=== PATIENT | male | born 1970 | race Caucasian/White ===

== ENCOUNTER 2021-12-29 11:50 | Emergency (ER) | payer MEDICAID, SELFPAY ==
[2021-12-29 11:54] VITALS: BP 171/106; PULSE 120; RESP 20; TEMP 36.3; O2SAT 95; BMI 45.1
[2021-12-29 12:42] VITALS: TEMP 36.7
--- NOTE | 2021-12-29 13:07 | EDS_ITS ---
HPI History of Present Illness Chief Complaint: Abscess Informant: patient Onset/Context/Timing Onset: Days (3) Context: Gradual Onset Timing: Continuous Quality: sharp, burning Location: Right medial thigh Worsened by: Nothing Relieved by: Nothing Narrative Narrative: Patient presents with an abscess to his right medial thigh that has been getting worse over the last 3 days. Patient states it started out as a dime size area and has now spread to most of his medial thigh. Patient denies any discharge or drainage. Patient denies any fevers or chills. Patient describes the pain as sharp and burning. Patient denies any paresthesias or weakness. Patient states nothing makes the pain better nothing makes it worse. [facility] Medical History (Updated 12/29/21 @ 16:[address] Andrea Herr DO) Diabetes Hypertension Physical exam, pre-employment Home Medications clindamycin HCl [Cleocin HCl] 300 mg PO Q6H #40 capsule 12/29/21 [Rx Last Taken Unknown] hydrocodone-acetaminophen 1 tab PO Q6H PRN PRN 3 Days #10 tablet 12/29/21 [Rx Last Taken Unknown] insulin detemir U-100 [Levemir Flexpen] 40 unit SUBCUT QHS 12/29/21 [History Last Taken 12/28/21] losartan 100 mg PO DAILY 12/29/21 [History Last Taken Unknown] Allergy/AdvReac Type Severity Reaction Status Date / Time Penicillins Allergy Hives Verified 12/29/21 11:51 Surgical History (Updated 12/29/21 @ 13:[address] Andrea Herr DO) H/O right wrist surgery Social History Smoking Status: Former smoker ROS ROS ED Constitutional Constitutional ED: Denies chills or fever(s) Eyes Eyes: Denies blurry vision or change in vision ENT ENT ED: Denies rhinorrhea or sore throat Cardiovascular Cardiovascular: Denies chest pain or palpitations Respiratory/Chest Respiratory/Chest: Denies cough or dyspnea Gastrointestinal Gastrointestinal: Denies nausea or vomiting Genitourinary Genitourinary ED: Denies dysuria or hematuria Musculoskeletal Musculoskeletal: Reports back pain and neck pain Integumentary Reports abscess and rash Neurologic Neurologic: Denies headache(s) or weakness Allergic/Immunologic Allergic/Immunologic ED: Denies mouth swelling or urticaria EXAM Physical Exam Const Vital Signs: 12/29/21 11:54 12/29/21 12:42 12/29/21 13:56 Temperature 97.3 F L 98.1 F 97.8 F Temperature Source Temporal Oral Temporal Pulse Rate 120 H 92 Respiratory Rate 20 H 18 Blood Pressure 171/106 H 150/90 H Blood Pressure Mean 127 110 Pulse Ox 95 92 Oxygen Delivery Method Room Air Room Air 12/29/21 16:43 Temperature Temperature Source Pulse Rate 91 Respiratory Rate 16 Blood Pressure Blood Pressure Mean Pulse Ox 98 Oxygen Delivery Method Positive well nourished, well developed and obese General Appearance ED: well developed and NAD Nutritional Appearance: obese HEENT Reports moist mucous membranes Neck supple and no JVD Extremity Extremity Narrative: There is an abscess over the right medial thigh area. There is significant surrounding induration and cellulitis. There is no active discharge or drainage. There is warmth. There is diffuse tenderness over the area. There is no active discharge or drainage. Neuro oriented x3, CN's II-XII intact bilaterally and no sensory deficits noted Sensorium / Orientation: alert Motor Exam: strength 5/5 throughout Psych mental status grossly normal MDM MDM MDM Narrative Medical decision making narrative: Patient was given morphine and clindamycin initially. Patient was given a repeat dose of morphine. Patient had minimal improvement with this. Patient was given a dose of Dilaudid. CBC shows a mild leukocytosis of 12.4. PT with INR and PTT are within normal limits. Comprehensive metabolic profile showed a glucose of 276. The remainder was within normal limits. Lactate was 1.9. The right medial thigh area was cleaned and anesthetized 1% lidocaine locally. A cruciate incision was made over the area of fluctuance. Large amount of purulent drainage was expressed. The wound was irrigated with normal saline. Patient also requested that the skin tag that is near the area of abscess be removed. Since it was under the area of anesthesia, this was removed with an 11 blade scalpel as well. Patient tolerated the procedure well. Patient was given prescriptions for clindamycin and a short course of [place]. Patient was instructed to follow-up with his primary care physician in 5 to 7 days. Patient understood and was agreeable with the plan. All questions were answered. Lab Data Attestation: I reviewed the patient's lab results. Labs: Laboratory Results - last 24 hr 12/29/21 12/29/21 12/29/21 13:44 13:44 13:44 WBC 12.4 H RBC 5.46 Hgb 16.0 Hct 48.1 MCV 88.1 MCH 29.3 MCHC 33.3 RDW Std Deviation 39.0 RDW Coeff of Jax 12.2 Plt Count 234 MPV 10.5 Immature Gran % (Auto) 0.500 Neut % (Auto) 75.9 H Lymph % (Auto) 15.1 L [place] % (Auto) 7.9 Eos % (Auto) 0.4 Baso % (Auto) 0.2 Absolute Neuts (auto) 9.4 H Absolute Lymphs (auto) 1.88 Nucleated RBC % 0 PT 13.2 INR 1.0 APTT 32.7 Sodium 135 L Potassium 3.9 Chloride 101 Carbon Dioxide 26.0 Anion Gap 8 BUN 13 Creatinine 0.83 Estim Creat Clear Calc 101.87 Est GFR (MDRD) Af Amer 125 Est GFR (MDRD) Non-Af 103 BUN/Creatinine Ratio 15.6 Glucose 276 H Lactic Acid Calcium 9.4 Total Bilirubin 1.20 H AST 16 ALT 49 Alkaline Phosphatase 100 Total Protein 8.2 Albumin 3.6 Globulin 4.6 H Albumin/Globulin Ratio 0.8 L 12/29/21 13:44 WBC RBC Hgb Hct MCV MCH MCHC RDW Std Deviation RDW Coeff of Jax Plt Count MPV Immature Gran % (Auto) Neut % (Auto) Lymph % (Auto) [place] % (Auto) Eos % (Auto) Baso % (Auto) Absolute Neuts (auto) Absolute Lymphs (auto) Nucleated RBC % PT INR APTT Sodium Potassium Chloride Carbon Dioxide Anion Gap BUN Creatinine Estim Creat Clear Calc Est GFR (MDRD) Af Amer Est GFR (MDRD) Non-Af BUN/Creatinine Ratio Glucose Lactic Acid 1.9 Calcium Total Bilirubin AST ALT Alkaline Phosphatase Total Protein Albumin Globulin Albumin/Globulin Ratio Discharge Plan Triage Chief Complaint: Abscess ED Provider: Andrea Herr Dx/Rx/DC Orders Clinical Impression: Abscess of right thigh, Cellulitis of right thigh, Diabetes mellitus Instructions: ED Abscess Incision And Drainage, ED Cellulitis Prescriptions: New clindamycin HCl [Cleocin HCl] 300 MG capsule 300 mg PO Q6H Qty: 40 RF: 0 hydrocodone-acetaminophen [hydrocodone-acetaminophen] 1 TABLET tablet 1 tab PO Q6H PRN PRN (Reason: Pain) 3 Days Qty: 10 RF: 0 No Action losartan 100 mg tablet 100 mg PO DAILY RF: 0 Levemir Flexpen 100 unit/mL (3 mL) Insulin Pen 40 unit SUBCUT QHS RF: 0 Stand Alone Forms: ED Work / School Excuse Primary Care Provider: Care Physician,No Primary Referrals: Milton Post MD [NON-STAFF] - 5-7 Days Care Physician,No Primary [Primary Care Provider] - Disposition Disposition: Home, Self Care Discharge Date/Time: 12/29/21 16:46
[2021-12-29] MEDS: 0.9% Normal Saline 1,000 ML 1000 ML IV (13:36)
[2021-12-29] MEDS: Morphine 4 MG/ML Syringe IV ×2 (13:36→14:35)
--- NOTE | 2021-12-29 13:40 | CM.ED ---
Social Work Note Reason for Referral: No PCP SW reviewed chart, no PCP listed for pt. SW met with pt. Pt confirms he has no PCP. SW provided pt with list of PCP. Magdalene Alanis [employer], RHIT
[2021-12-29 13:52] LABS: Absolute Lymphocyte Count 1.88 X10^3/uL (0.83-4.51); Absolute Neutrophil Count 9.4 X10^3/uL (2.0-7.7); Basophil# 0.03 X10^3/uL; Basophil% 0.2 % (0-1); Eosinophil# 0.05 X10^3/uL; Eosinophils% 0.4 % (0-5); Hematocrit 48.1 % (40-54); Lymphocyte # 1.88 X10^3/ul (0.83-4.51); Lymphocyte % 15.1 % (19-41); Mean Corp Hgb Conc 33.3 g/dL (32-36); Mean Corpuscular Hgb 29.3 pg (27.0-32.0); Mean Corpuscular Volume 88.1 fL (80-94); Mean Platelet Vol. 10.5 fl (6.2-12.0); Monocyte# 0.98 X10^3/uL; Monocyte% 7.9 % (0-10); NRBC Flagged by Analyzer 0 % (0-5); Neutrophil # 9.44 X10^3/uL (2.7-7.7); Neutrophil % 75.9 % (47-70); Platelet Count 234 K/mm3 (150-450); RBC Distribution Width CV 12.2 % (11.6-14.6); Red Blood Count 5.46 M/mm3 (4.6-6.2); White Blood Count 12.4 K/mm3 (4.4-11.0)
[2021-12-29] MEDS: levoFLOXacin IV 500 MG/100 ML BAG 100 MG IV (13:53)
[2021-12-29] MEDS: Doxycycline 100 MG CAPSULE PO (13:53)
[2021-12-29 13:56] VITALS: BP 150/90; PULSE 92; RESP 18; TEMP 36.6; O2SAT 92
[2021-12-29 14:03] LABS: Prothrombin Time (Protime)PT. 13.2 SECONDS (11.7-14.9)
[2021-12-29 14:04] LABS: Partial Thromboplast Time 32.7 Seconds (24.1-36.2)
[2021-12-29 14:10] LABS: ALB/GLOB Ratio 0.8 RATIO (0.9-2.4); AST(SGOT) 16 U/L (15-37); Alanine Aminotransfer ALT/SGPT 49 U/L (16-61); Albumin, Serum 3.6 g/dL (3.2-5.0); Alkaline Phosphatase 100 U/L (45-117); Anion Gap 8 (5-15); BUN 13 mg/dL (7-18); BUN/Creat Ratio 15.6 RATIO (10-20); Calcium,Total 9.4 mg/dL (8.5-10.1); Chloride 101 mmol/L (98-107); Creatinine, Serum 0.83 mg/dL (0.70-1.30); EST Glomerular Filtration Rate 103 mL/min (>60); Est Glom Filt Rate - Afr Amer 125 mL/min (>60); Estimated Creatinine Clearance 101.87 ml/min; Globulin 4.6 g/dL (2.2-4.2); Glucose 276 mg/dL (74-106); Potassium 3.9 mmol/L (3.5-5.1); Protein, Total 8.2 g/dL (6.4-8.2); Sodium Level 135 mmol/L (136-145)
[2021-12-29] MEDS: Lidocaine 1% (20 ml mdv) 20 ML Vial INFILT (14:38)
[2021-12-29 14:42] LABS: Lactic Acid 1.9 mmol/L (0.4-1.9)
[2021-12-29] MEDS: HYDROmorphone 1 MG/ML Syringe 0.5 MG IV ×2 (15:23→16:40)
[2021-12-29 16:43] VITALS: PULSE 91; RESP 16; O2SAT 98
== END 2021-12-29 16:46 | disposition home or self-care (01) ==
PROVIDERS: Emergency Provider Emergency Medicine; Visit Provider Emergency Medicine
DX: L02.415 Cutaneous abscess of right lower limb (principal); E11.9 Type 2 diabetes mellitus without complications; Z79.4 Long term (current) use of insulin; L03.115 Cellulitis of right lower limb; L91.8 Other hypertrophic disorders of the skin; I10 Essential (primary) hypertension; E66.9 Obesity, unspecified; Z79.899 Other long term (current) drug therapy; Z87.891 Personal history of nicotine dependence
CPT/HCPCS: 11200; 10060; 80053; 83605; 85025; 85610; 85730; 87040; 96365; 96375; 96376; 99284; J7030; J7050; A4216

== ENCOUNTER 2022-01-02 11:09 | Observation (INO) | payer MEDICAID, SELFPAY ==
[2022-01-02] VITALS (22 sets, daily range): BP systolic 134–189; BP diastolic 83–114; PULSE 101–128; RESP 14–22; TEMP 36.2–36.8; O2SAT 92–97; BMI 42.5; BMI 43.5
--- NOTE | 2022-01-02 11:24 | EKG12_ITS ---
Test Reason : CP Blood Pressure : / mmHG Vent. Rate : 120 BPM Atrial Rate : 120 BPM P-R Int : 160 ms QRS Dur : 080 ms QT Int : 312 ms P-R-T Axes : 056 -21 038 degrees QTc Int : 440 ms Sinus tachycardia Nonspecific ST abnormality Abnormal ECG Confirmed by BRIELLE MEADOWS, ANDRZEJ ([id number]), video effects editor SASCHA PARKS ([id number]) on 01/06/2022 9:01:21 AM Referred By: TANYA Confirmed By:ANDRZEJ HANNAH MD
--- NOTE | 2022-01-02 11:24 | CT_ITS ---
STUDY: CTA CHEST REASON FOR EXAM: Male, 51 years old. chest pain right RADIATION DOSAGE (If Supplied By Facility): CTDIvol = ( 12.63 ) mGy, DLP = ( 636.12 ) mGycm TECHNIQUE: The examination was performed with the intravenous administration of IV 75mL Isovue-370. Post-processing of the angiographic images was performed, with multiplanar reformation and 3D reconstruction. Individualized dose optimization techniques were used for this CT. COMPARISON: None. FINDINGS: Normal enhancement of the main pulmonary artery and right and left pulmonary arteries. Normal enhancement of the bilateral peripheral pulmonary arteries. There is no demonstrated pulmonary embolism. Normal thoracic aorta and visualized great vessels. There is no demonstrated aortic dissection. Normal heart and pericardium. Normal mediastinum. Normal hilar regions. Normal visualized trachea and bronchi. The lungs are well expanded. Normal pulmonary parenchyma. Normal pleura. Normal chest wall structures. Normal osseous structures. Normal visualized upper abdomen. CT/CTA Chest W/WO Contrast IMPRESSION: Normal CTA chest examination, without a demonstrated pulmonary embolism or arterial dissection. Electronically Signed: Umair Tran MD at 13:09 EDT ,
--- NOTE | 2022-01-02 11:27 | EX.ED.DYSGE1 ---
HPI History of Present Illness Chief Complaint: Chest Pain Informant: patient Onset/Context/Timing Onset: Yesterday Context: Gradual Onset Timing: Waxes and wanes Quality: Chart Location: Right lower chest Current Severity: Moderate Maximum Severity: Moderate Narrative Narrative: Patient presents secondary to chest pain and shortness of breath that started last evening. Patient was seen in the ER on December 29 for a right medial thigh abscess. I&D was performed and he was started on clindamycin. Patient states the area is scabbed over yesterday and is no longer draining. It became more painful last evening. Last night he developed sharp right-sided chest pain with shortness of breath. He denies fever or chills. He states in the past he was told he had heart failure but did not have a heart attack. [facility] Medical History Diabetes Hypertension Physical exam, pre-employment Home Medications clindamycin HCl [Cleocin HCl] 300 mg PO Q6H #40 capsule 12/29/21 [Rx Last Taken Unknown] hydrocodone-acetaminophen 1 tab PO Q6H PRN PRN 3 Days #10 tablet 12/29/21 [Rx Last Taken Unknown] insulin detemir U-100 [Levemir Flexpen] 40 unit SUBCUT QHS 12/29/21 [History Last Taken 12/28/21] losartan 100 mg PO DAILY 12/29/21 [History Last Taken Unknown] Allergy/AdvReac Type Severity Reaction Status Date / Time Penicillins Allergy Hives Verified 01/02/22 11:12 Surgical History H/O right wrist surgery Social History Smoking Status: Former smoker ROS ROS ED Constitutional Constitutional ED: Denies chills or fever(s) Eyes Eyes: Denies change in vision ENT ENT ED: Denies sore throat Cardiovascular Cardiovascular: Reports chest pain Respiratory/Chest Respiratory/Chest: Reports dyspnea; Denies cough Gastrointestinal Gastrointestinal: Denies abdominal pain, nausea or vomiting Genitourinary Genitourinary ED: Denies dysuria Musculoskeletal Musculoskeletal: Reports myalgias; Denies back pain Integumentary Reports abscess; Denies rash Neurologic Neurologic: Denies headache(s) or weakness Allergic/Immunologic Allergic/Immunologic ED: Denies urticaria EXAM Physical Exam Const Vital Signs: 01/02/22 11:09 01/02/22 12:10 01/02/22 13:07 Temperature 97.2 F L Temperature Source Temporal Pulse Rate 123 H 115 H 113 H Respiratory Rate 20 H 14 19 H Blood Pressure 168/100 H 165/90 H Blood Pressure Mean 122 115 Pulse Ox 95 93 92 Oxygen Delivery Method Room Air Room Air Positive obese Nutritional Appearance: obese HEENT Reports moist mucous membranes Eyes PERRL and EOMs intact bilaterally Neck supple Chest Wall inspection of chest normal and palpation of chest normal Resp normal respiratory effort and clear to auscultation bilaterally Cardio Rate: tachycardic GI non-tender Palpation: soft Extremity Extremity Narrative: Induration with cutaneous abscess medial right thigh with surrounding cellulitis. Neuro oriented x3 Sensorium / Orientation: alert Psych Mood & Affect: anxious MDM MDM MDM Narrative Medical decision making narrative: Patient was given Dilaudid and Zofran for pain control. Lab work obtained along with blood cultures. IV vancomycin given secondary to cellulitis. CTA of the chest ordered. Lab Data Attestation: I reviewed the patient's lab results. Labs: Laboratory Results - last 24 hr 01/02/22 01/02/22 11:15 11:15 WBC 12.7 H RBC 5.43 Hgb 15.9 Hct 48.4 MCV 89.1 MCH 29.3 MCHC 32.9 RDW Std Deviation 40.2 RDW Coeff of Jax 12.3 Plt Count 312 MPV 10.2 Immature Gran % (Auto) 0.600 Neut % (Auto) 70.7 H Lymph % (Auto) 16.4 L [place] % (Auto) 11.1 H Eos % (Auto) 0.9 Baso % (Auto) 0.3 Absolute Neuts (auto) 9.0 H Absolute Lymphs (auto) 2.09 Nucleated RBC % 0 Sodium 132 L Potassium 4.2 Chloride 98 Carbon Dioxide 25.0 Anion Gap 9 BUN 29 H Creatinine 1.07 Estim Creat Clear Calc 79.02 Est GFR (MDRD) Af Amer 94 Est GFR (MDRD) Non-Af 77 BUN/Creatinine Ratio 27.1 H Glucose 362 H Calcium 9.9 Troponin I High Sens 18 Radiography Diagnostic Testing: Clinical Impression(s) from Imaging Studies Chest CTA 01/02/22 11:24 IMPRESSION: Normal CTA chest examination, without a demonstrated pulmonary embolism or arterial dissection. Electronically Signed: Umair Tran MD at 13:09 EDT , EKG Initial EKG: Attestation: I personally reviewed and interpreted this EKG as follows: Interpretation: Sinus Tachycardia (Sinus tachycardia at 120. No acute ST change.) Treatment and Re-Evaluation Narrative: Patient did receive second dose of Dilaudid along with a dose of Ativan to help with anxiety. Lab work reveals mildly elevated white count at 12.7. Chemistry studies significant for a sodium of 132 and glucose of 362. Troponin is 18. CTA of the chest reveals no evidence of PE. Given the patient's recently drained abscess with surrounding cellulitis and increased pain I do feel he will require IV antibiotics as he has failed outpatient clindamycin. A 2-hour repeat troponin is ordered at this time. I will speak with hospitalist regarding admission. Discharge Plan Triage Chief Complaint: Chest Pain ED Provider: Delmi Strong Dx/Rx/DC Orders Clinical Impression: Chest pain, Cellulitis and abscess of right leg Prescriptions: No Action losartan 100 mg tablet 100 mg PO DAILY RF: 0 Levemir Flexpen 100 unit/mL (3 mL) Insulin Pen 40 unit SUBCUT QHS RF: 0 clindamycin HCl [Cleocin HCl] 300 MG capsule 300 mg PO Q6H Qty: 40 RF: 0 hydrocodone-acetaminophen [hydrocodone-acetaminophen] 1 TABLET tablet 1 tab PO Q6H PRN PRN (Reason: Pain) 3 Days Qty: 10 RF: 0 Primary Care Provider: Care Physician,No Primary Referrals: Care Physician,No Primary [Primary Care Provider] - Disposition Disposition: Acute Care Hospital [facility]
[2022-01-02] MEDS: HYDROmorphone 1 MG/ML Syringe 0.5 MG IV (11:35)
[2022-01-02] MEDS: Ondansetron 4 MG/2 ML Vial IV (11:35)
[2022-01-02 11:41] LABS: Absolute Lymphocyte Count 2.09 X10^3/uL (0.83-4.51); Basophil# 0.04 X10^3/uL; Basophil% 0.3 % (0-1); Eosinophil# 0.12 X10^3/uL; Eosinophils% 0.9 % (0-5); Hematocrit 48.4 % (40-54); Hemoglobin 15.9 g/dL (13.0-16.5); Lymphocyte # 2.09 X10^3/ul (0.83-4.51); Lymphocyte % 16.4 % (19-41); Mean Corp Hgb Conc 32.9 g/dL (32-36); Mean Corpuscular Hgb 29.3 pg (27.0-32.0); Mean Corpuscular Volume 89.1 fL (80-94); Mean Platelet Vol. 10.2 fl (6.2-12.0); Monocyte# 1.41 X10^3/uL; Monocyte% 11.1 % (0-10); NRBC Flagged by Analyzer 0 % (0-5); Neutrophil # 8.97 X10^3/uL (2.7-7.7); Neutrophil % 70.7 % (47-70); Platelet Count 312 K/mm3 (150-450); RBC Distribution Width CV 12.3 % (11.6-14.6); RBC Distribution Width SD 40.2 fl (35.1-43.9); Red Blood Count 5.43 M/mm3 (4.6-6.2); White Blood Count 12.7 K/mm3 (4.4-11.0)
[2022-01-02 11:53] LABS: Anion Gap 9 (5-15); BUN 29 mg/dL (7-18); BUN/Creat Ratio 27.1 RATIO (10-20); Calcium,Total 9.9 mg/dL (8.5-10.1); Chloride 98 mmol/L (98-107); Creatinine, Serum 1.07 mg/dL (0.70-1.30); EST Glomerular Filtration Rate 77 mL/min (>60); Est Glom Filt Rate - Afr Amer 94 mL/min (>60); Estimated Creatinine Clearance 79.02 ml/min; Glucose 362 mg/dL (74-106); Potassium 4.2 mmol/L (3.5-5.1); Sodium Level 132 mmol/L (136-145); Troponin-I HS (w/2H Reflex) 18 pg/mL (3.0-78.0)
[2022-01-02] MEDS: 0.9% Normal Saline 1,000 ML 150 ML IV ×2 (12:07→19:11)
[2022-01-02] MEDS: HYDROmorphone 0.5 MG/0.5 ML SYRINGE IV (12:14)
[2022-01-02] MEDS: LORazepam 2 MG/ML Syringe 0.5 MG IV ×2 (12:14→23:35)
[2022-01-02 13:33] LABS: Reflex Troponin-HS? (from REC) Y
--- NOTE | 2022-01-02 13:37 | HP.PCM.HOS_ITS ---
HPI - General General Date of Admission: 01/02/22 HPI Narrative DEDE SCHWARTZ, is a 51 M with a PMH as outlined who presents via the ED on 01.02.2022 with a complaint of chest pain. Chest pain started 1 day prior to admission. He had associated shortness of breath. He had been seen in the ED on December 29 2021 for right thigh abscess and had I&D in the ED. He ws sent home on oral clindamycin. He said the cellulitic area had scabbed off, but had become more painful. He subsequently developed chest pain; he denied any fever or chills, any palpitations, nausea, vomiting or diarrhea. Review of systems was otherwise negative. Vitals in the ED were BP of 165/90, temp of 97.2F, NV of 113 and RR of 19. He ws on room air and saturating at 93%. CBC showed WBC of 12.7 but was otherwise unremarkable. Chemistry was also essentially unremarkable. Initial troponin was not elevated. CT of the chest was negative for any evidence of PE. He was started on IV vancomycin, and is being admitted to be managed for chest pain to rule out ACS, as well as cellulitis of LLE, with failed outpatient treatment. [facility] Medical History Diabetes Hypertension Physical exam, pre-employment Home Medications clindamycin HCl [Cleocin HCl] 300 mg PO Q6H #40 capsule 12/29/21 [Rx Last Taken Unknown] hydrocodone-acetaminophen 1 tab PO Q6H PRN PRN 3 Days #10 tablet 12/29/21 [Rx Last Taken Unknown] insulin detemir U-100 [Levemir Flexpen] 40 unit SUBCUT QHS 12/29/21 [History Last Taken 12/28/21] losartan 100 mg PO DAILY 12/29/21 [History Last Taken Unknown] Allergy/AdvReac Type Severity Reaction Status Date / Time Penicillins Allergy Hives Verified 01/02/22 11:12 Surgical History H/O right wrist surgery Social History Smoking Status: Former smoker ROS Constitutional Constitutional: Reports malaise and weakness; Denies anorexia, chills, fatigue or fever(s) Eyes Eyes: Denies change in vision ENT HEENT: Denies dysphagia Cardiovascular Cardiovascular: Reports rapid heart rate; Denies chest pain, dyspnea on exertion, edema, lightheadedness, orthopnea, palpitations, paroxysmal nocturnal dyspnea or syncope Respiratory/Chest Respiratory/Chest: Denies cough, dyspnea, productive cough, shortness of breath at rest or shortness of breath with exertion Gastrointestinal Gastrointestinal: Denies abdominal pain, constipation, diarrhea, hematochezia, loose stools, nausea or vomiting Genitourinary Genitourinary: Denies dysuria Musculoskeletal Musculoskeletal: Denies arthralgias, back pain or joint pain Neurologic Neurologic: Denies confusion, dizziness, focal weakness, headache(s), seizure- like activity or seizures Psychiatric Psychiatric: Denies anxiety or depression Endocrine Endocrinology: Denies change in body appearance Hematologic/Lymphatic Hematologic/Lymphatic: Denies anemia Allergic/Immunologic Allergic/Immunologic: Denies asthma Vital Signs Vital Signs Vital Signs: 01/02/22 11:09 01/02/22 12:10 01/02/22 13:07 Temperature 97.2 F L Temperature Source Temporal Pulse Rate 123 H 115 H 113 H Respiratory Rate 20 H 14 19 H Blood Pressure 168/100 H 165/90 H Blood Pressure Mean 122 115 Pulse Ox 95 93 92 Oxygen Delivery Method Room Air Room Air Weight Weight: 280 lb Body Mass Index (BMI) 42.5 Physical Exam Const alert and oriented x3 General Appearance: cooperative HEENT normocephalic, head/scalp atraumatic, hearing grossly normal bilaterally and moist oral mucous membranes Eyes PERRL, EOMs intact bilaterally and conjunctivae normal Neck no lymphadenopathy and supple Resp normal respiratory effort, no retractions, no use of accessory muscles and clear to auscultation bilaterally Cardio regular rate, regular rhythm, S1 normal heart sound, S2 normal heart sound and no murmurs GI normal to inspection, nondistended, normoactive bowel sounds, soft to palpation, non-tender, non-distended and hepatosplenomegaly Extremity normal to inspection, full ROM and no clubbing, cyanosis or edema Peripheral Pulses: Yes pulses 2+ throughout Skin Skin Narrative: has firm, erythematous, very tender swelling in hte right inner thigh, towards the groin, with an obvious point of drainage. not actively draining. Measures ~ 10 x7cm. Neuro oriented x3, CN's II-XII intact bilaterally and moves all extremities Sensorium / Orientation: awake and alert Psych affect normal Results Lab / Micro Data Result Diagrams: 01/02/22 11:15 01/02/22 11:15 Labs: Laboratory Results - last 24 hr 01/02/22 11:15: WBC 12.7 H, RBC 5.43, Hgb 15.9, Hct 48.4, MCV 89.1, MCH 29.3, MCHC 32.9, RDW Std Deviation 40.2, RDW Coeff of Jax 12.3, Plt Count 312, MPV 10.2, Immature Gran % (Auto) 0.600, Neut % (Auto) 70.7 H, Lymph % (Auto) 16.4 L, [place] % (Auto) 11.1 H, Eos % (Auto) 0.9, Baso % (Auto) 0.3, Absolute Neuts (auto) 9.0 H, Absolute Lymphs (auto) 2.09, Nucleated RBC % 0 01/02/22 11:15: Sodium 132 L, Potassium 4.2, Chloride 98, Carbon Dioxide 25.0, Anion Gap 9, BUN 29 H, Creatinine 1.07, Estim Creat Clear Calc 79.02, Est GFR (MDRD) Af Amer 94, Est GFR (MDRD) Non-Af 77, BUN/Creatinine Ratio 27.1 H, Glucose 362 H, Calcium 9.9, Troponin I High Sens 18 Radiology Impression Chest CTA 01/02/22 11:24 IMPRESSION: Normal CTA chest examination, without a demonstrated pulmonary embolism or arterial dissection. Electronically Signed: Umair Tran MD at 13:09 EDT , Assessment & Plan Assessment/Plan (1) Cellulitis of right thigh: (2) Abscess of right thigh: (3) Chest pain: PLAN: #Cellulitis with abscess of the right thigh * failed outpatient therapy; was seen in the ED on December 29 and had an I&D and was sent home on clindamycin but symptoms persisted and worsened. * will start on IV vancomycin * consult general surgery as he will need an I&D most likely * Iv morphine prn for pain * #Chest pain * Says he had pressure-like chest pain as well. He says he has had a history of heart attack and heart failure several years ago in [place] * Initial troponin was negative. We will cycle. If negative, for stress test tomorrow. * #Sinus tachycardia * likely due to pain and anxiety. CTA chest negative for PE. * EKG showed sinus tachycardia * should improve with pain meds. * #TYpe 2 diabetes mellitus * States this is not well controlled. He does not know what his last A1c was. * On Lantus 40 units nightly. * Check A1c. * Insulin sliding scale. Accu-Cheks ACH S. * #Hypertension: On losartan DVT prophylaxis; lovenox Charges/Coding Visit Charges Inpatient E&M: 51162 Init Hosp L3
[2022-01-02 13:56] LABS: AST(SGOT) 16 U/L (15-37); Alanine Aminotransfer ALT/SGPT 47 U/L (16-61); Albumin, Serum 3.2 g/dL (3.2-5.0); Alkaline Phosphatase 112 U/L (45-117); Bilirubin, Direct 0.21 mg/dL (0.00-0.30); Globulin 5.2 g/dL (2.2-4.2); Protein, Total 8.4 g/dL (6.4-8.2)
[2022-01-02 13:58] LABS: Troponin-I HS 18 pg/mL (3.0-78.0)
--- NOTE | 2022-01-02 15:04 | EKG12_ITS ---
Test Reason : Blood Pressure : / mmHG Vent. Rate : 114 BPM Atrial Rate : 114 BPM P-R Int : 162 ms QRS Dur : 088 ms QT Int : 316 ms P-R-T Axes : 044 -14 039 degrees QTc Int : 435 ms Sinus tachycardia Otherwise normal ECG When compared with ECG of 02-JAN-2022 11:19, MANUAL COMPARISON REQUIRED, DATA IS UNCONFIRMED Confirmed by KESHIA MEADOWS, LEONARDO ([id number]), makeup editor SASCHA PARKS ([id number]) on 01/04/2022 1:12:30 PM Referred By: DANIEL Confirmed By:LEONARDO SCHMITT MD
[2022-01-02] MEDS: Acetaminophen 325 MG Tablet 650 MG PO (15:20)
[2022-01-02] MEDS: Morphine 2 MG/ML Syringe IV (15:20)
[2022-01-02 15:31] LABS: Hemoglobin A1c 10.6 % (3.8-5.6)
[2022-01-02] MEDS: Nitroglycerin (INPATIENT USE) 0.4 MG TAB.SUBL SL ×3 (15:37→15:46)
--- NOTE | 2022-01-02 15:54 | CT_ITS ---
CT of the right hip without contrast INDICATION: Abscess. TECHNIQUE: Multiple thin section axial CT images the right hip were obtained without the ministration of intravenous contrast and filmed in soft tissue and bone windows. Furthermore, multiple sagittal and coronal reconstructions were performed. Dose limiting techniques were utilized. FINDINGS: Skin thickening and edema of the subcutaneous fat of the proximal right thigh consistent with cellulitis. 5 cm fluid collection within the subcutaneous fat of the medial right thigh consistent with a known abscess. There is some adjacent bubbles of gas consistent with recent intervention. No acute fracture or dislocation. No lytic or blastic lesions. CT/Extremity Lower without Contra IMPRESSION: Cellulitis the proximal right thigh with a 5 cm abscess. Electronically Signed: Umair Tran MD at 17:43 EDT ,
--- NOTE | 2022-01-02 16:41 | CON.PCM.SX_ITS ---
Assessment & Plan Assessment/Plan (1) Abscess of right thigh: PLAN: I am going to take the patient to the OR and perform an incision and drainage of this area. I told him that I am probably going to have to do some significant debridement to get all the undrained area out. In addition I told him that he is more likely going to need to have a wound VAC on this area at some point. I have counseled the patient as to the risks of the procedure, including but not limited to: infection, bleeding, injury to any blood vessels/nerves, injury to any bowel/bladder, injury to any intraabdominal organs such as the liver/spleen, perforation of the GI tract, intraabdominal abscess/bleeding, incisional hernias, injury to the common bile duct/biliary ducts, injury to the spermatic cord/vessels/testicles, recurrence of hernia(s), complications of anesthesia, etc. The patient verbalizes understanding. HPI Consult Data Date of Consult: 01/02/22 HPI Narrative HPI Narrative: DEDE EFREN, liliana a 51 M with a PMH as outlined who presents via the ED on 01.02.2022 with a complaint of chest pain. Chest pain started 1 day prior to admission. He had associated shortness of breath. He had been seen in the ED on December 29 2021 for right thigh abscess and had I&D in the ED. He ws sent home on oral clindamycin. He said the cellulitic area had scabbed off, but had become more painful. He subsequently developed chest pain; he denied any fever or chills, any palpitations, nausea, vomiting or diarrhea. Review of systems was otherwise negative. Vitals in the ED were BP of 165/90, temp of 97.2F, NE of 113 and RR of 19. He ws on room air and saturating at 93%. CBC showed WBC of 12.7 but was otherwise unremarkable. Chemistry was also essentially unremarkable. Initial troponin was not elevated. CT of the chest was negative for any evidence of PE. He was started on IV vancomycin, and is being admitted to be managed for chest pain to rule out ACS, as well as cellulitis of LLE, with failed outpatient treatment. [facility] Medical History Diabetes Hypertension Physical exam, pre-employment Home Medications clindamycin HCl [Cleocin HCl] 300 mg PO Q6H #40 capsule 12/29/21 [Rx Last Taken Unknown] hydrocodone-acetaminophen 1 tab PO Q6H PRN PRN 3 Days #10 tablet 12/29/21 [Rx Last Taken Unknown] insulin detemir U-100 [Levemir Flexpen] 40 unit SUBCUT QHS 12/29/21 [History Last Taken 12/28/21] losartan 100 mg PO DAILY 12/29/21 [History Last Taken Unknown] metformin 1,000 mg PO BID 01/02/22 [History Last Taken Unknown] Allergy/AdvReac Type Severity Reaction Status Date / Time Penicillins Allergy Hives Verified 01/02/22 11:12 Surgical History H/O right wrist surgery Social History Smoking Status: Former smoker ROS Constitutional Constitutional: Reports malaise and weakness; Denies chills or fever(s) Cardiovascular Cardiovascular: Reports racing heartbeat; Denies diaphoresis or dyspnea on exertion Respiratory/Chest Respiratory/Chest: Denies cough or dyspnea Gastrointestinal Gastrointestinal: Denies abdominal pain Genitourinary Genitourinary: Denies change in urinary stream Musculoskeletal Musculoskeletal: Denies arthralgias, joint pain or tingling Integumentary Integumentary: Reports erythema and wounds Physical Exam Const alert and oriented x3 General Appearance: cooperative HEENT normocephalic and head/scalp atraumatic Eyes PERRL and EOMs intact bilaterally Resp clear to auscultation bilaterally Cardio Rate: regular rate GI soft to palpation Extremity Extremity Narrative: Large cellulitic area on the right inner aspect of his thigh. Opening with purulent material coming from it measuring approximately 1 cm in diameter. Tender to touch. Lab / Micro Data Result Diagrams: 01/02/22 11:15 01/02/22 11:15 Labs: Laboratory Results - last 24 hr 01/02/22 11:15: WBC 12.7 H, RBC 5.43, Hgb 15.9, Hct 48.4, MCV 89.1, MCH 29.3, MCHC 32.9, RDW Std Deviation 40.2, RDW Coeff of Jax 12.3, Plt Count 312, MPV 10.2, Immature Gran % (Auto) 0.600, Neut % (Auto) 70.7 H, Lymph % (Auto) 16.4 L, [place] % (Auto) 11.1 H, Eos % (Auto) 0.9, Baso % (Auto) 0.3, Absolute Neuts (auto) 9.0 H, Absolute Lymphs (auto) 2.09, Nucleated RBC % 0 01/02/22 11:15: Sodium 132 L, Potassium 4.2, Chloride 98, Carbon Dioxide 25.0, Anion Gap 9, BUN 29 H, Creatinine 1.07, Estim Creat Clear Calc 79.02, Est GFR (MDRD) Af Amer 94, Est GFR (MDRD) Non-Af 77, BUN/Creatinine Ratio 27.1 H, Glucose 362 H, Calcium 9.9, Troponin I High Sens 18 01/02/22 11:15: Total Bilirubin 0.80, Direct Bilirubin 0.21, AST 16, ALT 47, Alkaline Phosphatase 112, Total Protein 8.4 H, Albumin 3.2, Globulin 5.2 H 01/02/22 13:34: Troponin I High Sens 18 01/02/22 15:00: Hemoglobin A1c 10.6 H Radiology Impression Chest CTA 01/02/22 11:24 IMPRESSION: Normal CTA chest examination, without a demonstrated pulmonary embolism or arterial dissection. Electronically Signed: Umair Tarn MD at 13:09 EDT ,
[2022-01-02 16:56] LABS: Bedside Glucose 265 mg/dL (74-106)
[2022-01-02 17:32] LABS: Troponin-I HS 20 pg/mL (3.0-78.0)
[2022-01-02] MEDS: BUPIVACAINE LIPOSOME/PF 20 ML VIAL OPERA.SITE (17:36)
--- NOTE | 2022-01-02 17:46 | OP.PCM_ITS ---
Problems Associated Problem List Diagnoses (1) Abscess of right thigh: Report of Operation Date of Procedure: 01/02/22 Pre-Operative Diagnosis: Abscess to right thigh Post-Operative Diagnosis: Same Surgery/Procedure Performed:: Incision and drainage and debridement of abscess to right thigh Surgeon: Kg Sultana director of casework: Adam Hoskins Type of Anesthesia: General Anesthesiologist: Han Rosales Specimen's removed: Skin of right thigh Estimated Blood Loss (mL): < 25 cc Description of Procedure: Patient was brought into the operating room. Placed in the supine position. Under excellent general anesthetic right thigh was sterilely prepped and draped in usual fashion. I made an oval incision dissected down to the deep fascia removing the skin and entering an abscess cavity. This cavity also went up superiorly to the groin. I subsequently made a counterincision going up to the groin but I did not remove any skin with this. Cultures and sensitivity were obtained. I irrigated out the wound. I use electrocautery for good epistasis. I injected Exparel. I packed the wound with a Betadine soaked Curlex pack. Sterile dressings were applied and the patient tolerated the procedure well. This abscess went all the way down to the fascia of the thigh. It did not enter the muscle. It was approximately 4-1/2 cm deep and more than 15 cm long. At the end there was no undrained abscesses that I could see. The surrounding tissue still had a lot of induration to it. Admit VTE Documentation VTE Present on Admission: No VTE Mechan Device Prophylaxis: SCD's VTE Pharm Prophylaxis ordered?: No Reason prophylaxis not ordered:: Treatment Not Indicated
--- NOTE | 2022-01-02 18:03 | PCM.RX.CS ---
Consult Pharmacy has been consulted to manage selected antiobiotic: Vancomycin Type of Consult: New start Suspected Infection: Skin/Soft tissue Prior Doses of Antibiotics Received/Current Regimen: Received 2gm x1 in ER on 01.02.22. Labs: Sodium 132 mmol/L (136-145) L 01/02/22 11:15 Potassium 4.2 mmol/L (3.5-5.1) 01/02/22 11:15 Chloride 98 mmol/L (98-107) 01/02/22 11:15 Carbon Dioxide 25.0 mmol/L (21.0-32.0) 01/02/22 11:15 Anion Gap 9 (5-15) 01/02/22 11:15 BUN 29 mg/dL (7-18) H 01/02/22 11:15 Creatinine 1.07 mg/dL (0.70-1.30) 01/02/22 11:15 Est GFR (MDRD) Af Amer 94 mL/min (>60) 01/02/22 11:15 Est GFR (MDRD) Non-Af 77 mL/min (>60) 01/02/22 11:15 BUN/Creatinine Ratio 27.1 RATIO (10-20) H 01/02/22 11:15 Glucose 362 mg/dL (74-106) H 01/02/22 11:15 Weight used for dosin kg Estimated Creatinine Clearance: 79ml/min Goal Trough: 15-20 mcg/mL Pharmacy Plan for Drug Dosing: Will start 1750mg iv q12h. Trough level ordered for 01.04.22 before 4th total dose. Pharmacy Service will continue to monitor and adjust dosing as required. Follow-Up Labs: Trough Vancomycin - 01.04.22 @0030
[2022-01-02 18:25] LABS: Bedside Glucose 275 mg/dL (74-106)
[2022-01-02] MEDS: Ketorolac 30 MG/ML Syringe IV (18:46)
[2022-01-02] MEDS: levoFLOXacin IV 500 MG/100 ML BAG 100 MG IV (19:02)
[2022-01-02] MEDS: Insulin Lispro 100 UNIT/ML INSULN.PEN SC ×2 (19:17→22:35)
[2022-01-02] MEDS: metroNIDAZOLE 500 MG/100 ML BAG 100 MG IV (20:19)
[2022-01-02] MEDS: oxyCODONE 5 MG Tablet PO (22:27)
[2022-01-02] MEDS: Insulin Glargine-YFGN 100 UNIT/ML Pen 40 UNIT SC (22:35)
[2022-01-02 22:46] LABS: Bedside Glucose 392 mg/dL (74-106)
[2022-01-02] MEDS: HYDROmorphone 1 MG/ML Syringe IV (23:30)
[2022-01-02] MEDS: Glucerna Shake 120 ML LIQUID PO (23:40)
[2022-01-03] VITALS (10 sets, daily range): BP systolic 152–189; BP diastolic 94–120; PULSE 100–117; RESP 18–20; TEMP 36.1–36.9; O2SAT 94–98
--- NOTE | 2022-01-03 | ABS_PTH ---
PATIENT: DEDE SCHWARTZ LOC: [facility] U#:[id number] AGE/SX: 51/M ROOM: [facility] RE01/02/[address]: Dr. Andrea Andrea DO : 1970 BED: 1 DIS: 01/07/2022 SPEC #: [id number] RECD: 01/03/22 10:02 STATUS: ROSARIO REClaudio #: [id number] SHAW: 01/03/22 00:[address]: Kg Sultana DEPT: SURGICAL PATHOLOGY RECD BY: Anoop Treviño ENTERED: 01/03/22 11:44 SP TYPE: Abscess OTHR DR: MD Dr. Andrea Ang DO Dr. Nana Yaa Koram, MD No Primary Care Phys Tissues: Thigh, NOS Procedures: Surgery Specimen Level IV Comments: @ Ordering doctor for SUIII edited from to @ sisi VELASQUEZ at 01/03/22 1300 @ Submitting doctor edited from to DR.DPEABO Fabian VELASQUEZ at 01/03/22 1300 HEADER OPERATION: Incision and drainage abscess PRE-OP DIAGNOSIS: Abscess of right thigh TISSUE SUBMITTED: Skin abscess right thigh MICROSCOPIC DIAGNOSIS Skin and soft tissue of right thigh, excision: Ulceration with associated acute and chronic inflammation consistent with abscess of thigh. AM:tamiko 01/04/2022 MICROSCOPIC DESCRIPTION Slides are reviewed. GROSS DESCRIPTION Received in fixative is one container labeled with the patient's name and designated skin abscess right thigh. The specimen consists of two pieces of skin with underlying tissue measuring 3.5 x 2 cm and up to 2.5 cm in thickness and 2.5 x 1 cm and up to 2.5 cm in thickness. The specimen is totally submitted in one cassette. / SJ:tamiko 01/03/2022 TC:2 CPT: 35520
[2022-01-03] MEDS: Acetaminophen 325 MG Tablet 650 MG PO ×2 (00:31→08:33)
[2022-01-03] MEDS: HYDROmorphone 1 MG/ML Syringe IV ×3 (01:45→06:58)
[2022-01-03] MEDS: 0.9% Normal Saline 1,000 ML 150 ML IV (02:18)
[2022-01-03] MEDS: Polyethylene Glycol 3350 17 GM PACKET PO (03:00)
[2022-01-03] MEDS: oxyCODONE 5 MG Tablet PO ×3 (03:25→17:08)
[2022-01-03] MEDS: LORazepam 2 MG/ML Syringe 1 MG IV (03:58)
[2022-01-03] MEDS: metroNIDAZOLE 500 MG/100 ML BAG 100 MG IV ×3 (05:47→20:58)
[2022-01-03 06:07] LABS: Absolute Lymphocyte Count 2.47 X10^3/uL (0.83-4.51); Absolute Neutrophil Count 5.8 X10^3/uL (2.0-7.7); Basophil# 0.03 X10^3/uL; Basophil% 0.3 % (0-1); Eosinophil# 0.11 X10^3/uL; Eosinophils% 1.1 % (0-5); Hematocrit 39.4 % (40-54); Hemoglobin 12.8 g/dL (13.0-16.5); Lymphocyte # 2.47 X10^3/ul (0.83-4.51); Lymphocyte % 25.8 % (19-41); Mean Corp Hgb Conc 32.5 g/dL (32-36); Mean Corpuscular Hgb 29.2 pg (27.0-32.0); Mean Corpuscular Volume 89.7 fL (80-94); Mean Platelet Vol. 10.2 fl (6.2-12.0); Monocyte# 1.13 X10^3/uL; Monocyte% 11.8 % (0-10); NRBC Flagged by Analyzer 0 % (0-5); Neutrophil # 5.77 X10^3/uL (2.7-7.7); Neutrophil % 60.4 % (47-70); Platelet Count 226 K/mm3 (150-450); RBC Distribution Width CV 12.5 % (11.6-14.6); RBC Distribution Width SD 41.3 fl (35.1-43.9); Red Blood Count 4.39 M/mm3 (4.6-6.2); White Blood Count 9.6 K/mm3 (4.4-11.0)
--- NOTE | 2022-01-03 06:41 | NURSING ---
After Dr. Moise was notified that pt drank a pop at 0400 in spite of planned stress test this RN informed pt that he must be npo since 0400 to have procedure done today. Pt states he does not want to do the procedure and feels that the chest pain was secondary to the pain he was experiencing from his infection. He stated that after he received nitro that the chest pain went away. This RN educated pt on the pharmacology of nitro in relation to chest pain and urged pt to reconsider having stress test done. Pt states he will be here for several more days and will reconsider later. Bahman provided to patient on nitro.
[2022-01-03] MEDS: Insulin Lispro 100 UNIT/ML INSULN.PEN SC ×6 (06:52→21:06)
[2022-01-03 06:59] LABS: Anion Gap 7 (5-15); BUN 20 mg/dL (7-18); Calcium,Total 8.4 mg/dL (8.5-10.1); Chloride 103 mmol/L (98-107); Creatinine, Serum 0.87 mg/dL (0.70-1.30); EST Glomerular Filtration Rate 98 mL/min (>60); Est Glom Filt Rate - Afr Amer 119 mL/min (>60); Estimated Creatinine Clearance 97.18 ml/min; Glucose 408 mg/dL (74-106); Potassium 4.1 mmol/L (3.5-5.1); Sodium Level 133 mmol/L (136-145)
--- NOTE | 2022-01-03 07:12 | PCM.PN.SRG ---
Subjective Subjective Complaining of sweating a lot last night did not get a good nights rest. Also complaining of some chest pain which was relieved with some nitro Objective Data Objective Data Leg is softening up. Vital Signs: Vital Signs Temp Pulse Resp BP Pulse Ox 97.7 F L 100 18 166/106 H 94 01/03/22 03:57 01/03/22 03:57 01/03/22 03:57 01/03/22 03:57 01/03/22 03:57 Oxygen Flow Rate (L/min) 2 Oxygen Delivery Method Room Air Weight: 286 lb 9.615 oz Body Mass Index (BMI) 43.5 Intake & Output: Intake and Output for Last 24 Hours 01/01/22 01/02/22 01/03/22 23:59 23:59 23:59 Intake Total 1740 / 1940 1735 / 1735 Output Total 550 / 550 550 / 550 Balance 1190 / 1390 1185 / 1185 Lab / Micro Data Result Diagrams: 01/03/22 05:25 01/03/22 05:25 Labs: Laboratory Results - last 24 hr 01/02/22 11:15: WBC 12.7 H, RBC 5.43, Hgb 15.9, Hct 48.4, MCV 89.1, MCH 29.3, MCHC 32.9, RDW Std Deviation 40.2, RDW Coeff of Jax 12.3, Plt Count 312, MPV 10.2, Immature Gran % (Auto) 0.600, Neut % (Auto) 70.7 H, Lymph % (Auto) 16.4 L, [place] % (Auto) 11.1 H, Eos % (Auto) 0.9, Baso % (Auto) 0.3, Absolute Neuts (auto) 9.0 H, Absolute Lymphs (auto) 2.09, Nucleated RBC % 0 01/02/22 11:15: Sodium 132 L, Potassium 4.2, Chloride 98, Carbon Dioxide 25.0, Anion Gap 9, BUN 29 H, Creatinine 1.07, Estim Creat Clear Calc 79.02, Est GFR (MDRD) Af Amer 94, Est GFR (MDRD) Non-Af 77, BUN/Creatinine Ratio 27.1 H, Glucose 362 H, Calcium 9.9, Troponin I High Sens 18 01/02/22 11:15: Total Bilirubin 0.80, Direct Bilirubin 0.21, AST 16, ALT 47, Alkaline Phosphatase 112, Total Protein 8.4 H, Albumin 3.2, Globulin 5.2 H 01/02/22 13:34: Troponin I High Sens 18 01/02/22 15:00: Hemoglobin A1c 10.6 H 01/02/22 16:37: POC Glucose 265 H 01/02/22 16:59: Troponin I High Sens 20 01/02/22 18:19: POC Glucose 275 H 01/02/22 22:33: POC Glucose 392 H 01/03/22 05:25: WBC 9.6, RBC 4.39 L, Hgb 12.8 L, Hct 39.4 L, MCV 89.7, MCH 29.2, MCHC 32.5, RDW Std Deviation 41.3, RDW Coeff of Jax 12.5, Plt Count 226, MPV 10.2, Immature Gran % (Auto) 0.600, Neut % (Auto) 60.4, Lymph % (Auto) 25.8, [place] % (Auto) 11.8 H, Eos % (Auto) 1.1, Baso % (Auto) 0.3, Absolute Neuts (auto) 5.8, Absolute Lymphs (auto) 2.47, Nucleated RBC % 0 01/03/22 05:25: Sodium 133 L, Potassium 4.1, Chloride 103, Carbon Dioxide 23.0, Anion Gap 7, BUN 20 H, Creatinine 0.87, Estim Creat Clear Calc 97.18, Est GFR (MDRD) Af Amer 119, Est GFR (MDRD) Non-Af 98, BUN/Creatinine Ratio 23.0 H, Glucose 408 H, Calcium 8.4 L Radiography Diagnostic Testing: Radiology Impression Chest CTA 01/02/22 11:24 IMPRESSION: Normal CTA chest examination, without a demonstrated pulmonary embolism or arterial dissection. Electronically Signed: Umair Tran MD at 13:09 EDT , Lower Extremity CT 01/02/22 15:54 IMPRESSION: Cellulitis the proximal right thigh with a 5 cm abscess. Electronically Signed: Umair Tran MD at 17:43 EDT , Assessment & Plan Assessment/Plan (1) Abscess of right thigh: PLAN: Will be evaluated by professional services specialist today. Possible wound VAC. Await microbiology report.
[2022-01-03 07:20] LABS: Bedside Glucose 362 mg/dL (74-106)
[2022-01-03] MEDS: 0.9% Normal Saline 1,000 ML 75 ML IV ×2 (08:32→17:07)
--- NOTE | 2022-01-03 10:33 | PCM.PN.HOSP ---
Documented by User: Coleen Miller NP, [employer]PLANE NAVIGATOR-C 01/03/22 10:59 Subjective Subjective Patient seen and examined. Reports severe pain of his right groin/thigh postoperative area. Denies chest pain currently. Reports shortness of breath which he states is secondary to pain. Patient declined to have stress test this morning stating he needs to rest. Objective Data Objective Data Vital Signs: Vital Signs Temp Pulse Resp BP Pulse Ox 97 F L 109 H 18 189/120 H 97 01/03/22 08:40 01/03/22 08:40 01/03/22 08:40 01/03/22 08:40 01/03/22 08:40 Oxygen Flow Rate (L/min) 2 Oxygen Delivery Method Room Air Weight: 286 lb 9.615 oz Body Mass Index (BMI) 43.5 Intake & Output: Intake and Output for Last 24 Hours 01/01/22 01/02/22 01/03/22 23:59 23:59 23:59 Intake Total 1740 / 1940 2767.5 / 2767.5 Output Total 550 / 550 550 / 550 Balance 1190 / 1390 2217.5 / 2217.5 Lab / Micro Data Result Diagrams: 01/03/22 05:25 01/03/22 05:25 Labs: Laboratory Results - last 24 hr 01/02/22 11:15: WBC 12.7 H, RBC 5.43, Hgb 15.9, Hct 48.4, MCV 89.1, MCH 29.3, MCHC 32.9, RDW Std Deviation 40.2, RDW Coeff of Jax 12.3, Plt Count 312, MPV 10.2, Immature Gran % (Auto) 0.600, Neut % (Auto) 70.7 H, Lymph % (Auto) 16.4 L, [place] % (Auto) 11.1 H, Eos % (Auto) 0.9, Baso % (Auto) 0.3, Absolute Neuts (auto) 9.0 H, Absolute Lymphs (auto) 2.09, Nucleated RBC % 0 01/02/22 11:15: Sodium 132 L, Potassium 4.2, Chloride 98, Carbon Dioxide 25.0, Anion Gap 9, BUN 29 H, Creatinine 1.07, Estim Creat Clear Calc 79.02, Est GFR (MDRD) Af Amer 94, Est GFR (MDRD) Non-Af 77, BUN/Creatinine Ratio 27.1 H, Glucose 362 H, Calcium 9.9, Troponin I High Sens 18 01/02/22 11:15: Total Bilirubin 0.80, Direct Bilirubin 0.21, AST 16, ALT 47, Alkaline Phosphatase 112, Total Protein 8.4 H, Albumin 3.2, Globulin 5.2 H 01/02/22 13:34: Troponin I High Sens 18 01/02/22 15:00: Hemoglobin A1c 10.6 H 01/02/22 16:37: POC Glucose 265 H 01/02/22 16:59: Troponin I High Sens 20 01/02/22 18:19: POC Glucose 275 H 01/02/22 22:33: POC Glucose 392 H 01/03/22 05:25: WBC 9.6, RBC 4.39 L, Hgb 12.8 L, Hct 39.4 L, MCV 89.7, MCH 29.2, MCHC 32.5, RDW Std Deviation 41.3, RDW Coeff of Jax 12.5, Plt Count 226, MPV 10.2, Immature Gran % (Auto) 0.600, Neut % (Auto) 60.4, Lymph % (Auto) 25.8, [place] % (Auto) 11.8 H, Eos % (Auto) 1.1, Baso % (Auto) 0.3, Absolute Neuts (auto) 5.8, Absolute Lymphs (auto) 2.47, Nucleated RBC % 0 01/03/22 05:25: Sodium 133 L, Potassium 4.1, Chloride 103, Carbon Dioxide 23.0, Anion Gap 7, BUN 20 H, Creatinine 0.87, Estim Creat Clear Calc 97.18, Est GFR (MDRD) Af Amer 119, Est GFR (MDRD) Non-Af 98, BUN/Creatinine Ratio 23.0 H, Glucose 408 H, Calcium 8.4 L 01/03/22 06:51: POC Glucose 362 H Micro: Microbiology 01/02/22 17:07 Wound Abcess - Other Wound Culture - Preliminary Gram positive organism Radiography Diagnostic Testing: Radiology Impression Chest CTA 01/02/22 11:24 IMPRESSION: Normal CTA chest examination, without a demonstrated pulmonary embolism or arterial dissection. Electronically Signed: Umair Tran MD at 13:09 EDT , Lower Extremity CT 01/02/22 15:54 IMPRESSION: Cellulitis the proximal right thigh with a 5 cm abscess. Electronically Signed: Umair Tran MD at 17:43 EDT Reading Location ID and State: [id number] / [place] Tel , Service support , Physical Exam Const alert and oriented x3 Orientation / Consciousness: awake, oriented to person, oriented to place and oriented to time Nutritional Appearance: obese HEENT normocephalic and moist oral mucous membranes Eyes PERRL, EOMs intact bilaterally and conjunctivae normal Neck no lymphadenopathy Resp clear to auscultation bilaterally Auscultation: diminished lung sounds Cardio regular rhythm and no murmurs Cardio Narrative: Mildly tachycardic Peripheral Pulses: pulses 2+ throughout GI normal to inspection, nondistended, normoactive bowel sounds, non-tender and non-distended Extremity normal to inspection Skin no rashes or lesions noted Skin Narrative: Right groin s/p abscess debridement residual deep tissue wound, surrounding induration and diffuse erythema. No noted foul smell or drainage. Lesions: no lesions Rashes: no rashes Trauma: no lacerations or abrasions Neuro CN's II-XII intact bilaterally, no focal motor deficits, no sensory deficits noted and deep tendon reflexes 2+ bilaterally Psych Mood & Affect: anxious Assessment & Plan Assessment/Plan (1) Abscess of right thigh: PLAN: 1. Right thigh cellulitis with abscess- status post OR debridement 01/02/2022. Previous bedside I&D in ED 12/29/21. Wound culture pending, preliminary growing gram-positive organism. On IV vancomycin, IV Levaquin and IV Flagyl. PRN pain regimen. Wound RN consulted. Due to significant erythema/induration right thigh area, will hold off on wound VAC. Continue dressing changes including saline/Dakin's packing. Continue IV antibiotics and reassess. 2. Chest pain-patient declined stress test today, amendable to undergo stress test tomorrow. Denies further chest pain at this time. Troponin/EKG unremarkable. Baby aspirin. Check lipid profile in a.m. 3. Hypertension- BP elevated secondary to pain. Continue home losartan regimen. As needed hydralazine for systolic blood pressure greater than 160. 4. Type 2 diabetes mellitus, uncontrolled-hemoglobin A1c 10.6%. Home metformin regimen on hold. Accu-Cheks with sliding scale insulin. Glargine increased to 30 units twice a day. Increase to high-dose sliding scale. 5. Morbid obesity- encouraged diet and lifestyle modifications. DVT prophylaxis- Lovenox sc This patient was seen by CLAUDIO Franco under the supervision of Dr. Andrea. Time spent examining patient, reviewing data and subsequent management of care: 15 minutes Documented by User: Dr. Andrea Andrea, 01/03/22 14:58 Subjective Subjective Still with significant leg pain. [place] to exhausted to do a stress test today. Denies any current chest pain Objective Data Lab / Micro Data Result Diagrams: 01/03/22 05:25 01/03/22 05:25 Physical Exam Const alert Constitutional Narrative: Uncomfortable. Nontoxic. Resp normal respiratory effort, no retractions, no use of accessory muscles and clear to auscultation bilaterally Cardio regular rate, regular rhythm, S1 normal heart sound and S2 normal heart sound GI normal to inspection, nondistended, normoactive bowel sounds, soft to palpation, non-tender and non-distended Extremity Extremity Narrative: Large defect on the medial right thigh. Erythema extending distally. Neuro Sensorium / Orientation: awake and alert Psych affect normal Assessment & Plan Assessment/Plan (1) Abscess of right thigh: (2) Cellulitis of right thigh: PLAN: Patient seen and examined independently. Data and vitals reviewed. I agree with the above note by the nurse practitioner. 1. Right leg cellulitis and abscess: Status post debridement on the fifth. Continue with IV vancomycin, levofloxacin and metronidazole. Follow-up cultures. Wound care following. Plan is to continue with local wound care but if not progressing may need to reconsider having general surgery come back and further debridement. Patient still with a lot of pain so continue with orals as well as IV pain medication. Discussed with the patient that we would utilize orals first and then have the IV hydromorphone available for breakthrough pain. He was understanding and agreeable to that plan. 2. Chest pain: Atypical. Did not feel well enough to undergo the stress test. Commend the patient that he would not be having a treadmill stress test but a chemical stress test. He is willing to try it tomorrow. 3. Diabetes mellitus type 2: A1c of 10.6. Uncontrolled. Continue with glargine and sign scale insulin. 30 minutes spent reviewing data, documentation as well as talking with the patient at bedside. Charges/Coding Visit Charges Inpatient E&M: 47391 [facility] L3
[2022-01-03] MEDS: Losartan Potassium 100 MG Tablet PO (11:11)
[2022-01-03] MEDS: HYDROmorphone 0.5 MG/0.5 ML SYRINGE IV ×5 (11:12→21:13)
[2022-01-03] MEDS: Enoxaparin 40 MG/0.4 ML Syringe SC (11:12)
[2022-01-03] MEDS: Insulin Glargine-YFGN 100 UNIT/ML Pen 30 UNIT SC ×2 (11:20→21:08)
--- NOTE | 2022-01-03 11:29 | CPS ---
started by nursing
[2022-01-03] MEDS: DAKIN'S SOL HALF STRENGTH (=0.25%) 1 APPLIC TOPICAL ×2 (11:48→21:17)
[2022-01-03] MEDS: Docusate Sodium 100 MG Capsule PO ×2 (12:32→20:57)
[2022-01-03 12:36] LABS: Bedside Glucose 298 mg/dL (74-106)
--- NOTE | 2022-01-03 12:54 | WOUNDNOTE ---
wound photo: right medial thigh/groin
--- NOTE | 2022-01-03 13:50 | CASEMGMT ---
MILADIS LOVE assessment: Face to Face with patient for initial transition planning/care coordination assessment. RN IVAN introduced self and role at [facility], pt voices understanding and consents to assessment. Pt is sitting up on side of bed in no distress. Pt is A/Ox4 and answers all questions appropriately. Care providers, pharmacy, and demographics verified/updated. Presentation: Pt c/o CP/SOB since last night Admitting dx: CP, cellulitis PCP: [facility]-would like PCP list also Specialists: None Preferred Pharmacy: [facility] Insurance: FLYNN Prescription Benefit: FLYNN Living Will/HPOA: Pt states does not have LW/HPOA and declines AD info. LNOK: Kirby Solis, father; Vineet Hull, mother Living Arrangements: Pt lives alone in apt with a total of 2 flights of stairs and states no concerns at home. Pt is independent with ADL's. Transportation: Pt drives self and states no transportation concerns. DME/HHC: Pt states no current DME or need for any further DME. Pt states no hx of SNF but has had HHC in the past. Pt states no concerns with going home at time of discharge. 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 Pt does not smoke cigarettes but does occasionally drink ETOH. Pt voices no further concerns/needs. CM to follow for any further discharge planning/needs. Advised pt to ask for CM if any further questions/concerns/needs arise, voices understanding. Pt Goal: Home Plan: Home w/ possible HHC/wound vac [place] MILADIS LOVE
--- NOTE | 2022-01-03 14:05 | CASEMGMT ---
Addendum entered by Magdalene Stone 01/03/22 15:40: Call back from [facility] and now they state they will not be able to follow pt for HHC. Elise REDDING CM Original Note: Call to [facility] and pt was just seen in 11/2021 and per Ashley, they would be willing to follow for HHC for pt at discharge. Pt provided list of HHC providers includin qualify and resource use data and consistent with the pt's preferred geographic region, medical needs, and insurance network. CM to follow. Elise REDDING CM
[2022-01-03] MEDS: Acetaminophen 500 MG Tablet 1000 MG PO ×2 (14:41→21:22)
[2022-01-03] MEDS: Glucerna Shake 120 ML LIQUID PO ×3 (14:42→21:06)
[2022-01-03] MEDS: 0.9% Saline Lock 10 ML Syringe IV (15:51)
[2022-01-03 16:55] LABS: Bedside Glucose 312 mg/dL (74-106)
[2022-01-03] MEDS: LORazepam 0.5 MG Tablet PO (17:08)
[2022-01-03] MEDS: Ketorolac 15 MG/ML Vial IV (17:08)
[2022-01-03] MEDS: DiphenhydrAMINE 25 MG Capsule 50 MG PO (18:15)
[2022-01-03] MEDS: levoFLOXacin IV 500 MG/100 ML BAG 100 MG IV (22:12)
[2022-01-03 23:10] LABS: Bedside Glucose 239 mg/dL (74-106)
[2022-01-04] VITALS (9 sets, daily range): BP systolic 154–175; BP diastolic 64–106; PULSE 88–114; RESP 16–20; TEMP 36–37; O2SAT 96–99
[2022-01-04] MEDS: oxyCODONE 5 MG Tablet PO ×6 (00:25→22:16)
--- NOTE | 2022-01-04 01:14 | PCM.PN.BLA ---
Progress Note Patient complains of generalized body pain including his face throat eyes etc. Also he complains of extreme fatigue like working out. He relates his pain to vancomycin. Will discontinue vancomycin and start patient on linezolid.
[2022-01-04 01:16] LABS: Vancomycin, Trough Level 6.3 ug/mL (5.0-15.0)
--- NOTE | 2022-01-04 01:34 | PCM.RX.CS ---
Consult Pharmacy has been consulted to manage selected antiobiotic: Vancomycin Type of Consult: Follow-up Labs: Sodium 133 mmol/L (136-145) L 01/03/22 05:25 Potassium 4.1 mmol/L (3.5-5.1) 01/03/22 05:25 Chloride 103 mmol/L (98-107) 01/03/22 05:25 Carbon Dioxide 23.0 mmol/L (21.0-32.0) 01/03/22 05:25 Anion Gap 7 (5-15) 01/03/22 05:25 BUN 20 mg/dL (7-18) H 01/03/22 05:25 Creatinine 0.87 mg/dL (0.70-1.30) 01/03/22 05:25 Est GFR (MDRD) Af Amer 119 mL/min (>60) 01/03/22 05:25 Est GFR (MDRD) Non-Af 98 mL/min (>60) 01/03/22 05:25 BUN/Creatinine Ratio 23.0 RATIO (10-20) H 01/03/22 05:25 Glucose 408 mg/dL (74-106) H 01/03/22 05:25 Vancomycin Trough 6.3 ug/mL (5.0-15.0) 01/04/22 00:38 Microbiology: Microbiology 01/02/22 17:07 Wound Abcess - Other Gram Stain - Final 01/02/22 17:07 Wound Abcess - Other Wound Culture - Preliminary Gram positive organism Goal Trough: 15-20 mcg/mL Pharmacy Plan for Drug Dosing: Pharmacy Service will continue to monitor and adjust dosing as required. TROUGH 6.3 AT 12 HOURS. OINCREASE TO 2GM Q12H AND FOLLOW UP TROUGH PRIOR TO 4TH DOSE Follow-Up Labs: Trough Vancomycin Labs to be done on [date and time ordered]: 01/05 @ 1300
[2022-01-04] MEDS: Linezolid 600 MG 600 MG/300 ML BAG 200 MG IV ×3 (01:43→22:29)
[2022-01-04] MEDS: HYDROmorphone 0.5 MG/0.5 ML SYRINGE IV ×5 (01:55→20:10)
[2022-01-04] MEDS: Glucerna Shake 120 ML LIQUID PO ×3 (02:00→22:28)
[2022-01-04] MEDS: hydrALAZINE 20 MG/ML Vial 10 MG IV (04:38)
[2022-01-04] MEDS: Acetaminophen 500 MG Tablet 1000 MG PO ×3 (05:29→22:29)
[2022-01-04] MEDS: LORazepam 0.5 MG Tablet PO ×2 (05:35→22:16)
[2022-01-04] MEDS: DiphenhydrAMINE 25 MG Capsule 50 MG PO ×2 (05:41→18:20)
[2022-01-04] MEDS: metroNIDAZOLE 500 MG/100 ML BAG 100 MG IV (06:25)
[2022-01-04 06:46] LABS: Absolute Lymphocyte Count 2.06 X10^3/uL (0.83-4.51); Basophil# 0.04 X10^3/uL; Basophil% 0.6 % (0-1); Eosinophil# 0.21 X10^3/uL; Hematocrit 36.9 % (40-54); Hemoglobin 12.4 g/dL (13.0-16.5); Lymphocyte # 2.06 X10^3/ul (0.83-4.51); Mean Corp Hgb Conc 33.6 g/dL (32-36); Mean Corpuscular Volume 89.1 fL (80-94); Mean Platelet Vol. 10.2 fl (6.2-12.0); Monocyte# 0.75 X10^3/uL; Monocyte% 10.6 % (0-10); NRBC Flagged by Analyzer 0 % (0-5); Neutrophil # 3.97 X10^3/uL (2.7-7.7); Neutrophil % 55.8 % (47-70); Platelet Count 223 K/mm3 (150-450); RBC Distribution Width CV 12.3 % (11.6-14.6); Red Blood Count 4.14 M/mm3 (4.6-6.2); White Blood Count 7.1 K/mm3 (4.4-11.0)
[2022-01-04 07:16] LABS: Anion Gap 6 (5-15); BUN 16 mg/dL (7-18); BUN/Creat Ratio 24.5 RATIO (10-20); Calcium,Total 8.7 mg/dL (8.5-10.1); Chloride 102 mmol/L (98-107); Cholesterol 95 mg/dL (200); Creatinine, Serum 0.65 mg/dL (0.70-1.30); EST Glomerular Filtration Rate 137 mL/min (>60); Est Glom Filt Rate - Afr Amer 165 mL/min (>60); Estimated Creatinine Clearance 130.08 ml/min; Glucose 322 mg/dL (74-106); High Density Lipoprotein 45 mg/dL; Potassium 4.1 mmol/L (3.5-5.1); Sodium Level 134 mmol/L (136-145); Triglycerides 96 mg/dL; Very Low Density Lipoprotein 19 mg/dL (5-40)
[2022-01-04] MEDS: Insulin Lispro 100 UNIT/ML INSULN.PEN SC ×6 (08:14→22:15)
[2022-01-04] MEDS: Docusate Sodium 100 MG Capsule PO ×2 (08:15→22:15)
[2022-01-04] MEDS: Aspirin E.C. 81 MG Tablet PO (08:15)
[2022-01-04] MEDS: Losartan Potassium 100 MG Tablet PO (08:15)
[2022-01-04] MEDS: Insulin Glargine-YFGN 100 UNIT/ML Pen 30 UNIT SC (08:16)
[2022-01-04] MEDS: Enoxaparin 40 MG/0.4 ML Syringe SC (08:16)
[2022-01-04] MEDS: DAKIN'S SOL HALF STRENGTH (=0.25%) 1 APPLIC TOPICAL (08:16)
[2022-01-04 08:46] LABS: Bedside Glucose 249 mg/dL (74-106)
--- NOTE | 2022-01-04 10:20 | PCM.CONS.GEN ---
Assessment & Plan Assessment/Plan (1) Diabetes mellitus: (2) Cellulitis and abscess of right leg: PLAN: Now s/p 01/02/[address] Sultana. Surg cx with staph. Reports hives with PCN, no issue with augmentin. Concern for reaction (whole body pain) with vanc. Will cover with vanc/unasyn for now given location of abscess. Reports covid vaccine x2, overdue for booster; interested in getting booster prior to discharge. Will follow, thank you, d/w Dr. Andrea HPI Consult Data Date of Consult: 01/04/22 HPI Narrative HPI Narrative: DEDE SCHWARTZ, is a 51 M with recent dx uncontrolled DM, presented 01/02 with 5 days progressive R medial thigh pain/redness/swelling. Started as small pustule. No inciting event. Came to ED, had I&D, given clinda, next day was much worse. Came back to ED, admitted on vanc/levaquin/flagyl. Taken to OR 01/[address] Sultana for I&D. C/o whole body pain, sudden onset last night. Vanc stopped, changed to levaquin. Pain slightly improved this Am. No fever. Full ROS performed and neg except as noted above. [facility] Medical History Diabetes Hypertension Physical exam, pre-employment Home Medications clindamycin HCl [Cleocin HCl] 300 mg PO Q6H #40 capsule 12/29/21 [Rx Last Taken Unknown] hydrocodone-acetaminophen 1 tab PO Q6H PRN PRN 3 Days #10 tablet 12/29/21 [Rx Last Taken Unknown] insulin detemir U-100 [Levemir Flexpen] 40 unit SUBCUT QHS 12/29/21 [History Last Taken 12/28/21] losartan 100 mg PO DAILY 12/29/21 [History Last Taken Unknown] metformin 1,000 mg PO BID 01/02/22 [History Last Taken Unknown] Allergy/AdvReac Type Severity Reaction Status Date / Time Penicillins Allergy Hives Verified 01/04/22 10:21 Surgical History H/O right wrist surgery Social History Smoking Status: Former smoker Physical Exam Const alert, oriented x3 and no apparent distress General Appearance: cooperative HEENT normocephalic and head/scalp atraumatic Eyes PERRL and EOMs intact bilaterally Neck supple and No nodes Resp normal air movement and clear to auscultation bilaterally Cardio regular rate and regular rhythm GI soft to palpation, non-tender and non-distended Extremity no clubbing, cyanosis or edema Skin Skin Narrative: Reviewed photo. R groin incision with packing, surrounding redness/induration/pain. Neuro CN's II-XII intact bilaterally Lab / Micro Data Result Diagrams: 01/04/22 05:25 01/04/22 05:25 Labs: Laboratory Results - last 24 hr 01/03/22 12:22: POC Glucose 298 H 01/03/22 16:46: POC Glucose 312 H 01/03/22 20:56: POC Glucose 239 H 01/04/22 00:38: Vancomycin Trough 6.3 01/04/22 05:25: Sodium 134 L, Potassium 4.1, Chloride 102, Carbon Dioxide 26.0, Anion Gap 6, BUN 16, Creatinine 0.65 L, Estim Creat Clear Calc 130.08, Est GFR (MDRD) Af Amer 165, Est GFR (MDRD) Non-Af 137, BUN/Creatinine Ratio 24.5 H, Glucose 322 H, Calcium 8.7, Triglycerides 96, Cholesterol 95, LDL Cholesterol 31, VLDL Cholesterol 19, HDL Cholesterol 45 01/04/22 05:25: WBC 7.1, RBC 4.14 L, Hgb 12.4 L, Hct 36.9 L, MCV 89.1, MCH 30.0, MCHC 33.6, RDW Std Deviation 40.0, RDW Coeff of Jax 12.3, Plt Count 223, MPV 10.2, Immature Gran % (Auto) 1.000 H, Neut % (Auto) 55.8, Lymph % (Auto) 29.0, [place] % (Auto) 10.6 H, Eos % (Auto) 3.0, Baso % (Auto) 0.6, Absolute Neuts (auto) 4.0, Absolute Lymphs (auto) 2.06, Nucleated RBC % 0 01/04/22 08:12: POC Glucose 249 H Micro: Microbiology 01/02/22 17:07 Wound Abcess - Other Gram Stain - Final 01/02/22 17:07 Wound Abcess - Other Wound Culture - Preliminary Staphylococcus species 01/02/22 11:51 Blood Culture (Wb) - Anticubital Left Blood Culture - Preliminary No growth in 48 hours. 01/02/22 11:15 Blood Culture (Wb) - Anticubital Right Blood Culture - Preliminary No growth in 48 hours.
--- NOTE | 2022-01-04 10:28 | CASEMGMT ---
Call back to Ashley at [facility] and this RN CM informed her that [employer] normally cannot follow C but that their supervising physician can. Per Ashley, Dr. Andrea Bess is the supervising physician at [facility] and when asked if he would follow, Ashley states 'Well you can check.' Call placed to Dr. Bess's office and spoke with Dr. Shahriar Patel's nurse, and she requests that this RN CM fax a note requesting Dr. Bess to follow and why. This RN CM to type up the info and fax to Dr. Bess's office as pt will likely need wound vac and possibly IV antibx at discharge. Fax to Dr. Bess's office [phone]. Elise REDDING CM
[2022-01-04] MEDS: Ketorolac 30 MG/ML Syringe IV (10:53)
--- NOTE | 2022-01-04 11:14 | PCM.PN.SRG ---
Subjective Subjective Pain is improving. Objective Data Objective Data Remarkable how much softer it is in his upper thigh today. Vital Signs: Vital Signs Temp Pulse Resp BP Pulse Ox 96.8 F L 94 16 157/97 H 97 01/04/22 07:57 01/04/22 07:57 01/04/22 07:57 01/04/22 07:57 01/04/22 07:57 Oxygen Flow Rate (L/min) 2 Oxygen Delivery Method Room Air Weight: 286 lb 9.615 oz Body Mass Index (BMI) 43.5 Intake & Output: Intake and Output for Last 24 Hours 01/02/22 01/03/22 01/04/22 23:59 23:59 23:59 Intake Total 1740 / 1940 5042.50 / 5042.50 1400 / 1400 Output Total 550 / 550 1550 / 1550 400 / 400 Balance 1190 / 1390 3492.50 / 3492.50 1000 / 1000 Lab / Micro Data Result Diagrams: 01/04/22 05:25 01/04/22 05:25 Labs: Laboratory Results - last 24 hr 01/03/22 12:22: POC Glucose 298 H 01/03/22 16:46: POC Glucose 312 H 01/03/22 20:56: POC Glucose 239 H 01/04/22 00:38: Vancomycin Trough 6.3 01/04/22 05:25: Sodium 134 L, Potassium 4.1, Chloride 102, Carbon Dioxide 26.0, Anion Gap 6, BUN 16, Creatinine 0.65 L, Estim Creat Clear Calc 130.08, Est GFR (MDRD) Af Amer 165, Est GFR (MDRD) Non-Af 137, BUN/Creatinine Ratio 24.5 H, Glucose 322 H, Calcium 8.7, Triglycerides 96, Cholesterol 95, LDL Cholesterol 31, VLDL Cholesterol 19, HDL Cholesterol 45 01/04/22 05:25: WBC 7.1, RBC 4.14 L, Hgb 12.4 L, Hct 36.9 L, MCV 89.1, MCH 30.0, MCHC 33.6, RDW Std Deviation 40.0, RDW Coeff of Jax 12.3, Plt Count 223, MPV 10.2, Immature Gran % (Auto) 1.000 H, Neut % (Auto) 55.8, Lymph % (Auto) 29.0, [place] % (Auto) 10.6 H, Eos % (Auto) 3.0, Baso % (Auto) 0.6, Absolute Neuts (auto) 4.0, Absolute Lymphs (auto) 2.06, Nucleated RBC % 0 01/04/22 08:12: POC Glucose 249 H Micro: Microbiology 01/02/22 17:07 Wound Abcess - Other Gram Stain - Final 01/02/22 17:07 Wound Abcess - Other Wound Culture - Preliminary Staphylococcus species 01/02/22 11:51 Blood Culture (Wb) - Anticubital Left Blood Culture - Preliminary No growth in 48 hours. 01/02/22 11:15 Blood Culture (Wb) - Anticubital Right Blood Culture - Preliminary No growth in 48 hours. Assessment & Plan Assessment/Plan (1) Abscess of right thigh: PLAN: Wound nurse to change dressing today. Hopefully place a wound VAC.
[2022-01-04 11:16] LABS: Bedside Glucose 291 mg/dL (74-106)
--- NOTE | 2022-01-04 11:34 | PN.HOSP_ITS ---
Documented by User: Coleen Miller NP, [employer] 01/04/22 11:46 Subjective Subjective Patient seen and examined. Reports he was uncomfortable overnight with several complaints including restlessness, pain, muscle tension, anxiety. Denies itching or rash however feels he had an allergic reaction to vancomycin. States since beginning vancomycin his joints and whole body ache and he feels like an old man. Objective Data Objective Data Vital Signs: Vital Signs Temp Pulse Resp BP Pulse Ox 96.8 F L 94 16 157/97 H 97 01/04/22 07:57 01/04/22 07:57 01/04/22 07:57 01/04/22 07:57 01/04/22 07:57 Oxygen Flow Rate (L/min) 2 Oxygen Delivery Method Room Air Weight: 286 lb 9.615 oz Body Mass Index (BMI) 43.5 Intake & Output: Intake and Output for Last 24 Hours 01/02/22 01/03/22 01/04/22 23:59 23:59 23:59 Intake Total 1740 / 1940 5042.50 / 5042.50 1400 / 1400 Output Total 550 / 550 1550 / 1550 400 / 400 Balance 1190 / 1390 3492.50 / 3492.50 1000 / 1000 Lab / Micro Data Result Diagrams: 01/04/22 05:25 01/04/22 05:25 Labs: Laboratory Results - last 24 hr 01/03/22 12:22: POC Glucose 298 H 01/03/22 16:46: POC Glucose 312 H 01/03/22 20:56: POC Glucose 239 H 01/04/22 00:38: Vancomycin Trough 6.3 01/04/22 05:25: Sodium 134 L, Potassium 4.1, Chloride 102, Carbon Dioxide 26.0, Anion Gap 6, BUN 16, Creatinine 0.65 L, Estim Creat Clear Calc 130.08, Est GFR (MDRD) Af Amer 165, Est GFR (MDRD) Non-Af 137, BUN/Creatinine Ratio 24.5 H, Glucose 322 H, Calcium 8.7, Triglycerides 96, Cholesterol 95, LDL Cholesterol 31, VLDL Cholesterol 19, HDL Cholesterol 45 01/04/22 05:25: WBC 7.1, RBC 4.14 L, Hgb 12.4 L, Hct 36.9 L, MCV 89.1, MCH 30.0, MCHC 33.6, RDW Std Deviation 40.0, RDW Coeff of Jax 12.3, Plt Count 223, MPV 10.2, Immature Gran % (Auto) 1.000 H, Neut % (Auto) 55.8, Lymph % (Auto) 29.0, [place] % (Auto) 10.6 H, Eos % (Auto) 3.0, Baso % (Auto) 0.6, Absolute Neuts (auto) 4.0, Absolute Lymphs (auto) 2.06, Nucleated RBC % 0 01/04/22 08:12: POC Glucose 249 H 01/04/22 11:05: POC Glucose 291 H Micro: Microbiology 01/02/22 17:07 Wound Abcess - Other Gram Stain - Final 01/02/22 17:07 Wound Abcess - Other Wound Culture - Preliminary Staphylococcus species 01/02/22 11:51 Blood Culture (Wb) - Anticubital Left Blood Culture - Preliminary No growth in 48 hours. 01/02/22 11:15 Blood Culture (Wb) - Anticubital Right Blood Culture - Preliminary No growth in 48 hours. Physical Exam Const alert and oriented x3 Orientation / Consciousness: awake, oriented to person, oriented to place and oriented to time Nutritional Appearance: obese HEENT normocephalic and moist oral mucous membranes Eyes PERRL, EOMs intact bilaterally and conjunctivae normal Neck no lymphadenopathy Resp normal respiratory effort and clear to auscultation bilaterally Cardio regular rate, regular rhythm and no murmurs Peripheral Pulses: pulses 2+ throughout GI normal to inspection, nondistended, normoactive bowel sounds, non-tender and non-distended Extremity normal to inspection Skin no rashes or lesions noted Skin Narrative: Right groin s/p abscess debridement residual deep tissue wound, surrounding induration and diffuse erythema-improved from prior assessment. No noted foul smell or drainage. Dressing intact. Lesions: no lesions Rashes: no rashes Trauma: no lacerations or abrasions Neuro CN's II-XII intact bilaterally, no focal motor deficits, no sensory deficits noted and deep tendon reflexes 2+ bilaterally Psych mental status grossly normal Mood & Affect: anxious Assessment & Plan Assessment/Plan (1) Abscess of right thigh: (2) Cellulitis of right thigh: PLAN: 1. Right thigh cellulitis with abscess- status post OR debridement 01/02/2022. Previous bedside I&D in ED 12/29/21. Wound culture growing staph. ID consulted, transitioned to linezolid and Unasyn. Patient reports possible reaction to vancomycin. PRN pain regimen. Wound RN consulted. Continue dressing changes as ordered. Surgery following. 2. Chest pain-atypical. Denies further chest pain at this time. Troponin/EKG unremarkable. Baby aspirin. Stress test in a.m. 3. Hypertension- BP likely elevated secondary to pain/anxiety. Continue home losartan regimen. As needed hydralazine for systolic blood pressure greater than 160. Add amlodipine. 4. Type 2 diabetes mellitus, uncontrolled-hemoglobin A1c 10.6%. Home metformin regimen on hold. Accu-Cheks with sliding scale insulin. Glargine increased to 30 units twice a day. Continue high-dose sliding scale insulin as well as scheduled lispro with meals. 5. Morbid obesity- encouraged diet and lifestyle modifications. DVT prophylaxis- Lovenox sc This patient was seen by CLAUDIO Franco under the supervision of Dr. Andrea. Time spent examining patient, reviewing data and subsequent management of care: 14 minutes Documented by User: Dr. Andrea Andrea, 01/04/22 14:23 Subjective Subjective Head aches throughout his body last night. Patient is unclear if he was receiving vancomycin at the time but that was discontinued the patient was started on linezolid. States he feels better but still just achy throughout. Objective Data Lab / Micro Data Result Diagrams: 01/04/22 05:25 01/04/22 05:25 Physical Exam Const alert Constitutional Narrative: Anxious. Afebrile. Resp normal respiratory effort, no retractions, no use of accessory muscles and clear to auscultation bilaterally Cardio regular rate, regular rhythm, S1 normal heart sound and S2 normal heart sound GI normal to inspection, nondistended, normoactive bowel sounds Extremity Extremity Narrative: Large medial right anterior thigh wound. Resolving induration and erythema distal thigh. Assessment & Plan Assessment/Plan (1) Abscess of right thigh: (2) Cellulitis of right thigh: (3) Diabetes mellitus: PLAN: Patient seen and examined independently. Data and vitals reviewed. I agree with the above note by the nurse practitioner. 1. Right leg cellulitis and abscess: Status post debridement on the fifth. ID consult appreciated. On Unasyn and linezolid for now. Concern for reaction to vancomycin but unclear. No peripheral eosinophilia nor to the patient have any rash. Possibly his symptoms may be just related with just generalized inflammation with his underlying infection. 2. Chest pain: Atypical. Did not feel well enough to undergo the stress test. Commend the patient that he would not be having a treadmill stress test but a chemical stress test. He is willing to try it tomorrow. 3. Diabetes mellitus type 2: A1c of 10.6. Uncontrolled. Continue with gl argine and sliding scale insulin. 20 minutes spent reviewing data, documentation as well as talking with the patient at bedside. Charges/Coding Visit Charges Inpatient E&M: 15120 Subs Hosp L2
[2022-01-04] MEDS: amLODIPine 5 MG Tablet PO (12:48)
--- NOTE | 2022-01-04 14:00 | CASEMGMT ---
Call from [facility] and they state that Dr. Bess is now requesting that fax be sent to [facility] as he goes there on . Fax re-sent to [facility] with attention to Dr. Shahriar CM to follow. Elise REDDING CM
[2022-01-04] MEDS: 0.9% Saline Lock 10 ML Syringe IV ×5 (14:24→23:42)
[2022-01-04] MEDS: Insulin Lispro 100 UNIT/ML INSULN.PEN 10 UNIT SC (15:32)
[2022-01-04 15:41] LABS: Bedside Glucose 299 mg/dL (74-106)
[2022-01-04] MEDS: Ketorolac 15 MG/ML Vial IV ×2 (17:08→23:43)
[2022-01-04] MEDS: Insulin Glargine-YFGN 100 UNIT/ML Pen 35 UNIT SC (22:16)
[2022-01-04 23:00] LABS: Bedside Glucose 244 mg/dL (74-106)
[2022-01-05] MEDS: HYDROmorphone 0.5 MG/0.5 ML SYRINGE IV ×5 (02:07→20:03)
[2022-01-05] MEDS: 0.9% Saline Lock 10 ML Syringe IV ×13 (02:08→22:57)
[2022-01-05 03:10] VITALS: BP 170/92; PULSE 91; RESP 16; TEMP 36.8; O2SAT 97
[2022-01-05] MEDS: oxyCODONE 5 MG Tablet PO ×3 (03:15→16:07)
[2022-01-05 03:16] VITALS: BP 170/92; PULSE 91
[2022-01-05] MEDS: hydrALAZINE 20 MG/ML Vial 10 MG IV (03:16)
[2022-01-05] MEDS: DiphenhydrAMINE 25 MG Capsule 50 MG PO ×2 (05:10→22:55)
--- NOTE | 2022-01-05 05:55 | EKG12_ITS ---
Test Reason : STRESS TEST Blood Pressure : / mmHG Vent. Rate : 096 BPM Atrial Rate : 096 BPM P-R Int : 174 ms QRS Dur : 086 ms QT Int : 380 ms P-R-T Axes : 051 -12 022 degrees QTc Int : 480 ms Normal sinus rhythm Poor R wave progression Confirmed by BRIELLE MEADOWS, ANDRZEJ ([id number]), legal editor SASCHA PARKS ([id number]) on 01/10/2022 7:27:56 AM Referred By: MARJORIE Confirmed By:ANDRZEJ HANNAH MD
[2022-01-05] MEDS: Ketorolac 15 MG/ML Vial IV ×3 (05:58→17:56)
[2022-01-05] MEDS: Acetaminophen 500 MG Tablet 1000 MG PO ×3 (05:58→22:08)
[2022-01-05 06:28] LABS: Absolute Lymphocyte Count 2.22 X10^3/uL (0.83-4.51); Absolute Neutrophil Count 3.6 X10^3/uL (2.0-7.7); Basophil# 0.03 X10^3/uL; Basophil% 0.4 % (0-1); Eosinophil# 0.24 X10^3/uL; Eosinophils% 3.6 % (0-5); Hematocrit 40.9 % (40-54); Hemoglobin 13.4 g/dL (13.0-16.5); Lymphocyte # 2.22 X10^3/ul (0.83-4.51); Lymphocyte % 33.1 % (19-41); Mean Corp Hgb Conc 32.8 g/dL (32-36); Mean Corpuscular Hgb 29.2 pg (27.0-32.0); Mean Corpuscular Volume 89.1 fL (80-94); Mean Platelet Vol. 9.6 fl (6.2-12.0); Monocyte# 0.55 X10^3/uL; Monocyte% 8.2 % (0-10); NRBC Flagged by Analyzer 0 % (0-5); Neutrophil # 3.58 X10^3/uL (2.7-7.7); Neutrophil % 53.5 % (47-70); Platelet Count 270 K/mm3 (150-450); RBC Distribution Width CV 12.1 % (11.6-14.6); RBC Distribution Width SD 39.5 fl (35.1-43.9); Red Blood Count 4.59 M/mm3 (4.6-6.2); White Blood Count 6.7 K/mm3 (4.4-11.0)
[2022-01-05 06:40] VITALS: BP 150/87; PULSE 92; RESP 16; TEMP 36.5; O2SAT 97
[2022-01-05] MEDS: Losartan Potassium 100 MG Tablet PO (06:45)
[2022-01-05] MEDS: Aspirin E.C. 81 MG Tablet PO (06:45)
[2022-01-05 06:51] LABS: Anion Gap 6 (5-15); BUN 20 mg/dL (7-18); Calcium,Total 9.2 mg/dL (8.5-10.1); Chloride 101 mmol/L (98-107); Creatinine, Serum 0.74 mg/dL (0.70-1.30); EST Glomerular Filtration Rate 118 mL/min (>60); Est Glom Filt Rate - Afr Amer 143 mL/min (>60); Estimated Creatinine Clearance 114.26 ml/min; Glucose 292 mg/dL (74-106); Potassium 4.3 mmol/L (3.5-5.1); Sodium Level 136 mmol/L (136-145)
[2022-01-05 07:00] LABS: Bedside Glucose 235 mg/dL (74-106)
[2022-01-05 10:30] VITALS: BP 158/96; PULSE 95; RESP 18; TEMP 36.6; O2SAT 98
[2022-01-05] MEDS: Insulin Glargine-YFGN 100 UNIT/ML Pen 35 UNIT SC ×2 (10:31→22:09)
[2022-01-05] MEDS: LORazepam 0.5 MG Tablet PO ×2 (10:32→22:55)
[2022-01-05] MEDS: Linezolid 600 MG 600 MG/300 ML BAG 200 MG IV ×2 (10:32→22:09)
[2022-01-05] MEDS: Enoxaparin 40 MG/0.4 ML Syringe SC (10:32)
[2022-01-05] MEDS: amLODIPine 5 MG Tablet PO (10:32)
--- NOTE | 2022-01-05 11:30 | WOUNDNOTE ---
wound photo: right medial thigh
[2022-01-05] MEDS: Insulin Lispro 100 UNIT/ML INSULN.PEN SC ×3 (11:50→22:10)
[2022-01-05 11:55] LABS: Bedside Glucose 347 mg/dL (74-106)
--- NOTE | 2022-01-05 12:35 | PCM.PN.SRG ---
Subjective Subjective Wound VAC successfully placed this morning. Objective Data Objective Data 20 tissue has remarkably less induration and cellulitic pattern. Vital Signs: Vital Signs Temp Pulse Resp BP Pulse Ox 97.9 F 95 18 158/96 H 98 01/05/22 10:30 01/05/22 10:30 01/05/22 10:30 01/05/22 10:30 01/05/22 10:30 Oxygen Flow Rate (L/min) 2 Oxygen Delivery Method Room Air Weight: 286 lb 9.615 oz Body Mass Index (BMI) 43.5 Intake & Output: Intake and Output for Last 24 Hours 01/03/22 01/04/22 01/05/22 23:59 23:59 23:59 Intake Total 5042.50 / 5042.50 2544.25 / 2544.25 1231.75 / 1231.75 Output Total 1550 / 1550 500 / 500 350 / 350 Balance 3492.50 / 3492.50 2044.25 / 2044.25 881.75 / 881.75 Lab / Micro Data Result Diagrams: 01/05/22 06:07 01/05/22 06:07 Labs: Laboratory Results - last 24 hr 01/04/22 15:26: POC Glucose 299 H 01/04/22 22:12: POC Glucose 244 H 01/05/22 06:07: WBC 6.7, RBC 4.59 L, Hgb 13.4, Hct 40.9, MCV 89.1, MCH 29.2, MCHC 32.8, RDW Std Deviation 39.5, RDW Coeff of Jax 12.1, Plt Count 270, MPV 9.6, Immature Gran % (Auto) 1.200 H, Neut % (Auto) 53.5, Lymph % (Auto) 33.1, [place] % (Auto) 8.2, Eos % (Auto) 3.6, Baso % (Auto) 0.4, Absolute Neuts (auto) 3.6, Absolute Lymphs (auto) 2.22, Nucleated RBC % 0 01/05/22 06:07: Sodium 136, Potassium 4.3, Chloride 101, Carbon Dioxide 29.0, Anion Gap 6, BUN 20 H, Creatinine 0.74, Estim Creat Clear Calc 114.26, Est GFR (MDRD) Af Amer 143, Est GFR (MDRD) Non-Af 118, BUN/Creatinine Ratio 27.0 H, Glucose 292 H, Calcium 9.2 01/05/22 06:44: POC Glucose 235 H 01/05/22 11:47: POC Glucose 347 H Micro: Microbiology 01/02/22 17:07 Wound Abcess - Other Gram Stain - Final 01/02/22 17:07 Wound Abcess - Other Wound Culture - Final Staphylococcus epidermidis 01/02/22 17:07 Wound Abcess - Other Anaerobic Culture - Preliminary 01/02/22 11:51 Blood Culture (Wb) - Anticubital Left Blood Culture - Preliminary No growth in 48 hours. 01/02/22 11:15 Blood Culture (Wb) - Anticubital Right Blood Culture - Preliminary No growth in 48 hours. Assessment & Plan Assessment/Plan (1) Abscess of right thigh: PLAN: Continue wound VAC care. Once the patient is discharged she will be following up with the wound center
--- NOTE | 2022-01-05 13:11 | PN.HOSP_ITS ---
Documented by User: Coleen Miller NP, [employer]ER-[employer] 01/05/22 13:27 Subjective Subjective Patient seen and examined. States his whole body hurts. Denies fever, chills. Denies chest pain. Wound vac placed by wound RN. Objective Data Objective Data Vital Signs: Vital Signs Temp Pulse Resp BP Pulse Ox 97.9 F 95 18 158/96 H 98 01/05/22 10:30 01/05/22 10:30 01/05/22 10:30 01/05/22 10:30 01/05/22 10:30 Oxygen Flow Rate (L/min) 2 Oxygen Delivery Method Room Air Weight: 286 lb 9.615 oz Body Mass Index (BMI) 43.5 Intake & Output: Intake and Output for Last 24 Hours 01/03/22 01/04/22 01/05/22 23:59 23:59 23:59 Intake Total 5042.50 / 5042.50 2544.25 / 2544.25 1231.75 / 1231.75 Output Total 1550 / 1550 500 / 500 350 / 350 Balance 3492.50 / 3492.50 2044.25 / 2044.25 881.75 / 881.75 Lab / Micro Data Result Diagrams: 01/05/22 06:07 01/05/22 06:07 Labs: Laboratory Results - last 24 hr 01/04/22 15:26: POC Glucose 299 H 01/04/22 22:12: POC Glucose 244 H 01/05/22 06:07: WBC 6.7, RBC 4.59 L, Hgb 13.4, Hct 40.9, MCV 89.1, MCH 29.2, MCHC 32.8, RDW Std Deviation 39.5, RDW Coeff of Jax 12.1, Plt Count 270, MPV 9.6, Immature Gran % (Auto) 1.200 H, Neut % (Auto) 53.5, Lymph % (Auto) 33.1, [place] % (Auto) 8.2, Eos % (Auto) 3.6, Baso % (Auto) 0.4, Absolute Neuts (auto) 3.6, Absolute Lymphs (auto) 2.22, Nucleated RBC % 0 01/05/22 06:07: Sodium 136, Potassium 4.3, Chloride 101, Carbon Dioxide 29.0, Anion Gap 6, BUN 20 H, Creatinine 0.74, Estim Creat Clear Calc 114.26, Est GFR (MDRD) Af Amer 143, Est GFR (MDRD) Non-Af 118, BUN/Creatinine Ratio 27.0 H, Glucose 292 H, Calcium 9.2 01/05/22 06:44: POC Glucose 235 H 01/05/22 11:47: POC Glucose 347 H Micro: Microbiology 01/02/22 17:07 Wound Abcess - Other Gram Stain - Final 01/02/22 17:07 Wound Abcess - Other Wound Culture - Final Staphylococcus epidermidis 01/02/22 17:07 Wound Abcess - Other Anaerobic Culture - Preliminary 01/02/22 11:51 Blood Culture (Wb) - Anticubital Left Blood Culture - Preliminary No growth in 48 hours. 01/02/22 11:15 Blood Culture (Wb) - Anticubital Right Blood Culture - Preliminary No growth in 48 hours. Physical Exam Const alert and oriented x3 Orientation / Consciousness: awake, oriented to person, oriented to place and oriented to time Nutritional Appearance: obese HEENT normocephalic and moist oral mucous membranes Eyes PERRL, EOMs intact bilaterally and conjunctivae normal Neck no lymphadenopathy Resp normal respiratory effort and clear to auscultation bilaterally Cardio regular rate, regular rhythm and no murmurs Peripheral Pulses: pulses 2+ throughout GI normal to inspection, nondistended, normoactive bowel sounds, non-tender and non-distended Extremity normal to inspection Skin no rashes or lesions noted Skin Narrative: Right groin s/p abscess debridement residual deep tissue wound. Wound vac in place. Lesions: no lesions Rashes: no rashes Trauma: no lacerations or abrasions Neuro CN's II-XII intact bilaterally, no focal motor deficits, no sensory deficits noted and deep tendon reflexes 2+ bilaterally Psych mental status grossly normal Mood & Affect: anxious Assessment & Plan Assessment/Plan (1) Abscess of right thigh: (2) Cellulitis of right thigh: PLAN: 1. Right thigh cellulitis with abscess- status post OR debridement 01/02/2022. Previous bedside I&D in ED 12/29/21. Wound culture growing staph. ID consulted, on linezolid and Unasyn. Patient reports possible reaction to vancomycin. PRN pain regimen. Wound RN consulted. Continue dressing changes as ordered. Surgery following. Wound vac placed today. Will need home health setup. 2. Chest pain-atypical. Denies further chest pain at this time. Troponin/EKG unremarkable. Patient underwent stress test which was normal. 3. Hypertension- BP likely elevated secondary to pain/anxiety. Continue home losartan regimen. As needed hydralazine for systolic blood pressure greater than 160. Add amlodipine, increase dose. 4. Type 2 diabetes mellitus, uncontrolled-hemoglobin A1c 10.6%. Home metformin regimen on hold. Accu-Cheks with sliding scale insulin. Glargine increased to 30 units twice a day. Continue high-dose sliding scale insulin as well as scheduled lispro with meals. 5. Morbid obesity- encouraged diet and lifestyle modifications. DVT prophylaxis- Lovenox sc This patient was seen by CLAUDIO Franco under the supervision of Dr. Andrea. Time spent examining patient, reviewing data and subsequent management of care: 12 minutes Documented by User: Dr. Andrea Andrea, 01/05/22 14:20 Subjective Subjective Still complaining of diffuse body pain. Worse last night. Objective Data Lab / Micro Data Result Diagrams: 01/05/22 06:07 01/05/22 06:07 Physical Exam Const alert and no apparent distress Resp normal respiratory effort, no retractions and no use of accessory muscles Cardio regular rate, regular rhythm, S1 normal heart sound and S2 normal heart sound GI normal to inspection, nondistended, normoactive bowel sounds, soft to palpation, non-tender and non-distended Skin Skin Narrative: resolving erythema of right LE. Tissue overall healing (since with wound team) Assessment & Plan Assessment/Plan (1) Abscess of right thigh: (2) Cellulitis of right thigh: PLAN: Patient seen and examined independently. Data and vitals reviewed. I agree with the above note by the nurse practitioner. 1. Right leg cellulitis and abscess: Status post debridement on the fifth. ID consult appreciated. On Unasyn and linezolid for now. Concern for reaction to vancomycin but unclear. No peripheral eosinophilia nor to the patient have any rash. Possibly his symptoms may be just related with just generalized inflammation with his underlying infection. S. epidermidis 2. Chest pain: Atypical. Stress test negative. 3. Diabetes mellitus type 2: A1c of 10.6. Uncontrolled. Continue with glargin e and sliding scale insulin. 4. Myalgias: diffuse. Pt concerned it was due to abx. Vancomycin stopped yesterday, but still had it. Unlikely due to linezolid since he had it before. DW pt that it could be due to abx, but may also be due to overall inflammatory response to his underlying infection. Complicating this is his anxiety. 20 minutes spent reviewing data, documentation as well as talking with the patient at bedside. Charges/Coding Visit Charges Inpatient E&M: 30992 Subs Hosp L2
--- NOTE | 2022-01-05 13:41 | STRESSREP ---
Stress Test Report Pharmacologic myocardial perfusion stress test. 51-year-old male with a history of chest pain pain Stress protocol: Resting KG demonstrates normal sinus rhythm with a rate of 93 bpm normal intervals are noted resting blood pressure is 140/88 mmHg. 0.4 mg of regadenoson was infused per usual protocol followed Intravenous saline flush injection continuous EKG monitoring was performed. The maximum heart rate attained was 111 bpm which was 65% of max impacted heart rate the maximum workload was 1 metabolic equivalent. At rest there were no ST or T wave changes noted to suggest abnormal flow reserve and a peak infusion nonspecific ST changes were noted with did not meet the criteria for ischemia. The peak blood pressure was 152/78. Myocardial perfusion protocol. 15.0 mCi of technetium 99m sestamibi was injected at rest. 0.4 mg of regadenoson was infused per usual protocol. At peak infusion 44.7 mCi of technetium 99m sestamibi was injected. Stress images were obtained stress and rest images were reconstructed and compared in the short axis vertical long and horizontal long axis. Gated images were also obtained for Perfusion SPECT analysis: Review of the stress images demonstrate normal uptake of tracer noted in all areas of the myocardium. The resting images similar demonstrate normal uptake of tracer noted in all areas of the myocardium. No areas of reversibility are noted to suggest ischemia no previous infarct is noted. Gated SPECT analysis: The gated ejection fraction is noted to be normal. Conclusion: Normal pharmacologic myocardial perfusion stress test. Preserved ejection fraction.
[2022-01-05] MEDS: Glucerna Shake 120 ML LIQUID PO ×3 (13:47→22:08)
[2022-01-05] MEDS: Insulin Lispro 100 UNIT/ML INSULN.PEN 10 UNIT SC ×2 (13:47→17:56)
--- NOTE | 2022-01-05 14:12 | CASEMGMT ---
Addendum entered by Magdalene Stone 01/05/22 15:51: Per Dr. Alexander, pt will go home on po antibx. Still awaiting word from Dr. Bess on whether he will follow and [facility] to see if one can accept. Elise RN IVAN Addendum entered by Magdalene Stone 01/05/22 15:15: This RN CM back to room and pt chooses [facility] as 1st choice and [facility] as 2nd. Referral faxed to both at this time. Still awaiting ID note. CM to follow. Elise REDDING CM Addendum entered by Magdalene Stone 01/05/22 14:49: Call to Sabine Benitez to see if will follow pt for [facility] and per Nichole, will be in later this afternoon so they will have him review at that time. CM to follow. Elise RN IVAN Original Note: This RN CM to room to see if pt has picked [facility] and pt states 'I haven't looked at that yet.' Pt was given list 2 days ago. Per wound nurse, pt's wound vac approved and pt could likely d/c tomorrow. Pt aware this RN CM will be back in a bit to check on choices, voices understanding. This RN CM awaiting on ID note for IV antibx need. CM to follow. Elise REDDING CM
--- NOTE | 2022-01-05 15:55 | PCM.PN.ID ---
Physical Exam Narrative Feeling a little better, still with some body pain. Thigh pain worse after wound vac placement. No fever, no n/v/d. Const alert and no apparent distress General Appearance: cooperative Resp normal air movement and clear to auscultation bilaterally Cardio regular rate and regular rhythm GI soft to palpation, non-tender and non-distended Extremity no clubbing, cyanosis or edema Skin Skin Narrative: wound vac over R thigh ID ID: Route of nutrition/ use of supplements: [] Nutritional Intake: [] IV Site: [] Vizcaino Catheter: [] Assessment & Plan Assessment/Plan (1) Diabetes mellitus: (2) Cellulitis and abscess of right leg: PLAN: Now s/p 01/02/[address] Sultana. Surg cx with MILA. Reports hives with PCN, no issue with augmentin. Concern for reaction (whole body pain) with vanc. Cont to cover with vanc/unasyn for now given location of abscess. Reports covid vaccine x2, overdue for booster; interested in getting booster prior to discharge. Plan will be for po abx (linezolid and augmentin) at discharge for short course. Will follow
[2022-01-05 16:10] VITALS: BP 159/90; PULSE 97; RESP 18; TEMP 36.6; O2SAT 96
[2022-01-05 18:06] LABS: Bedside Glucose 274 mg/dL (74-106)
[2022-01-05 22:04] VITALS: BP 153/90; PULSE 94; RESP 18; TEMP 36.5; O2SAT 98
[2022-01-05] MEDS: Docusate Sodium 100 MG Capsule PO (22:08)
[2022-01-05 22:46] LABS: Bedside Glucose 264 mg/dL (74-106)
[2022-01-06] VITALS (7 sets, daily range): BP systolic 149–169; BP diastolic 89–98; PULSE 89–104; RESP 15–18; TEMP 36.2–36.8; O2SAT 96–99
[2022-01-06] MEDS: Ketorolac 15 MG/ML Vial IV ×5 (00:03→23:45)
--- NOTE | 2022-01-06 00:38 | NURSING ---
Per primary RN, purple lumen of PICC would not flush. Caps changed, able to flush line without difficulty. Blood return noted to both lumens as well.
[2022-01-06] MEDS: oxyCODONE 5 MG Tablet PO ×5 (00:59→23:46)
[2022-01-06] MEDS: HYDROmorphone 0.5 MG/0.5 ML SYRINGE IV ×2 (04:11→09:48)
[2022-01-06] MEDS: 0.9% Saline Lock 10 ML Syringe IV ×6 (04:11→23:45)
[2022-01-06] MEDS: hydrALAZINE 20 MG/ML Vial 10 MG IV ×2 (04:11→15:18)
[2022-01-06] MEDS: Acetaminophen 500 MG Tablet 1000 MG PO ×3 (06:02→21:30)
[2022-01-06 06:06] LABS: Absolute Lymphocyte Count 2.29 X10^3/uL (0.83-4.51); Absolute Neutrophil Count 3.4 X10^3/uL (2.0-7.7); Basophil# 0.03 X10^3/uL; Basophil% 0.5 % (0-1); Eosinophil# 0.22 X10^3/uL; Eosinophils% 3.4 % (0-5); Hematocrit 40.5 % (40-54); Hemoglobin 13.1 g/dL (13.0-16.5); Lymphocyte # 2.29 X10^3/ul (0.83-4.51); Lymphocyte % 35.2 % (19-41); Mean Corp Hgb Conc 32.3 g/dL (32-36); Mean Corpuscular Hgb 29.2 pg (27.0-32.0); Mean Corpuscular Volume 90.4 fL (80-94); Mean Platelet Vol. 9.6 fl (6.2-12.0); Monocyte% 7.7 % (0-10); NRBC Flagged by Analyzer 0 % (0-5); Neutrophil # 3.39 X10^3/uL (2.7-7.7); Platelet Count 278 K/mm3 (150-450); RBC Distribution Width CV 12.3 % (11.6-14.6); RBC Distribution Width SD 40.9 fl (35.1-43.9); Red Blood Count 4.48 M/mm3 (4.6-6.2); White Blood Count 6.5 K/mm3 (4.4-11.0)
[2022-01-06 06:35] LABS: Anion Gap 4 (5-15); BUN 23 mg/dL (7-18); BUN/Creat Ratio 28.4 RATIO (10-20); Calcium,Total 8.5 mg/dL (8.5-10.1); Chloride 103 mmol/L (98-107); Creatinine, Serum 0.81 mg/dL (0.70-1.30); EST Glomerular Filtration Rate 107 mL/min (>60); Est Glom Filt Rate - Afr Amer 129 mL/min (>60); Estimated Creatinine Clearance 104.38 ml/min; Glucose 260 mg/dL (74-106); Potassium 4.2 mmol/L (3.5-5.1); Sodium Level 136 mmol/L (136-145)
--- NOTE | 2022-01-06 07:36 | PN.HOSP_ITS ---
Subjective Subjective Still with diffuse myalgias, though better. Objective Data Objective Data Vital Signs: Vital Signs Temp Pulse Resp BP Pulse Ox 36.4 C L 89 18 169/95 H 99 01/06/22 04:04 01/06/22 04:11 01/06/22 04:04 01/06/22 04:11 01/06/22 04:04 Oxygen Flow Rate (L/min) 2 Oxygen Delivery Method Room Air Weight: 130 kg Body Mass Index (BMI) 43.5 Intake & Output: Intake and Output for Last 24 Hours 01/04/22 01/05/22 01/06/22 23:59 23:59 23:59 Intake Total 2544.25 / 2544.25 2417.50 / 2517.50 312 / 312 Output Total 500 / 500 1600 / 2050 1150 / 1150 Balance 2044.25 / 2044.25 817.50 / 467.50 -838 / -838 Lab / Micro Data Result Diagrams: 01/06/22 05:40 01/06/22 05:40 Labs: Laboratory Results - last 24 hr 01/05/22 11:47: POC Glucose 347 H 01/05/22 17:55: POC Glucose 274 H 01/05/22 22:01: POC Glucose 264 H 01/06/22 05:40: WBC 6.5, RBC 4.48 L, Hgb 13.1, Hct 40.5, MCV 90.4, MCH 29.2, MCHC 32.3, RDW Std Deviation 40.9, RDW Coeff of Jax 12.3, Plt Count 278, MPV 9.6, Immature Gran % (Auto) 1.200 H, Neut % (Auto) 52.0, Lymph % (Auto) 35.2, [place] % (Auto) 7.7, Eos % (Auto) 3.4, Baso % (Auto) 0.5, Absolute Neuts (auto) 3.4, Absolute Lymphs (auto) 2.29, Nucleated RBC % 0 01/06/22 05:40: Sodium 136, Potassium 4.2, Chloride 103, Carbon Dioxide 29.0, Anion Gap 4 L, BUN 23 H, Creatinine 0.81, Estim Creat Clear Calc 104.38, Est GFR (MDRD) Af Amer 129, Est GFR (MDRD) Non-Af 107, BUN/Creatinine Ratio 28.4 H, Glucose 260 H, Calcium 8.5 Micro: Microbiology 01/02/22 17:07 Wound Abcess - Other Gram Stain - Final 01/02/22 17:07 Wound Abcess - Other Wound Culture - Final Staphylococcus epidermidis 01/02/22 17:07 Wound Abcess - Other Anaerobic Culture - Preliminary 01/02/22 11:51 Blood Culture (Wb) - Anticubital Left Blood Culture - Preliminary No growth in 48 hours. 01/02/22 11:15 Blood Culture (Wb) - Anticubital Right Blood Culture - Preliminary No growth in 48 hours. Physical Exam Const alert and no apparent distress Resp normal respiratory effort, no retractions, no use of accessory muscles and clear to auscultation bilaterally Cardio regular rate, regular rhythm, S1 normal heart sound and S2 normal heart sound GI normal to inspection, nondistended, normoactive bowel sounds, soft to palpation, non-tender and non-distended Extremity Extremity Narrative: improved redness of LE edema. wound vac in place. Assessment & Plan Assessment/Plan (1) Cellulitis and abscess of right leg: (2) Chest pain: PLAN: 1. Right leg cellulitis and abscess: * Status post debridement on the fifth. * ID consult appreciated. On Unasyn and linezolid for now. Concern for reaction to vancomycin but unclear. No peripheral eosinophilia nor to the pat ient have any rash. Possibly his symptoms may be just related with just generalized inflammation with his underlying infection. S. epidermidis * Wound vac. Continue wound care as outpt * ID Anticipates short course of PO linezolid and amox/CA * CX + MRSE 2. Chest pain: Atypical. Stress test negative. 3. Diabetes mellitus type 2: * A1c of 10.6. Uncontrolled. * Increase glargine to 40 BID 4. Myalgias: diffuse. * Pt concerned it was due to abx. Vancomycin stopped yesterday, but still had it. Unlikely due to linezolid since he had it before. DW pt that it could be due to abx, but may also be due to overall inflammatory response to his underlying infection. Complicating this is his anxiety. * respiratory panel pending * Discussed with patient that I am concerned that anxiety may be heightening his sense of pain. I told him I will discontinue hydromorphone. 5. VTE prophylaxis: LMWH Anticipate discharge in 1-2 days Charges/Coding Visit Charges Inpatient E&M: 18889 Subs Hosp L2
[2022-01-06] MEDS: Losartan Potassium 100 MG Tablet PO (09:32)
[2022-01-06] MEDS: Enoxaparin 40 MG/0.4 ML Syringe SC (09:32)
[2022-01-06] MEDS: amLODIPine 10 MG Tablet PO (09:33)
[2022-01-06] MEDS: Insulin Lispro 100 UNIT/ML INSULN.PEN 10 UNIT SC ×3 (09:33→17:26)
[2022-01-06] MEDS: Docusate Sodium 100 MG Capsule PO (09:33)
[2022-01-06] MEDS: Insulin Lispro 100 UNIT/ML INSULN.PEN SC ×4 (09:34→21:25)
[2022-01-06] MEDS: Insulin Glargine-YFGN 100 UNIT/ML Pen 40 UNIT SC ×2 (09:35→22:10)
[2022-01-06 09:45] LABS: Bedside Glucose 258 mg/dL (74-106)
[2022-01-06] MEDS: Glucerna Shake 120 ML LIQUID PO ×2 (09:47→21:23)
[2022-01-06] MEDS: Linezolid 600 MG 600 MG/300 ML BAG 200 MG IV ×2 (09:48→22:57)
--- NOTE | 2022-01-06 09:56 | WOUNDNOTE ---
In to reassess the VAC to the right medial thigh. patient states I'm not sure how I will manage this at home. Pt concerned about the location of the wound and getting around at the house with the wound VAC. Assured patient that the wound VAC is very light and has a carrying case so it will be quite easy to get around with. Pt states I just feel awful today. I just ache all over and couldn't sleep last night. Pt not sure he will be able to go home today. pt aware the decision is up to the hospitalist for discharge date. will continue to follow. pt denies further needs at this time.
--- NOTE | 2022-01-06 10:07 | PCM.PN.ID ---
Physical Exam Narrative Some cough, still aching all over. Some congestion. Const alert General Appearance: cooperative Resp normal air movement and clear to auscultation bilaterally Cardio regular rate and regular rhythm GI soft to palpation, non-tender and non-distended Skin Skin Narrative: wound vac in R groin ID ID: Route of nutrition/ use of supplements: [] Nutritional Intake: [] IV Site: [] Vizcaino Catheter: [] Assessment & Plan Assessment/Plan (1) Diabetes mellitus: (2) Cellulitis and abscess of right leg: PLAN: Now s/p 01/02/[address] Sultana. Surg cx with MILA. Reports hives with PCN, no issue with augmentin. Concern for reaction (whole body pain) with vanc. Cont to cover with linezolid/unasyn for now given location of abscess. Reports covid vaccine x2, overdue for booster; interested in getting booster prior to discharge. Plan will be for po abx (linezolid 600mg bid and augmentin 875mg bid) at discharge for 5 more days. With body aches/cough/congestion, will send viral pcr panel and covid pcr. Will follow
[2022-01-06] MEDS: LORazepam 0.5 MG Tablet PO ×2 (10:44→22:10)
--- NOTE | 2022-01-06 12:07 | CASEMGMT ---
Addendum entered by Magdalene Stone 01/06/22 15:19: Call to [facility] as they have not called RN CM about referral. Per Gertrudis, they are 'still working on it' but will call this RN CM when decision obtained. Call back from Viola in wound clinic and she states she will make sure [facility] switches to wound clinic physician after pt has been seen by them. Elise REDDING CM Addendum entered by Magdalene Stone 01/06/22 13:14: Call from Wound clinic and they state that Dr. Oneil will not follow [facility] until she has seen pt in the clinic. This RN CM messaged Dr. Sultana to see if he would follow pt for the 1st couple [facility] visits until wound clinic can take over and he is agreeable at this time. Message left with wound clinic nurse line regarding same so that they can facilitate the change after pt seen. Still awaiting call about referral to [facility]. CM to follow. Elise REDDING CM Original Note: Call to [facility] as they have not called this RN CM back regarding referral and they state they cannot accept. Call to Kathy Elizabeth at [facility] and she states the same, that they cannot accept as they have no SN in area. CM received fax from Dr. Bess at [facility] stating that he will not follow [facility]. Pt updated on [facility] declinations and referral for [facility] faxed to [facility] at this time. Call to Wound clinic to see if they can get pt in on Monday01/10/22 to see if wound clinic physician would be able to follow for [facility]. CM to follow. Pt likely to d/c 01/07 per physicians. Elise REDDING CM
--- NOTE | 2022-01-06 12:46 | CASEMGMT ---
MILADIS LOVE called [facility] to schedule follow-up for wound care. Per Esthela at [facility], next available appt available 01/13/22 0900. MILADIS LOVE left message on nurses line to see if Dr. Oneil would be willing to sign for [facility] prior to appt. MILADIS LOVE updated CM SShadi Stone.
[2022-01-06 13:35] LABS: Bedside Glucose 289 mg/dL (74-106)
[2022-01-06] MEDS: DiphenhydrAMINE 25 MG Capsule 50 MG PO ×2 (13:36→22:52)
[2022-01-06 17:51] LABS: Bedside Glucose 327 mg/dL (74-106)
[2022-01-06 22:30] LABS: Bedside Glucose 327 mg/dL (74-106)
[2022-01-07 03:45] VITALS: BP 160/90; PULSE 85; RESP 16; TEMP 36.6; O2SAT 97
[2022-01-07] MEDS: oxyCODONE 5 MG Tablet PO ×3 (03:52→12:55)
[2022-01-07] MEDS: Ketorolac 15 MG/ML Vial IV ×2 (05:55→11:08)
[2022-01-07] MEDS: Acetaminophen 500 MG Tablet 1000 MG PO ×2 (05:55→14:10)
[2022-01-07] MEDS: 0.9% Saline Lock 10 ML Syringe IV ×2 (05:56→11:08)
--- NOTE | 2022-01-07 07:52 | PN.HOSP_ITS ---
Subjective Subjective Pain improved, but exacerbated by wound vac change. Itching in right arm with right leg. Objective Data Objective Data Vital Signs: Vital Signs Temp Pulse Resp BP Pulse Ox 36.6 C 85 16 160/90 H 97 01/07/22 03:45 01/07/22 03:45 01/07/22 03:45 01/07/22 03:45 01/07/22 03:45 Oxygen Flow Rate (L/min) 2 Oxygen Delivery Method Room Air Weight: 130 kg Body Mass Index (BMI) 43.5 Intake & Output: Intake and Output for Last 24 Hours 01/05/22 01/06/22 01/07/22 23:59 23:59 23:59 Intake Total 2417.50 / 2517.50 2286.25 / 2786.25 1020 / 1020 Output Total 1600 / 0 2550 / 3450 900 / 900 Balance 817.50 / 467.50 -263.75 / -663.75 120 / 120 Lab / Micro Data Result Diagrams: 01/06/22 05:40 01/06/22 05:40 Labs: Laboratory Results - last 24 hr 01/06/22 09:29: POC Glucose 258 H 01/06/22 10:47: COVID-19 (RUSSELL) Not Detected 01/06/22 13:21: POC Glucose 289 H 01/06/22 17:25: POC Glucose 327 H 01/06/22 21:22: POC Glucose 327 H Micro: Microbiology 01/06/22 10:47 Mucosa - Nasopharyngeal Respiratory Panel (PCR) - Final 01/02/22 17:07 Wound Abcess - Other Gram Stain - Final 01/02/22 17:07 Wound Abcess - Other Wound Culture - Final Staphylococcus epidermidis 01/02/22 17:07 Wound Abcess - Other Anaerobic Culture - Preliminary Checking for anaerobes, further studies to follow. 01/02/22 11:51 Blood Culture (Wb) - Anticubital Left Blood Culture - Preliminary No growth in 48 hours. 01/02/22 11:15 Blood Culture (Wb) - Anticubital Right Blood Culture - Preliminary No growth in 48 hours. Physical Exam Const alert and no apparent distress Extremity Extremity Narrative: wound vac on RLE. Excoriations on right leg. Resolving erythema. Neuro Sensorium / Orientation: awake and alert Assessment & Plan Assessment/Plan (1) Cellulitis and abscess of right leg: (2) Chest pain: PLAN: 1. Right leg cellulitis and abscess: * Status post debridement on the fifth. * ID consult appreciated. On Unasyn and linezolid for now. Concern for reaction to vancomycin but unclear. No peripheral eosinophilia nor to the patient have any rash. Possibly his symptoms may be just related with just generalized inflammation with his underlying infection. S. epidermidis * Wound vac. Continue wound care as outpt * ID 5 more days of PO linezolid and amox/CA * CX + MRSE 2. Chest pain: Atypical. Stress test negative. 3. Diabetes mellitus type 2: * A1c of 10.6. Uncontrolled. * Increase glargine to 40 BID 4. Myalgias: diffuse. * Pt concerned it was due to abx. Vancomycin stopped yesterday, but still had it. Unlikely due to linezolid since he had it before. DW pt that it could be due to abx, but may also be due to overall inflammatory response to his underl itzel infection. Complicating this is his anxiety. * respiratory panel negative, COVID 19 PCR negative * Discussed with patient that I am concerned that anxiety may be heightening his sense of pain. I told him I will discontinue hydromorphone. 5. Pain * reassurance provided to patient * 3 days of narcotics (pt made aware) * advised scheduled acetaminophen and PRN iboprofen. 6. VTE prophylaxis: LMWH
[2022-01-07] MEDS: Insulin Lispro 100 UNIT/ML INSULN.PEN 10 UNIT SC ×2 (07:57→11:09)
[2022-01-07] MEDS: Insulin Lispro 100 UNIT/ML INSULN.PEN SC ×2 (07:58→11:09)
[2022-01-07 08:10] LABS: Bedside Glucose 158 mg/dL (74-106)
--- NOTE | 2022-01-07 08:43 | CASEMGMT ---
Addendum entered by Magdalene Stone 01/07/22 15:04: Fax received with approved prior auth for Linezolid. Call to Raul in retail pharmacy and med went thru for $3. Elise REDDING CM Addendum entered by Magdalene Stone 01/07/22 14:32: Per [facility] pharmacy, pt's Linezolid needs prior auth and this was placed into Cover[employer]eds at 1330 with no response still. Call to [employer] prior auth line and rep states that they are working on it and there will be a determination today and fax will be sent to PCU. Per rep, it will not be in covermymeds as they do not provide information to them. CM to follow. Jessica, PCU charge, updated on all and will call [facility] pharmacy to notify when auth received. Elise REDDING CM Addendum entered by Magdalene Stone 01/07/22 12:41: Call back from Milagros at [facility] and she states they can accept pt and do SOC on 01/10/22. Pt updated on all, voices understanding. Elise REDDING CM Addendum entered by Magdalene Stone 01/07/22 11:49: Message left with Milagros Magdaleno, [facility] liasion, in regards to referral as this RN CM has not heard back from [facility] regarding determination still at this time. Elise REDDING CM Original Note: No call back from [facility] and call to them to check on referral. Per Gertrudis, no determination has still been made. Gertrudis updated that pt will not need SOC until monday with wound vac change and that Dr. Sultana to follow for first couple visits then wound clinic physician to take over, voices understanding. Gertrudis also aware that pt has f/u with [facility] wound clinic on 01/13/22, voices understanding. CM to follow. Elise REDDING CM
[2022-01-07 09:27] VITALS: BP 155/94; PULSE 105; RESP 18; TEMP 36.9; O2SAT 97
[2022-01-07] MEDS: Linezolid 600 MG 600 MG/300 ML BAG 200 MG IV (09:29)
[2022-01-07] MEDS: Glucerna Shake 120 ML LIQUID PO ×2 (09:30→14:10)
--- NOTE | 2022-01-07 09:30 | WOUNDNOTE ---
Pt sitting up in chair eating breakfast. discussed plans for discharge. still awaiting home health care. the home VAC has been approved and patient does have a wound center appt scheduled for 11/13/21. pt did agree to keep the wound VAC at home for at least a little while. patient states he does have training in [place] for the week of the . pt asking if the wound VAC can be removed and packing be placed during that time. Discussed with patient that he could take a wound vac holiday for up to 14 days before needing to send the wound VAC back. As long as patient has someone who can pack the wound daily, this may be an option. Asked patient to also discuss this with the wound center next week so they are aware as well. plan to change the wound VAC dressing after patient finishes with breakfast.
[2022-01-07] MEDS: Losartan Potassium 100 MG Tablet PO (09:31)
[2022-01-07] MEDS: Enoxaparin 40 MG/0.4 ML Syringe SC (09:31)
[2022-01-07] MEDS: Insulin Glargine-YFGN 100 UNIT/ML Pen 40 UNIT SC (09:31)
[2022-01-07] MEDS: amLODIPine 10 MG Tablet PO (09:31)
[2022-01-07 11:21] LABS: Bedside Glucose 297 mg/dL (74-106)
--- NOTE | 2022-01-07 11:36 | DCINST_ITS ---
Discharge Instructions Diet Discharge Diet: 2000 Calorie Control Diet Dressing / Incision Call your doctor if your incision/area has: Continuous Slow Oozing, Sudden Increased Bleeding, Increased Pain/ Swelling, Increased Redness and Foul Smelling Discharge Follow Up Care Test Results: Test results from this visit will be discussed in further detail at your follow-up appointment, if applicable. Discharge Plan Admission Admit Date/Time: 01/02/22 13:46 Primary Reason for Your Visit: right leg abscess and cellulitis Attending Provider: Andrea Andrea Primary Care Provider: Sabine Benitez Consulting Providers: Kg Sultana ; Anastasia Munoz ; Fermin Alexander Discharge Orders/Prescriptions Prescriptions: New amlodipine 10 mg Tablet 10 mg PO DAILY Qty: 30 RF: 0 oxycodone 5 mg Tablet 10 mg PO Q4H PRN PRN (Reason: Pain Score 6-10) 3 Days Qty: 24 RF: 0 acetaminophen 500 mg Tablet 1,000 mg PO Q8 Qty: 0 RF: 0 ibuprofen 200 mg tablet 600 mg PO Q8H PRN (Reason: fever or pain) Qty: 30 RF: 0 Continued losartan 100 mg tablet 100 mg PO DAILY RF: 0 metformin 1,000 mg tablet 1,000 mg PO BID RF: 0 Changed insulin detemir U-100 100 unit/mL (3 mL) Insulin Pen 40 unit SUBCUT BID Qty: 15 RF: 0 Discontinued clindamycin HCl [Cleocin HCl] 300 MG capsule 300 mg PO Q6H Qty: 40 RF: 0 hydrocodone-acetaminophen [hydrocodone-acetaminophen] 1 TABLET tablet 1 tab PO Q6H PRN PRN (Reason: Pain) 3 Days Qty: 10 RF: 0 Referrals / Follow Up: [facility] [Other] - 01/13/22 9:00 am (With Dr. Oneil) Sabine Benitez [Primary Care Provider] - Within 2 Weeks Care Physician,No Primary [NON-STAFF] - Disposition Disposition (needs filled in before D/C Order can be placed): Home Health Service
--- NOTE | 2022-01-07 11:43 | PCM.DC.SUM ---
Providers Date of Admission: 01/02/22 Primary Care Physician: Dr. Sabine Benitez Consultations 01/02/22 14:39 Consult: General Surgery Routine Consulting Provider: Kg Sultana Reason for Consult: cellulitis with abscess of the right medial thigh EMERGENT Consult: No MD Notified: Yes Date Notified: 01/02/22 Time Notified: 14:15 Method of Notification: Text Consult: Onc/Wound/secondary special education teacher Routine Comment: 01/02/22 17:52 Consult: Onc/Wound/secondary special education teacher Routine Comment: Reason for Consult:: Placement of wound VAC 01/04/22 07:40 Consult: Infectious Disease Routine Consulting Provider: Fermin Alexander Reason for Consult: right thigh cellulitis and abscess EMERGENT Consult: No MD Notified: Yes Date Notified: 01/04/22 Time Notified: 07:53 Method of Notification: Answering Service Reason For Visit: CHEST PAIN, CELLULITIS Diagnosis Discharge Diagnosis (1) Cellulitis and abscess of right leg: Status: Acute Code(s): L03.115 - Cellulitis of right lower limb; L02.415 - Cutaneous abscess of right lower limb (2) Chest pain: Status: Acute Code(s): R07.9 - Chest pain, unspecified Medications at Discharge Home Medications losartan 100 mg PO DAILY 12/29/21 metformin 1,000 mg PO BID 01/02/22 acetaminophen 1,000 mg PO Q8 #0 tab 01/07/22 amlodipine 10 mg PO DAILY #30 tab 01/07/22 ibuprofen 600 mg PO Q8H PRN #30 tab 01/07/22 insulin detemir U-100 40 unit SUBCUT BID #15 ml 01/07/22 oxycodone 10 mg PO Q4H PRN PRN 3 Days #24 tab 01/07/22 Hospital Course Operations - (Incision and drainage and debridement of abscess to right thigh) Procedures None Summary of Care Provided Minutes Spent on Discharge: 32 Hospital Course: 1. Right leg cellulitis and abscess: Status post debridement on the fifth. ID consult appreciated. On Unasyn and linezolid for now. Concern for reaction to vancomycin but unclear. No peripheral eosinophilia nor to the patient have any rash. Possibly his symptoms may be just related with just generalized inflammation with his underlying infection. S. epidermidis Wound vac. Continue wound care as outpt ID 5 more days of PO linezolid and amox/CA CX + MRSE 2. Chest pain: Atypical. Stress test negative. 3. Diabetes mellitus type 2: A1c of 10.6. Uncontrolled. Increase glargine to 40 BID Continue metformin 4. Myalgias: diffuse. Pt concerned it was due to abx. Vancomycin stopped yesterday, but still had it. Unlikely due to linezolid since he had it before. DW pt that it could be due to abx, but may also be due to overall inflammatory response to his underlying infection. Complicating this is his anxiety. respiratory panel negative, COVID 19 PCR negative Discussed with patient that I am concerned that anxiety may be heightening his sense of pain. I told him I will discontinue hydromorphone. 5. Pain reassurance provided to patient 3 days of narcotics (pt made aware) advised scheduled acetaminophen and PRN iboprofen. Weight / BMI Weight Weight: 130 kg Body Mass Index (BMI) 43.5 ABG / Lab / Microbiology Data Result Diagrams: 01/06/22 05:40 01/06/22 05:40 Laboratory: Laboratory Results - last 24 hr 01/06/22 10:47: COVID-19 (RUSSELL) Not Detected 01/06/22 13:21: POC Glucose 289 H 01/06/22 17:25: POC Glucose 327 H 01/06/22 21:22: POC Glucose 327 H 01/07/22 07:52: POC Glucose 158 H 01/07/22 11:06: POC Glucose 297 H Microbiology: Microbiology 01/02/22 17:07 Wound Abcess - Other Gram Stain - Final 01/02/22 17:07 Wound Abcess - Other Wound Culture - Final Staphylococcus epidermidis 01/02/22 17:07 Wound Abcess - Other Anaerobic Culture - Final Bacteroides pyogenes 01/06/22 10:47 Mucosa - Nasopharyngeal Respiratory Panel (PCR) - Final 01/02/22 11:51 Blood Culture (Wb) - Anticubital Left Blood Culture - Preliminary No growth in 48 hours. 01/02/22 11:15 Blood Culture (Wb) - Anticubital Right Blood Culture - Preliminary No growth in 48 hours. D/C Instructions Discharge Diet: 2000 Calorie Control Diet Call your doctor if your incision/area has: Continuous Slow Oozing, Sudden Increased Bleeding, Increased Pain/ Swelling, Increased Redness and Foul Smelling Discharge Meaningful Use Info Meaningful Use Diagnoses (Choose all that apply): None applicable Discharge Plan Admission Admit Date/Time: 01/02/22 13:46 Primary Reason for Your Visit: right leg abscess and cellulitis Attending Provider: Andrea Andrea Primary Care Provider: Sabine Benitez Consulting Providers: Kg Sultana ; Anastasia Munoz ; Fermin Alexander Discharge Orders/Prescriptions Prescriptions: New amlodipine 10 mg Tablet 10 mg PO DAILY Qty: 30 RF: 0 oxycodone 5 mg Tablet 10 mg PO Q4H PRN PRN (Reason: Pain Score 6-10) 3 Days Qty: 24 RF: 0 acetaminophen 500 mg Tablet 1,000 mg PO Q8 Qty: 0 RF: 0 ibuprofen 200 mg tablet 600 mg PO Q8H PRN (Reason: fever or pain) Qty: 30 RF: 0 Continued losartan 100 mg tablet 100 mg PO DAILY RF: 0 metformin 1,000 mg tablet 1,000 mg PO BID RF: 0 Changed insulin detemir U-100 100 unit/mL (3 mL) Insulin Pen 40 unit SUBCUT BID Qty: 15 RF: 0 Discontinued clindamycin HCl [Cleocin HCl] 300 MG capsule 300 mg PO Q6H Qty: 40 RF: 0 hydrocodone-acetaminophen [hydrocodone-acetaminophen] 1 TABLET tablet 1 tab PO Q6H PRN PRN (Reason: Pain) 3 Days Qty: 10 RF: 0 Referrals / Follow Up: [facility] W[facility] [Other] - 01/13/22 9:00 am (With Dr. Oneil) Sabine Benitez [Primary Care Provider] - Within 2 Weeks Care Physician,No Primary [NON-STAFF] - Disposition Disposition (needs filled in before D/C Order can be placed): Home Health Service Charges/Coding Visit Charges Inpatient E&M: 80457 Disch Hosp
--- NOTE | 2022-01-07 13:48 | WOUNDNOTE ---
Pt has been discharged. switched patient over to the home VAC. reviewed alarms, how to change canister, how to charge the VAC, etc. with patient. pt aware to take dressing to wound care visit as well. Pt shown how to return the VAC. proof of delivery signed and faxed back to [facility]. pt denies further questions or concerns at this time. pt very appreciative of care.
[2022-01-07] MEDS: DiphenhydrAMINE 25 MG Capsule 50 MG PO (14:10)
== END 2022-01-07 14:42 | disposition home health service (06) ==
LOC: ED 13:18 → PCU 16:53
PROVIDERS: Internal Medicine Infectious Disease; Nurse Practitioner Family; Surgery; Admitting Provider Student in an Organized Health Care Education/Training Program; Emergency Provider Emergency Medicine
PROC: 0JBL0ZZ Excision of Right Upper Leg Subcutaneous Tissue and Fascia, Open Approach (ICD-10-PCS; principal; 2022-01-02 17:00)
DX: L03.115 Cellulitis of right lower limb (principal); E66.01 Morbid (severe) obesity due to excess calories; Z68.41 Body mass index [BMI] 40.0-44.9, adult; E11.9 Type 2 diabetes mellitus without complications; Z79.4 Long term (current) use of insulin; K43.2 Incisional hernia without obstruction or gangrene; M79.10 Myalgia, unspecified site; F41.9 Anxiety disorder, unspecified; I10 Essential (primary) hypertension; Z56.6 Other physical and mental strain related to work; Z87.891 Personal history of nicotine dependence; R07.89 Other chest pain; Z79.891 Long term (current) use of opiate analgesic; R51.9 Headache, unspecified; M79.606 Pain in leg, unspecified; Z79.84 Long term (current) use of oral hypoglycemic drugs
CPT/HCPCS: 10061; 00300; 88304; U0005; 36415; 36569; 71275; 73700; 78452; 80048; 80061; 80076; 80202; 82962; 83036; 84484; 85025; 87040; 87070; 87075; 87077; 87186; 87205; 87633; 87635; 88305; 93005; 93017; 96361; 96365; 96366; 96367; 96372; 96375; 96376; 97802; 99221; 99251; 99285; A9500; J2020; Q9967; A4216; C9290; G0378; G0463; J0295; J2405; J2785; U0003

== ENCOUNTER 2022-01-20 10:45 | Outpatient (RCR) | payer MEDICAID, SELFPAY ==
[2022-01-13 09:07] VITALS: BP 152/85; PULSE 88; TEMP 36.1
--- NOTE | 2022-01-13 12:19 | HP.PCM_ITS ---
History of Present Illness Date of Service: 01/13/22 Chief Complaint: Right Groin Surgical wound History of Wound: Mr. Solis is a 51 yo who was referred to the wound center for on going wound care. He is status post inpatient hospital admission for incision and drainage of the right groin/upper thigh abscess. He states that he had been fiddling around with what he thought was a skin tag. Area suddenly became significantly inflamed and painful for which he presented to the hospital. Had an initial I&D following which he was discharged however, he states that the area significantly worsened and so he represented to the hospital where he had further incision and drainage done with subsequent VAC placement. He reports a lot of pain in the surrounding area. He believes that the VAC is helping. No chills, fever, nausea or vomiting. No change in bowel habit. Was discharged on oxycodone, linezolid and Augmentin which he has completed. He states that he has been doing a lot of [id number] measures for pain but has not found anything helpful [facility] Medical History (Updated 01/13/22 @ 12:[address] Elif Oneil MD) Diabetes Hypertension Intertriginous dermatitis associated with moisture Non-healing surgical wound of right groin Obesity Physical exam, pre-employment Type 2 diabetes mellitus Home Medications losartan 100 mg tablet 100 mg PO DAILY 12/29/21 [History Last Taken Unknown] acetaminophen 500 mg tablet 1,000 mg PO Q8 #0 tabs 01/07/22 [Rx Last Taken Unknown] amlodipine 10 mg tablet 10 mg PO DAILY #30 tabs 01/07/22 [Rx Last Taken Unknown] amoxicillin 875 mg-potassium clavulanate 125 mg tablet 1 tab PO Q12H #10 tabs 01/07/22 [Rx Last Taken Unknown] ibuprofen 200 mg tablet 600 mg PO Q8H PRN fever or pain #30 tabs 01/07/22 [Rx Last Taken Unknown] insulin detemir U-100 100 unit/mL (3 mL) subcutaneous pen 40 unit (0.4 mL) subcut BID #15 mL 01/07/22 [Rx Last Taken Unknown] linezolid 600 mg tablet 600 mg PO BID #10 tabs 01/07/22 [Rx Last Taken Unknown] metformin 500 mg tablet 500 mg PO BID #60 tabs 06/10/22 [Rx Last Taken Unknown] oxycodone 5 mg tablet 10 mg PO Q4H PRN PRN Pain Score 6-10 3 days #24 tabs 01/07/22 [Rx Last Taken Unknown] Allergy/AdvReac Type Severity Reaction Status Date / Time Penicillins Allergy Hives Verified 01/04/22 10:21 Surgical History H/O right wrist surgery Social History Smoking Status: Former smoker ROS Constitutional Constitutional: Denies fatigue, fever(s), frequent falls, headache(s), increased appetite, lethargy or malaise Eyes Eyes: Denies change in eye color, discharge from eye(s), discongugate gaze, double vision, dry eyes, irritation or itchy eyes ENT HEENT: Denies facial pain, foreign body in nose, halitosis, mouth pain, mucositis, nasal congestion, nasal discharge, nasal obstruction or nasal trauma Cardiovascular Cardiovascular: Denies claudication, clubbing, cold extremities, cyanosis, dyspnea at rest or dyspnea on exertion Respiratory/Chest Respiratory/Chest: Denies hemoptysis, hoarseness, inability to speak, mouth breathing, pain with cough or pale skin Gastrointestinal Gastrointestinal: Denies chewing difficulty, diarrhea, dyspepsia, dysphagia, early satiety, excessive flatus or fecal incontinence Genitourinary Genitourinary: Denies flank pain, scrotal swelling, testicular mass, testicular swelling or urinary incontinence Musculoskeletal Musculoskeletal: Denies difficulty walking, extremity pain, joint pain, loss of height, muscle cramps, muscle spasms, muscle weakness or myalgias Integumentary Integumentary: Denies erythema, hirsutism, jaundice, lesions, nail changes, new lesions or non-healing lesions Neurologic Neurologic: Denies burning sensations, confusion, convulsions, disequilibrium, dizziness or focal weakness Psychiatric Psychiatric: Denies cognitive impairment, confusion, hallucinations, homicidal ideation, hopelessness, irritability or memory loss Endocrine Endocrinology: Denies fatigue, flushing, heat intolerance, increase in ring/shoe/hat size or palpitations Allergic/Immunologic Allergic/Immunologic: Denies tongue swelling, hives, eczemia, wheezing or asthma Vital Signs Vital Signs Vital Signs: 01/13/22 09:07 Temperature 96.9 F L Temperature Source Temporal Pulse Rate 88 Blood Pressure 152/85 H Blood Pressure Mean 107 Blood Pressure Source Monitor Physical Exam Const alert, oriented x3 and healthy appearing General Appearance: cooperative, comfortable and well kempt Orientation / Consciousness: awake HEENT normocephalic, head/scalp atraumatic and hearing grossly normal bilaterally Eyes PERRL and EOMs intact bilaterally General Eye: normal appearance of both eyes Neck full ROM General: normal visual inspection Resp normal respiratory effort and normal air movement Effort and Inspection: able to speak in complete sentences Cardio regular rate, regular rhythm, S1 normal heart sound and S2 normal heart sound GI soft to palpation and non-tender Testes: Negative for testicular swelling or testicular mass Skin Wounds: wounds noted Neuro oriented x3, CN's II-XII intact bilaterally and moves all extremities Psych mental status grossly normal and thought process normal Appearance: grossly normal Attitude: calm Activity / Motor Behavior: appropriate eye contact Debridement Note Debridement Note Wound debrided: Right Groin/Upper Thigh Type of Debridement: Excisional debridement Anesthesia Used: 4% Lidocaine Solution Depth: Down to and including healthy tissue and in the subcutaneous layer Percentage of wound debrided: 100 Instrument Used: 5mm curette Tissue Removed: Slough and devitalized tissue Severity: Fat Layer Exposed Amount of bleeding with debridement: Mild Bleeding Controlled with: Pressure Patient tolerated procedure: Patient tolerated procedure well Post-Debridement Measurements and Additional Note: Post-Debridement Measurements/Treatment - Nurse 1 - General Ulcer Assessment Start: 01/13/22 08:57 Freq: Status: Active Protocol: [email or web address].NIKKO Activity Type Activity Date Activity User E-sign Co-sign Detail Recorded Client Recorded Date Recorded By Document 01/13/22 09:07 PA [id number] 01/13/22 09:20 EFREM 01/13/22 09:07 - Today's Visit Information Type of service Initial Visit Arrival Mode Ambulatory Patient Identification Verified (Name & Yes ) Patient Requires Transmission-Based No Precautions Safety Precautions NA Vital Signs Temperature (97.8 F-99.1 F) 96.9 F L Temperature Source Temporal Pulse Rate (60-100) 88 Pulse Location Monitor Blood Pressure (90/60-120/80) 152/85 H Blood Pressure Mean 107 Source Monitor History Since Last Visit- (Skip if this is Patient's initial visit) Have you changed medications since your No last visit? Any new allergies or adverse reactions No Had a fall/change in ADL's that may No increase risk of falls Signs or symptoms of abuse and/or No neglect since last visit Have you been in the hospital since your No last visit? Has dressing in place as prescribed Yes Has compression in place as prescribed N/A Has offloadiing in place as prescribed N/A Experienced any changes in pain level or No management Left Footwear Regular Shoe Right Footwear Regular Shoe Pain Scale: 0-10 Numeric Is Patient Pain Free? No #1 R groin -Description Sharp -Pain Behavior Moaning,Crying, Restlessness, Perspiration, Facial Grimacing -Comments When taking off wound vac. He is asking for pain meds. He will talk to DR Shadi COX - Nurse 1 - General Ulcer Measurement Start: 01/13/22 08:57 Freq: Status: Active Protocol: Activity Type Activity Date Activity User E-sign Co-sign Detail Recorded Client Recorded Date Recorded By Document 01/13/22 09:07 PA [id number] 01/13/22 09:20 EFREM 01/13/22 09:07 Wound Center Nurse 1 #R groin -Combined with other wound No -Current Size (cm) - Length 1.9 -Current Size (cm) - Width 7 -Current Size (cm) - Depth 2.7 -Total Square Cm 13.3 -Date of Last Picture (Recall this 01/13/22 field) -Photo Taken Yes -Epithelialization None Present -Tunneling No -Undermining/Tunneling No -Circular Undermining No -Change in Wound Grade/Stage No -Exudate Amt Large -Exudate Type Serosanguineous -Granulation Amt Large (67-100%) -Granulation Quality Red -Slough/Fibrin No -Necrosis Amt None Present (0 %) -Structure Exposed N/A -Texture (Jennifer-wound Skin Appearance) Assessed, Localized Edema -Moisture (Jennifer-wound Skin Appearance) No Abnormality, Assessed -Color (Jennifer-wound Skin Appearance) Assessed, Erythema -Temperature (Jennifer-wound Skin No Abnormality Appearance) (Pt Warm) -Tenderness on Palpation (Jennifer-wound No Skin Appearance) -Ulcer Cleansing Soap and Water -Foul Odor after Cleansing No -Anesthetic Used 4% Lidocaine Solution,5% Lidocaine Gel BROOKE - Nurse 2 - General Ulcer CM Notes Start: 01/13/22 08:57 Freq: Status: Active Protocol: Activity Type Activity Date Activity User E-sign Co-sign Detail Recorded Client Recorded Date Recorded By Document 01/13/22 09:32 MW [id number] 01/13/22 09:40 MW 01/13/22 09:32 Wound Center Nurse 2 -Time 09:32 -Correct Patient Yes -Correct Side, Site, Position Yes -Correct Procedure Yes -Procedure Performed Yes -Type of Procedure Debridement -Clinical Debridement Subcutaneous -Tissue Removed Subcutaneous -Post Debridement (cm) - Length 8.0 -Post Debridement (cm) - Width 3.0 -Post Debridement (cm) - Depth 4.0 -Total Square (Post) (cm) 24.00 -Area of Debridement (cm) - Length 8.0 -Area of Debridement (cm) - Width 3.0 -Total Square (Area) (cm) 24.00 -Tunneling No -Undermining/Tunneling No -Circular Undermining No -Wound/Ulcer Outcome Not Healed -Ulcer Cleansing Rinsed/ Irrigated with Saline -Foul Odor after Cleansing No -Bioengineered Tissue No -Bleeding Controlled with Pressure -Treatment Response Procedure Tolerated Well -Debridement - Subq, 1st 20sq cm Yes -Debridement, SubQ, ea addt'l 20sq cm 1 or part thereof Pain Scale: 0-10 Numeric Is Patient Pain Free? Yes - Nurse 3 - General Ulcer D/C NN Start: 01/13/22 08:57 Freq: Status: Active Protocol: Activity Type Activity Date Activity User E-sign Co-sign Detail Recorded Client Recorded Date Recorded By Document 01/13/22 09:59 AK [id number] 01/13/22 10:02 AK 01/13/22 09:59 Wound Care Nurse 3 #R groin -Ulcer Cleansing Rinsed/ Irrigated with Saline -Foul Odor after Cleansing No -Negative Pressure Wound Therapy N/A -Other Dressing wet to dry and lila -Primary Dressing Covered/Secured with Dry Gauze, Secured with Tape Pain Scale: 0-10 Numeric Is Patient Pain Free? No WC - Visit Discharge Discharge Condition Stable Ambulatory Status Ambulatory Transportation Private Auto Medication Reconcilliation completed & Yes provided to patient/care provider Clinical Summary of Care Provided Yes Notes: Dr. Oneil gave prescription for pain meds Charges/Coding Visit Charges Office Visits / Consults: 94452 OV L4 Est Procedures Integumentary [id number]: [id number] Jennifer subq tissue 20 sq cm/< Assessment/Plan Assessment/Plan (1) Cellulitis and abscess of right leg: CODE(S): L03.115 - Cellulitis of right lower limb; L02.415 - Cutaneous abscess of right lower limb (2) Non-healing surgical wound of right groin: CODE(S): T81.89XA - Other complications of procedures, not elsewhere classified, initial encounter (3) Type 2 diabetes mellitus: CODE(S): E11.9 - Type 2 diabetes mellitus without complications (4) Obesity: CODE(S): E66.9 - Obesity, unspecified (5) Intertriginous dermatitis associated with moisture: CODE(S): L30.4 - Erythema intertrigo PLAN: Plan Debridement done as documented above, procedure was not very well-tolerated. Patient with significant pain. Periwound dermatitis, likely fungal. Patient with significant abdominal pannus. Continue wound VAC at 150 mmHg. Has completed his course of antibiotic and was discharged on oxycodone but he has a lso completed this. Prescription for Percocet sent after [place] reviewed. 5 325 mg every 8 hours as needed for a week. He was advised to only use this as absolutely needed. May alternate with Tylenol and ibuprofen. Patient voiced understanding. He would like a referral to pain management, he was given this. Prescription for Desenex powder also sent. He states that he recently moved back to the area and does not have a PCP, will like to establish with a PCP as soon as possible. Information given about Dr. Xie with [facility]. His A1c is not optimal, A1c during hospital stay was at 10. He states that he is currently on insulin and metformin which she reports compliance with. Optimal diabetes control very strongly recommended, patient voiced understanding. Increased protein intake vitamin C, D and zinc also discussed. Follow-up in 1 week or sooner if needed. His questions were answered and he was advised to call with any further questions or concerns. This note was generated with [employer] software. It may contain incorrect words, spelling, and punctuation that were not noted in checking the note before signing.
--- NOTE | 2022-01-18 13:13 | WC ---
Received a call from Artis COONEY at [facility] health because patient may not be appropriate for home care services. Artis stated patient is difficult and refusing wound vac due to started a new job and has training for a couple days. Dr. Oneil is okay with saline wet to dry while patient is in training. Home health stated they can not go daily for a wet to dry. Patient was to have teachable family be there with home nurse to learn and assist him with the dressing but that has not happened. Patient is calling home health multiple times daily because he refuses to reinforce the tape on wet to dry when needed. Spoke to Dr. Oneil about home health concerns with non-compliance. wants the wound vac put back on the right groin ulcer tomorrow 01/19/22. If patient refuses treatment as ordered then he may not be appropriate for home care services. Message left for Artis with [facility] with Dr. Oneil instructions to put vac back on tomorrow.
[2022-01-20 11:02] VITALS: BP 142/97; PULSE 93; RESP 18
--- NOTE | 2022-01-20 13:25 | PN.PCM_ITS ---
History of Present Illness Date of Service: 01/20/22 Chief Complaint: Right Groin Surgical wound History of Wound: Mr. Solis is a 51 yo who was referred to the wound center for on going wound care. He is status post inpatient hospital admission for incision and drainage of the right groin/upper thigh abscess. He states that he had been fiddling around with what he thought was a skin tag. Area suddenly became significantly inflamed and painful for which he presented to the hospital. Had an initial I&D following which he was discharged however, he states that the area significantly worsened and so he represented to the hospital where he had further incision and drainage done with subsequent VAC placement. He reports a lot of pain in the surrounding area. He believes that the VAC is helping. No chills, fever, nausea or vomiting. No change in bowel habit. Was discharged on oxycodone, linezolid and Augmentin which he has completed. He states that he has been doing a lot of lgjg-dtx-zguqstg measures for pain but has not found anything helpful Progress of Wound: Some improvement noted this week. For the most part, tolerating the wound vac well. Objective Data Objective Data Vital Signs: Vital Signs Temp Pulse Resp BP 96.9 F L 93 18 142/97 H 01/13/22 09:07 01/20/22 11:02 01/20/22 11:02 01/20/22 11:02 Oxygen Delivery Method Room Air Charges/Coding Procedures Integumentary 111xxx-113xx: 90973 Jennifer subq tissue 20 sq cm/< Physical Exam Const alert, oriented x3 and healthy appearing General Appearance: cooperative, comfortable and well kempt Orientation / Consciousness: awake HEENT normocephalic, head/scalp atraumatic and hearing grossly normal bilaterally Eyes PERRL and EOMs intact bilaterally General Eye: normal appearance of both eyes Neck full ROM General: normal visual inspection Resp normal respiratory effort Effort and Inspection: able to speak in complete sentences Skin Wounds: wounds noted Neuro oriented x3, CN's II-XII intact bilaterally and moves all extremities Psych mental status grossly normal and thought process normal Appearance: grossly normal Attitude: calm Activity / Motor Behavior: appropriate eye contact Debridement Note Debridement Note Wound debrided: Right Groin/Upper Thigh Type of Debridement: Excisional debridement Anesthesia Used: 4% Lidocaine Solution Depth: Down to and including healthy tissue and in the subcutaneous layer Percentage of wound debrided: 100 Instrument Used: 5mm curette Tissue Removed: Slough and devitalized tissue Severity: Fat Layer Exposed Amount of bleeding with debridement: Mild Bleeding Controlled with: Pressure Patient tolerated procedure: Patient tolerated procedure well Post-Debridement Measurements and Additional Note: Post-Debridement Measurements/Treatment WC - Nurse 1 - General Ulcer Assessment Start: 01/13/22 08:57 Freq: Status: Active Protocol: KAILA Activity Type Activity Date Activity User E-sign Co-sign Detail Recorded Client Recorded Date Recorded By Document 01/13/22 09:07 IA [id number] 01/13/22 09:20 AK Document 01/20/22 11:02 [facility] [id number] 01/20/22 11:14 [facility] 01/13/22 01/20/22 09:07 11:02 - Today's Visit Information Type of service Initial Visit Follow-up Visit (Physician/TECHNOLOGY LEAD ) Arrival Mode Ambulatory Ambulatory Transfer Assistance None Patient Identification Verified (Name & Yes Yes ) Patient Requires Transmission-Based No No Precautions Safety Precautions NA Vital Signs Temperature (97.8 F-99.1 F) 96.9 F L Temperature Source Temporal Pulse Rate (60-100) 88 93 Pulse Location Monitor Monitor Respiratory Rate (12-18) 18 Respiratory rate source Observation Oxygen Delivery Method Room Air Blood Pressure (90/60-120/80) 152/85 H 142/97 H Blood Pressure Mean (mm Hg) 107 112 Source Monitor Monitor Position Sitting Blood Pressure Location Left Arm History Since Last Visit- (Skip if this is Patient's initial visit) Have you changed medications since your No No last visit? Any new allergies or adverse reactions No No Had a fall/change in ADL's that may No No increase risk of falls Signs or symptoms of abuse and/or No No neglect since last visit Have you been in the hospital since your No No last visit? Has dressing in place as prescribed Yes Yes Has compression in place as prescribed N/A N/A Has offloadiing in place as prescribed N/A N/A Experienced any changes in pain level or No No management Left Footwear Regular Shoe Regular Shoe Right Footwear Regular Shoe Regular Shoe Pain Scale: 0-10 Numeric Is Patient Pain Free? No Yes #1 R groin -Description Sharp -Pain Behavior Moaning,Crying, Restlessness, Perspiration, Facial Grimacing -Comments When taking off wound vac. He is asking for pain meds. He will talk to DR Shadi COX - Nurse 1 - General Ulcer Measurement Start: 01/13/22 08:57 Freq: Status: Active Protocol: Activity Type Activity Date Activity User E-sign Co-sign Detail Recorded Client Recorded Date Recorded By Document 01/13/22 09:07 IA [id number] 01/13/22 09:20 IA Document 01/20/22 11:02 [facility] [id number] 01/20/22 11:14 [facility] 01/13/22 01/20/22 09:07 11:02 Wound Center Nurse 1 #1- R groin -Combined with other wound No No -Current Size (cm) - Length 1.9 6.4 -Current Size (cm) - Width 7 1.4 -Current Size (cm) - Depth 2.7 1.4 -Total Square Cm 13.3 8.96 -Date of Last Picture (Recall this 01/13/22 field) -Photo Taken Yes -Epithelialization None Present Small 1-33% -Tunneling No No -Undermining/Tunneling No No -Circular Undermining No No -Change in Wound Grade/Stage No -Exudate Amt Large Medium -Exudate Type Serosanguineous Serosanguineous -Wound Margin Distinct, Outline Attached -Granulation Amt Large (67-100%) Large (67-100%) -Granulation Quality Red Red -Slough/Fibrin No No -Necrosis Amt None Present (0 None Present (0 %) %) -Structure Exposed N/A -Texture (Jennifer-wound Skin Appearance) Assessed, Assessed, Localized Edema Scarring -Moisture (Jennifer-wound Skin Appearance) No Abnormality, Assessed Assessed -Color (Jennifer-wound Skin Appearance) Assessed, Assessed, Erythema Erythema -Temperature (Jennifer-wound Skin No Abnormality No Abnormality Appearance) (Pt Warm) (Pt Warm) -Tenderness on Palpation (Jennifer-wound No Yes Skin Appearance) -Ulcer Cleansing Soap and Water Soap and Water -Foul Odor after Cleansing No No -Anesthetic Used 4% Lidocaine 5% Lidocaine Solution,5% Gel Lidocaine Gel BROOKE - Nurse 2 - General Ulcer CM Notes Start: 01/13/22 08:57 Freq: Status: Active Protocol: Activity Type Activity Date Activity User E-sign Co-sign Detail Recorded Client Recorded Date Recorded By Document 01/13/22 09:32 MW [id number] 01/13/22 09:40 MW Document 01/20/22 11:25 MW [id number] 01/20/22 11:32 MW 01/13/22 01/20/22 09:32 11:25 Wound Center Nurse 2 #1- R groin -Time 09:32 11:25 -Correct Patient Yes Yes -Correct Side, Site, Position Yes Yes -Correct Procedure Yes Yes -Procedure Performed Yes Yes -Type of Procedure Debridement Debridement -Clinical Debridement Subcutaneous Subcutaneous -Tissue Removed Subcutaneous Subcutaneous -Post Debridement (cm) - Length 8.0 6.7 -Post Debridement (cm) - Width 3.0 2.1 -Post Debridement (cm) - Depth 4.0 2.5 -Total Square (Post) (cm) 24.00 14.07 -Area of Debridement (cm) - Length 8.0 6.7 -Area of Debridement (cm) - Width 3.0 2.1 -Total Square (Area) (cm) 24.00 14.07 -Tunneling No No -Undermining/Tunneling No No -Circular Undermining No No -Wound/Ulcer Outcome Not Healed Not Healed -Ulcer Cleansing Rinsed/ Rinsed/ Irrigated with Irrigated with Saline Saline -Foul Odor after Cleansing No No -Bioengineered Tissue No No -Bleeding Controlled with Pressure Pressure -Treatment Response Procedure Procedure Tolerated Well Tolerated Well -Offloading No -Debridement - Subq, 1st 20sq cm Yes Yes -Debridement, SubQ, ea addt'l 20sq cm 1 or part thereof Pain Scale: 0-10 Numeric Is Patient Pain Free? Yes Yes WC - Nurse 3 - General Ulcer D/C NN Start: 01/13/22 08:57 Freq: Status: Active Protocol: Activity Type Activity Date Activity User E-sign Co-sign Detail Recorded Client Recorded Date Recorded By Document 01/13/22 09:59 AK [id number] 01/13/22 10:02 AK Document 01/20/22 11:47 MT [id number] 01/20/22 11:48 MT 01/13/22 01/20/22 09:59 11:47 Wound Care Nurse 3 #1- R groin -Ulcer Cleansing Rinsed/ Irrigated with Saline -Foul Odor after Cleansing No Yes -Negative Pressure Wound Therapy N/A Start -Setting (mmHg) 150 -Negative Pressure is Continuous -Other Dressing wet to dry and lila -Primary Dressing Covered/Secured with Dry Gauze, Secured with Tape -NPWT Application Charge NPWT </= 50 sq cm ($) Pain Scale: 0-10 Numeric Is Patient Pain Free? No No #1 R groin -Description Dull,Throbbing -Intensity 5 -Duration (hours) Acute -Pain Aggravating Factors Exercise/ Activity -Alleviating Factors/Interventions Medicate when due,Exercise/ Ambulation WC - Visit Discharge Discharge Condition Stable Ambulatory Status Ambulatory Transportation Private Auto Medication Reconcilliation completed & Yes provided to patient/care provider Clinical Summary of Care Provided Yes Notes: Dr. Oneil gave prescription for pain meds Assessment/Plan Assessment/Plan (1) Cellulitis and abscess of right leg: CODE(S): L03.115 - Cellulitis of right lower limb; L02.415 - Cutaneous abscess of right lower limb (2) Non-healing surgical wound of right groin: CODE(S): T81.89XA - Other complications of procedures, not elsewhere classified, initial encounter (3) Type 2 diabetes mellitus: CODE(S): E11.9 - Type 2 diabetes mellitus without complications (4) Obesity: CODE(S): E66.9 - Obesity, unspecified (5) Intertriginous dermatitis associated with moisture: CODE(S): L30.4 - Erythema intertrigo PLAN: Plan Debridement done as documented above,procedure was better tolerated this week. Continue wound VAC at 150 mmHg. Change tomorrow by Home health and then on Monday, Monday and Monday. Optimal diabetes control very strongly recommended, patient voiced understanding. Increased protein intake vitamin C, D and zinc also discussed. Follow-up in 1 week or sooner if needed. His questions were answered and he was advised to call with any further questions or concerns. Follow up with me in 2 weeks. This note was generated with [employer] software. It may contain incorrect words, spelling, and punctuation that were not noted in checking the note before signing.
== END 2022-01-27 23:59 | disposition home or self-care (01) ==
LOC: WC 10:45
PROVIDERS: Visit Provider Internal Medicine
DX: L02.415 Cutaneous abscess of right lower limb (principal); E11.9 Type 2 diabetes mellitus without complications; T81.89XA Other complications of procedures, not elsewhere classified, initial encounter; I10 Essential (primary) hypertension; Z87.891 Personal history of nicotine dependence; E66.9 Obesity, unspecified; L03.115 Cellulitis of right lower limb; L30.4 Erythema intertrigo
CPT/HCPCS: 11042; 97605; 11045; 99213; G0463

== ENCOUNTER → 2022-01-20 | Outpatient (CLI) | payer MEDICAID, SELFPAY ==
[2022-01-20 17:30] LABS: Microalbumin,Random Urine 12.2 mg/L (NO RANGE EST.); Microalbumin:Creatinine Ratio 13.5 mg/g CRE (<30 mg/g CRE)
== END | disposition home or self-care (01) ==
PROVIDERS: PCP Internal Medicine; Referring Provider Internal Medicine; Visit Provider Internal Medicine
DX: I10 Essential (primary) hypertension (principal); E11.9 Type 2 diabetes mellitus without complications; T81.89XA Other complications of procedures, not elsewhere classified, initial encounter; L03.115 Cellulitis of right lower limb; E66.9 Obesity, unspecified; L30.4 Erythema intertrigo
CPT/HCPCS: 11042; 82043; 82570; 97605

== ENCOUNTER 2022-02-03 11:00 | Outpatient (RCR) | payer MEDICAID, SELFPAY ==
[2022-01-28 00:48] VITALS: BP 142/97; PULSE 93; RESP 18; TEMP 36.1
[2022-02-03 11:11] VITALS: BP 155/92; PULSE 109; RESP 16; TEMP 36.2
--- NOTE | 2022-02-03 13:29 | PN.PCM_ITS ---
History of Present Illness Date of Service: 02/03/22 Chief Complaint: Right Groin Surgical wound History of Wound: Mr. Solis is a 51 yo who was referred to the wound center for on going wound care. He is status post inpatient hospital admission for incision and drainage of the right groin/upper thigh abscess. He states that he had been fiddling around with what he thought was a skin tag. Area suddenly became significantly inflamed and painful for which he presented to the hospital. Had an initial I&D following which he was discharged however, he states that the area significantly worsened and so he represented to the hospital where he had further incision and drainage done with subsequent VAC placement. He reports a lot of pain in the surrounding area. He believes that the VAC is helping. No chills, fever, nausea or vomiting. No change in bowel habit. Was discharged on oxycodone, linezolid and Augmentin which he has completed. He states that he has been doing a lot of puyr-huf-swlfebv measures for pain but has not found anything helpful Progress of Wound: Improving. No new concerns at this time. Objective Data Objective Data Vital Signs: Vital Signs Temp Pulse Resp BP O2 Del Method 97.1 F L 109 H 16 155/92 H Room Air 02/03/22 11:11 02/03/22 11:11 02/03/22 11:11 02/03/22 11:11 02/03/22 11:11 Oxygen Delivery Method Room Air Charges/Coding Procedures Integumentary 111xxx-113xx: 99089 Jennifer subq tissue 20 sq cm/< Physical Exam Const alert, oriented x3 and healthy appearing General Appearance: cooperative, comfortable and well kempt Orientation / Consciousness: awake HEENT normocephalic, head/scalp atraumatic and hearing grossly normal bilaterally Eyes PERRL and EOMs intact bilaterally General Eye: normal appearance of both eyes Neck full ROM General: normal visual inspection Resp normal respiratory effort Effort and Inspection: able to speak in complete sentences Skin Wounds: wounds noted Neuro oriented x3, CN's II-XII intact bilaterally and moves all extremities Psych mental status grossly normal and thought process normal Appearance: grossly normal Attitude: calm Activity / Motor Behavior: appropriate eye contact Debridement Note Debridement Note Wound debrided: Right Groin Type of Debridement: Excisional debridement Anesthesia Used: 4% Lidocaine Solution Depth: Down to and including healthy tissue and in the subcutaneous layer Percentage of wound debrided: 100 Instrument Used: 5mm curette Tissue Removed: Slough and devitalized tissue Severity: Fat Layer Exposed Amount of bleeding with debridement: Mild Bleeding Controlled with: Pressure Patient tolerated procedure: Patient tolerated procedure well Post-Debridement Measurements and Additional Note: Post-Debridement Measurements/Treatment - Nurse 1 - General Ulcer Assessment Start: 02/03/22 11:09 Freq: Status: Active Protocol: KAILA Activity Type Activity Date Activity User E-sign Co-sign Detail Recorded Client Recorded Date Recorded By Document 02/03/22 11:11 [facility] [id number] 02/03/22 11:18 [facility] 02/03/22 11:11 WC - Today's Visit Information Type of service Follow-up Visit (Physician/MUSIC VIDEO PRODUCER ) Arrival Mode Ambulatory Transfer Assistance None Patient Identification Verified (Name & Yes ) Patient Requires Transmission-Based No Precautions Vital Signs Temperature (97.8 F-99.1 F) 97.1 F L Temperature Source Temporal Pulse Rate (60-100) 109 H Pulse Location Monitor Respiratory Rate (12-18) 16 Respiratory rate source Observation Oxygen Delivery Method Room Air Blood Pressure (90/60-120/80) 155/92 H Blood Pressure Mean (mm Hg) 113 Source Monitor Position Sitting Blood Pressure Location Left Arm History Since Last Visit- (Skip if this is Patient's initial visit) Have you changed medications since your No last visit? Any new allergies or adverse reactions No Had a fall/change in ADL's that may No increase risk of falls Signs or symptoms of abuse and/or No neglect since last visit Have you been in the hospital since your No last visit? Has dressing in place as prescribed Yes Has compression in place as prescribed N/A Has offloadiing in place as prescribed N/A Experienced any changes in pain level or No management Left Footwear Regular Shoe Right Footwear Regular Shoe Pain Scale: 0-10 Numeric Is Patient Pain Free? Yes Russ Nurse 1 - General Ulcer Measurement Start: 02/03/22 11:09 Freq: Status: Active Protocol: Activity Type Activity Date Activity User E-sign Co-sign Detail Recorded Client Recorded Date Recorded By Document 02/03/22 11:11 [facility] [id number] 02/03/22 11:18 [facility] 02/03/22 11:11 Wound Center Nurse 1 #1- R groin -Combined with other wound No -Current Size (cm) - Length 3.1 -Current Size (cm) - Width 0.6 -Current Size (cm) - Depth 0.4 -Total Square Cm 1.86 -Date of Last Picture (Recall this 02/03/22 field) -Photo Taken Yes -Epithelialization Medium 34-66% -Tunneling No -Undermining/Tunneling No -Circular Undermining No -Exudate Amt Small -Exudate Type Sanguineous -Wound Margin Distinct, Outline Attached -Granulation Amt Large (67-100%) -Granulation Quality Red -Slough/Fibrin No -Necrosis Amt None Present (0 %) -Texture (Jennifer-wound Skin Appearance) Assessed, Scarring -Moisture (Jennifer-wound Skin Appearance) Assessed -Color (Jennifer-wound Skin Appearance) Assessed -Temperature (Jennifer-wound Skin No Abnormality Appearance) (Pt Warm) -Tenderness on Palpation (Jennifer-wound No Skin Appearance) -Ulcer Cleansing Soap and Water -Foul Odor after Cleansing No -Anesthetic Used 4% Lidocaine Solution WC - Nurse 2 - General Ulcer CM Notes Start: 02/03/22 11:09 Freq: Status: Active Protocol: Activity Type Activity Date Activity User E-sign Co-sign Detail Recorded Client Recorded Date Recorded By Document 02/03/22 11:24 MW [id number] 02/03/22 11:28 MW 02/03/22 11:24 Wound Center Nurse 2 -Time 11:26 -Correct Patient Yes -Correct Side, Site, Position Yes -Correct Procedure Yes -Procedure Performed Yes -Type of Procedure Debridement -Clinical Debridement Subcutaneous -Tissue Removed Subcutaneous -Post Debridement (cm) - Length 3.2 -Post Debridement (cm) - Width 1.2 -Post Debridement (cm) - Depth 0.4 -Total Square (Post) (cm) 3.84 -Area of Debridement (cm) - Length 3.2 -Area of Debridement (cm) - Width 1.2 -Total Square (Area) (cm) 3.84 -Tunneling No -Undermining/Tunneling No -Circular Undermining No -Wound/Ulcer Outcome Not Healed -Ulcer Cleansing Rinsed/ Irrigated with Saline -Foul Odor after Cleansing No -Bioengineered Tissue No -Bleeding Controlled with Pressure -Treatment Response Procedure Tolerated Well -Offloading No -Debridement - Subq, 1st 20sq cm Yes Pain Scale: 0-10 Numeric Is Patient Pain Free? Yes WC - Nurse 3 - General Ulcer D/C NN Start: 02/03/22 11:09 Freq: Status: Active Protocol: Activity Type Activity Date Activity User E-sign Co-sign Detail Recorded Client Recorded Date Recorded By Document 02/03/22 11:57 ML [id number] 02/03/22 11:58 ML Edit Result 02/03/22 11:57 ML (1) [id number] 02/03/22 12:09 ML (1) #1- R groin - Primary Dressing Applied Aquacel Extra => Aquacel Extra, => Mepilex Border - Other Covering foam dressing => - Mepilex Border => 3 02/03/22 11:57 Wound Care Nurse 3 #1- R groin -Ulcer Cleansing Rinsed/ Irrigated with Saline -Primary Dressing Applied Aquacel Extra, Mepilex Border -Aquacel Extra 1 -Mepilex Border 3 Pain Scale: 0-10 Numeric Is Patient Pain Free? Yes Assessment/Plan Assessment/Plan (1) Cellulitis and abscess of right leg: CODE(S): L03.115 - Cellulitis of right lower limb; L02.415 - Cutaneous abscess of right lower limb (2) Non-healing surgical wound of right groin: CODE(S): T81.89XA - Other complications of procedures, not elsewhere classified, initial encounter QUALIFIERS: Encounter type: subsequent encounter Qualified Code(s): T81.89XD - Other complications of procedures, not elsewhere classified, subsequent encounter (3) Type 2 diabetes mellitus: CODE(S): E11.9 - Type 2 diabetes mellitus without complications (4) Obesity: CODE(S): E66.9 - Obesity, unspecified (5) Intertriginous dermatitis associated with moisture: CODE(S): L30.4 - Erythema intertrigo PLAN: Plan Improving. Debridement done as documented above,procedure was well tolerated. Hold Vac for 1 week with plans to DC. Aquacel extra with moistened gauze over top. Change daily. Optimal diabetes control very strongly recommended, patient voiced understanding. Increased protein intake vitamin C, D and zinc also discussed. Follow-up in 1 week or sooner if needed. His questions were answered and he was advised to call with any further questions or concerns. Follow up in 1 week. This note was generated with [employer] dictation software. It may contain incorrect words, spelling, and punctuation that were not noted in checking the note before signing.
== END 2022-02-27 23:59 | disposition home or self-care (01) ==
LOC: WC 11:00
PROVIDERS: PCP Internal Medicine; Visit Provider Internal Medicine
DX: L03.115 Cellulitis of right lower limb (principal); E11.9 Type 2 diabetes mellitus without complications; L02.415 Cutaneous abscess of right lower limb; E66.9 Obesity, unspecified; L30.4 Erythema intertrigo; T81.89XA Other complications of procedures, not elsewhere classified, initial encounter
CPT/HCPCS: 11042

== ENCOUNTER → 2022-02-23 | Outpatient (CLI) | payer MEDICAID, SELFPAY ==
[2022-02-23 18:33] LABS: Amphetamine Urine VISTA NEGATIVE (<1000 ng/mL); Barbiturate Urine VISTA NEGATIVE (< 200 ng/mL); Benzodiazepine Urine VISTA NEGATIVE (< 200 ng/mL); Cocaine Urine VISTA NEGATIVE (< 300 ng/mL); Ecstacy Urine VISTA NEGATIVE (< 500 ng/mL); Methadone Urine VISTA NEGATIVE (< 300 ng/mL); PCP Urine VISTA NEGATIVE (< 25 ng/mL); THC Urine VISTA NEGATIVE (< 50 ng/mL); Vista UDS pH Range 4
== END | disposition home or self-care (01) ==
PROVIDERS: PCP Internal Medicine; Visit Provider Anesthesiology Pain Medicine
DX: F11.20 Opioid dependence, uncomplicated (principal)
CPT/HCPCS: 80307

== ENCOUNTER → 2022-05-31 | Outpatient (CLI) | payer MEDICAID, SELFPAY | END | disposition home or self-care (01) | LOC: SL 11:01 | PROVIDERS: PCP Internal Medicine; Visit Provider Internal Medicine | DX: R29.818 Other symptoms and signs involving the nervous system (principal); G47.10 Hypersomnia, unspecified | CPT/HCPCS: 95801; 95806 ==

== ENCOUNTER 2023-02-27 17:23 | Emergency (ER) | payer MEDICAID, SELFPAY ==
[2023-02-27 17:26] VITALS: BP 173/102; PULSE 117; RESP 22; TEMP 36.6; O2SAT 97; BMI 45.5
[2023-02-27] MEDS: Ondansetron 4 MG/2 ML Vial IV (18:09)
[2023-02-27] MEDS: 0.9% Normal Saline 1,000 ML 1000 ML IV (18:09)
[2023-02-27 18:12] LABS: Bacteria 0 SEEN /hpf (None Seen); Mucous, Urine 0 SEEN /hpf (<or=2+); Red Blood Cells-Urine 0 SEEN /hpf (0-5); Squamous Epithelial Cells - UA 0 SEEN /hpf (0-5); White Blood Cells 0 SEEN /hpf (0-5)
[2023-02-27] MEDS: morphine 8 MG/ML Syringe IV ×3 (18:12→20:01)
[2023-02-27 18:16] LABS: Basophil# 0.06 X10^3/uL; Basophil% 0.7 % (0-1); Color, Urine Yellow (Yellow); Eosinophil# 0.11 X10^3/uL; Eosinophils% 1.3 % (0-5); Glucose, Dipstick 1000 mg/dl (Normal); Hematocrit 47.2 % (40-54); Hemoglobin 15.7 g/dL (13.0-16.5); Ketone-Dipstick Negative (Negative); Leukocyte Esterase-Dipstick Negative /ul (Negative); Lymphocyte % 30.7 % (19-41); Mean Corp Hgb Conc 33.3 g/dL (32-36); Mean Corpuscular Hgb 28.8 pg (27.0-32.0); Mean Corpuscular Volume 86.6 fL (80-94); Mean Platelet Vol. 10.4 fl (6.2-12.0); Monocyte# 0.72 X10^3/uL; Monocyte% 8.5 % (0-10); NRBC Flagged by Analyzer 0 % (0-5); Neutrophil # 4.97 X10^3/uL (2.7-7.7); Neutrophil % 58.6 % (47-70); Nitrite-Dipstick Negative (Negative); Occult Blood-Urine Negative /ul (Negative); Platelet Count 232 K/mm3 (150-450); Protein-Dipstick 15 mg/dl (Negative); RBC Distribution Width CV 12.5 % (11.6-14.6); RBC Distribution Width SD 39.3 fl (35.1-43.9); Red Blood Count 5.45 M/mm3 (4.6-6.2); Specific Gravity, Urine 1.015 (1.002-1.030); Urine Bilirubin Dipstick Negative (Negative); Urine Clarity Clear (Clear); Urine Urobilinogen Normal (Normal); Urine pH 6.5 (5.0 - 8.0); White Blood Count 8.5 K/mm3 (4.4-11.0)
[2023-02-27 18:30] LABS: AST(SGOT) 32 U/L (15-37); Alanine Aminotransfer ALT/SGPT 90 U/L (16-61); Albumin, Serum 3.6 g/dL (3.2-5.0); Alkaline Phosphatase 130 U/L (45-117); Anion Gap 4 (5-15); BUN 16 mg/dL (7-18); BUN/Creat Ratio 16.1 RATIO (10-20); Bilirubin, Direct 0.19 mg/dL (0.00-0.30); Calcium,Total 9.4 mg/dL (8.5-10.1); Chloride 102 mmol/L (98-107); EST Glomerular Filtration Rate 84 mL/min (>60); Est Glom Filt Rate - Afr Amer 101 mL/min (>60); Globulin 4.1 g/dL (2.2-4.2); Glucose 319 mg/dL (74-106); Potassium 4.3 mmol/L (3.5-5.1); Protein, Total 7.7 g/dL (6.4-8.2); Sodium Level 134 mmol/L (136-145)
--- NOTE | 2023-02-27 18:44 | EX.ED.DYSGE1 ---
HPI History of Present Illness Chief Complaint: Abd Pain Detail of Chief Complaint: Abdominal pain that started 2 nights ago Informant: patient Onset/Context/Timing Context: Sudden Onset Timing: Continuous Quality: Pain Location: Area of maximal tenderness right inguinal right lower quadrant Current Severity: Moderate Maximum Severity: Severe Worsened by: Movement Relieved by: Nothing Associated Symptoms Associated Symptoms: Nausea and loss of appetite Narrative Narrative: Patient is a 52-year-old male with history of hypertension, type 2 diabetes and suspected sleep apnea who presents with abdominal pain started 2 days ago. Associate with nausea and loss of appetite. Pain has progressively gotten worse over the last 2 days. He localizes pain of maximal discomfort right lower quadrant right inguinal area. He not certain whether there is a bulge or mass. He does report frequency and urgency. Denies dysuria or hematuria. He denies history of renal ureterolithiasis. Father has history of renal lithiasis. He denies flank pain. He complains of subjective fever and chills. He denies scrotal pain or swelling. He denies rectal pain. He denies vomiting or diarrhea. He denies black or maroon-colored stool. Prior similar symptoms: No Recent Illness/Hospitalization: No [facility] Medical History Diabetes Hypertension Intertriginous dermatitis associated with moisture Non-healing surgical wound of right groin Obesity Physical exam, pre-employment Type 2 diabetes mellitus Home Medications acetaminophen 500 mg tablet 1,000 mg (2 x 500 mg) PO Q8 #0 tabs 01/07/22 [Rx Last Taken Unknown] ibuprofen 200 mg tablet 600 mg (3 x 200 mg) PO Q8H PRN fever or pain #30 tabs 01/07/22 [Rx Last Taken Unknown] blood-glucose meter (Accu-Chek Maggi Plus Meter) #1 ea 01/20/22 [Rx Last Taken Unknown] blood sugar diagnostic (Accu-Chek Maggi Plus test strips) #100 ea 05/11/22 [Rx Last Taken Unknown] lancets (Accu-Chek Softclix Lancets) #100 ea 05/11/22 [Rx Last Taken Unknown] pen needle, diabetic 29 gauge x 1/2 (BD Ultra-Fine Original Pen Needle) #100 ea 05/11/22 [Rx Last Taken Unknown] bupropion HCl 150 mg tablet,12 hr sustained-release (Wellbutrin SR) 150 mg PO BID #180 ea 12/12/22 [Rx Last Taken Unknown] dulaglutide 1.5 mg/0.5 mL subcutaneous pen injector 1.5 mg (0.5 mL) subcut QWEEK #6 mL 12/12/22 [Rx Last Taken Unknown] hydrochlorothiazide 12.5 mg tablet 12.5 mg PO QAM #90 tabs 12/12/22 [Rx Last Taken Unknown] losartan 100 mg tablet 100 mg PO DAILY #90 tabs 12/12/22 [Rx Last Taken Unknown] glipizide 10 mg tablet 5 - 10 mg (0.5 - 1 x 10 mg) PO DAILY #90 tabs 01/06/23 [Rx Last Taken Unknown] hyoscyamine sulfate 0.125 mg tablet 0.125 mg PO DAILY PRN dyspepsia #30 tabs 01/06/23 [Rx Last Taken Unknown] amlodipine 10 mg tablet 10 mg PO DAILY #90 tabs 02/27/23 [Rx Last Taken Unknown] insulin detemir U-100 100 unit/mL (3 mL) subcutaneous pen 40 unit (0.4 mL) subcut BID diabetes #72 mL 02/27/23 [Rx Last Taken Unknown] Allergy/AdvReac Type Severity Reaction Status Date / Time Penicillins Allergy Hives Verified 02/27/23 17:26 Family History Grandfather Heart disease Surgical History H/O right wrist surgery S/P debridement Status post incision and drainage Social History household members: none current occupational status: employed current occupation: works for the [employer] office Smoking Status: Former smoker Tobacco: How many years used: 25 Electronic Cigarette Use: not used alcohol intake: current alcohol intake frequency: holidays/special occasions only substance use type: does not use what type of physical activity do you participate in: none do you feel safe at home: Yes ROS ROS ED Constitutional Constitutional ED: Reports chills, fever(s) and subjective; Denies sweats or weight loss Eyes Eyes: Denies blurry vision, change in vision or diplopia ENT ENT ED: Denies ear pain, rhinorrhea or sore throat Cardiovascular Cardiovascular: Denies chest pain, orthopnea, palpitations, paroxysmal nocturnal dyspnea or racing heartbeat Respiratory/Chest Respiratory/Chest: Denies cough, dyspnea, dyspnea on exertion, orthopnea or paroxysmal nocturnal dyspnea Gastrointestinal Gastrointestinal: Reports abdominal pain and nausea; Denies constipation, diarrhea, melena or vomiting Genitourinary Genitourinary ED: Denies dysuria, hematuria or urinary frequency Musculoskeletal Musculoskeletal: Denies arthralgias, back pain, myalgias or neck pain Integumentary Denies abscess or Abrasions Neurologic Neurologic: Reports weakness; Denies headache(s) or paresthesias Psychiatric Psychiatric: Reports anxiety Endocrine Endocrinology: Denies cold intolerance, heat intolerance or polydipsia Hematologic/Lymphatic Hematologic/Lymphatic: Reports systems reviewed and no addt'l complaints, except as documented EXAM Physical Exam Const Vital Signs: 02/27/23 17:26 02/27/23 19:24 02/27/23 20:06 Temperature 97.8 F Temperature Source Temporal Pulse Rate 117 H 95 101 H Respiratory Rate 22 H 17 18 Blood Pressure 173/102 H 154/93 H 162/99 H Blood Pressure Mean 125 113 120 Pulse Ox 97 98 97 Oxygen Delivery Method Room Air Room Air Room Air Positive well nourished, well developed and obese Constitutional Narrative: It appears uncomfortable. Patient is tachypneic. General Appearance ED: well developed and pallor; Negative for cyanotic, diaphoretic or NAD Nutritional Appearance: obese HEENT Reports dry mucous membranes HEENT Narrative: Head is atraumatic normocephalic. Ears normal. TMs normal. Posterior pharynx out erythema or exudate. Uvula is midline. Mouth ED: Yes dry mucous membranes Mouth: dry mucous membranes Eyes PERRL and EOMs intact bilaterally Neck no lymphadenopathy, supple and no JVD Chest Wall inspection of chest normal and palpation of chest normal Resp normal respiratory effort and clear to auscultation bilaterally Cardio regular rhythm, S1 normal heart sound, S2 normal heart sound and no murmurs Rate: tachycardic GI non-distended; Negative for normal to inspection, nondistended, normoactive bowel sounds, non-tender, hepatosplenomegaly or no masses Auscultation: hypoactive bowel sounds Palpation: tender other (Generalized), guarding other (Generalized) and rebound tenderness present Narrative: There is no obvious inguinal mass or hernia. Back/Spine no CVA tenderness Cervical Spine: Negative for cervical spine tenderness Thoracic Spine / Upper Back: Negative for thoracic spinal tenderness Lumbar Spine / Lower Back: Negative for lumbar spinal tenderness Extremity normal to inspection General Extremety ED: Yes edema; Negative for tenderness General Extremity: edema Neuro oriented x3, CN's II-XII intact bilaterally and no sensory deficits noted Sensorium / Orientation: alert Motor Exam: strength 5/5 throughout Psych Mood & Affect: anxious Skin no rashes or lesions noted, no wounds and No skin turgor normal General Skin Exam: pallor; Negative for elasticity normal or jaundice MDM MDM MDM Narrative Medical decision making narrative: She has a surgical abdomen. Differential diagnosis would include ruptured appendix, ruptured diverticulitis, perforated viscus unusual presentation for inflammatory bowel disorder appropriate blood work was ordered. This could also represent a volvulus. Patient was started on Zosyn. CT of the abdomen with IV contrast was ordered. Since he clinically appears dehydrated he received IV fluids. He has received due to doses of morphine, 8 mg. Lab Data Attestation: I reviewed the patient's lab results. Lab results narrative: White count is normal with differential. Basic metabolic panel of is remarkable for a blood sugar of 319 with a normal CO2 and anion gap renal function is well. UA is normal. Transaminases are elevated and can be elevated because of fatty liver disease. Labs: Laboratory Results - last 24 hr 02/27/23 18:08 WBC 8.5 RBC 5.45 Hgb 15.7 Hct 47.2 MCV 86.6 MCH 28.8 MCHC 33.3 RDW Std Deviation 39.3 RDW Coeff of Jax 12.5 Plt Count 232 MPV 10.4 Immature Gran % (Auto) 0.200 Neut % (Auto) 58.6 Lymph % (Auto) 30.7 [place] % (Auto) 8.5 Eos % (Auto) 1.3 Baso % (Auto) 0.7 Absolute Neuts (auto) 5.0 Absolute Lymphs (auto) 2.60 Nucleated RBC % 0 Sodium 134 L Potassium 4.3 Chloride 102 Carbon Dioxide 28.0 Anion Gap 4 L BUN 16 Creatinine 1.00 Estim Creat Clear Calc 83.60 Est GFR (MDRD) Af Amer 101 Est GFR (MDRD) Non-Af 84 BUN/Creatinine Ratio 16.1 Glucose 319 H Calcium 9.4 Total Bilirubin 0.60 Direct Bilirubin 0.19 AST 32 ALT 90 H Alkaline Phosphatase 130 H Total Protein 7.7 Albumin 3.6 Globulin 4.1 Urine Color Yellow Urine Clarity Clear Urine pH 6.5 Ur Specific [place] 1.015 Urine Protein 15 H Urine Glucose (UA) 1000 H Urine Ketones Negative Urine Occult Blood Negative Urine Nitrite Negative Urine Bilirubin Negative Urine Urobilinogen Normal Ur Leukocyte Esterase Negative Urine RBC 0 SEEN Urine WBC 0 SEEN Ur Squamous Epith Cells 0 SEEN Urine Bacteria 0 SEEN Urine Mucus 0 SEEN Radiography Diagnostic Testing: Clinical Impression(s) from Imaging Studies Abdomen CT 02/27/23 19:40 IMPRESSION: (NOT LISTED IN ORDER OF SIGNIFICANCE) Enlarged liver. There are multiple gallstones. Other findings as above. Electronically Signed: Piero Blackwood MD at 20:03 EDT , Treatment and Re-Evaluation :: Informed last time they maxed out on morphine and needed to give him medication to begin with a D . Patient was informed that he has not been maxed out on the morphine. And awaiting results of CAT scan since he has not gone. Because patient reports maxing out on morphine and requiring the medicine that begins with D we will make referral to case management for care plan. Comments:: CT of the abdomen pelvis was reviewed by me and reveals evidence of cholelithiasis. The liver appears normal. The spleen appears normal. I do not appreciate any acute inflammatory process. We will await formal read by radiologist. Discharge Plan Triage Chief Complaint: Abd Pain ED Provider: Gilles Nielsen Dx/Rx/DC Orders Clinical Impression: Fatty liver, Abdominal pain of unknown etiology, Cholelithiasis Instructions: Nonalcoholic Fatty Liver ..., Gallstones Dc, ED Abdominal Pain Unkn Cause Male... Prescriptions: No Action (DME) blood-glucose meter [Accu-Chek Maggi Plus Meter] Misc See Rx Instructions .Route Qty: 1 0RF Rx Instructions: As directed bupropion HCl [Wellbutrin SR] 150 mg tablet sustained-release 12 hr 150 mg PO BID Qty: 180 0RF Rx Instructions: take 150mg daily for 3 days, then increase to 150mg BID losartan 100 mg tablet 100 mg PO DAILY Qty: 90 0RF Trulicity 1.5 mg/0.5 mL pen injector 1.5 mg subcut QWEEK Qty: 6 0RF hydrochlorothiazide 12.5 mg tablet 12.5 mg PO QAM Qty: 90 0RF acetaminophen 500 mg Tablet 1,000 mg PO Q8 Qty: 0 0RF ibuprofen 200 mg tablet 600 mg PO Q8H PRN (Reason: fever or pain) Qty: 30 0RF (DME) Accu-Chek Maggi Plus test strp Strip See Rx Instructions .Route Qty: 100 5RF Rx Instructions: two times daily (DME) lancets [Accu-Chek Softclix Lancets] Misc See Rx Instructions .Route Qty: 100 5RF Rx Instructions: two times daily (DME) pen needle, diabetic [BD Ultra-Fine Orig Pen Needle] 29 gauge x 1/2 needle See Rx Instructions .Route Qty: 100 1RF Rx Instructions: two times daily hyoscyamine sulfate 0.125 mg tablet 0.125 mg PO DAILY PRN (Reason: dyspepsia) Qty: 30 0RF glipizide 10 mg tablet 5 - 10 mg PO DAILY Qty: 90 0RF amlodipine 10 mg tablet 10 mg PO DAILY Qty: 90 0RF insulin detemir U-100 100 unit/mL (3 mL) insulin pen 40 unit SUBCUT BID Qty: 72 0RF Primary Care Provider: Karen Xie Referrals: Karen Xie MD [Primary Care Provider] - As Needed Disposition Disposition: Home, Self Care
[2023-02-27] MEDS: LORazepam 2 MG/ML Syringe 0.5 MG IV (19:08)
[2023-02-27 19:24] VITALS: BP 154/93; PULSE 95; RESP 17; O2SAT 98
--- NOTE | 2023-02-27 19:40 | CT_ITS ---
STUDY: CT Abdomen And Pelvis W/O Contrast Injection 02/27/2023 8:01 PM REASON FOR EXAM: Male, 52 years old. Abdominal pain Peritonitis generalized Individualized dose optimization techniques were used for this CT. COMPARISON: None. TECHNIQUE: CT Abdomen And Pelvis W/O Contrast Injection Oral Gastrografin FINDINGS: The visualized lung bases are unremarkable. The visualized portions of the heart are within normal limits. There is hepatomegaly with diffuse hepatic enlargement. There are multiple gallstones. Normal spleen. Normal pancreas. Normal bilateral adrenal glands. No acute findings of the right kidney. Non obstructive 9mm left renal parenchymal stones. Normal visualized stomach. Normal small intestine. There are multiple colonic diverticula consistent with diverticulosis. The appendix is visualized and appears normal. There are calcifications of the abdominal aorta. This is consistent for atherosclerotic disease. There is NO abdominal aortic aneurysm. Vascular workup can be obtained based on clinical correlation. Normal inferior vena cava. Subcentimeter mesenteric lymph nodes. Normal urinary bladder. There are prostatic calcifications. There is an umbilical hernia containing fat. Normal osseous structures. CT/Abdomen/Pel W ORAL Cont Only IMPRESSION: (NOT LISTED IN ORDER OF SIGNIFICANCE) Enlarged liver. There are multiple gallstones. Other findings as above. Electronically Signed: Piero Blackwood MD at 20:03 EDT ,
[2023-02-27 20:06] VITALS: BP 162/99; PULSE 101; RESP 18; O2SAT 97
== END 2023-02-27 20:31 | disposition home or self-care (01) ==
PROVIDERS: Emergency Provider Emergency Medicine; PCP Internal Medicine; Visit Provider Emergency Medicine
DX: R10.9 Unspecified abdominal pain (principal); E11.9 Type 2 diabetes mellitus without complications; Z79.4 Long term (current) use of insulin; K80.20 Calculus of gallbladder without cholecystitis without obstruction; I10 Essential (primary) hypertension; Z87.891 Personal history of nicotine dependence; K76.0 Fatty (change of) liver, not elsewhere classified; Z79.85 Long-term (current) use of injectable non-insulin antidiabetic drugs; Z79.899 Other long term (current) drug therapy
CPT/HCPCS: 74176; 80048; 80076; 81001; 85025; 96361; 96374; 96375; 96376; 99284; J7030; A4216; J2405

== ENCOUNTER 2023-06-21 17:10 | Inpatient (IN) | payer MEDICAID, SELFPAY ==
[2023-06-21] VITALS (45 sets, daily range): BP systolic 92–151; BP diastolic 57–109; PULSE 79–159; RESP 9–23; TEMP 36.4–36.6; O2SAT 90–97; BMI 44.8; BMI 44.5
--- NOTE | 2023-06-21 17:25 | RAD_ITS ---
STUDY: X-RAY CHEST REASON FOR EXAM: Male, 52 years old. chest pain TECHNIQUE: AP COMPARISON: None. FINDINGS: Mild atelectasis in the lateral lung bases. No airspace consolidation. There is no demonstrated pleural abnormality. There is mild cardiac enlargement. Normal mediastinum and lupillo. Normal visualized pulmonary arteries. Normal visualized aortic arch and descending thoracic aorta. Normal visualized thoracic spine. Normal visualized ribs, clavicles, and shoulders. There is no demonstrated abnormality of the visualized soft tissue structures of the upper abdomen. RAD/Chest 1 View (Portable) IMPRESSION: Nonacute portable x-ray examination of the chest. Electronically Signed: Milan Garcia MD ([place]) at 17:39 EST ,
[2023-06-21 17:33] LABS: Absolute Lymphocyte Count 2.84 X10^3/uL (0.83-4.51); Absolute Neutrophil Count 6.4 X10^3/uL (2.0-7.7); Basophil# 0.04 X10^3/uL; Basophil% 0.4 % (0-1); Eosinophil# 0.02 X10^3/uL; Eosinophils% 0.2 % (0-5); Hematocrit 46.1 % (40-54); Hemoglobin 14.7 g/dL (13.0-16.5); Lymphocyte # 2.84 X10^3/ul (0.83-4.51); Lymphocyte % 27.5 % (19-41); Mean Corp Hgb Conc 31.9 g/dL (32-36); Mean Corpuscular Hgb 26.6 pg (27.0-32.0); Mean Corpuscular Volume 83.4 fL (80-94); Mean Platelet Vol. 10.5 fl (6.2-12.0); Monocyte# 0.97 X10^3/uL; Monocyte% 9.4 % (0-10); NRBC Flagged by Analyzer 0 % (0-5); Neutrophil # 6.42 X10^3/uL (2.7-7.7); Neutrophil % 62.2 % (47-70); Platelet Count 281 K/mm3 (150-450); RBC Distribution Width CV 12.7 % (11.6-14.6); RBC Distribution Width SD 38.3 fl (35.1-43.9); Red Blood Count 5.53 M/mm3 (4.6-6.2); White Blood Count 10.3 K/mm3 (4.4-11.0)
[2023-06-21 17:50] LABS: Anion Gap 6 (5-15); BUN 12 mg/dL (7-18); BUN/Creat Ratio 13.2 RATIO (10-20); Calcium,Total 9.3 mg/dL (8.5-10.1); Chloride 105 mmol/L (98-107); Creatinine, Serum 0.91 mg/dL (0.70-1.30); EST Glomerular Filtration Rate 93 mL/min (>60); Est Glom Filt Rate - Afr Amer 113 mL/min (>60); Estimated Creatinine Clearance 91.87 ml/min; Glucose 361 mg/dL (74-106); Potassium 3.8 mmol/L (3.5-5.1); Sodium Level 136 mmol/L (136-145); Troponin-I HS (w/2H Reflex) 99 pg/mL (3.0-78.0)
[2023-06-21 17:52] LABS: BNP,B-Type NATRIURETIC PEPTIDE 268.5 pg/mL (0-100)
[2023-06-21] MEDS: dilTIAZem 25 MG/5 ML Vial 20 MG IV BOLUS (17:54)
[2023-06-21] MEDS: APIXABAN 5 MG TABLET PO (17:57)
--- NOTE | 2023-06-21 17:58 | EX.ED.DYSGE1 ---
HPI History of Present Illness Chief Complaint: Shortness of Breath Detail of Chief Complaint: Chest pressure, shortness of breath, HODGSON Informant: patient Onset/Context/Timing Onset: Days (Started 2 to 3 days ago) Context: Sudden Onset Timing: Continuous (Shortness of breath has been continuous.) Quality: Dyspnea, dyspnea on exertion and midsternal chest pressure Location: Midsternal Current Severity: Moderate Maximum Severity: Severe Worsened by: Walking Relieved by: Nothing Associated Symptoms Associated Symptoms: Right earache and slight change in voice Narrative Narrative: Patient is a 52-year-old male with history of type 2 diabetes, essential hypertension, obesity and suspected obstructive sleep apnea presents because of dyspnea with dyspnea exertion that started to 3 days ago. He said intermittent chest discomfort that is worse with activity. He denies history of atrial fibrillation, coronary disease or congestive heart failure. He denies orthopnea or PND. He does endorse mild swelling of his lower extremities. This is also new. He denies fever, chills night sweats. He denies headache. He denies ringing his ears or decreased hearing. He denies cough. He denies abdominal pain, nausea, vomiting or diarrhea. He denies dysuria, frequency, urgency.. Prior similar symptoms: No Recent Illness/Hospitalization: No [facility] Medical History Diabetes Hypertension Intertriginous dermatitis associated with moisture Non-healing surgical wound of right groin Obesity Physical exam, pre-employment Type 2 diabetes mellitus Home Medications ibuprofen 200 mg tablet 600 mg (3 x 200 mg) PO Q8H PRN fever or pain #30 tabs 01/07/22 [Rx Last Taken Unknown] blood-glucose meter (Accu-Chek Maggi Plus Meter) #1 ea 01/20/22 [Rx Last Taken Unknown] blood sugar diagnostic (Accu-Chek Maggi Plus test strips) #100 ea 05/11/22 [Rx Last Taken Unknown] lancets (Accu-Chek Softclix Lancets) #100 ea 05/11/22 [Rx Last Taken Unknown] pen needle, diabetic 29 gauge x 1/2 (BD Ultra-Fine Original Pen Needle) #100 ea 05/11/22 [Rx Last Taken Unknown] glipizide 10 mg tablet 5 - 10 mg (0.5 - 1 x 10 mg) PO DAILY #90 tabs 01/06/23 [Rx Last Taken Unknown] hyoscyamine sulfate 0.125 mg tablet 0.125 mg PO DAILY PRN dyspepsia #30 tabs 01/06/23 [Rx Last Taken Unknown] amlodipine 10 mg tablet 10 mg PO DAILY #90 tabs 02/27/23 [Rx Last Taken Unknown] insulin detemir U-100 100 unit/mL (3 mL) subcutaneous pen 40 unit (0.4 mL) subcut BID diabetes #72 mL 02/27/23 [Rx Last Taken Unknown] bupropion HCl 150 mg tablet,12 hr sustained-release (Wellbutrin SR) 150 mg PO BID #60 ea 03/13/23 [Rx Last Taken Unknown] hydrochlorothiazide 12.5 mg tablet 12.5 mg PO QAM #30 tabs 03/13/23 [Rx Last Taken Unknown] losartan 100 mg tablet 100 mg PO DAILY #30 tabs 04/17/23 [Rx Last Taken Unknown] dulaglutide 1.5 mg/0.5 mL subcutaneous pen injector 1.5 mg (0.5 mL) subcut QWEEK #2 mL 06/14/23 [Rx Last Taken Unknown] escitalopram oxalate 10 mg tablet 10 mg PO DAILY DEPRESSION 06/21/23 [History Last Taken Unknown] Allergy/AdvReac Type Severity Reaction Status Date / Time Penicillins Allergy Hives Verified 06/21/23 17:14 Family History Grandfather Heart disease Surgical History H/O right wrist surgery S/P debridement Status post incision and drainage Social History household members: none current occupational status: employed current occupation: works for the [employer] office Smoking Status: Former smoker Tobacco: How many years used: 25 Electronic Cigarette Use: not used alcohol intake: current alcohol intake frequency: holidays/special occasions only substance use type: does not use what type of physical activity do you participate in: none do you feel safe at home: Yes ROS ROS ED Constitutional Constitutional ED: Denies chills, fever(s), subjective, sweats or weight loss Eyes Eyes: Denies blurry vision, change in vision or diplopia ENT ENT ED: Reports ear pain; Denies rhinorrhea or sore throat Cardiovascular Cardiovascular: Reports chest pain; Denies orthopnea, palpitations, paroxysmal nocturnal dyspnea or racing heartbeat Respiratory/Chest Respiratory/Chest: Reports cough, dyspnea and dyspnea on exertion; Denies orthopnea or paroxysmal nocturnal dyspnea Gastrointestinal Gastrointestinal: Denies abdominal pain, nausea or vomiting Genitourinary Genitourinary ED: Denies dysuria, hematuria or urinary frequency Musculoskeletal Musculoskeletal: Denies arthralgias, back pain or myalgias Integumentary Denies abscess or rash Neurologic Neurologic: Denies headache(s) or paresthesias Psychiatric Psychiatric: Reports anxiety Endocrine Endocrinology: Denies cold intolerance, heat intolerance, polydipsia or polyuria Hematologic/Lymphatic Hematologic/Lymphatic: Reports systems reviewed and no addt'l complaints, except as documented EXAM Physical Exam Const Vital Signs: 06/21/23 17:11 06/21/23 17:24 06/21/23 18:14 Temperature 97.5 F L Temperature Source Temporal Pulse Rate 79 129 H Respiratory Rate 22 H 18 Blood Pressure 137/89 H 151/78 H Blood Pressure Mean 105 102 Pulse Ox 96 96 96 Oxygen Delivery Method Room Air Room Air Room Air 06/21/23 18:21 Temperature Temperature Source Pulse Rate 132 H Respiratory Rate 22 H Blood Pressure 118/80 Blood Pressure Mean 92 Pulse Ox Oxygen Delivery Method Positive well developed and obese Constitutional Narrative: Appears slightly tachypneic. There is no retractions or use of accessory muscles. Patient does appear anxious. Monitor your revealed what looks like V. tach. After reviewing the EKG suspect this is Chrissy's phenomenon. General Appearance ED: well developed and pallor; Negative for NAD Nutritional Appearance: obese HEENT Reports moist mucous membranes HEENT Narrative: Head is atraumatic and normocephalic. Ears normal. TMs normal. Nares patent. Posterior pharynx erythema or exudate. Uvula midline. Eyes PERRL and EOMs intact bilaterally General Eye ED: Negative for pale conjunctiva or scleral icterus Neck no lymphadenopathy, supple and no JVD Chest Wall inspection of chest normal and palpation of chest normal Resp normal respiratory effort and clear to auscultation bilaterally Cardio no murmurs Rate: tachycardic Rhythm: abnormal rhythm irregularly irregular GI normal to inspection, nondistended, normoactive bowel sounds, non-tender, non-distended and no masses; Negative for hepatosplenomegaly Back/Spine no CVA tenderness Extremity normal to inspection General Extremety ED: Yes edema; Negative for tenderness or other findings General Extremity: edema; Negative for other findings Neuro oriented x3, CN's II-XII intact bilaterally and no sensory deficits noted Sensorium / Orientation: alert Psych mental status grossly normal Skin no rashes or lesions noted, no wounds and skin turgor normal General Skin Exam: elasticity normal and pallor; Negative for jaundice MDM MDM MDM Narrative Medical decision making narrative: Has history concerning for cardiac ischemia as well as congestive heart failure. Since he does complain of ear pain with change in voice need to consider infectious process as well. After reviewing monitoring and concern for Chrissy's phenomenon suspect patient has new onset A-fib with RVR. Will need to rule out cardiac ischemia as cause of his new onset A-fib. This also may be due to longstanding hypertension. CBC was obtained assess white count and H&H. BMP to assess renal function as well as glucose CO2 anion gap since he is diabetic. Troponin was obtained to evaluate for cardiac ischemia and BNP to assess for CHF. Patient is complaining of heavy sensation in his chest and more shortness of breath in spite of his heart rate improving with Cardizem and Cardizem drip obtain EKG to evaluate for acute ST elevation CO. Lab Data Attestation: I reviewed the patient's lab results. Lab results narrative: Please see is unremarkable. Basic is unremarkable. Glucose is 361 with a normal CO2 and. Opponent is elevated 99. BNP is elevated to 68. Labs: Laboratory Results - last 24 hr 06/21/23 17:22 WBC 10.3 RBC 5.53 Hgb 14.7 Hct 46.1 MCV 83.4 MCH 26.6 L MCHC 31.9 L RDW Std Deviation 38.3 RDW Coeff of Jax 12.7 Plt Count 281 MPV 10.5 Immature Gran % (Auto) 0.300 Neut % (Auto) 62.2 Lymph % (Auto) 27.5 [place] % (Auto) 9.4 Eos % (Auto) 0.2 Baso % (Auto) 0.4 Absolute Neuts (auto) 6.4 Absolute Lymphs (auto) 2.84 Nucleated RBC % 0 PT 12.8 INR 1.0 APTT 31.9 Sodium 136 Potassium 3.8 Chloride 105 Carbon Dioxide 25.0 Anion Gap 6 BUN 12 Creatinine 0.91 Estim Creat Clear Calc 91.87 Est GFR (MDRD) Af Amer 113 Est GFR (MDRD) Non-Af 93 BUN/Creatinine Ratio 13.2 Glucose 361 H Calcium 9.3 Troponin I High Sens 99 H B-Natriuretic Peptide 268.5 H Radiography Chest X-Ray - ED: 1 View and Read by ED Physician (Portable chest x-ray reveals mild borderline cardiomegaly. There is no evidence of effusion, infiltrate or CHF. Perihilar region is slightly full on the right side. Osseous structures are unremarkable) Diagnostic Testing: Clinical Impression(s) from Imaging Studies Chest X-Ray 06/21/23 17:25 IMPRESSION: Nonacute portable x-ray examination of the chest. Electronically Signed: Milan Garcia MD (Brooks) at 17:39 EST Reading Location ID and State: [facility] / [place] , Service support , Rhythm Strip Rhythm Strip: Chrissy's phenomenon with a rate of 1 70-1 80 EKG Initial EKG: Attestation: I personally reviewed and interpreted this EKG as follows: Interpretation: Atrial Fibrillation (Atrial fibrillation with a rate of 150. Complexes wide. [place] to the left. Cures duration is 138 ms. There is a nonspecific interventricular conduction delay noted. There is no obvious ischemic changes.) Follow-up EKG: Attestation: I personally reviewed and interpreted this EKG as follows: Interpretation: Atrial Fibrillation (Second EKG timed at 1822. Atrial fibs with ventricular response. Rate is 128. There is duration 84 ms. QT duration 3 and 34 ms. [place] is normal. There is evidence of LVH by voltage criteria. No evidence of acute ischemia.) Management Discussion w/another healthcare provider: Visitor Information Assistant (Ultrasound call 's page. Informed him of patient's history physical treatment. He recommended additional bolus of Cardizem and metoprolol. Would not cardiovert unless EKG revealed ST elevation at which point a STEMI will be called.) Treatment and Re-Evaluation :: Patient has rapid A-fib with RVR and Chrissy's phenomenon and unknown etiology he will not be cardioverted even though his complaint of chest pain at this point since he is hemodynamically stable. He was anticoagulated with heparin. A bolus was given. He was treated with Cardizem IV bolus and drip for his A-fib RVR and Chrissy phenomenon Critical Care Time Critical Care Time: Yes Critical care time (excluding procedures): 30-74 minutes (47), Including time spent: (3, physical, documentation, interpretation of laboratory results initiation of therapy), Discussing w/Patient &/or Family/Human Resources Services Specialist (Informed of concerns, findings and need for admission), Discussing w/Consultants, Arranging Admission or Transfer and Performing Direct Patient Care at Bedside Discharge Plan Dx/Rx/DC Orders Clinical Impression: New onset a-fib, Suspected sleep apnea, Acute dyspnea, Hypertension, Controlled type 2 diabetes mellitus with hyperglycemia, with long-term current use of insulin, Elevated troponin I level Disposition Disposition: Acute Care Hospital [facility]
[2023-06-21 18:08] LABS: Prothrombin Time (Protime)PT. 12.8 SECONDS (11.7-14.9)
[2023-06-21 18:09] LABS: Partial Thromboplast Time 31.9 Seconds (24.1-36.2)
[2023-06-21] MEDS: HEPARIN/D5w 25,000 UNITS 25,000 UNITS/250 ML IV.SOLN. 10 UNITS CONT INF (18:11)
[2023-06-21] MEDS: Heparin Injection (Vial) 5,000 UNIT/ML VIAL 4000 UNIT IV (18:12)
[2023-06-21] MEDS: Diltiazem 125 MG in Dextrose 5%-Water (100mL Bag) 100 ML CONT INF (18:21)
[2023-06-21] MEDS: dilTIAZem 25 MG/5 ML Vial 10 MG IV BOLUS (18:29)
[2023-06-21] MEDS: Metoprolol Tartrate 5 MG/5 ML Vial 2.5 MG IV (18:45)
--- NOTE | 2023-06-21 18:47 | PCM.HP.STD ---
HPI - General General Date of Admission: 06/21/23 Date of Service: 06/21/23 Chief Complaint: Shortness of breath HPI Narrative DEDE SCHWARTZ, is a 52-year-old male with history of type 2 diabetes mellitus, hypertension, obesity who presented to [facility] 06/21/2023 with dyspnea on exertion and chest pain on exertion for 2 to 3 days. He thought he had a viral illness due to some voice changes and right ear pain however when he came to the ED he was noted to be in A-fib with RVR and normotensive. BNP 268 and troponin 99. He was started on a Cardizem bolus and drip with heparin drip and patient had chest pressure so he was also started on nitro drip, cardiology contacted by ED physician who agreed with present management and advised additional metoprolol and no cardioversion unless ischemic changes on EKG which there were not. Hospitalist contacted for admission. Pt evaluated at bedside and reports he was in his usual health until the past 2-3 days when he progressively developed shortness of breath on exertion and chest discomfort. He also has had some right ear pressure and his voice has been hoarse so he was concerned he had a viral illness, took a home COVID test yesterday which was negative, additionally has had some diarrhea and mild abdominal upset. Denies cough but again has felt raspy and hoarse, no sinus pressure or headache or sore throat but feels his head is almost underwater and his right ear is clogged. He did take what he thinks was Sudafed [id number] earlier and noticed that his heart started racing after that. Additionally when he woke up this morning he said he was short of breath at rest and waited most of the day thinking it would get better however when it did not that is when he presented to the emergency department. He has never had anything like this before. He is presently having some chest pressure and nitro drip to be started with additional metoprolol as heart rate is still 120s. Reports right now he is primarily feeling anxious. [facility] Medical History Diabetes Hypertension Intertriginous dermatitis associated with moisture Non-healing surgical wound of right groin Obesity Physical exam, pre-employment Type 2 diabetes mellitus Home Medications ibuprofen 200 mg tablet 600 mg (3 x 200 mg) PO Q8H PRN fever or pain #30 tabs 01/07/22 [Rx Last Taken Unknown] blood-glucose meter (Accu-Chek Maggi Plus Meter) #1 ea 01/20/22 [Rx Last Taken Unknown] blood sugar diagnostic (Accu-Chek Maggi Plus test strips) #100 ea 05/11/22 [Rx Last Taken Unknown] lancets (Accu-Chek Softclix Lancets) #100 ea 05/11/22 [Rx Last Taken Unknown] pen needle, diabetic 29 gauge x 1/2 (BD Ultra-Fine Original Pen Needle) #100 ea 05/11/22 [Rx Last Taken Unknown] glipizide 10 mg tablet 5 - 10 mg (0.5 - 1 x 10 mg) PO DAILY #90 tabs 01/06/23 [Rx Last Taken Unknown] hyoscyamine sulfate 0.125 mg tablet 0.125 mg PO DAILY PRN dyspepsia #30 tabs 01/06/23 [Rx Last Taken Unknown] amlodipine 10 mg tablet 10 mg PO DAILY #90 tabs 02/27/23 [Rx Last Taken Unknown] insulin detemir U-100 100 unit/mL (3 mL) subcutaneous pen 40 unit (0.4 mL) subcut BID diabetes #72 mL 02/27/23 [Rx Last Taken Unknown] bupropion HCl 150 mg tablet,12 hr sustained-release (Wellbutrin SR) 150 mg PO BID #60 ea 03/13/23 [Rx Last Taken Unknown] hydrochlorothiazide 12.5 mg tablet 12.5 mg PO QAM #30 tabs 03/13/23 [Rx Last Taken Unknown] losartan 100 mg tablet 100 mg PO DAILY #30 tabs 04/17/23 [Rx Last Taken Unknown] dulaglutide 1.5 mg/0.5 mL subcutaneous pen injector 1.5 mg (0.5 mL) subcut QWEEK #2 mL 06/14/23 [Rx Last Taken Unknown] escitalopram oxalate 10 mg tablet 10 mg PO DAILY DEPRESSION 06/21/23 [History Last Taken Unknown] Allergy/AdvReac Type Severity Reaction Status Date / Time Penicillins Allergy Hives Verified 06/21/23 17:14 Family History Grandfather Heart disease Surgical History H/O right wrist surgery S/P debridement Status post incision and drainage Social History household members: none current occupational status: employed current occupation: works for the [employer] office Smoking Status: Former smoker Tobacco: How many years used: 25 Electronic Cigarette Use: not used alcohol intake: current alcohol intake frequency: holidays/special occasions only substance use type: does not use what type of physical activity do you participate in: none do you feel safe at home: Yes ROS ROS Narrative General: Denies fever/chills HENT: Denies headache, denies stuffy nose, denies sore throat, does have some right ear pressure EYES: Denies changes in vision Resp: Denies cough, has had progressively increasing shortness of breath primarily on exertion but now at rest as well, also notes hoarse voice Cardiac: Has had some waxing and waning chest pressure GI: A little bit of abdominal pain, has had a little bit of diarrhea, denies nausea/vomiting : Denies changes in urination Extremity: Denies swelling MSK: Denies weakness Neuro: Denies any numbness/tingling Heme: Denies any bleeding or bruising Skin: Denies rashes Psychiatric: Feeling anxious at present Vital Signs Vital Signs Vital Signs: 06/21/23 17:11 06/21/23 17:24 06/21/23 18:14 Temperature 97.5 F L Temperature Source Temporal Pulse Rate 79 129 H Respiratory Rate 22 H 18 Respiratory Effort Respiratory Pattern Blood Pressure 137/89 H 151/78 H Blood Pressure Mean 105 102 Pulse Ox 96 96 96 Oxygen Delivery Method Room Air Room Air Room Air 06/21/23 18:21 06/21/23 18:33 06/21/23 18:35 Temperature Temperature Source Pulse Rate 132 H Respiratory Rate 22 H Respiratory Effort Short of Breath Short of Breath Respiratory Pattern Tachypnea Blood Pressure 118/80 Blood Pressure Mean 92 Pulse Ox Oxygen Delivery Method Room Air 06/21/23 17:55 06/21/23 18:00 06/21/23 18:10 Temperature Temperature Source Pulse Rate 159 H 121 H Respiratory Rate 12 14 Respiratory Effort Respiratory Pattern Blood Pressure 134/89 H 151/78 H Blood Pressure Mean 100 88 Pulse Ox 96 96 Oxygen Delivery Method 06/21/23 18:20 06/21/23 18:21 06/21/23 18:23 Temperature Temperature Source Pulse Rate 128 H 122 H 133 H Respiratory Rate 13 17 14 Respiratory Effort Respiratory Pattern Blood Pressure 95/58 L 118/80 Blood Pressure Mean 69 94 Pulse Ox 95 95 96 Oxygen Delivery Method 06/21/23 18:30 06/21/23 18:34 Temperature Temperature Source Pulse Rate 135 H 126 H Respiratory Rate 23 H 13 Respiratory Effort Respiratory Pattern Blood Pressure 112/60 106/69 Blood Pressure Mean 77 73 Pulse Ox 95 96 Oxygen Delivery Method Room Air Room Air Weight Weight: 133.81 kg Body Mass Index (BMI) 44.8 Physical Exam Narrative General: Alert, oriented HEENT: Atraumatic, normocephalic, appears to have some fluid behind right eardrum without any pus or erythema, no abnormalities in left ear canal or behind left eardrum Eyes: Anicteric, normal conjunctiva, extraocular movements grossly intact Neck: Supple Respiratory: Somewhat diminished at the bases but this may be in part secondary to habitus, breathe a bit fast but seems more anxiety driven than anything Cardiovascular: Tachycardic, irregularly irregular GI: Soft, feels it is little bit sore throughout but has no rebound, guarding, rigidity Extremities: Trace lower extremity edema Musculoskeletal: Moving all extremities Neuro: No overt focal neurological deficits Skin: No rashes appreciated Psych: Does appear anxious Results Lab / Micro Data 06/21/23 17:22 06/21/23 17:22 Labs: Laboratory Results - last 24 hr 06/21/23 17:22: WBC 10.3, RBC 5.53, Hgb 14.7, Hct 46.1, MCV 83.4, MCH 26.6 L, MCHC 31.9 L, RDW Std Deviation 38.3, RDW Coeff of Jax 12.7, Plt Count 281, MPV 10.5, Immature Gran % (Auto) 0.300, Neut % (Auto) 62.2, Lymph % (Auto) 27.5, [place] % (Auto) 9.4, Eos % (Auto) 0.2, Baso % (Auto) 0.4, Absolute Neuts (auto) 6.4, Absolute Lymphs (auto) 2.84, Nucleated RBC % 0, PT 12.8, INR 1.0, APTT 31.9, Sodium 136, Potassium 3.8, Chloride 105, Carbon Dioxide 25.0, Anion Gap 6, BUN 12, Creatinine 0.91, Estim Creat Clear Calc 91.87, Est GFR (MDRD) Af Amer 113, Est GFR (MDRD) Non-Af 93, BUN/Creatinine Ratio 13.2, Glucose 361 H, Calcium 9.3, Troponin I High Sens 99 H, B-Natriuretic Peptide 268.5 H Rhythm Strip Rhythm Strip: Chrissy's phenomenon with a rate of 1 70-1 80 Imagaing Radiology Impression Chest X-Ray 06/21/23 17:25 IMPRESSION: Nonacute portable x-ray examination of the chest. Electronically Signed: Milan Garcia MD (Brooks) at 17:39 EST Reading Location ID and State: [facility] / [place] , Service support , Assessment & Plan Assessment/Plan (1) Atrial fibrillation with RVR: (2) Type 2 diabetes mellitus: (3) Hypertension: (4) Elevated troponin I level: PLAN: Plan #New onset A-fib with RVR -Seen in ED, received Cardizem bolus and required Cardizem drip -Was placed on a heparin drip as well -Due to still being fast and having chest pressure cardiology contacted and advised giving additional metoprolol and starting nitro drip -He was advised not to cardiovert unless patient has ischemic changes on EKG which he did not -We will order echocardiogram -Cardiology consulted -We will obtain mag and TSH #NSTEMI -Unclear subtype -May be secondary to A-fib with RVR however patient does still have chest pressure even with improvement in heart rate -Initial troponin 99, will trend -Nitro drip, heparin drip -Cardiology consult -Echocardiogram -Aspirin, statin -A.m. lipid panel #Shortness of breath -Suspect secondary to #1 -BNP slightly elevated but chest x-ray with no acute findings -Treat underlying etiology -Daily weights, I's and O's #Right ear pressure -With hoarse voice and some fluid behind right ear -Do not see anything consistent with bacterial infection, suspect viral -We will check recheck COVID and will check respiratory panel #Type 2 diabetes mellitus -Glucose checks and sliding scale insulin -Awaiting for home meds to be updated, does appear he takes scheduled long-acting, will decrease dose and adjust pending verification and blood glucose levels -We will check A1c #Morbid obesity -BMI 44.9 kg/m? -Complicates treatment, prognosis, outcomes -Recommend weight loss and lifestyle changes #Hypertension -On Cardizem drip so hold losartan and amlodipine -Also will be started on nitro drip #Anxiety -Continue home Lexapro, given his tachycardia we will hold Wellbutrin at this time -We will add prn for anxiety as well #DVT ppx: On heparin drip Kerry Nguyen MD Time spent in the patient's overall evaluation,decision-making process, review of diagnostic data, adjustment of management, discussion with other providers, nursing nursing and ancillary staff involved in patient's care documentation, 75 minutes Charges/Coding Visit Charges Inpatient E&M: 06053 Init Hosp L3
[2023-06-21] MEDS: Nitroglycerin Infusion 250 ML 3 MG CONT INF (19:05)
[2023-06-21 19:28] LABS: Reflex Troponin-HS? (from REC) Y
[2023-06-21 19:39] LABS: AST(SGOT) 55 U/L (15-37); Alanine Aminotransfer ALT/SGPT 132 U/L (16-61); Albumin, Serum 3.3 g/dL (3.2-5.0); Alkaline Phosphatase 102 U/L (45-117); Bilirubin, Direct 0.24 mg/dL (0.00-0.30); Globulin 3.5 g/dL (2.2-4.2); Magnesium 1.8 mg/dL (1.6-2.6); Phosphorus 3.4 mg/dL (2.5-4.9); Protein, Total 6.8 g/dL (6.4-8.2); Thyroid Stim Hormone (TSH) < 0.01 uIU/mL (0.358-3.74)
[2023-06-21 19:56] LABS: Troponin-I HS 88 pg/mL (3.0-78.0)
[2023-06-21 20:32] LABS: Free T3 14.4 pg/mL (2.18-3.98); T4 Free Direct 3.93 ng/dL (0.76-1.46)
[2023-06-21] MEDS: HYDROmorphone 0.5 MG/0.5 ML SYRINGE IV (20:40)
--- NOTE | 2023-06-21 20:49 | ED.RN ---
report called to ICU nurseEden
--- NOTE | 2023-06-21 21:04 | PCM.HOSP.N ---
Hospitalist Note Pts TSH was <0.1, free t4 and t3 checked and are elevated. Discussed with Dr. Hodge and she advised 40 methimazole x1 and daily thereafter (confirmed with pharmacy that while this is nonformulary we do have methimazole downstairs presently), random cortisol, and propranolol if okay to do so from cardiology perspective. Discussed with cardiology and okay to start propranolol, will start at 10 3 times daily.
--- NOTE | 2023-06-21 21:17 | ECHOCS_ITS ---
Reason For Study: Afib/Flutter-new onset Procedure This was a 2D Doppler, Color Flow transthoracic echocardiogram. The study was technically difficult. Patient could not tolerate any probe pressure. Contrast injection performed. Exam performed portable in ICU/CCU. Left Ventricle Mildly dilated left ventricle. Moderate global left ventricular systolic dysfunction. The left ventricular ejection fraction is 40 %. Unable to assess diastolic dysfunction due to arrhythmia. Right Ventricle Normal right ventricle. Atria The left and right atria are normal. Mitral Valve The mitral valve is structurally normal. No prolapse or stenosis seen. Tricuspid Valve Normal tricuspid valve. Aortic Valve Trisinus/trileaflet aortic valve. Mild diffuse aortic valve thickening. There is no aortic stenosis. No aortic valve insufficiency. Pulmonic Valve The pulmonic valve is not well visualized. Great Vessels Mildly dilated aortic root. Pericardium/Pleural Trivial pericardial effusion. Medication Diluted definity 3ml given slow IV push to enhance endocardial definition. MMode/2D Measurements & Calculations LVIDd: 6.0 cm IVSd: 1.0 cm Ao root diam: 3.9 cm LVIDs: 4.5 cm LVPWd: 1.1 cm LA dimension: 4.4 cm FS: 25.8 % LAV(MOD-bp): 85.3 ml LVAd ap4: 44.2 cm2 SV(MOD-sp4): 91.5 ml LAV(MOD-bp) Indexed: 35.5 ml/m2 LVLd ap4: 9.6 cm LAV(MOD-sp2): 77.0 ml EDV(MOD-sp4): 169.3 ml LAV(MOD-sp4): 81.7 ml EDV(sp4-el): 172.0 ml LVAs ap4: 28.3 cm2 LVLs ap4: 8.5 cm ESV(MOD-sp4): 77.8 ml ESV(sp4-el): 80.0 ml EF(MOD-sp4): 54.1 % EF(sp4-el): 53.4 % SV(sp4-el): 91.9 ml LA A4 area: 26.3 cm2 Doppler Measurements & Calculations MV E max law: 116.8 cm/sec MV V2 max: 136.3 cm/sec Ao V2 max: 165.1 cm/sec MV max P.5 mmHg Ao max P.9 mmHg MV V2 mean: 72.5 cm/sec MV mean P.7 mmHg MV V2 VTI: 25.6 cm LV V1 max: 100.1 cm/sec PA V2 max: 98.6 cm/sec LV V1 max P.0 mmHg ECHO/Echo Complete W/ Contrast Interpretation Summary Mildly dilated left ventricle. Moderate global left ventricular systolic dysfunction. The left ventricular ejection fraction is 40 %. Mildly dilated aortic root. The study was technically difficult. Ordering Physician: Kerry Nguyen Referring Physician: Romana Xie Performed By: Javier Skinner RCS
[2023-06-21] MEDS: Acetaminophen 325 MG Tablet 650 MG PO (22:01)
[2023-06-21] MEDS: MELATONIN 3 MG TABLET PO (22:18)
[2023-06-21] MEDS: LORazepam 0.5 MG Tablet PO (22:18)
[2023-06-21] MEDS: Atorvastatin Calcium 80 MG Tablet PO (22:20)
[2023-06-21] MEDS: Propranolol 10 MG Tablet PO (22:20)
[2023-06-21] MEDS: Insulin Lispro 100 UNIT/ML INSULN.PEN SC (22:23)
[2023-06-21] MEDS: Insulin Glargine-YFGN 100 UNIT/ML Pen 20 UNIT SC (22:23)
[2023-06-21 22:45] LABS: Bedside Glucose 264 mg/dL (74-106)
[2023-06-21] MEDS: HYDROmorphone 1 MG/ML Syringe IV (23:17)
[2023-06-21] MEDS: 0.9% Saline Lock 10 ML Syringe IV (23:18)
[2023-06-22] VITALS (27 sets, daily range): BP systolic 90–127; BP diastolic 51–94; PULSE 89–120; RESP 16–20; TEMP 36.5–36.9; O2SAT 90–98; BMI 44.5; BMI 44.4
[2023-06-22] MEDS: DiphenhydrAMINE 50 MG/ML Syringe 25 MG IV ×2 (00:15→06:24)
[2023-06-22] MEDS: 0.9% Saline Lock 10 ML Syringe IV ×5 (00:15→14:54)
[2023-06-22] MEDS: Heparin Injection (Vial) 5,000 UNIT/ML VIAL IV ×2 (00:20→08:27)
[2023-06-22] MEDS: methIMAzole 10 MG TABLET 40 MG PO ×2 (00:26→10:54)
[2023-06-22 00:30] LABS: Troponin-I HS 84 pg/mL (3.0-78.0)
[2023-06-22] MEDS: fentaNYL 100 MCG/2 ML Ampul 25 MCG IV ×2 (01:59→04:43)
[2023-06-22] MEDS: BENZOCAINE/MENTHOL 1 LOZENGE MUCOUS MEM ×4 (03:16→20:05)
[2023-06-22] MEDS: Diltiazem 125 MG in Dextrose 5%-Water (100mL Bag) 100 ML 15 MG CONT INF (03:16)
[2023-06-22] MEDS: LORazepam 0.5 MG Tablet PO ×3 (04:43→18:06)
[2023-06-22 05:24] LABS: Absolute Neutrophil Count 4.6 X10^3/uL (2.0-7.7); Basophil# 0.02 X10^3/uL; Basophil% 0.2 % (0-1); Eosinophil# 0.06 X10^3/uL; Eosinophils% 0.7 % (0-5); Hematocrit 40.8 % (40-54); Lymphocyte % 28.6 % (19-41); Mean Corp Hgb Conc 31.9 g/dL (32-36); Mean Corpuscular Hgb 26.9 pg (27.0-32.0); Mean Corpuscular Volume 84.5 fL (80-94); Mean Platelet Vol. 10.8 fl (6.2-12.0); Monocyte% 12.4 % (0-10); NRBC Flagged by Analyzer 0 % (0-5); Neutrophil # 4.63 X10^3/uL (2.7-7.7); Neutrophil % 57.6 % (47-70); Platelet Count 264 K/mm3 (150-450); RBC Distribution Width CV 12.9 % (11.6-14.6); RBC Distribution Width SD 39.7 fl (35.1-43.9); Red Blood Count 4.83 M/mm3 (4.6-6.2); White Blood Count 8.1 K/mm3 (4.4-11.0)
[2023-06-22] MEDS: Propranolol 10 MG Tablet PO ×3 (05:29→21:17)
[2023-06-22 05:41] LABS: ALB/GLOB Ratio 0.9 RATIO (0.9-2.4); AST(SGOT) 32 U/L (15-37); Alanine Aminotransfer ALT/SGPT 106 U/L (16-61); Alkaline Phosphatase 88 U/L (45-117); Anion Gap 8 (5-15); BUN 18 mg/dL (7-18); BUN/Creat Ratio 15.8 RATIO (10-20); Calcium,Total 8.6 mg/dL (8.5-10.1); Chloride 101 mmol/L (98-107); Creatinine, Serum 1.14 mg/dL (0.70-1.30); EST Glomerular Filtration Rate 72 mL/min (>60); Est Glom Filt Rate - Afr Amer 87 mL/min (>60); Estimated Creatinine Clearance 73.33 ml/min; Globulin 3.3 g/dL (2.2-4.2); Glucose 361 mg/dL (74-106); Potassium 3.8 mmol/L (3.5-5.1); Protein, Total 6.3 g/dL (6.4-8.2); Sodium Level 136 mmol/L (136-145)
[2023-06-22] MEDS: Acetaminophen 325 MG Tablet 650 MG PO ×3 (06:24→21:14)
[2023-06-22] MEDS: Insulin Lispro 100 UNIT/ML INSULN.PEN SC ×4 (06:31→21:15)
[2023-06-22 06:50] LABS: Bedside Glucose 336 mg/dL (74-106)
[2023-06-22 07:27] LABS: Partial Thromboplast Time 38.5 Seconds (24.1-36.2)
--- NOTE | 2023-06-22 07:33 | PCM.PN.HOSP ---
Reason for Visit Reason for Visit: Diagnoses Type 2 diabetes mellitus without complications (06/21/23) Essential (primary) hypertension (06/21/23) Unspecified atrial fibrillation (06/21/23) Other specified abnormal findings of blood chemistry (06/21/23) Objective Data Objective Data Vital Signs: Vital Signs Temp Pulse Resp BP Pulse Ox O2 Del Method O2 Flow Rate 98.2 F 93 20 H 90/51 L 98 Nasal Cannula 2 06/22/23 06:30 06/22/23 07:00 06/22/23 07:00 06/22/23 07:00 06/22/23 07:18 06/22/23 07:18 06/22/23 07:18 Oxygen Flow Rate (L/min) 2 Oxygen Delivery Method Nasal Cannula Weight: 292 lb 15.909 oz Body Mass Index (BMI) 44.4 Intake & Output: Intake and Output for Last 24 Hours 06/20/23 06/21/23 06/22/23 23:59 23:59 23:59 Intake Total 908.82 / 941.82 325.67 / 325.67 Output Total 100 / 200 250 / 250 Balance 808.82 / 741.82 75.67 / 75.67 Lab / Micro Data 06/22/23 05:10 06/22/23 05:10 Labs: Laboratory Results - last 24 hr 06/21/23 12:50: Cortisol 3.00 L 06/21/23 17:22: WBC 10.3, RBC 5.53, Hgb 14.7, Hct 46.1, MCV 83.4, MCH 26.6 L, MCHC 31.9 L, RDW Std Deviation 38.3, RDW Coeff of Jax 12.7, Plt Count 281, MPV 10.5, Immature Gran % (Auto) 0.300, Neut % (Auto) 62.2, Lymph % (Auto) 27.5, [place] % (Auto) 9.4, Eos % (Auto) 0.2, Baso % (Auto) 0.4, Absolute Neuts (auto) 6.4, Absolute Lymphs (auto) 2.84, Nucleated RBC % 0, PT 12.8, INR 1.0, APTT 31.9, Sodium 136, Potassium 3.8, Chloride 105, Carbon Dioxide 25.0, Anion Gap 6, BUN 12, Creatinine 0.91, Estim Creat Clear Calc 91.87, Est GFR (MDRD) Af Amer 113, Est GFR (MDRD) Non-Af 93, BUN/Creatinine Ratio 13.2, Glucose 361 H, Calcium 9.3, Phosphorus 3.4, Magnesium 1.8, Total Bilirubin 0.80, Direct Bilirubin 0.24, AST 55 H, ALT 132 H, Alkaline Phosphatase 102, Troponin I High Sens 99 H, B-Natriuretic Peptide 268.5 H, Total Protein 6.8, Albumin 3.3, Globulin 3.5, TSH < 0.01 L 06/21/23 19:31: Troponin I High Sens 88 H, Free T4 3.93 H, Free T3 pg/dL 14.4 H 06/21/23 22:22: POC Glucose 264 H 06/21/23 23:50: Troponin I High Sens 84 H 06/21/23 23:57: APTT 36.0 06/22/23 05:10: WBC 8.1, RBC 4.83, Hgb 13.0, Hct 40.8, MCV 84.5, MCH 26.9 L, MCHC 31.9 L, RDW Std Deviation 39.7, RDW Coeff of Jax 12.9, Plt Count 264, MPV 10.8, Immature Gran % (Auto) 0.500, Neut % (Auto) 57.6, Lymph % (Auto) 28.6, [place] % (Auto) 12.4 H, Eos % (Auto) 0.7, Baso % (Auto) 0.2, Absolute Neuts (auto) 4.6, Absolute Lymphs (auto) 2.30, Nucleated RBC % 0, Sodium 136, Potassium 3.8, Chloride 101, Carbon Dioxide 27.0, Anion Gap 8, BUN 18, Creatinine 1.14, Estim Creat Clear Calc 73.33, Est GFR (MDRD) Af Amer 87, Est GFR (MDRD) Non-Af 72, BUN/Creatinine Ratio 15.8, Glucose 361 H, Calcium 8.6, Total Bilirubin 1.20 H, AST 32, ALT 106 H, Alkaline Phosphatase 88, Total Protein 6.3 L, Albumin 3.0 L, Globulin 3.3, Albumin/Globulin Ratio 0.9 06/22/23 06:30: APTT 38.5 H, POC Glucose 336 H Micro: Microbiology 06/21/23 23:50 Mucosa - Nasopharyngeal Respiratory Panel (PCR) - Final 06/21/23 22:00 Nasal Secretion SARS-CoV-2 & FLU Antigen (Rapid) - Final Radiography Diagnostic Testing: Radiology Impression Chest X-Ray 06/21/23 17:25 IMPRESSION: Nonacute portable x-ray examination of the chest. Electronically Signed: Milan Garcia MD (Brooks) at 17:39 EST Reading Location ID and State: [facility] / [place] , Service support , Rhythm Strip Rhythm Strip: Chrissy's phenomenon with a rate of 1 70-1 80 Physical Exam Narrative Seen and examined. Patient is stated that many years ago he had a stress test and was normal but never had cardiac cath MRI or cardiac stent. He does not have history of prior hyper or hypothyroidism or adrenal gland problem or A-fib. Admitted with shortness of breath and dyspnea and palpitation and chest tightness. Currently feels better. No chest pain or pressure. Physical exam General: Alert, Oriented x3, Cooperative, morbid obesity BMI 44.4 kg/m? HEENT: Atraumatic, PERRLA, EOMI, Normocephalic Oral: No Gingival or Mucosal Lesions/ Ulcerations Neck: Supple, No JVD, Negative Carotid Bruits Lungs: Air entry diminished in bilateral lung bases. No crepitation/rhonchi Cardiovascular: A-fib, irregular rate and rhythm heart rate in low 100s.Normal S1, Normal S2, No murmurs Abdomen: Bowel Sounds Present, Soft, Non Tender, Non-Distended : No renal angle tenderness. No suprapubic tenderness. Extremities: Mild bilateral pitting edema, Capillary Refill Less than 3 Seconds Skin: No rashes, No breakdown Musculoskeletal: No Tenderness to Palpation of Joints or Extremities. ROM intact. Neurological: Cranial nerves II-XII grossly intact, DTR 2+/4. No acute focal neurological deficit. Psych/Mental Status: Normal Affect, Appropriate. Assessment & Plan Assessment/Plan (1) Atrial fibrillation with RVR: (2) Type 2 diabetes mellitus: (3) Hypertension: (4) Elevated troponin I level: PLAN: Plan 52-year-old gentleman was admitted through ER for shortness of breath/dyspnea with exertion and then became continuous started 3 days ago along with intermittent chest discomfort worse with activity and relieved by rest. Patient denied orthopnea or PND but has swelling of lower extremities which is new. #New onset A-fib with RVR, exact etiology unclear but most likely hyperthyroidism and suspicion of hypoadrenalism: BNP elevated 268. Patient was started on Cardizem drip after bolus. Started on metoprolol and IV heparin drip.later metoprolol changed to propanolol for hyperthyroidism. Electrolytes including serum magnesium and phosphorus reviewed and within normal limit. TSH is less than 0.01. Free T43.93, free T3 14.4 high. Cortisol level low at 3.0. If cortisol level is between 3 and 18, serum ACTH level and ACTH stimulation test recommended. Cosyntropin stimulation test ordered. Tests are pending. [employer] consult reviewed and appreciated. #NSTEMI, type II or acute myocardial injury from A-fib with RVR: Possible secondary to A-fib with RVR: Troponin 99, plateaued and decreasing trend. Does not seem to be type I TN or atherosclerotic heart disease. Patient was started on nitro drip and heparin drip in ED. 2D echo is ordered. Patient on aspirin and high intensity statin. As patient had type II TN, cardiac cath not indicated therefore canceled and patient started on Eliquis with the discontinuation of heparin drip. #Shortness of breath possible due to A-fib with RVR: BNP elevated but chest x-ray individually reviewed and does not show acute findings. #Right ear pressure suspected viral illness: Respiratory panel and SARS-CoV-2 antigens are negative. #Type 2 diabetes mellitus: Glucose levels are high. Accu-Chek here about 336. A1c pending. Accu-Chek insulin coverage milk sliding scale. #Morbid obesity -BMI 44.9 kg/m? -Complicates treatment, prognosis, outcomes -Recommend weight loss and lifestyle changes #Hypertension -On Cardizem drip so hold losartan and amlodipine -Also will be started on nitro drip #Anxiety -Continue home Lexapro, given his tachycardia we will hold Wellbutrin at this time -We will add prn for anxiety as well #DVT ppx: Heparin drip changed to Eliquis. Total time of the visit including total time spent in counseling or coordination of care, (more than 50% of the total time, spent in obtaining medical information from nurses and other ancillary care providers,explaining to the patient about labs, imaging, diagnosis and management of active complex medical conditions), discussion with technology methodology consultant, review of labs and imaging is 40 minutes. Charges/Coding Visit Charges Inpatient E&M: 91697 Subs Hosp L3
[2023-06-22] MEDS: HYDROmorphone 0.5 MG/0.5 ML SYRINGE IV ×5 (08:27→21:14)
[2023-06-22] MEDS: Aspirin E.C. 81 MG Tablet PO (08:27)
[2023-06-22 08:29] LABS: Hemoglobin A1c 11.6 % (3.8-5.6)
[2023-06-22] MEDS: Nitroglycerin Infusion 250 ML 18 MG CONT INF (09:44)
[2023-06-22] MEDS: Insulin Glargine-YFGN 100 UNIT/ML Pen 20 UNIT SC ×2 (10:54→21:15)
[2023-06-22] MEDS: Escitalopram Oxalate 10 MG Tablet PO (10:54)
--- NOTE | 2023-06-22 11:02 | PCM.CONS.C ---
Assessment & Plan Assessment/Plan (1) Atrial fibrillation: PLAN: New onset atrial fibrillation in the context of hyperthyroidism. Continue with rate control with beta-blockers and calcium channel blockers. Treat underlying hypothyroidism. Check echocardiogram. Patient's chads?2 VASc score is 2. Recommend anticoagulation. This recommendation could be revised later if he maintains normal sinus rhythm after resolution of his hyperthyroidism. (2) Elevated troponin I level: PLAN: Likely type II with atrial fibrillation with rapid ventricular response. No significant upward or downward trend. Patient has diabetes mellitus and hypertension and may have underlying coronary artery disease. Check 2D echocardiogram with Doppler. If LV function was normal, then will recommend a pharmacological stress test. (3) Essential hypertension: PLAN: Beta-blockers, calcium channel blockers. Nitrates. (4) Type 2 diabetes mellitus: PLAN: As per internal medicine. (5) Hyperthyroidism: PLAN: On methimazole and propranolol. (6) Obesity: PLAN: Lose weight. HPI Consult Data Date of Consult: 06/22/23 HPI Narrative Reason for Consultation: Chest pain HPI Narrative: 52-year-old gentleman with past medical history significant for hypertension, diabetes mellitus and possible sleep apnea. He presented to the emergency room yesterday complaining of chest tightness and palpitations. According to him, he has been having palpitations and chest tightness with exertion over the last few days. However his resting symptoms yesterday brought him to the emergency room. In the emergency room, he was noted to be in atrial fibrillation with rapid ventricular response. As his heart rate was controlled, his chest pain has been relieved. Workup on the patient so far has revealed hyperthyroidism with undetected TSH and elevated free T3 and T4. He has been started on methimazole. [facility] Medical History Diabetes Hypertension Intertriginous dermatitis associated with moisture Non-healing surgical wound of right groin Obesity Physical exam, pre-employment Type 2 diabetes mellitus Home Medications ibuprofen 200 mg tablet 600 mg (3 x 200 mg) PO Q8H PRN fever or pain #30 tabs 01/07/22 [Rx Last Taken Unknown] blood-glucose meter (Accu-Chek Maggi Plus Meter) #1 ea 01/20/22 [Rx Last Taken Unknown] blood sugar diagnostic (Accu-Chek Maggi Plus test strips) #100 ea 05/11/22 [Rx Last Taken Unknown] lancets (Accu-Chek Softclix Lancets) #100 ea 05/11/22 [Rx Last Taken Unknown] pen needle, diabetic 29 gauge x 1/2 (BD Ultra-Fine Original Pen Needle) #100 ea 05/11/22 [Rx Last Taken Unknown] hyoscyamine sulfate 0.125 mg tablet 0.125 mg PO DAILY PRN dyspepsia #30 tabs 01/06/23 [Rx Last Taken Unknown] amlodipine 10 mg tablet 10 mg PO DAILY htn #90 tabs 02/27/23 [Rx Last Taken Unknown] insulin detemir U-100 100 unit/mL (3 mL) subcutaneous pen 40 unit (0.4 mL) subcut BID diabetes #72 mL 02/27/23 [Rx Last Taken Unknown] bupropion HCl 150 mg tablet,12 hr sustained-release (Wellbutrin SR) 150 mg PO BID smoking cessation #60 ea 03/13/23 [Rx Last Taken Unknown] hydrochlorothiazide 12.5 mg tablet 12.5 mg PO QAM fluid retention #30 tabs 03/13/23 [Rx Last Taken Unknown] losartan 100 mg tablet 100 mg PO DAILY BP #30 tabs 04/17/23 [Rx Last Taken Unknown] dulaglutide 1.5 mg/0.5 mL subcutaneous pen injector 1.5 mg (0.5 mL) subcut QWEEK diabetes #2 mL 06/14/23 [Rx Last Taken Unknown] alprazolam 0.5 mg tablet (Xanax) 0.5 mg PO DAILY PRN anxiety 06/21/23 [History Last Taken Unknown] clobetasol 0.05 % topical cream 1 applic topical BID PRN RIGHT WRIST 06/21/23 [History Last Taken Unknown] escitalopram oxalate 10 mg tablet 10 mg PO DAILY DEPRESSION 06/21/23 [History Last Taken Unknown] glipizide 10 mg tablet 5 mg PO DAILY diabetes 06/21/23 [History Last Taken Unknown] oxycodone 5 mg tablet 5 mg PO Q24H BACK PAIN 06/21/23 [History Last Taken Unknown] Allergy/AdvReac Type Severity Reaction Status Date / Time Penicillins Allergy Hives Verified 06/21/23 17:14 Family History Grandfather Heart disease Surgical History H/O right wrist surgery S/P debridement Status post incision and drainage Social History household members: none current occupational status: employed current occupation: works for the [employer] Smoking Status: Former smoker Tobacco: How many years used: 25 Electronic Cigarette Use: not used alcohol intake: current alcohol intake frequency: holidays/special occasions only substance use type: does not use what type of physical activity do you participate in: none do you feel safe at home: Yes Physical Exam Narrative Lying comfortably in the bed. No apparent distress. Obese. Heart sounds 1 and 2 are normal. No murmurs or rubs. Chest clear to auscultation bilaterally. Abdomen soft. Alert oriented x 3. Trace bilateral ankle edema. Risk Stratification Risk Stratification Applicable: No Objective Data Vital Signs: Vital Signs Temp Pulse Resp BP Pulse Ox O2 Del Method O2 Flow Rate 98.5 F 100 19 H 93/60 92 Room Air 2 06/22/23 08:00 06/22/23 10:00 06/22/23 10:00 06/22/23 10:15 06/22/23 10:00 06/22/23 10:00 06/22/23 07:18 Oxygen Flow Rate (L/min) 2 Oxygen Delivery Method Room Air Weight: 292 lb 15.909 oz Body Mass Index (BMI) 44.4 Intake & Output: Intake and Output for Last 24 Hours 06/20/23 06/21/23 06/22/23 23:59 23:59 23:59 Intake Total 908.82 / 941.82 528.47 / 528.47 Output Total 100 / 200 250 / 250 Balance 808.82 / 741.82 278.47 / 278.47 Lab / Micro Data Attestation: I reviewed the patient's lab results. 06/22/23 05:10 06/22/23 05:10 Labs: Laboratory Results - last 24 hr 06/21/23 12:50: Cortisol 3.00 L 06/21/23 17:22: WBC 10.3, RBC 5.53, Hgb 14.7, Hct 46.1, MCV 83.4, MCH 26.6 L, MCHC 31.9 L, RDW Std Deviation 38.3, RDW Coeff of Jax 12.7, Plt Count 281, MPV 10.5, Immature Gran % (Auto) 0.300, Neut % (Auto) 62.2, Lymph % (Auto) 27.5, [place] % (Auto) 9.4, Eos % (Auto) 0.2, Baso % (Auto) 0.4, Absolute Neuts (auto) 6.4, Absolute Lymphs (auto) 2.84, Nucleated RBC % 0, PT 12.8, INR 1.0, APTT 31.9, Sodium 136, Potassium 3.8, Chloride 105, Carbon Dioxide 25.0, Anion Gap 6, BUN 12, Creatinine 0.91, Estim Creat Clear Calc 91.87, Est GFR (MDRD) Af Amer 113, Est GFR (MDRD) Non-Af 93, BUN/Creatinine Ratio 13.2, Glucose 361 H, Calcium 9.3, Phosphorus 3.4, Magnesium 1.8, Total Bilirubin 0.80, Direct Bilirubin 0.24, AST 55 H, ALT 132 H, Alkaline Phosphatase 102, Troponin I High Sens 99 H, B-Natriuretic Peptide 268.5 H, Total Protein 6.8, Albumin 3.3, Globulin 3.5, TSH < 0.01 L 06/21/23 19:31: Troponin I High Sens 88 H, Free T4 3.93 H, Free T3 pg/dL 14.4 H 06/21/23 22:22: POC Glucose 264 H 06/21/23 23:50: Troponin I High Sens 84 H 06/21/23 23:57: APTT 36.0 06/22/23 05:10: WBC 8.1, RBC 4.83, Hgb 13.0, Hct 40.8, MCV 84.5, MCH 26.9 L, MCHC 31.9 L, RDW Std Deviation 39.7, RDW Coeff of Jax 12.9, Plt Count 264, MPV 10.8, Immature Gran % (Auto) 0.500, Neut % (Auto) 57.6, Lymph % (Auto) 28.6, [place] % (Auto) 12.4 H, Eos % (Auto) 0.7, Baso % (Auto) 0.2, Absolute Neuts (auto) 4.6, Absolute Lymphs (auto) 2.30, Nucleated RBC % 0, Sodium 136, Potassium 3.8, Chloride 101, Carbon Dioxide 27.0, Anion Gap 8, BUN 18, Creatinine 1.14, Estim Creat Clear Calc 73.33, Est GFR (MDRD) Af Amer 87, Est GFR (MDRD) Non-Af 72, BUN/Creatinine Ratio 15.8, Glucose 361 H, Hemoglobin A1c 11.6 H, Calcium 8.6, Total Bilirubin 1.20 H, AST 32, ALT 106 H, Alkaline Phosphatase 88, Total Protein 6.3 L, Albumin 3.0 L, Globulin 3.3, Albumin/Globulin Ratio 0.9 06/22/23 06:30: APTT 38.5 H, POC Glucose 336 H Micro: Microbiology 06/22/23 08:55 Mucosa - Nasopharyngeal Coronavirus COVID-19 PCR - Final 06/21/23 23:50 Mucosa - Nasopharyngeal Respiratory Panel (PCR) - Final 06/21/23 22:00 Nasal Secretion SARS-CoV-2 & FLU Antigen (Rapid) - Final Rhythm Strip Rhythm Strip: A-fib Cardiology Labs/Tests 06/21/23 17:22: WBC 10.3, RBC 5.53, Hgb 14.7, Hct 46.1, MCV 83.4, MCH 26.6 L, MCHC 31.9 L, Plt Count 281, MPV 10.5, Immature Gran % (Auto) 0.300, Neut % (Auto) 62.2, Lymph % (Auto) 27.5, [place] % (Auto) 9.4, Eos % (Auto) 0.2, Baso % (Auto) 0.4, Absolute Neuts (auto) 6.4, Nucleated RBC % 0, PT 12.8, INR 1.0, APTT 31.9, Sodium 136, Potassium 3.8, Chloride 105, Carbon Dioxide 25.0, Anion Gap 6, BUN 12, Creatinine 0.91, Est GFR (MDRD) Af Amer 113, Est GFR (MDRD) Non-Af 93, BUN/Creatinine Ratio 13.2, Glucose 361 H, Calcium 9.3, Phosphorus 3.4, Magnesium 1.8, Total Bilirubin 0.80, Direct Bilirubin 0.24, B-Natriuretic Peptide 268.5 H 06/21/23 23:57: APTT 36.0 06/22/23 05:10: WBC 8.1, RBC 4.83, Hgb 13.0, Hct 40.8, MCV 84.5, MCH 26.9 L, MCHC 31.9 L, Plt Count 264, MPV 10.8, Immature Gran % (Auto) 0.500, Neut % (Auto) 57.6, Lymph % (Auto) 28.6, [place] % (Auto) 12.4 H, Eos % (Auto) 0.7, Baso % (Auto) 0.2, Absolute Neuts (auto) 4.6, Nucleated RBC % 0, Sodium 136, Potassium 3.8, Chloride 101, Carbon Dioxide 27.0, Anion Gap 8, BUN 18, Creatinine 1.14, Est GFR (MDRD) Af Amer 87, Est GFR (MDRD) Non-Af 72, BUN/Creatinine Ratio 15.8, Glucose 361 H, Hemoglobin A1c 11.6 H, Calcium 8.6, Total Bilirubin 1.20 H 06/22/23 06:30: APTT 38.5 H Rhythm: EKG: Initial ECG showed atrial fibrillation with rate dependent intraventricular conduction delay. Subsequent ECG with atrial fibrillation with controlled ventricular response and resolution of intraventricular conduction. ECHO: Stress Test: Cardiac Cath: PCI: CT Surgery: Holter monitor: EPS: PPM: CXR: Chest CT Scan: Radiography Diagnostic Testing: Radiology Impression Chest X-Ray 06/21/23 17:25 IMPRESSION: Nonacute portable x-ray examination of the chest. Electronically Signed: Milan Garcia MD (Brooks) at 17:39 EST Reading Location ID and State: [facility] / [place] , Service support ,
[2023-06-22 11:18] LABS: Bedside Glucose 292 mg/dL (74-106)
[2023-06-22] MEDS: dilTIAZem 60 MG Tablet PO ×2 (12:35→18:06)
[2023-06-22] MEDS: Nitroglycerin Oint 1 INCH PACKET TD ×2 (13:07→21:16)
--- NOTE | 2023-06-22 14:06 | EKG12_ITS ---
Test Reason : RHYTHM CHANGE Blood Pressure : / mmHG Vent. Rate : 113 BPM Atrial Rate : 000 BPM P-R Int : 000 ms QRS Dur : 152 ms QT Int : 320 ms P-R-T Axes : 000 -79 064 degrees QTc Int : 438 ms Atrial fibrillation with rapid ventricular response Left axis deviation Left bundle branch block Abnormal ECG No previous ECGs available Confirmed by KESHIA MEADOWS, LEONARDO ([id number]), food expeditor KRISTI STARK ([id number]) on 06/27/2023 1:43:27 PM Referred By: SHIVA Confirmed By:LEONARDO SCHMITT MD
[2023-06-22] MEDS: APIXABAN 5 MG TABLET PO (18:06)
[2023-06-22 18:14] LABS: Bedside Glucose 369 mg/dL (74-106)
[2023-06-22] MEDS: MELATONIN 3 MG TABLET PO (21:14)
[2023-06-22] MEDS: Atorvastatin Calcium 80 MG Tablet PO (21:16)
[2023-06-22 21:45] LABS: Bedside Glucose 349 mg/dL (74-106)
[2023-06-23] VITALS (8 sets, daily range): BP systolic 104–146; BP diastolic 65–81; PULSE 88–122; RESP 16–20; TEMP 36.6–37.1; O2SAT 93–97
[2023-06-23] MEDS: dilTIAZem 60 MG Tablet PO ×4 (00:07→17:35)
[2023-06-23] MEDS: LORazepam 0.5 MG Tablet PO ×3 (00:07→17:45)
--- NOTE | 2023-06-23 05:55 | EKG12_ITS ---
Test Reason : SOB IRRG RYTHUM Blood Pressure : / mmHG Vent. Rate : 094 BPM Atrial Rate : 000 BPM P-R Int : 000 ms QRS Dur : 150 ms QT Int : 402 ms P-R-T Axes : 000 -74 059 degrees QTc Int : 502 ms Atrial fibrillation Left axis deviation Left bundle branch block Abnormal ECG When compared with ECG of 23-JUN-2023 07:05, MANUAL COMPARISON REQUIRED, DATA IS UNCONFIRMED Confirmed by KESHIA MEADOWS, LEONARDO ([id number]), staff editor SASCHA PARKS ([id number]) on 06/27/2023 7:14:44 AM Referred By: Confirmed By:LEONARDO SCHMITT MD
[2023-06-23 06:49] LABS: Bedside Glucose 197 mg/dL (74-106)
--- NOTE | 2023-06-23 07:29 | PN.HOSP_ITS ---
Reason for Visit Reason for Visit: Diagnoses Thyrotoxicosis, unspecified without thyrotoxic crisis or storm (06/21/23) Type 2 diabetes mellitus without complications (06/21/23) Obesity, unspecified (06/21/23) Essential (primary) hypertension (06/21/23) Unspecified atrial fibrillation (06/21/23) Other specified abnormal findings of blood chemistry (06/21/23) Objective Data Objective Data Vital Signs: Vital Signs Temp Pulse Resp BP Pulse Ox O2 Del Method O2 Flow Rate 98.2 F 100 18 117/65 97 Room Air 2 06/23/23 00:00 06/23/23 00:00 06/23/23 00:00 06/23/23 00:00 06/23/23 00:00 06/23/23 00:00 06/22/23 07:18 Oxygen Flow Rate (L/min) 2 Oxygen Delivery Method Room Air Weight: 292 lb 15.909 oz Body Mass Index (BMI) 44.4 Intake & Output: Intake and Output for Last 24 Hours 06/21/23 06/22/23 06/23/23 23:59 23:59 23:59 Intake Total 908.82 / 941.82 1638.47 / 1638.47 Output Total 100 / 200 370 / 370 Balance 808.82 / 741.82 1268.47 / 1268.47 Lab / Micro Data 06/22/23 05:10 06/22/23 05:10 Labs: Laboratory Results - last 24 hr 06/22/23 05:10: Hemoglobin A1c 11.6 H 06/22/23 10:53: POC Glucose 292 H 06/22/23 16:33: POC Glucose 369 H 06/22/23 21:12: POC Glucose 349 H 06/23/23 06:31: POC Glucose 197 H Micro: Microbiology 06/22/23 08:55 Mucosa - Nasopharyngeal Coronavirus COVID-19 PCR - Final 06/21/23 23:50 Mucosa - Nasopharyngeal Respiratory Panel (PCR) - Final 06/21/23 22:00 Nasal Secretion SARS-CoV-2 & FLU Antigen (Rapid) - Final Rhythm Strip Rhythm Strip: A-fib Physical Exam Narrative Seen and examined. Patient still has intermittent chest pain/discomfort. Initially stress test was scheduled but was canceled because he still has intermittent chest pain. Patient agreed for cardiac cath and had cardiac cath. Prior to that somehow cosyntropin test was not done yesterday and patient going for cardiac cath therefore emergent hydrocortisone 100 mg IV ordered. Physical exam General: Alert, Oriented x3, Cooperative, morbid obesity BMI 44.4 kg/m? HEENT: Atraumatic, PERRLA, EOMI, Normocephalic Oral: No Gingival or Mucosal Lesions/ Ulcerations Neck: Supple, No JVD, Negative Carotid Bruits Lungs: Air entry diminished in bilateral lung bases. No crepitation/rhonchi Cardiovascular: A-fib, irregular rate and rhythm heart rate in low 100s.Normal S1, Normal S2, No murmurs Abdomen: Bowel Sounds Present, Soft, Non Tender, Non-Distended : No renal angle tenderness. No suprapubic tenderness. Extremities: Mild bilateral pitting edema, Capillary Refill Less than 3 Seconds Skin: No rashes, No breakdown Musculoskeletal: No Tenderness to Palpation of Joints or Extremities. ROM intact. Neurological: Cranial nerves II-XII grossly intact, DTR 2+/4. No acute focal neurological deficit. Psych/Mental Status: Normal Affect, Appropriate. Assessment & Plan Assessment/Plan (1) Atrial fibrillation with RVR: (2) Type 2 diabetes mellitus: (3) Hypertension: (4) Elevated troponin I level: PLAN: Plan 52-year-old gentleman was admitted through ER for shortness of breath/dyspnea with exertion and then became continuous started 3 days ago along with intermittent chest discomfort worse with activity and relieved by rest. Patient denied orthopnea or PND but has swelling of lower extremities which is new. He does not have history of prior hyper or hypothyroidism or adrenal gland problem or A-fib. #New onset A-fib with RVR, exact etiology unclear but most likely hyperthyroidism and suspicion of hypoadrenalism: BNP elevated 268. Patient was started on Cardizem drip after bolus. Started on metoprolol and IV heparin drip.later metoprolol changed to propanolol for hyperthyroidism. Electrolytes including serum magnesium and phosphorus reviewed and within normal limit. TSH is less than 0.01. Free T43.93, free T3 14.4 high. Cortisol level low at 3.0. If cortisol level is between 3 and 18, serum ACTH level and ACTH stimulation test recommended. 06/23: ACTH level pending. Repeat cortisol level in the morning 17.8 although spending before hydrocortisone was given. Somehow, cosyntropin stimulation test was not done although it was ordered. Patient still have intermittent chest pain/discomfort therefore taken for Continuous Drier Helper. Emergent hydrocortisone 8 mg IV was given. Cardiac cath shows tubular 20% proximal lesion in LAD, tubular 40% mid lesion in the ramus otherwise not significant coronary artery disease. Medical therapy recommended. Patient on baby aspirin, apixaban, carvedilol, diltiazem 60 mg every 6 per distill heart rate 100s to 110s. Loading dose of digoxin ordered. #NSTEMI, type II or acute myocardial injury from A-fib with RVR: Possible secondary to A-fib with RVR: Troponin 99, plateaued and decreasing trend. Does not seem to be type I TN or atherosclerotic heart disease. Patient was started on nitro drip and heparin drip in ED. 2D echo is ordered. Patient on aspirin and high intensity statin. As patient had type II TN, cardiac cath not indicated therefore canceled and patient started on Eliquis with the discontinuation of heparin drip. # chronic systolic heart failure: BNP elevated but chest x-ray individually reviewed and does not show acute findings. 2D echo shows mildly dilated LV, moderate global systolic dysfunction with EF 40%. MR normal. Atria normal. Normal tricuspid valve. Aortic valve normal with mild diffuse thickening. Currently patient does not have leg swelling or fluid overload and therefore on empagliflozin and other heart failure medications. BP on lower side 104 systolic therefore does not qualify EMERALD or ARB. #Right ear pressure suspected viral illness: Respiratory panel and SARS-CoV-2 antigens are negative. #Type 2 diabetes mellitus: Glucose levels are high. Accu-Chek here about 336. A1c pending. Accu-Chek insulin coverage milk sliding scale. #Morbid obesity -BMI 44.9 kg/m? -Complicates treatment, prognosis, outcomes -Recommend weight loss and lifestyle changes #Hypertension -On Cardizem drip so hold losartan and amlodipine -Also will be started on nitro drip #Anxiety -Continue home Lexapro, given his tachycardia we will hold Wellbutrin at this time -We will add prn for anxiety as well #DVT ppx: Heparin drip changed to Eliquis. Total time of the visit including total time spent in counseling or coordination of care, (more than 50% of the total time, spent in obtaining medical information from nurses and other ancillary care providers,explaining to the patient about labs, imaging, diagnosis and management of active complex medical conditions), discussion with technical sales consultant, review of labs and imaging is 40 minutes. Charges/Coding Visit Charges Inpatient E&M: [id number] [facility] L3
[2023-06-23] MEDS: HYDROmorphone 0.5 MG/0.5 ML SYRINGE IV ×2 (08:02→11:11)
[2023-06-23] MEDS: Nitroglycerin Oint 1 INCH PACKET TD (08:03)
[2023-06-23] MEDS: Aspirin E.C. 81 MG Tablet PO (08:06)
[2023-06-23] MEDS: Escitalopram Oxalate 10 MG Tablet PO (08:06)
[2023-06-23] MEDS: Insulin Glargine-YFGN 100 UNIT/ML Pen 20 UNIT SC ×2 (08:07→21:33)
--- NOTE | 2023-06-23 09:14 | PN.CARD_ITS ---
Subjective Subjective Continues to have intermittent chest discomfort. Lexiscan stress was therefore canceled. Objective Data Vital Signs: Vital Signs Temp Pulse Resp BP Pulse Ox O2 Del Method O2 Flow Rate 98.2 F 122 H 18 114/71 97 Room Air 2 06/23/23 00:00 06/23/23 08:03 06/23/23 00:00 06/23/23 08:03 06/23/23 00:00 06/23/23 00:00 06/22/23 07:18 Oxygen Flow Rate (L/min) 2 Oxygen Delivery Method Room Air Weight: 292 lb 15.909 oz Body Mass Index (BMI) 44.4 Intake & Output: Intake and Output for Last 24 Hours 06/21/23 06/22/23 06/23/23 23:59 23:59 23:59 Intake Total 908.82 / 941.82 1638.47 / 1638.47 Output Total 100 / 200 370 / 370 Balance 808.82 / 741.82 1268.47 / 1268.47 Lab / Micro Data 06/22/23 05:10 06/22/23 05:10 Labs: Laboratory Results - last 24 hr 06/22/23 10:53: POC Glucose 292 H 06/22/23 16:33: POC Glucose 369 H 06/22/23 21:12: POC Glucose 349 H 06/23/23 06:31: POC Glucose 197 H 06/23/23 06:45: Cortisol 17.80 Micro: Microbiology 06/22/23 08:55 Mucosa - Nasopharyngeal Coronavirus COVID-19 PCR - Final 06/21/23 23:50 Mucosa - Nasopharyngeal Respiratory Panel (PCR) - Final Rhythm Strip Rhythm Strip: A-fib Cardiology Labs/Tests Rhythm: EKG: ECHO: Stress Test: Cardiac Cath: PCI: CT Surgery: Holter monitor: EPS: PPM: CXR: Chest CT Scan: Physical Exam Narrative Lying comfortably in the bed. No apparent distress. Obese. Heart sounds 1 and 2 are normal. No murmurs or rubs. Chest clear to auscultation bilaterally. Abdomen soft. Alert oriented x 3. Trace bilateral ankle edema. Assessment & Plan Assessment/Plan (1) Atrial fibrillation: PLAN: New onset atrial fibrillation in the context of hyperthyroidism. Continue with rate control with beta-blockers and calcium channel blockers. Change beta- kelsey to carvedilol. Treat underlying hypothyroidism. Check echocardiogram. Patient's chads?2 VASc score is 2. Recommend anticoagulation. This recommendation could be revised later if he maintains normal sinus rhythm after resolution of his hyperthyroidism. (2) Elevated troponin I level: PLAN: Continues to have intermittent chest discomfort. Consider unstable angina. Coronary angiography with possible revascularization was offered to the patient. Risks benefits and alternatives discussed. He understand these and wishes to proceed. It is noted that the patient is in a hyperthyroid state but he is already on methimazole last couple of days. Risk of thyroid storm discussed with patient with administration of iodinated contrast media as well. Once again he unders tands and wishes to proceed with coronary angiography. (3) Essential hypertension: PLAN: Beta-blockers, calcium channel blockers. Nitrates. (4) Type 2 diabetes mellitus: PLAN: As per internal medicine. (5) Hyperthyroidism: PLAN: On methimazole. (6) Obesity: PLAN: Lose weight.
[2023-06-23] MEDS: methIMAzole 10 MG TABLET 40 MG PO (09:15)
[2023-06-23] MEDS: Carvedilol 6.25 MG Tablet PO ×2 (09:16→16:10)
--- NOTE | 2023-06-23 09:32 | CASEMGMT ---
MILADIS CM: Tertiary facilities in network with pt's [facility] per their website include: [facility], [facility], [facility], [facility], [facility], [place], [facility]. Dionna Dwyer RN CM
--- NOTE | 2023-06-23 10:35 | CASEMGMT ---
MILADIS LOVE Discharge Planning Assessment: Face to Face with patient for initial transition planning/care coordination assessment. MILADIS LOVE introduced self and role at [facility], pt voices understanding. Pt alert, answering questions appropriately and is agreeable to participating in the assessment. Care providers, pharmacy, and demographics verified. PCP: Anne-Marie Specialists: none Preferred Pharmacy: [facility] Insurance: [employer] Prescription Benefit: yes Living Will/HPOA: none LNOK: parents: Kirby Solis and Vineet Hull, pt states he does have a daughter but he is currently not in contact with her. Living Arrangements: Pt lives alone in a three story townhouse/apartment with the garage on the ground level, kitchen and living area on the first floor and bedrooms on the second floor. Pt states he has not had any difficulty with the stairs until recently when he developed SOB with any exertion. Pt states he is independent with all ADLs including self care and household tasks. Transportation: Pt drives and denies any concerns with transportation. DME: Pt states he has a glucometer with all needed supplies and states he checks his glucose approximately 5 times/week. Pt states he has insulin with needed supplies but also states he believes he has run out of his fast acting insulin and does not believe he has any refills available. Pt unable to state the name of the insulin he uses. HHC/SNF: Pt denies any previous providers Pt's goal: Pt plans to return home at discharge and requests a script for his fast acting insulin. Plan: Home w/support of parents and script for fast acting insulin if indicated. Dionna Dwyer RN CM
[2023-06-23] MEDS: Hydrocortisone Sod Succinate 100 MG/2 ML Vial IV (11:11)
[2023-06-23] MEDS: DiphenhydrAMINE 50 MG/ML Syringe 25 MG IV ×2 (11:12→21:31)
[2023-06-23] MEDS: Insulin Lispro 100 UNIT/ML INSULN.PEN SC ×3 (11:20→21:22)
[2023-06-23 11:42] LABS: Bedside Glucose 314 mg/dL (74-106)
--- NOTE | 2023-06-23 12:47 | PCM.PN.BLA ---
Progress Note Only mild CAD noted on coronary angiography. Chest pain likely noncardiac. Nonischemic cardiomyopathy secondary to thyrotoxicosis. Medical management.
--- NOTE | 2023-06-23 12:48 | CL.D_ITS ---
Patient Name: DEDE SCHWARTZ Study Date: 06/23/2023 Performing: Orlin Alonso MD Ht: 68 inches 172.72 cm : 1970 Wt: 292.99 lbs 132.9 kg Age: 52 Gender: male BSA: 2.4 PROCEDURE(S) PERFORMED [id number])[facility] PROFILE AND INDICATIONS Indications: Suspected CAD Heart Failure: None Angina Classification Anginal Classification w/in 2 Weeks: CCS IV CAD Presentations: Unstable angina. CONCLUSIONS Mild CAD RECOMMENDATIONS Risk factor modification Medical therapy DESCRIPTION OF PROCEDURE The patient arrived to the procedure lab. The risks and benefits of the procedure as well as a full description of our services here and current unavailability of surgical backup were fully explained to the patient and/or their significant other prior to the catheterization. The Timeout was completed, verifying the correct patient and procedure. The patient's procedural site was prepped and draped in the usual fashion. Local anesthetic was given subcutaneously to right radial region with Lidocaine 2%. Using a modified Seldinger technique, arterial access was obtained via the right radial artery, a 6Fr sheath was inserted. Left Coronary Artery selective angiography was performed in multiple views using a 5 Fr. 4.0 [place] catheter. Right Coronary Artery selective angiography was then performed in multiple views using a 5 Fr. 4.0 [place] catheter.The arterial sheath was pulled and a TR Band was applied for hemostasis 14cc air CORONARY ANGIOGRAPHY DOMINANCE: Right Dominant LEFT MAIN: Tubular 20% Ostial lesion in Left Main LEFT ANTERIOR DESCENDING ARTERY: LAD: Tubular 20% Proximal lesion in LAD CIRCUMFLEX ARTERY: Mild luminal irregularities RAMUS: Tubular 40% Mid lesion in Ramus RIGHT CORONARY ARTERY: Angiographically normal COMPLICATIONS No Complications PROCEDURE MEDICATIONS Fentanyl 50. mcg IV Versed 1 mg IV Versed 2 mg IV Fentanyl 50 mcg IV Oxygen: 2 L/min via nasal cannula Metoprolol 10 mg 06/23/2023 12:29:10 SUMMARY OF HEMODYNAMIC DATA Time 12:44:25 AIR REST ECG 12:44:25 Signed By Orlin Alonso MD On 06/23/2023 12:47:11 Orlin Alonso MD
[2023-06-23] MEDS: 0.9% Saline Lock 10 ML Syringe IV (14:02)
[2023-06-23] MEDS: Digoxin 250 MCG/ML Ampul 500 MCG IV (14:02)
[2023-06-23] MEDS: 0.9% Normal Saline (1000mL) 1,000 ML 75 ML IV (14:18)
--- NOTE | 2023-06-23 15:42 | EKG12_ITS ---
Test Reason : ROUTINE Blood Pressure : / mmHG Vent. Rate : 102 BPM Atrial Rate : 000 BPM P-R Int : 000 ms QRS Dur : 086 ms QT Int : 348 ms P-R-T Axes : 000 -05 058 degrees QTc Int : 453 ms Atrial fibrillation with rapid ventricular response Possible Anterior infarct , age undetermined Abnormal ECG When compared with ECG of 21-JUN-2023 18:22, MANUAL COMPARISON REQUIRED, DATA IS UNCONFIRMED Confirmed by KESHIA MEADOWS, LEONARDO ([id number]), order editor SASCHA PARKS ([id number]) on 06/27/2023 7:55:14 AM Referred By: MADISON Confirmed By:LEONARDO SCHMITT MD
[2023-06-23] MEDS: oxyCODONE 5 MG Tablet PO ×2 (16:10→21:23)
[2023-06-23 16:39] LABS: Hematocrit 39.6 % (40-54); Hemoglobin 12.6 g/dL (13.0-16.5); Mean Corp Hgb Conc 31.8 g/dL (32-36); Mean Corpuscular Hgb 26.5 pg (27.0-32.0); Mean Corpuscular Volume 83.4 fL (80-94); Mean Platelet Vol. 10.7 fl (6.2-12.0); Platelet Count 245 K/mm3 (150-450); RBC Distribution Width CV 12.6 % (11.6-14.6); RBC Distribution Width SD 38.4 fl (35.1-43.9); Red Blood Count 4.75 M/mm3 (4.6-6.2); White Blood Count 8.1 K/mm3 (4.4-11.0)
[2023-06-23 16:47] LABS: Anion Gap 5 (5-15); BUN 29 mg/dL (7-18); BUN/Creat Ratio 29.5 RATIO (10-20); Calcium,Total 8.8 mg/dL (8.5-10.1); Chloride 102 mmol/L (98-107); Creatinine, Serum 0.98 mg/dL (0.70-1.30); EST Glomerular Filtration Rate 85 mL/min (>60); Est Glom Filt Rate - Afr Amer 103 mL/min (>60); Estimated Creatinine Clearance 85.31 ml/min; Glucose 376 mg/dL (74-106); Potassium 5.2 mmol/L (3.5-5.1); Sodium Level 132 mmol/L (136-145)
[2023-06-23 17:19] LABS: Bedside Glucose 363 mg/dL (74-106)
[2023-06-23] MEDS: APIXABAN 5 MG TABLET PO (17:35)
[2023-06-23] MEDS: Acetaminophen 325 MG Tablet 650 MG PO (17:45)
[2023-06-23] MEDS: Digoxin 250 MCG/ML Ampul IV (18:33)
[2023-06-23] MEDS: Atorvastatin Calcium 40 MG Tablet PO (21:25)
[2023-06-23] MEDS: Carvedilol 12.5 MG Tablet PO (21:29)
[2023-06-23 22:04] LABS: Bedside Glucose 335 mg/dL (74-106)
[2023-06-24] VITALS (7 sets, daily range): BP systolic 131–149; BP diastolic 72–99; PULSE 83–102; RESP 16–20; TEMP 36.5–36.8; O2SAT 94–98; BMI 44.4
[2023-06-24] MEDS: LORazepam 0.5 MG Tablet PO ×4 (00:13→21:55)
[2023-06-24] MEDS: dilTIAZem 60 MG Tablet PO ×4 (00:14→17:58)
[2023-06-24 06:22] LABS: Absolute Lymphocyte Count 2.25 X10^3/uL (0.83-4.51); Absolute Neutrophil Count 3.1 X10^3/uL (2.0-7.7); Basophil# 0.02 X10^3/uL; Basophil% 0.3 % (0-1); Eosinophil# 0.06 X10^3/uL; Hematocrit 38.9 % (40-54); Hemoglobin 12.3 g/dL (13.0-16.5); Lymphocyte # 2.25 X10^3/ul (0.83-4.51); Lymphocyte % 35.8 % (19-41); Mean Corp Hgb Conc 31.6 g/dL (32-36); Mean Corpuscular Hgb 26.7 pg (27.0-32.0); Mean Corpuscular Volume 84.6 fL (80-94); Mean Platelet Vol. 10.7 fl (6.2-12.0); Monocyte# 0.84 X10^3/uL; Monocyte% 13.4 % (0-10); NRBC Flagged by Analyzer 0 % (0-5); Neutrophil # 3.09 X10^3/uL (2.7-7.7); Neutrophil % 49.2 % (47-70); Platelet Count 193 K/mm3 (150-450); RBC Distribution Width CV 12.6 % (11.6-14.6); RBC Distribution Width SD 38.4 fl (35.1-43.9); White Blood Count 6.3 K/mm3 (4.4-11.0)
[2023-06-24] MEDS: APIXABAN 5 MG TABLET PO ×2 (06:34→17:58)
[2023-06-24] MEDS: Insulin Lispro 100 UNIT/ML INSULN.PEN SC ×4 (06:35→21:50)
[2023-06-24 06:57] LABS: Bedside Glucose 263 mg/dL (74-106)
[2023-06-24 07:05] LABS: Anion Gap 3 (5-15); BUN 28 mg/dL (7-18); Calcium,Total 8.5 mg/dL (8.5-10.1); Chloride 103 mmol/L (98-107); EST Glomerular Filtration Rate 108 mL/min (>60); Est Glom Filt Rate - Afr Amer 130 mL/min (>60); Glucose 303 mg/dL (74-106); Potassium 4.4 mmol/L (3.5-5.1); Sodium Level 133 mmol/L (136-145); T4 Free Direct 2.54 ng/dL (0.76-1.46); Thyroid Stim Hormone (TSH) < 0.01 uIU/mL (0.358-3.74)
[2023-06-24] MEDS: Lisinopril 2.5 MG Tablet PO (09:43)
[2023-06-24] MEDS: oxyCODONE 5 MG Tablet PO ×3 (09:43→20:00)
[2023-06-24] MEDS: Carvedilol 12.5 MG Tablet PO ×2 (09:43→21:49)
[2023-06-24] MEDS: methIMAzole 10 MG TABLET 40 MG PO (09:44)
[2023-06-24] MEDS: Aspirin E.C. 81 MG Tablet PO (09:44)
[2023-06-24] MEDS: Digoxin 250 MCG Tablet PO (09:44)
[2023-06-24] MEDS: Empagliflozin 10 MG Tablet PO (09:44)
[2023-06-24] MEDS: Insulin Glargine-YFGN 100 UNIT/ML Pen 20 UNIT SC ×2 (09:45→21:50)
[2023-06-24] MEDS: Escitalopram Oxalate 10 MG Tablet PO (09:45)
--- NOTE | 2023-06-24 11:06 | PN.CARD_ITS ---
Subjective Subjective Complains of pain with breathing. Objective Data Vital Signs: Vital Signs Temp Pulse Resp BP Pulse Ox O2 Del Method O2 Flow Rate 98.0 F 83 18 144/77 H 98 Room Air 2 06/24/23 09:41 06/24/23 09:41 06/24/23 09:41 06/24/23 09:41 06/24/23 09:41 06/24/23 09:45 06/22/23 07:18 Oxygen Flow Rate (L/min) 2 Oxygen Delivery Method Room Air Weight: 293 lb 3.437 oz Body Mass Index (BMI) 44.4 Intake & Output: Intake and Output for Last 24 Hours 06/22/23 06/23/23 06/24/23 23:59 23:59 23:59 Intake Total 1638.47 / 1638.47 1750 / 1750 Output Total 370 / 370 100 / 100 Balance 1268.47 / 1268.47 1650 / 1650 Lab / Micro Data 06/24/23 05:35 06/24/23 05:35 Labs: Laboratory Results - last 24 hr 06/23/23 11:20: POC Glucose 314 H 06/23/23 16:13: POC Glucose 363 H 06/23/23 16:22: WBC 8.1, RBC 4.75, Hgb 12.6 L, Hct 39.6 L, MCV 83.4, MCH 26.5 L, MCHC 31.8 L, RDW Std Deviation 38.4, RDW Coeff of Jax 12.6, Plt Count 245, MPV 10.7, Sodium 132 L, Potassium 5.2 H, Chloride 102, Carbon Dioxide 25.0, Anion Gap 5, BUN 29 H, Creatinine 0.98, Estim Creat Clear Calc 85.31, Est GFR (MDRD) Af Amer 103, Est GFR (MDRD) Non-Af 85, BUN/Creatinine Ratio 29.5 H, Glucose 376 H, Calcium 8.8, Magnesium 2.0 06/23/23 21:20: POC Glucose 335 H 06/24/23 05:35: WBC 6.3, RBC 4.60, Hgb 12.3 L, Hct 38.9 L, MCV 84.6, MCH 26.7 L, MCHC 31.6 L, RDW Std Deviation 38.4, RDW Coeff of Jax 12.6, Plt Count 193, MPV 10.7, Immature Gran % (Auto) 0.300, Neut % (Auto) 49.2, Lymph % (Auto) 35.8, [place] % (Auto) 13.4 H, Eos % (Auto) 1.0, Baso % (Auto) 0.3, Absolute Neuts (auto) 3.1, Absolute Lymphs (auto) 2.25, Nucleated RBC % 0, Sodium 133 L, Potassium 4.4, Chloride 103, Carbon Dioxide 27.0, Anion Gap 3 L, BUN 28 H, Creatinine 0.8 0, Estim Creat Clear Calc 104.50, Est GFR (MDRD) Af Amer 130, Est GFR (MDRD) Non-Af 108, BUN/Creatinine Ratio 35.0 H, Glucose 303 H, Calcium 8.5, TSH < 0.01 L, Free T4 2.54 H 06/24/23 06:35: POC Glucose 263 H Rhythm Strip Rhythm Strip: A-fib Cardiology Labs/Tests 06/23/23 16:22: WBC 8.1, RBC 4.75, Hgb 12.6 L, Hct 39.6 L, MCV 83.4, MCH 26.5 L, MCHC 31.8 L, Plt Count 245, MPV 10.7, Sodium 132 L, Potassium 5.2 H, Chloride 102, Carbon Dioxide 25.0, Anion Gap 5, BUN 29 H, Creatinine 0.98, Est GFR (MDRD) Af Amer 103, Est GFR (MDRD) Non-Af 85, BUN/Creatinine Ratio 29.5 H, Glucose 376 H, Calcium 8.8, Magnesium 2.0 06/24/23 05:35: WBC 6.3, RBC 4.60, Hgb 12.3 L, Hct 38.9 L, MCV 84.6, MCH 26.7 L, MCHC 31.6 L, Plt Count 193, MPV 10.7, Immature Gran % (Auto) 0.300, Neut % (Auto) 49.2, Lymph % (Auto) 35.8, [place] % (Auto) 13.4 H, Eos % (Auto) 1.0, Baso % (Auto) 0.3, Absolute Neuts (auto) 3.1, Nucleated RBC % 0, Sodium 133 L, Potassium 4.4, Chloride 103, Carbon Dioxide 27.0, Anion Gap 3 L, BUN 28 H, Creatinine 0.80, Est GFR (MDRD) Af Amer 130, Est GFR (MDRD) Non-Af 108, BUN/Creatinine Ratio 35.0 H, Glucose 303 H, Calcium 8.5 Rhythm: EKG: ECHO: Stress Test: Cardiac Cath: PCI: CT Surgery: Holter monitor: EPS: PPM: CXR: Chest CT Scan: Physical Exam Narrative Lying comfortably in the bed. No apparent distress. Obese. Heart sounds 1 and 2 are normal. No murmurs or rubs. Chest clear to auscultation bilaterally. Abdomen soft. Alert oriented x 3. Trace bilateral ankle edema. Assessment & Plan Assessment/Plan (1) Atrial fibrillation: PLAN: New onset atrial fibrillation in the context of hyperthyroidism. Intermittent left bundle branch block. Continue beta-blockers. Escalate doses as tolerated. Started on digoxin. Treat underlying hypothyroidism. Check echocardiogram. Patient's chads?2 VASc score is 2. Recommend anticoagulation. This recommendation could be revised later if he maintains normal sinus rhythm after resolution of his hyperthyroidism. (2) Elevated troponin I level: PLAN: Status post coronary angiography. No flow-limiting lesions noted. Likely type II NSTEMI. (3) Nonischemic cardiomyopathy: PLAN: Beta-blockers, EMERALD inhibitors, SGLT2 inhibitors. Treat hyperthyroid state. (4) Essential hypertension: PLAN: Beta-blockers, calcium channel blockers. Nitrates. (5) Type 2 diabetes mellitus: PLAN: As per internal medicine. (6) Hyperthyroidism: PLAN: On methimazole. (7) Obesity: PLAN: Lose weight.
[2023-06-24] MEDS: Acetaminophen 325 MG Tablet 650 MG PO ×2 (11:37→20:00)
[2023-06-24 12:14] LABS: Bedside Glucose 304 mg/dL (74-106)
--- NOTE | 2023-06-24 13:51 | PN.HOSP_ITS ---
Reason for Visit Reason for Visit: Diagnoses Thyrotoxicosis, unspecified without thyrotoxic crisis or storm (06/21/23) Type 2 diabetes mellitus without complications (06/21/23) Obesity, unspecified (06/21/23) Essential (primary) hypertension (06/21/23) Other cardiomyopathies (06/21/23) Unspecified atrial fibrillation (06/21/23) Other specified abnormal findings of blood chemistry (06/21/23) Objective Data Objective Data Vital Signs: Vital Signs Temp Pulse Resp BP Pulse Ox O2 Del Method O2 Flow Rate 98.0 F 83 18 144/77 H 98 Room Air 2 06/24/23 09:41 06/24/23 09:41 06/24/23 09:41 06/24/23 09:41 06/24/23 09:41 06/24/23 09:45 06/22/23 07:18 Oxygen Flow Rate (L/min) 2 Oxygen Delivery Method Room Air Weight: 293 lb 3.437 oz Body Mass Index (BMI) 44.4 Intake & Output: Intake and Output for Last 24 Hours 06/22/23 06/23/23 06/24/23 23:59 23:59 23:59 Intake Total 1638.47 / 1638.47 1750 / 1750 420 / 420 Output Total 370 / 370 100 / 100 Balance 1268.47 / 1268.47 1650 / 1650 420 / 420 Lab / Micro Data 06/24/23 05:35 06/24/23 05:35 Labs: Laboratory Results - last 24 hr 06/23/23 16:13: POC Glucose 363 H 06/23/23 16:22: WBC 8.1, RBC 4.75, Hgb 12.6 L, Hct 39.6 L, MCV 83.4, MCH 26.5 L, MCHC 31.8 L, RDW Std Deviation 38.4, RDW Coeff of Jax 12.6, Plt Count 245, MPV 10.7, Sodium 132 L, Potassium 5.2 H, Chloride 102, Carbon Dioxide 25.0, Anion Gap 5, BUN 29 H, Creatinine 0.98, Estim Creat Clear Calc 85.31, Est GFR (MDRD) Af Amer 103, Est GFR (MDRD) Non-Af 85, BUN/Creatinine Ratio 29.5 H, Glucose 376 H, Calcium 8.8, Magnesium 2.0 06/23/23 21:20: POC Glucose 335 H 06/24/23 05:35: WBC 6.3, RBC 4.60, Hgb 12.3 L, Hct 38.9 L, MCV 84.6, MCH 26.7 L, MCHC 31.6 L, RDW Std Deviation 38.4, RDW Coeff of Jax 12.6, Plt Count 193, MPV 10.7, Immature Gran % (Auto) 0.300, Neut % (Auto) 49.2, Lymph % (Auto) 35.8, [place] % (Auto) 13.4 H, Eos % (Auto) 1.0, Baso % (Auto) 0.3, Absolute Neuts (auto) 3.1, Absolute Lymphs (auto) 2.25, Nucleated RBC % 0, Sodium 133 L, Potassium 4.4, Chloride 103, Carbon Dioxide 27.0, Anion Gap 3 L, BUN 28 H, Creatinine 0.80, Estim Creat Clear Calc 104.50, Est GFR (MDRD) Af Amer 130, Est GFR (MDRD) Non-Af 108, BUN/Creatinine Ratio 35.0 H, Glucose 303 H, Calcium 8.5, TSH < 0.01 L, Free T4 2.54 H 06/24/23 06:35: POC Glucose 263 H 06/24/23 11:33: POC Glucose 304 H Micro: Microbiology 06/22/23 08:55 Mucosa - Nasopharyngeal Coronavirus COVID-19 PCR - Final 06/21/23 23:50 Mucosa - Nasopharyngeal Respiratory Panel (PCR) - Final 06/21/23 22:00 Nasal Secretion SARS-CoV-2 & FLU Antigen (Rapid) - Final Rhythm Strip Rhythm Strip: A-fib Physical Exam Narrative Seen and examined. Patient denies chest pain. No shortness of breath. Patient had cardiac cath yesterday. Heart rate 83/min. Still in A-fib. Cardiac cath was done yesterday. Physical exam General: Alert, Oriented x3, Cooperative, morbid obesity BMI 44.4 kg/m? HEENT: Atraumatic, PERRLA, EOMI, Normocephalic Oral: No Gingival or Mucosal Lesions/ Ulcerations Neck: Supple, No JVD, Negative Carotid Bruits Lungs: Air entry diminished in bilateral lung bases. No crepitation/rhonchi Cardiovascular: A-fib, irregular, heart rate controlled..Normal S1, Normal S2, No murmurs Abdomen: Bowel Sounds Present, Soft, Non Tender, Non-Distended : No renal angle tenderness. No suprapubic tenderness. Extremities: Mild bilateral pitting edema, Capillary Refill Less than 3 Seconds Skin: No rashes, No breakdown Musculoskeletal: No Tenderness to Palpation of Joints or Extremities. ROM intact. Neurological: Cranial nerves II-XII grossly intact, DTR 2+/4. No acute focal neurological deficit. Psych/Mental Status: Normal Affect, Appropriate. Assessment & Plan Assessment/Plan (1) Atrial fibrillation with RVR: (2) Type 2 diabetes mellitus: (3) Hypertension: (4) Elevated troponin I level: PLAN: Plan 52-year-old gentleman was admitted through ER for shortness of breath/dyspnea with exertion and then became continuous started 3 days ago along with intermittent chest discomfort worse with activity and relieved by rest. Patient denied orthopnea or PND but has swelling of lower extremities which is new. He does not have history of prior hyper or hypothyroidism or adrenal gland problem or A-fib. #New onset A-fib with RVR, exact etiology unclear but most likely hyperthyroidism and suspicion of hypoadrenalism: BNP elevated 268. Patient was started on Cardizem drip after bolus. Started on metoprolol and IV heparin drip.later metoprolol changed to propanolol for hyperthyroidism. Electrolytes including serum magnesium and phosphorus reviewed and within normal limit. TSH is less than 0.01. Free T43.93, free T3 14.4 high. Cortisol level low at 3.0. If cortisol level is between 3 and 18, serum ACTH level and ACTH stimulation test recommended. 06/23: ACTH level pending. Repeat cortisol level in the morning 17.8 although spending before hydrocortisone was given. Somehow, cosyntropin stimulation test was not done although it was ordered. Patient still have intermittent chest pain/discomfort therefore taken for [employer]. Emergent hydrocortisone 100 mg IV was given. Cardiac cath shows tubular 20% proximal lesion in LAD, tubular 40% mid lesion in the ramus otherwise not significant coronary artery disease. Medical therapy recommended. Patient on baby aspirin, apixaban, carvedilol, diltiazem 60 mg every 6 per distill heart rate 100s to 110s. Loading dose of digoxin ordered. 06/24: Heart rate is controlled. TSH undetectable and free T4 still elevated. Methimazole extra 20 mg in the evening ordered. Rest to continue. #NSTEMI, type II or acute myocardial injury from A-fib with RVR: Possible secondary to A-fib with RVR: Troponin 99, plateaued and decreasing trend. Does not seem to be type I CA or atherosclerotic heart disease. Patient was started on nitro drip and heparin drip in ED. 2D echo is ordered. Patient on aspirin and high intensity statin. As patient had type II CA, cardiac cath not indicated therefore canceled and patient started on Eliquis with the discontinuation of heparin drip. # chronic systolic heart failure: BNP elevated but chest x-ray individually reviewed and does not show acute findings. 2D echo shows mildly dilated LV, moderate global systolic dysfunction with EF 40%. MR normal. Atria normal. Normal tricuspid valve. Aortic valve normal with mild diffuse thickening. Currently patient does not have leg swelling or fluid overload and therefore on empagliflozin and other heart failure medications. BP on lower side 104 systolic therefore does not qualify EMERALD or ARB. 08/24: Nonischemic cardiomyopathy. No flow-limiting lesion on cardiac cath. Continue beta-kelsey EMERALD inhibitor SGLT2 inhibitor. #Right ear pressure suspected viral illness: Respiratory panel and SARS-CoV-2 antigens are negative. #Type 2 diabetes mellitus: Glucose levels are high. Accu-Chek here about 336. A1c pending. Accu-Chek insulin coverage milk sliding scale. #Morbid obesity -BMI 44.9 kg/m? -Complicates treatment, prognosis, outcomes -Recommend weight loss and lifestyle changes #Hypertension -On Cardizem drip so hold losartan and amlodipine -Also will be started on nitro drip #Anxiety -Continue home Lexapro, given his tachycardia we will hold Wellbutrin at this time -We will add prn for anxiety as well #DVT ppx: Heparin drip changed to Eliquis. Total time of the visit including total time spent in counseling or coordination of care, (more than 50% of the total time, spent in obtaining medical information from nurses and other ancillary care providers,explaining to the patient about labs, imaging, diagnosis and management of active complex medical conditions), discussion with absence management consultant, review of labs and imaging is 40 minutes. Charges/Coding Visit Charges Inpatient E&M: 99421 Subs Hosp L2
[2023-06-24 16:55] LABS: Bedside Glucose 419 mg/dL (74-106)
[2023-06-24] MEDS: methIMAzole 10 MG TABLET 20 MG PO (17:58)
[2023-06-24] MEDS: Senna/Docusate Sodium 1 Tablet 2 TABLET PO (18:02)
[2023-06-24] MEDS: Atorvastatin Calcium 40 MG Tablet PO (21:49)
[2023-06-24 22:14] LABS: Bedside Glucose 307 mg/dL (74-106)
[2023-06-25] MEDS: oxyCODONE 5 MG Tablet PO ×3 (00:02→10:05)
[2023-06-25] MEDS: dilTIAZem 60 MG Tablet PO ×2 (00:02→05:58)
[2023-06-25 05:34] LABS: Absolute Lymphocyte Count 2.07 X10^3/uL (0.83-4.51); Absolute Neutrophil Count 3.6 X10^3/uL (2.0-7.7); Basophil# 0.04 X10^3/uL; Basophil% 0.6 % (0-1); Eosinophil# 0.09 X10^3/uL; Eosinophils% 1.3 % (0-5); Hematocrit 39.2 % (40-54); Hemoglobin 12.1 g/dL (13.0-16.5); Lymphocyte # 2.07 X10^3/ul (0.83-4.51); Mean Corp Hgb Conc 30.9 g/dL (32-36); Mean Corpuscular Hgb 26.5 pg (27.0-32.0); Mean Platelet Vol. 11.2 fl (6.2-12.0); Monocyte# 0.81 X10^3/uL; Monocyte% 12.1 % (0-10); NRBC Flagged by Analyzer 0 % (0-5); Neutrophil # 3.63 X10^3/uL (2.7-7.7); Neutrophil % 54.4 % (47-70); Platelet Count 210 K/mm3 (150-450); RBC Distribution Width CV 12.4 % (11.6-14.6); RBC Distribution Width SD 38.6 fl (35.1-43.9); Red Blood Count 4.56 M/mm3 (4.6-6.2); White Blood Count 6.7 K/mm3 (4.4-11.0)
[2023-06-25 05:55] VITALS: BP 145/83; PULSE 81; RESP 18; TEMP 36.3; O2SAT 94
[2023-06-25] MEDS: APIXABAN 5 MG TABLET PO (05:59)
[2023-06-25] MEDS: Acetaminophen 325 MG Tablet 650 MG PO (05:59)
[2023-06-25] MEDS: Insulin Lispro 100 UNIT/ML INSULN.PEN SC (05:59)
[2023-06-25 06:00] VITALS: BMI 46.9
[2023-06-25 06:21] LABS: Bedside Glucose 256 mg/dL (74-106)
[2023-06-25 06:23] LABS: Anion Gap 4 (5-15); BUN 24 mg/dL (7-18); BUN/Creat Ratio 30.5 RATIO (10-20); Calcium,Total 8.2 mg/dL (8.5-10.1); Chloride 103 mmol/L (98-107); Creatinine, Serum 0.79 mg/dL (0.70-1.30); EST Glomerular Filtration Rate 110 mL/min (>60); Est Glom Filt Rate - Afr Amer 133 mL/min (>60); Estimated Creatinine Clearance 105.82 ml/min; Free T3 5.7 pg/mL (2.18-3.98); Glucose 278 mg/dL (74-106); Potassium 4.3 mmol/L (3.5-5.1); Sodium Level 137 mmol/L (136-145); T4 Free Direct 2.19 ng/dL (0.76-1.46); Thyroid Stim Hormone (TSH) < 0.01 uIU/mL (0.358-3.74)
--- NOTE | 2023-06-25 09:33 | DCINST_ITS ---
Discharge Instructions Diet Discharge Diet: Low fat / Low cholesterol, 1800 Calorie Control Diet, 8 Cup Fluid Restriction and 2000 mg Sodium Diet Activity Discharge Activity: Return to Normal Activity Weight Bearing Status: Weight bearing as tolerated Dressing / Incision Call your doctor if you observe: Fever of 101 or Higher, Coldness, Increased Pain, Numbness or Tingling, Change in Color, Inability to urinate, Inability to have a bowel movement, Shortness of breath, Dizziness, Fainting spells, Swelling in the ankles, Chest pain, Prolonged hiccupping, Increased palpitations (irregular heartbeat) and Calf discomfort Follow Up Care When: IN 2 WEEKS Test Results: Test results from this visit will be discussed in further detail at your follow- up appointment, if applicable. Discharge Plan Admission Admit Date/Time: 06/21/23 18:47 Attending Provider: Cory Liang Primary Care Provider: Karen Xie Consulting Providers: Orlin Alonso; Kerry Nguyen Instructions Additional Instructions / Restrictions: Patient to take metamizole 40 mg daily for [address] Sanchez kidney within 1 week. Advised BMP, magnesium and phosphorus within 1 week follow with PCP. Discharge Orders/Prescriptions Prescriptions: New methimazole 10 mg Tablet 40 mg PO DAILY 7 Days Qty: 28 0RF diltiazem HCl 120 mg tablet extended release 24 hr 120 mg PO DAILY Qty: 30 2RF Rx Instructions: Hold for SBP less than 110 mmHg carvedilol 25 mg tablet 25 mg PO BID Qty: 60 2RF Rx Instructions: must administer with a meal/food Hold for heart less than 50 or systolic blood pressure less than 100 mmHg. Eliquis 5 mg Tablet 5 mg PO Q12H 30 Days Qty: 60 2RF atorvastatin 40 mg Tablet 40 mg PO QHS 30 Days Qty: 30 2RF digoxin 250 mcg (0.25 mg) Tablet 250 mcg PO DAILY 30 Days Qty: 30 0RF Jardiance 10 mg Tablet 10 mg PO DAILY 30 Days Qty: 30 2RF sennosides-docusate sodium [Stool Softener-Stimulant Laxat] 8.6-50 mg Tablet 2 tab PO BID PRN PRN (Reason: Constipation) Qty: 0 0RF Rx Instructions: OTC Continued (DME) blood-glucose meter [Accu-Chek Maggi Plus Meter] Misc See Rx Instructions .Route Qty: 1 0RF Rx Instructions: As directed escitalopram oxalate 10 mg tablet 10 mg PO DAILY Patient Comments: have'nt felt like he needs it glipizide 10 mg tablet 5 mg PO DAILY alprazolam [Xanax] 0.5 mg tablet 0.5 mg PO DAILY PRN (Reason: anxiety) Patient Comments: TAKES 0.5-1 MG NEEDED; ONCE OR TWICE A WEEK oxycodone 5 mg tablet 5 mg PO Q24H Patient Comments: take 1 tablet by mouth once daily; SOMETIMES TAKES UP TO 2-3 DAILY clobetasol 0.05 % cream 1 applic TOPICAL BID PRN (Reason: RIGHT WRIST) Patient Comments: APPLY TWICE A DAY X2 WEEKS TO THE HANDS AND THE RIGHT WRIST NEEDED FOR FLARES losartan 100 mg tablet 100 mg PO DAILY Qty: 30 2RF Rx Instructions: Hold for SBP less than 120 mmHg (DME) Accu-Chek Maggi Plus test strp Strip See Rx Instructions .Route Qty: 100 5RF Rx Instructions: two times daily (DME) lancets [Accu-Chek Softclix Lancets] Misc See Rx Instructions .Route Qty: 100 5RF Rx Instructions: two times daily (DME) pen needle, diabetic [BD Ultra-Fine Orig Pen Needle] 29 gauge x 1/2 needle See Rx Instructions .Route Qty: 100 1RF Rx Instructions: two times daily hyoscyamine sulfate 0.125 mg tablet 0.125 mg PO DAILY PRN (Reason: dyspepsia) Qty: 30 0RF insulin detemir U-100 100 unit/mL (3 mL) insulin pen 40 unit SUBCUT BID Qty: 72 0RF bupropion HCl [Wellbutrin SR] 150 mg tablet sustained-release 12 hr 150 mg PO BID Qty: 60 0RF Patient Comments: not taking as much hydrochlorothiazide 12.5 mg tablet 12.5 mg PO QAM Qty: 30 0RF Patient Comments: doesn't take if theres no swelling in ankles dulaglutide 1.5 mg/0.5 mL pen injector 1.5 mg subcut QWEEK Qty: 2 0RF Patient Comments: DUE TOMORROW 06/22/23 Changed ibuprofen 200 mg tablet 400 mg PO Q8H PRN (Reason: fever or pain) Qty: 30 0RF Discontinued amlodipine 10 mg tablet 10 mg PO DAILY Qty: 90 0RF Referrals / Follow Up: Karen Xie MD [Primary Care Provider] - Within 1 Week Orlin Alonso MD [Med Staff - Active Staff] - Within 2 Weeks (A-fib with RVR, nonischemic cardiomyopathy EF 40%.) Mo Hodge MD [Med Staff - Courtesy Staff] - Within 1 Week Disposition Disposition (needs filled in before D/C Order can be placed): Home, Self Care
[2023-06-25 09:47] VITALS: BP 133/81; PULSE 84; RESP 16; TEMP 36.7; O2SAT 95
--- NOTE | 2023-06-25 09:53 | PCM.DC.SUM ---
Providers Date of Admission: 06/21/23 Date of Discharge: 06/25/23 Primary Care Physician: Dr. Karen Xie MD Consultations 06/21/23 21:17 Consult: Cardiology Routine Consulting Provider: Orlin Alonso Reason for Consult: afib rvr, nstemi/chest pain EMERGENT Consult: No MD Notified: Yes Date Notified: 06/21/23 Time Notified: 19:17 Method of Notification: ED Physician Initiated Reason For Visit: AFIB W/RVR Diagnosis Discharge Diagnosis (1) Atrial fibrillation with RVR: Status: Acute Code(s): I48.91 - Unspecified atrial fibrillation (2) Type 2 diabetes mellitus: Status: Acute Code(s): E11.9 - Type 2 diabetes mellitus without complications (3) Hypertension: Status: Chronic Code(s): I10 - Essential (primary) hypertension (4) Elevated troponin I level: Status: Acute Code(s): R79.89 - Other specified abnormal findings of blood chemistry Plan 52-year-old gentleman was admitted through ER for shortness of breath/dyspnea with exertion and then became continuous started 3 days ago along with intermittent chest discomfort worse with activity and relieved by rest. Patient denied orthopnea or PND but has swelling of lower extremities which is new. He does not have history of prior hyper or hypothyroidism or adrenal gland problem or A-fib. #New onset A-fib with RVR, exact etiology unclear but most likely hyperthyroidism and suspicion of hypoadrenalism: BNP elevated 268. Patient was started on Cardizem drip after bolus. Started on metoprolol and IV heparin drip.later metoprolol changed to propanolol for hyperthyroidism. Electrolytes including serum magnesium and phosphorus reviewed and within normal limit. TSH is less than 0.01. Free T43.93, free T3 14.4 high. Cortisol level low at 3.0. If cortisol level is between 3 and 18, serum ACTH level and ACTH stimulation test recommended. 06/23: ACTH level pending. Repeat cortisol level in the morning 17.8 although spending before hydrocortisone was given. Somehow, cosyntropin stimulation test was not done although it was ordered. Patient still have intermittent chest pain/discomfort therefore taken for Sales Promotion Coordinator. Emergent hydrocortisone 100 mg IV was given. Cardiac cath shows tubular 20% proximal lesion in LAD, tubular 40% mid lesion in the ramus otherwise not significant coronary artery disease. Medical therapy recommended. Patient on baby aspirin, apixaban, carvedilol, diltiazem 60 mg every 6 per distill heart rate 100s to 110s. Loading dose of digoxin ordered. 06/24: Heart rate is controlled. TSH undetectable and free T4 still elevated. Methimazole extra 20 mg in the evening ordered. Rest to continue. 06/25: Heart rate is controlled around 86. Discussed with the food and beverage assistant manager. Patient is being discharged and a prescription given for carvedilol 25 mg twice daily, diltiazem CD1 20 mg daily, digoxin 250 mcg daily, Eliquis 5 mg twice daily and atorvastatin 40 mg daily. Prescription for losartan which the patient is at home. ACTH pending. Repeat T4 and free T3 are improving. Discussed with the payroll analyst Dr. Mo Hodge and she said to maintain methimazole 40 mg daily for 1 week and he has to follow her in 1 week. Then she will decide tapering down. TSH less than 0.01. Advised to follow with Dr. Mo Hodge in 1 week. Follow-up food and beverage assistant manager in 2 weeks. #NSTEMI, type II or acute myocardial injury from A-fib with RVR: Possible secondary to A-fib with RVR: Troponin 99, plateaued and decreasing trend. Does not seem to be type I NV or atherosclerotic heart disease. Patient was started on nitro drip and heparin drip in ED. 2D echo is ordered. Patient on aspirin and high intensity statin. As patient had type II NV, cardiac cath not indicated therefore canceled and patient started on Eliquis with the discontinuation of heparin drip. # chronic systolic heart failure: BNP elevated but chest x-ray individually reviewed and does not show acute findings. 2D echo shows mildly dilated LV, moderate global systolic dysfunction with EF 40%. MR normal. Atria normal. Normal tricuspid valve. Aortic valve normal with mild diffuse thickening. Currently patient does not have leg swelling or fluid overload and therefore on empagliflozin and other heart failure medications. BP on lower side 104 systolic therefore does not qualify EMERALD or ARB. 06/24: Nonischemic cardiomyopathy. No flow-limiting lesion on cardiac cath. Continue beta-kelsey EMERALD inhibitor SGLT2 inhibitor. #Right ear pressure suspected viral illness: Respiratory panel and SARS-CoV-2 antigens are negative. 06/25: Prescriptions given as mentioned above. Patient already on HCTZ continued. Amlodipine discontinued. Patient also prescribed Jardiance for heart failure that will further help for good glucose control. Fasting lipid profile within normal limit. #Type 2 diabetes mellitus with uncontrolled hyperglycemia: Glucose levels are high. Accu-Chek here about 336. A1c 11.6%. Patient home dose of insulin resumed. #Morbid obesity -BMI 44.9 kg/m? -Complicates treatment, prognosis, outcomes -Recommend weight loss and lifestyle changes #Hypertension Blood pressure controlled, most recent 133/81. No hypoxia. #Anxiety -Continue home Lexapro, given his tachycardia we will hold Wellbutrin at this time -We will add prn for anxiety as well #DVT ppx: Heparin drip changed to Eliquis. Discharge medication reconciliation done. Discharge follow-up instructions completed. Discharge process discussed with the patient and all questions were answered to patient's satisfaction. Follow with PCP in 1 to 2 weeks Total time spent, exact 35 minutes on discharge meds reconciliation, examination, coordination of care with nurses and ancillary staff, review of imaging and blood test and discussion with the patient on follow-up instructions. Medications at Discharge Home Medications blood-glucose meter (Accu-Chek Maggi Plus Meter) #1 ea 01/20/22 blood sugar diagnostic (Accu-Chek Maggi Plus test strips) #100 ea 05/11/22 lancets (Accu-Chek Softclix Lancets) #100 ea 05/11/22 pen needle, diabetic 29 gauge x 1/2 (BD Ultra-Fine Original Pen Needle) #100 ea 05/11/22 hyoscyamine sulfate 0.125 mg tablet 0.125 mg PO DAILY PRN dyspepsia #30 tabs 01/06/23 insulin detemir U-100 100 unit/mL (3 mL) subcutaneous pen 40 unit (0.4 mL) subcut BID diabetes #72 mL 02/27/23 bupropion HCl 150 mg tablet,12 hr sustained-release (Wellbutrin SR) 150 mg PO BID smoking cessation #60 ea 03/13/23 hydrochlorothiazide 12.5 mg tablet 12.5 mg PO QAM fluid retention #30 tabs 03/13/23 dulaglutide 1.5 mg/0.5 mL subcutaneous pen injector 1.5 mg (0.5 mL) subcut QWEEK diabetes #2 mL 06/14/23 clobetasol 0.05 % topical cream 1 applic topical BID PRN RIGHT WRIST 06/21/23 escitalopram oxalate 10 mg tablet 10 mg PO DAILY DEPRESSION 06/21/23 glipizide 10 mg tablet 5 mg PO DAILY diabetes 06/21/23 oxycodone 5 mg tablet 5 mg PO Q24H BACK PAIN 06/21/23 alprazolam 0.5 mg tablet (Xanax) 0.5 mg PO DAILY PRN anxiety #10 tabs 06/25/23 apixaban 5 mg tablet (Eliquis) 5 mg PO Q12H 30 days #60 tabs 06/25/23 atorvastatin 40 mg tablet 40 mg PO QHS 30 days #30 tabs 06/25/23 carvedilol 25 mg tablet 25 mg PO BID #60 tabs 06/25/23 digoxin 250 mcg (0.25 mg) tablet 250 mcg PO DAILY 30 days #30 tabs 06/25/23 diltiazem HCl 120 mg tablet,extended release 24 hr 120 mg PO DAILY #30 tabs 06/25/23 empagliflozin 10 mg tablet (Jardiance) 10 mg PO DAILY 30 days #30 tabs 06/25/23 ibuprofen 200 mg tablet 400 mg (2 x 200 mg) PO Q8H PRN fever or pain #30 tabs 06/25/23 losartan 100 mg tablet 100 mg PO DAILY BP #30 tabs 06/25/23 methimazole 10 mg tablet 40 mg (4 x 10 mg) PO DAILY 1 week #28 tabs 06/25/23 sennosides 8.6 mg-docusate sodium 50 mg tablet (Stool Softener-Stimulant Laxative) 2 tab PO BID PRN PRN Constipation #0 tabs 06/25/23 Physical Exam Narrative Seen and examined. No shortness of breath. Patient had cardiac cath yesterday. Heart rate in 80s still in A-fib. No acute issues overnight. Patient still sometimes complain of intermittent chest pain probably musculoskeletal Physical exam General: Alert, Oriented x3, Cooperative, morbid obesity BMI 44.4 kg/m? HEENT: Atraumatic, PERRLA, EOMI, Normocephalic Oral: No Gingival or Mucosal Lesions/ Ulcerations Neck: Supple, No JVD, Negative Carotid Bruits Lungs: Air entry diminished in bilateral lung bases. No crepitation/rhonchi Cardiovascular: A-fib, irregular, heart rate controlled..Normal S1, Normal S2, No murmurs Abdomen: Bowel Sounds Present, Soft, Non Tender, Non-Distended : No renal angle tenderness. No suprapubic tenderness. Extremities: Mild bilateral pitting edema, Capillary Refill Less than 3 Seconds Skin: No rashes, No breakdown Musculoskeletal: No Tenderness to Palpation of Joints or Extremities. ROM intact. Neurological: Cranial nerves II-XII grossly intact, DTR 2+/4. No acute focal neurological deficit. Psych/Mental Status: Normal Affect, Appropriate. Weight / BMI Weight Weight: 309 lb 8.464 oz Body Mass Index (BMI) 46.9 ABG / Lab / Microbiology Data 06/25/23 05:00 06/25/23 05:00 Laboratory: Laboratory Results - last 24 hr 06/24/23 11:33: POC Glucose 304 H 06/24/23 15:50: POC Glucose 419 H 06/24/23 21:47: POC Glucose 307 H 06/25/23 05:00: WBC 6.7, RBC 4.56 L, Hgb 12.1 L, Hct 39.2 L, MCV 86.0, MCH 26.5 L, MCHC 30.9 L, RDW Std Deviation 38.6, RDW Coeff of Jax 12.4, Plt Count 210, MPV 11.2, Immature Gran % (Auto) 0.600, Neut % (Auto) 54.4, Lymph % (Auto) 31.0, Eaton % (Auto) 12.1 H, Eos % (Auto) 1.3, Baso % (Auto) 0.6, Absolute Neuts (auto) 3.6, Absolute Lymphs (auto) 2.07, Nucleated RBC % 0, Sodium 137, Potassium 4.3, Chloride 103, Carbon Dioxide 30.0, Anion Gap 4 L, BUN 24 H, Creatinine 0.79, Estim Creat Clear Calc 105.82, Est GFR (MDRD) Af Amer 133, Est GFR (MDRD) Non-Af 110, BUN/Creatinine Ratio 30.5 H, Glucose 278 H, Calcium 8.2 L, TSH < 0.01 L, Free T4 2.19 H, Free T3 pg/dL 5.7 H 06/25/23 05:57: POC Glucose 256 H Microbiology: Microbiology 06/22/23 08:55 Mucosa - Nasopharyngeal Coronavirus COVID-19 PCR - Final 06/21/23 23:50 Mucosa - Nasopharyngeal Respiratory Panel (PCR) - Final 06/21/23 22:00 Nasal Secretion SARS-CoV-2 & FLU Antigen (Rapid) - Final D/C Instructions Discharge Diet: Low fat / Low cholesterol, 1800 Calorie Control Diet, 8 Cup Fluid Restriction and 2000 mg Sodium Diet Weight Bearing Status: Weight bearing as tolerated Call your doctor if you observe: Fever of 101 or Higher, Coldness, Increased Pain, Numbness or Tingling, Change in Color, Inability to urinate, Inability to have a bowel movement, Shortness of breath, Dizziness, Fainting spells, Swelling in the ankles, Chest pain, Prolonged hiccupping, Increased palpitations (irregular heartbeat) and Calf discomfort When: IN 2 WEEKS Meaningful Use Info Meaningful Use Diagnoses (Choose all that apply): None applicable Discharge Plan Admission Admit Date/Time: 06/21/23 18:47 Primary Reason for Your Visit: A-fib with RVR, nonischemic cardiomyopathy, hyperthyroidism Attending Provider: Cory Liang Primary Care Provider: Karen Xie Consulting Providers: Orlin Alonso; Kerry Nguyen Instructions Additional Instructions / Restrictions: Patient to take metamizole 40 mg daily for [address] Mo Hodge within 1 week. Advised BMP, magnesium and phosphorus within 1 week follow with PCP. Discharge Orders/Prescriptions Prescriptions: New methimazole 10 mg Tablet 40 mg PO DAILY 7 Days Qty: 28 0RF diltiazem HCl 120 mg tablet extended release 24 hr 120 mg PO DAILY Qty: 30 2RF Rx Instructions: Hold for SBP less than 110 mmHg carvedilol 25 mg tablet 25 mg PO BID Qty: 60 2RF Rx Instructions: must administer with a meal/food Hold for heart less than 50 or systolic blood pressure less than 100 mmHg. Eliquis 5 mg Tablet 5 mg PO Q12H 30 Days Qty: 60 2RF atorvastatin 40 mg Tablet 40 mg PO QHS 30 Days Qty: 30 2RF digoxin 250 mcg (0.25 mg) Tablet 250 mcg PO DAILY 30 Days Qty: 30 0RF Jardiance 10 mg Tablet 10 mg PO DAILY 30 Days Qty: 30 2RF sennosides-docusate sodium [Stool Softener-Stimulant Laxat] 8.6-50 mg Tablet 2 tab PO BID PRN PRN (Reason: Constipation) Qty: 0 0RF Rx Instructions: OTC Continued (DME) blood-glucose meter [Accu-Chek Maggi Plus Meter] Misc See Rx Instructions .Route Qty: 1 0RF Rx Instructions: As directed escitalopram oxalate 10 mg tablet 10 mg PO DAILY Patient Comments: have'nt felt like he needs it glipizide 10 mg tablet 5 mg PO DAILY oxycodone 5 mg tablet 5 mg PO Q24H Patient Comments: take 1 tablet by mouth once daily; SOMETIMES TAKES UP TO 2-3 DAILY clobetasol 0.05 % cream 1 applic TOPICAL BID PRN (Reason: RIGHT WRIST) Patient Comments: APPLY TWICE A DAY X2 WEEKS TO THE HANDS AND THE RIGHT WRIST NEEDED FOR FLARES losartan 100 mg tablet 100 mg PO DAILY Qty: 30 2RF Rx Instructions: Hold for SBP less than 120 mmHg alprazolam [Xanax] 0.5 mg tablet 0.5 mg PO DAILY PRN (Reason: anxiety) Qty: 10 0RF (DME) Accu-Chek Maggi Plus test strp Strip See Rx Instructions .Route Qty: 100 5RF Rx Instructions: two times daily (DME) lancets [Accu-Chek Softclix Lancets] Misc See Rx Instructions .Route Qty: 100 5RF Rx Instructions: two times daily (DME) pen needle, diabetic [BD Ultra-Fine Orig Pen Needle] 29 gauge x 1/2 needle See Rx Instructions .Route Qty: 100 1RF Rx Instructions: two times daily hyoscyamine sulfate 0.125 mg tablet 0.125 mg PO DAILY PRN (Reason: dyspepsia) Qty: 30 0RF insulin detemir U-100 100 unit/mL (3 mL) insulin pen 40 unit SUBCUT BID Qty: 72 0RF bupropion HCl [Wellbutrin SR] 150 mg tablet sustained-release 12 hr 150 mg PO BID Qty: 60 0RF Patient Comments: not taking as much hydrochlorothiazide 12.5 mg tablet 12.5 mg PO QAM Qty: 30 0RF Patient Comments: doesn't take if theres no swelling in ankles dulaglutide 1.5 mg/0.5 mL pen injector 1.5 mg subcut QWEEK Qty: 2 0RF Patient Comments: DUE TOMORROW 06/22/23 Changed ibuprofen 200 mg tablet 400 mg PO Q8H PRN (Reason: fever or pain) Qty: 30 0RF Discontinued amlodipine 10 mg tablet 10 mg PO DAILY Qty: 90 0RF Referrals / Follow Up: Karen Xie MD [Primary Care Provider] - Within 1 Week Orlin Alonso MD [Med Staff - Active Staff] - Within 2 Weeks (A-fib with RVR, nonischemic cardiomyopathy EF 40%.) Mo Hodge MD [Med Staff - Courtesy Staff] - Within 1 Week Disposition Disposition (needs filled in before D/C Order can be placed): Home, Self Care Charges/Coding Visit Charges Inpatient E&M: 16260 Disch Hosp >30min
[2023-06-25] MEDS: Carvedilol 12.5 MG Tablet PO (10:02)
[2023-06-25] MEDS: Aspirin E.C. 81 MG Tablet PO (10:02)
[2023-06-25] MEDS: Empagliflozin 10 MG Tablet PO (10:03)
[2023-06-25] MEDS: Insulin Glargine-YFGN 100 UNIT/ML Pen 20 UNIT SC (10:03)
[2023-06-25] MEDS: Digoxin 250 MCG Tablet PO (10:04)
[2023-06-25] MEDS: methIMAzole 10 MG TABLET 40 MG PO (10:04)
[2023-06-25] MEDS: Escitalopram Oxalate 10 MG Tablet PO (10:04)
[2023-06-25] MEDS: Lisinopril 2.5 MG Tablet PO (10:05)
[2023-06-25 10:33] LABS: Cholesterol 90 mg/dL (200); High Density Lipoprotein 64 mg/dL; Triglycerides 73 mg/dL; Very Low Density Lipoprotein 15 mg/dL (5-40)
[2023-06-25 11:36] LABS: Bedside Glucose 283 mg/dL (74-106)
[2023-06-25 12:07] LABS: Adrenocorticotropic Hormone 26.9 pg/mL (7.2-63.3)
== END 2023-06-25 12:04 | disposition home or self-care (01) | DRG 192 ==
LOC: ED 18:30 → ICU 18:56 → PCU 06-25 09:51 → ICU 06-26 09:51 → PCU 06-26 09:51
PROVIDERS: Admitting Provider Internal Medicine; Emergency Provider Emergency Medicine; PCP Internal Medicine; Visit Provider Internal Medicine
DX: I48.91 Unspecified atrial fibrillation (principal); I21.A1 Myocardial infarction type 2; I42.8 Other cardiomyopathies; I11.0 Hypertensive heart disease with heart failure; Z68.41 Body mass index [BMI] 40.0-44.9, adult; E11.65 Type 2 diabetes mellitus with hyperglycemia; I50.22 Chronic systolic (congestive) heart failure; Z79.4 Long term (current) use of insulin; E66.01 Morbid (severe) obesity due to excess calories; E05.90 Thyrotoxicosis, unspecified without thyrotoxic crisis or storm; I44.7 Left bundle-branch block, unspecified; H92.01 Otalgia, right ear; J98.8 Other specified respiratory disorders; G47.30 Sleep apnea, unspecified; F41.9 Anxiety disorder, unspecified; I25.10 Atherosclerotic heart disease of native coronary artery without angina pectoris; Z87.891 Personal history of nicotine dependence
CPT/HCPCS: 36415; 71045; 80048; 80053; 80061; 80076; 82024; 82533; 82962; 83036; 83735; 83880; 84100; 84439; 84443; 84481; 84484; 85025; 85027; 85610; 85730; 87428; 87633; 87635; 93005; 93306; 93454; 94762; 99152; 99285; J7030; J7040; Q9957; Q9967; A4216; C1769; C1894; C8929

== ENCOUNTER 2023-08-29 17:23 | Observation (INO) | payer MEDICAID, SELFPAY ==
[2023-08-29] VITALS (8 sets, daily range): BP systolic 136–179; BP diastolic 75–126; PULSE 79–133; RESP 13–29; TEMP 36.8; O2SAT 93–99; BMI 45.9
--- NOTE | 2023-08-29 17:46 | ED.VIS.CHEST ---
HPI History of Present Illness Chief Complaint: Chest Pain Informant: patient Narrative Narrative: Patient presents with chest pain and dyspnea. Patient was admitted back in May 2023. Found out to have thyroid disease as well as atrial fibrillation. It sounds like he was rate controlled and was following up as an outpatient. No cardioversion was done. I asked him if he is taking all his medicines. He states he is taking all of the medicines and has not run out. But then he states except for the ones he stopped. The best I can sort out is he is on losartan, but atorvastatin, methimazole, carvedilol 25 mg daily and glipizide. On his discharge note that I read, he had been prescribed also diltiazem digoxin and Eliquis but evidently he has stopped all 3 of these to the best of my ability. He states he has been feeling his heart beat faster over the last to 3 weeks. But the last 2 days he has been more short of breath and having more chest pain. He feels weak and poor energy. [facility] Medical History Atrial fibrillation Diabetes Hypertension Intertriginous dermatitis associated with moisture Non-healing surgical wound of right groin Nonischemic cardiomyopathy Obesity Physical exam, pre-employment Type 2 diabetes mellitus Home Medications blood-glucose meter (Accu-Chek Maggi Plus Meter) #1 ea 01/20/22 [Rx Last Taken Unknown] blood sugar diagnostic (Accu-Chek Maggi Plus test strips) #100 ea 05/11/22 [Rx Last Taken Unknown] lancets (Accu-Chek Softclix Lancets) #100 ea 05/11/22 [Rx Last Taken Unknown] insulin detemir U-100 100 unit/mL (3 mL) subcutaneous pen 40 unit (0.4 mL) subcut BID diabetes #72 mL 02/27/23 [Rx Last Taken Unknown] dulaglutide 1.5 mg/0.5 mL subcutaneous pen injector 1.5 mg (0.5 mL) subcut QWEEK diabetes #2 mL 06/14/23 [Rx Last Taken Unknown] glipizide 10 mg tablet 5 mg PO DAILY diabetes 06/21/23 [History Last Taken Unknown] alprazolam 0.5 mg tablet (Xanax) 0.5 mg PO DAILY PRN anxiety #10 tabs 06/25/23 [Rx Last Taken Unknown] apixaban 5 mg tablet (Eliquis) 5 mg PO Q12H 30 days #60 tabs 06/25/23 [Rx Last Taken Unknown] atorvastatin 40 mg tablet 40 mg PO QHS 30 days #30 tabs 06/25/23 [Rx Last Taken Unknown] carvedilol 25 mg tablet 25 mg PO BID #60 tabs 06/25/23 [Rx Last Taken Unknown] digoxin 250 mcg (0.25 mg) tablet 250 mcg PO DAILY 30 days #30 tabs 06/25/23 [Rx Last Taken Unknown] diltiazem HCl 120 mg tablet,extended release 24 hr 120 mg PO DAILY #30 tabs 06/25/23 [Rx Last Taken Unknown] ibuprofen 200 mg tablet 400 mg (2 x 200 mg) PO Q8H PRN fever or pain #30 tabs 06/25/23 [Rx Last Taken Unknown] losartan 100 mg tablet 100 mg PO DAILY BP #30 tabs 06/25/23 [Rx Last Taken Unknown] sennosides 8.6 mg-docusate sodium 50 mg tablet (Stool Softener-Stimulant Laxative) 2 tab PO BID PRN PRN Constipation #0 tabs 06/25/23 [Rx Last Taken Unknown] pen needle, diabetic 29 gauge x 1/2 (BD Ultra-Fine Original Pen Needle) #100 ea 07/05/23 [Rx Last Taken Unknown] hydrochlorothiazide 12.5 mg tablet 12.5 mg PO QAM fluid retention #14 tabs 08/01/23 [Rx Last Taken Unknown] methimazole 10 mg tablet 10 mg PO DAILY 08/29/23 [History Last Taken Unknown] Allergy/AdvReac Type Severity Reaction Status Date / Time Penicillins Allergy Hives Verified 06/21/23 17:14 Family History Grandfather Heart disease Surgical History H/O right wrist surgery S/P debridement Status post incision and drainage Social History household members: none current occupational status: employed current occupation: works for the [employer] Smoking Status: Former smoker Tobacco: How many years used: 25 Electronic Cigarette Use: not used alcohol intake: current alcohol intake frequency: holidays/special occasions only substance use type: does not use what type of physical activity do you participate in: none do you feel safe at home: Yes ROS ROS ED ROS Narrative A complete review of systems was performed and is negative except as documented in the history of present illness. Some specific details below. Constitutional: No recent fevers or chills. Some component of malaise or decreased energy. EYE: No discharge, visual complaints, or pain. ENT: No difficulty swallowing. No swelling. No pain. No reflux symptoms. CV: See history of present illness. He does feel his heart rate going quickly. He also is generalized discomfort across his anterior chest. Respiratory: See history of present illness. Most of his dyspnea is with exertion. GI: No abdominal pain. No nausea vomiting diarrhea. No blood in stool. : No frequency dysuria or hematuria. Musculoskeletal: No recent trauma. No pains. No swelling. Skin: No rash. Nondiaphoretic. Neuro: No weakness or numbness. Endocrine: No polyuria or polydipsia. EXAM Physical Exam Narrative Exam Narrative: CONSTITUTIONAL: Patient is nontoxic in appearance. The patient looks comfortable. Work of breathing looks normal. HEENT: No notable trauma. Mucous membranes moist. EYES: No conjunctival injection. No proptosis. NECK:No JVD. No stridor. CARDIOVASCULAR: Tachycardic rate. Irregular rhythm. No notable murmur. No JVD. Monitor shows atrial fibrillation with a rate that will range anywhere from 1 15-1 35 RESPIRATORY: No respiratory distress. Breathing is unlabored. No wheezes. No rhonchi. No rales. No pain with a deep breath. No chest wall tenderness. Saturations are normal at 99% on room air. GASTROINTESTINAL: Obese but not distended. Bowel sounds are normal. No tenderness. No guarding. No rebound. No palpable mass. No bruit is heard. GENITOURINARY: No tenderness over the bladder. No CVA tenderness. MUSCULOSKELETAL: Atraumatic. No peripheral edema. No cord. No tenderness along the deep venous system. No asymmetry. No distended veins. NEUROLOGICAL: Patient is alert and appropriate. No focal deficit noted. SKIN: No noted rashes. No diaphoresis. PSYCHIATRIC: Patient is calm. Mood is appropriate. Const Vital Signs: 08/29/23 17:24 08/29/23 17:53 08/29/23 17:56 Temperature 98.2 F Temperature Source Temporal Pulse Rate 124 H 133 H Respiratory Rate 20 H 13 Blood Pressure 179/79 H 161/126 H Blood Pressure Mean 112 137 Pulse Ox 99 96 Oxygen Delivery Method Room Air Room Air Room Air 08/29/23 18:01 08/29/23 19:13 08/29/23 19:18 Temperature Temperature Source Pulse Rate 120 H 105 H 121 H Respiratory Rate 29 H 18 Blood Pressure 162/93 H 136/76 H Blood Pressure Mean 96 Pulse Ox 96 93 Oxygen Delivery Method Room Air Room Air 08/29/23 19:47 08/29/23 20:33 08/29/23 22:10 Temperature Temperature Source Pulse Rate 86 79 105 H Respiratory Rate 22 H Blood Pressure 136/76 H 136/75 H Blood Pressure Mean 95 Pulse Ox 96 Oxygen Delivery Method Room Air 08/30/23 00:01 Temperature Temperature Source Pulse Rate 111 H Respiratory Rate 24 H Blood Pressure 158/108 H Blood Pressure Mean 124 Pulse Ox 95 Oxygen Delivery Method MDM MDM MDM Narrative Medical decision making narrative: My independent interpretation of a single view chest x-ray shows no marked abnormality and final reading is similar. Patient's CBC is overall normal. Patient's electrolytes are overall normal other than very high glucose at 408. We will treat this. He Magnesium is normal. First troponin is normal. BNP is not significantly elevated at 203. His TSH is still quite low at less than 0.01. Patient was having worsening pain again. We did another EKG while he was having pain and it shows no acute process. I have given him 2 doses of diltiazem and his rate is about 95 now. But he still states that hurts all over and is having trouble breathing. We will do a CTA of his chest also as we are pending the second troponin. My independent interpretation of the patient's CTA of the chest showed no acute process and final reading is similar. However, this patient keep has not his heart rate go up. He is now up and the upper 140s to 150. He keeps having recurrent episodes of chest pain. He has had a recent heart cath. We have ruled out much significant disease here. Patient is very uncomfortable going home. I think would be hard to manage his symptoms at home. We need to get him started back on his medications. I reaffirmed that he should not stop medications without specific guidance. The 3 meds he stopped were actually very important for managing his atrial fibrillation. But with recurrent chest pain, recurrent dyspnea, recurrent increasing heart rate I do not think he is appropriate to go home. We did review the medications the patient told me he was taking as well as ones that were prescribed at discharge. He is only taking carvedilol once a day when it should be twice a day. I doubt he is still taking methimazole as he only had 28 tablets. It looks like he did not follow-up with endocrine or his primary physician per the charts that we see. I think some of his issues may be compliance with medication regimen. Patient used to be in pain management but has not been prescribed narcotics for approximately 1 year. Lab Data Attestation: I reviewed the patient's lab results. Labs: Laboratory Results - last 24 hr 08/29/23 08/29/23 17:35 20:25 WBC 5.7 RBC 5.79 Hgb 15.1 Hct 46.9 MCV 81.0 MCH 26.1 L MCHC 32.2 RDW Std Deviation 41.6 RDW Coeff of Jax 14.4 Plt Count 206 MPV 10.7 Immature Gran % (Auto) 0.400 Neut % (Auto) 55.7 Lymph % (Auto) 29.8 [place] % (Auto) 12.2 H Eos % (Auto) 1.2 Baso % (Auto) 0.7 Absolute Neuts (auto) 3.2 Absolute Lymphs (auto) 1.69 Nucleated RBC % 0 Sodium 136 Potassium 4.0 Chloride 107 Carbon Dioxide 23.0 Anion Gap 6 BUN 21 H Creatinine 0.94 Est GFR (MDRD) Af Amer 108 Est GFR (MDRD) Non-Af 89 BUN/Creatinine Ratio 22.4 H Glucose 408 H Calcium 9.4 Magnesium 2.0 Troponin I High Sens 34 28 B-Natriuretic Peptide 203.1 H TSH < 0.01 L Radiography Diagnostic Testing: Clinical Impression(s) from Imaging Studies Chest X-Ray 08/29/23 18:01 IMPRESSION: Normal x-ray examination of the chest. Electronically Signed: Will Padilla MD at 18:28 EST , Chest CTA 08/29/23 20:21 IMPRESSION: Normal CTA chest examination, without a demonstrated pulmonary embolism or arterial dissection. Electronically Signed: Will Padilla MD at 22:06 EST , EKG Initial EKG: Comments: My independent interpretation of the patient's EKG shows atrial fibrillation with increased rate at 123. There is significant baseline motion but no definitive ST elevation or depression. No ventricular ectopy noted. QRS duration is normal. QTc is just a little bit long at 472 ms Discharge Plan Dx/Rx/DC Orders Clinical Impression: Recurrent chest pain, Atrial fibrillation with RVR, Poor compliance with medication, Acute hyperglycemia, Hyperthyroidism Disposition Disposition: Acute Care Hospital [facility]
[2023-08-29 17:52] LABS: Absolute Lymphocyte Count 1.69 X10^3/uL (0.83-4.51); Absolute Neutrophil Count 3.2 X10^3/uL (2.0-7.7); Basophil# 0.04 X10^3/uL; Basophil% 0.7 % (0-1); Eosinophil# 0.07 X10^3/uL; Eosinophils% 1.2 % (0-5); Hematocrit 46.9 % (40-54); Hemoglobin 15.1 g/dL (13.0-16.5); Lymphocyte # 1.69 X10^3/ul (0.83-4.51); Lymphocyte % 29.8 % (19-41); Mean Corp Hgb Conc 32.2 g/dL (32-36); Mean Corpuscular Hgb 26.1 pg (27.0-32.0); Mean Platelet Vol. 10.7 fl (6.2-12.0); Monocyte# 0.69 X10^3/uL; Monocyte% 12.2 % (0-10); NRBC Flagged by Analyzer 0 % (0-5); Neutrophil # 3.16 X10^3/uL (2.7-7.7); Neutrophil % 55.7 % (47-70); Platelet Count 206 K/mm3 (150-450); RBC Distribution Width CV 14.4 % (11.6-14.6); RBC Distribution Width SD 41.6 fl (35.1-43.9); Red Blood Count 5.79 M/mm3 (4.6-6.2); White Blood Count 5.7 K/mm3 (4.4-11.0)
[2023-08-29] MEDS: Aspirin 81 MG TAB.CHEW 324 MG PO (17:54)
[2023-08-29] MEDS: dilTIAZem 25 MG/5 ML Vial 10 MG IV BOLUS (17:54)
--- NOTE | 2023-08-29 18:01 | RAD_ITS ---
STUDY: X-RAY CHEST REASON FOR EXAM: Male, 53 years old. Chest pain TECHNIQUE: Single AP portable view of the chest. COMPARISON: June 21, 2023 FINDINGS: The lungs are clear and expanded. There is no demonstrated pleural abnormality. Normal size heart. Normal mediastinum and lupillo. Normal visualized pulmonary arteries. Normal visualized aortic arch and descending thoracic aorta. Normal visualized thoracic spine. Normal visualized ribs, clavicles, and shoulders. There is no demonstrated abnormality of the visualized soft tissue structures of the upper abdomen. RAD/Chest 1 View (Portable) IMPRESSION: Normal x-ray examination of the chest. Electronically Signed: Will Padilla MD at 18:28 EST ,
[2023-08-29 18:17] LABS: BNP,B-Type NATRIURETIC PEPTIDE 203.1 pg/mL (0-100)
[2023-08-29 18:25] LABS: Anion Gap 6 (5-15); BUN 21 mg/dL (7-18); BUN/Creat Ratio 22.4 RATIO (10-20); Calcium,Total 9.4 mg/dL (8.5-10.1); Chloride 107 mmol/L (98-107); Creatinine, Serum 0.94 mg/dL (0.70-1.30); EST Glomerular Filtration Rate 89 mL/min (>60); Est Glom Filt Rate - Afr Amer 108 mL/min (>60); Glucose 408 mg/dL (74-106); Sodium Level 136 mmol/L (136-145); Thyroid Stim Hormone (TSH) < 0.01 uIU/mL (0.358-3.74); Troponin-I HS (w/2H Reflex) 34 pg/mL (3.0-78.0)
[2023-08-29] MEDS: LORazepam 2 MG/ML Syringe 0.5 MG IV (19:06)
[2023-08-29] MEDS: Morphine 2 MG/ML Syringe IV (19:07)
[2023-08-29] MEDS: Nitroglycerin SL (ED/IMG/CATH) 0.4 MG TABLET SL ×2 (19:13→19:47)
[2023-08-29] MEDS: dilTIAZem 25 MG/5 ML Vial 20 MG IV BOLUS (19:14)
[2023-08-29 19:49] LABS: Reflex Troponin-HS? (from REC) Y
--- NOTE | 2023-08-29 20:21 | CT_ITS ---
STUDY: CTA CHEST REASON FOR EXAM: Male, 53 years old. Chest pain RADIATION DOSAGE (If Supplied By Facility): CTDIvol = ( 17.42 ) mGy, DLP = ( 554.10 ) mGycm TECHNIQUE: The examination was performed with the intravenous administration of IV 100mL [id number]. Post-processing of the angiographic images was performed, with multiplanar reformation and 3D reconstruction. Individualized dose optimization techniques were used for this CT. COMPARISON: Chest x-ray August 29, 2023. CT January 03, 20202009 FINDINGS: Normal enhancement of the main pulmonary artery and right and left pulmonary arteries. Normal enhancement of the bilateral peripheral pulmonary arteries. There is no demonstrated pulmonary embolism. Normal thoracic aorta and visualized great vessels. There is no demonstrated aortic dissection. Normal heart and pericardium. Normal mediastinum. Normal hilar regions. Normal visualized trachea and bronchi. The lungs are well expanded. Normal pulmonary parenchyma. Normal pleura. Normal chest wall structures. There are degenerative changes of thoracic spine. Normal visualized upper abdomen. CT/CTA Chest W/WO Contrast IMPRESSION: Normal CTA chest examination, without a demonstrated pulmonary embolism or arterial dissection. Electronically Signed: Will Padilla MD at 22:06 [facility] ,
[2023-08-29] MEDS: Morphine 4 MG/ML Syringe IV ×2 (20:48→22:08)
[2023-08-29] MEDS: 0.9% Normal Saline (500mL Bag) 500 ML 999 ML IV (20:49)
[2023-08-29] MEDS: Insulin Lispro 100 UNIT/ML INSULN.PEN 10 UNIT SC (20:49)
[2023-08-29 20:59] LABS: Troponin-I HS 28 pg/mL (3.0-78.0)
[2023-08-30] VITALS (21 sets, daily range): BP systolic 110–163; BP diastolic 63–116; PULSE 88–125; RESP 18–100; TEMP 36–36.6; O2SAT 95–100; BMI 43.5; BMI 44.0
[2023-08-30] MEDS: Diltiazem 125 MG in Dextrose 5%-Water (100mL Bag) 100 ML CONT INF (00:01)
--- NOTE | 2023-08-30 00:07 | PCM.HP.STD ---
HPI - General General Date of Admission: 08/30/23 Date of Service: 08/30/23 Chief Complaint: Chest Pain HPI Narrative DEDE SCHWARTZ, is a 53 M who presented urgency department at [facility] on 08/29/2023 complaining of left-sided chest pain. The patient had a recent admission here at the end of May at which time he was diagnosed with A-fib with RVR as well as hyperthyroidism. He was placed on multiple medications for heart rate control and anticoagulation including digoxin, Cardizem, and Coreg. He was also placed on methimazole 40 mg daily and asked to follow-up as an outpatient with endocrinology. Patient stated his insurance switched and he never got to follow-up with endocrinology. He felt that the methimazole was causing pain in his throat so he decreased the dose to half of what he was taking at 20 mg a day. He was not taking all of his home medications as directed and states that he was confused on what he was supposed to be taking and discharge instructions were not exactly clear. He is complaining of tachycardia, palpitations, anxiety, intermittent nausea, and generalized feeling of unwellness. It was very unclear what medications he was actually taking and which ones he is not taking at this time. He does state that he called his primary care physician's office and they refilled some of his prescriptions as he ran out recently from his hospital prescribed medications. His compliance with his methimazole is very unclear as he was only written a prescription for 1 week. Again, he stated his primary care physician refilled it but I am unclear of the timing of this. He was not able to tell me. Vital signs on presentation showed temperature of 98.2, heart rate 124, blood pressure was 179/79, respiratory rate has been anywhere from 13-24 and oxygen saturations have been anywhere from 93 to 99% on room air. His CBC is unremarkable. Chemistry panel is overall unremarkable other than significant hyperglycemia with a glucose of 408. His BNP was mildly elevated at 203.1 his TSH was undetectable at less than 0.01 and we got a free T4 which was elevated at 2.15. This is pretty much the same as it was when he was discharged from the hospital at which time it was 2.19. On presentation from his previous admission it was almost 4. His troponin was cycled given his chest pain and was unremarkable x 2. Chest x-ray is unremarkable. CT of the chest was performed and was negative for any PE or dissection and showed no other acute abnormalities in the lungs or chest. EKG showed A-fib with RVR but no ST-T wave changes concerning for acute ischemia. He was given a diltiazem bolus in the emergency department then placed on a drip. Heart rates have been anywhere from 79-140 at maximum. At the time of my evaluation he was having intermittent flutter waves as well. I suspect lack of compliance and understanding have contributed significantly to this readmission and tried to explain need for follow-up and compliance at the time of admission to prepare him for improved compliance at discharge. [facility] Medical History (Updated 08/30/23 @ 01:[address] Jeannie Ray, ) Atrial fibrillation Diabetes Hypertension Hyperthyroidism Intertriginous dermatitis associated with moisture Non-healing surgical wound of right groin Nonischemic cardiomyopathy Obesity Physical exam, pre-employment Type 2 diabetes mellitus Home Medications blood-glucose meter (Accu-Chek Maggi Plus Meter) #1 ea 01/20/22 [Rx Last Taken Unknown] blood sugar diagnostic (Accu-Chek Maggi Plus test strips) #100 ea 05/11/22 [Rx Last Taken Unknown] lancets (Accu-Chek Softclix Lancets) #100 ea 05/11/22 [Rx Last Taken Unknown] insulin detemir U-100 100 unit/mL (3 mL) subcutaneous pen 40 unit (0.4 mL) subcut BID diabetes #72 mL 02/27/23 [Rx Last Taken Unknown] dulaglutide 1.5 mg/0.5 mL subcutaneous pen injector 1.5 mg (0.5 mL) subcut QWEEK diabetes #2 mL 06/14/23 [Rx Last Taken Unknown] glipizide 10 mg tablet 5 mg PO DAILY diabetes 06/21/23 [History Last Taken Unknown] alprazolam 0.5 mg tablet (Xanax) 0.5 mg PO DAILY PRN anxiety #10 tabs 06/25/23 [Rx Last Taken Unknown] apixaban 5 mg tablet (Eliquis) 5 mg PO Q12H 30 days #60 tabs 06/25/23 [Rx Last Taken Unknown] atorvastatin 40 mg tablet 40 mg PO QHS 30 days #30 tabs 06/25/23 [Rx Last Taken Unknown] carvedilol 25 mg tablet 25 mg PO BID #60 tabs 06/25/23 [Rx Last Taken Unknown] digoxin 250 mcg (0.25 mg) tablet 250 mcg PO DAILY 30 days #30 tabs 06/25/23 [Rx Last Taken Unknown] diltiazem HCl 120 mg tablet,extended release 24 hr 120 mg PO DAILY #30 tabs 06/25/23 [Rx Last Taken Unknown] ibuprofen 200 mg tablet 400 mg (2 x 200 mg) PO Q8H PRN fever or pain #30 tabs 06/25/23 [Rx Last Taken Unknown] losartan 100 mg tablet 100 mg PO DAILY BP #30 tabs 06/25/23 [Rx Last Taken Unknown] sennosides 8.6 mg-docusate sodium 50 mg tablet (Stool Softener-Stimulant Laxative) 2 tab PO BID PRN PRN Constipation #0 tabs 06/25/23 [Rx Last Taken Unknown] pen needle, diabetic 29 gauge x 1/2 (BD Ultra-Fine Original Pen Needle) #100 ea 07/05/23 [Rx Last Taken Unknown] hydrochlorothiazide 12.5 mg tablet 12.5 mg PO QAM fluid retention #14 tabs 08/01/23 [Rx Last Taken Unknown] methimazole 10 mg tablet 10 mg PO DAILY 08/29/23 [History Last Taken Unknown] Allergy/AdvReac Type Severity Reaction Status Date / Time Penicillins Allergy Hives Verified 06/21/23 17:14 Family History Grandfather Heart disease Surgical History H/O right wrist surgery S/P debridement Status post incision and drainage Social History household members: none current occupational status: employed current occupation: works for the [employer] office Smoking Status: Former smoker Tobacco: How many years used: 25 Electronic Cigarette Use: not used alcohol intake: current alcohol intake frequency: holidays/special occasions only substance use type: does not use what type of physical activity do you participate in: none do you feel safe at home: Yes ROS Constitutional Constitutional: Reports fatigue and malaise; Denies anorexia, change in weight, chills, fever(s), night sweats, weakness or other Eyes Eyes: Denies blurry vision, change in eye color, change in vision, discharge from eye(s), double vision, erythema, eye pain, loss of vision or other ENT HEENT: Denies abnormal hearing, dysphagia, ear pain, epistaxis, headache(s), hearing loss, nasal congestion, nasal discharge, post nasal drip, sinus pressure, sore throat or other Cardiovascular Cardiovascular: Reports chest pain, palpitations and rapid heart rate; Denies claudication, dyspnea on exertion, edema, lightheadedness, orthopnea, paroxysmal nocturnal dyspnea, syncope or other Respiratory/Chest Respiratory/Chest: Reports shortness of breath with exertion; Denies cough, dyspnea, excessive phlegm production, hemoptysis, productive cough, shortness of breath at rest, wheezing or other Gastrointestinal Gastrointestinal: Reports nausea; Denies abdominal pain, coffee ground emesis, constipation, diarrhea, dyspepsia, hematemesis, hematochezia, loose stools, melena, vomiting or other Genitourinary Genitourinary: Denies burning urination, difficulty urinating, dysuria, hematuria, nocturia, urinary frequency, urinary hesitancy, urinary incontinence, urinary urgency or other Musculoskeletal Musculoskeletal: Reports myalgias; Denies arthralgias, back pain, joint pain, joint stiffness, joint swelling, neck pain or other Neurologic Neurologic: Reports tremor(s); Denies abnormal gait, abnormal speech, confusion, disequilibrium, dizziness, focal weakness, headache(s), numbness, paresthesias, seizure-like activity, seizures, syncope, tingling or other Psychiatric Psychiatric: Reports anxiety; Denies depression, homicidal ideation, suicidal ideation or other Endocrine Endocrinology: Reports excessive sweating, heat intolerance, polydipsia and polyuria; Denies change in body appearance, cold intolerance or other Hematologic/Lymphatic Hematologic/Lymphatic: Denies anemia, easy bleeding, easy bruising, lymphadenopathy or other Allergic/Immunologic Allergic/Immunologic: Denies rhinitis, hives, eczemia, asthma or other Vital Signs Vital Signs Vital Signs: 08/29/23 17:24 08/29/23 17:53 08/29/23 17:56 Temperature 98.2 F Temperature Source Temporal Pulse Rate 124 H 133 H Respiratory Rate 20 H 13 Blood Pressure 179/79 H 161/126 H Blood Pressure Mean 112 137 Pulse Ox 99 96 Oxygen Delivery Method Room Air Room Air Room Air 08/29/23 18:01 08/29/23 19:13 08/29/23 19:18 Temperature Temperature Source Pulse Rate 120 H 105 H 121 H Respiratory Rate 29 H 18 Blood Pressure 162/93 H 136/76 H Blood Pressure Mean 96 Pulse Ox 96 93 Oxygen Delivery Method Room Air Room Air 08/29/23 19:47 08/29/23 20:33 08/29/23 22:10 Temperature Temperature Source Pulse Rate 86 79 105 H Respiratory Rate 22 H Blood Pressure 136/76 H 136/75 H Blood Pressure Mean 95 Pulse Ox 96 Oxygen Delivery Method Room Air 08/30/23 00:01 Temperature Temperature Source Pulse Rate 111 H Respiratory Rate 24 H Blood Pressure 158/108 H Blood Pressure Mean 124 Pulse Ox 95 Oxygen Delivery Method Weight Weight: 137 kg Body Mass Index (BMI) 45.9 Physical Exam Const alert, oriented x3, no apparent distress and well nourished; Negative for average body habitus Constitutional Narrative: Morbidly obese, anxious appearing, middle-aged, white male, sitting up in bed, appears comfortable at this time and nontoxic General Appearance: cooperative HEENT normocephalic, head/scalp atraumatic, hearing grossly normal bilaterally and moist oral mucous membranes HEENT Narrative: Mallampati 3-4, no thrush Eyes PERRL, EOMs intact bilaterally and conjunctivae normal Eyes Narrative: No scleral icterus Neck no lymphadenopathy and supple Neck Narrative: Trachea is midline, neck is short and thick Resp normal respiratory effort, no retractions, no use of accessory muscles and clear to auscultation bilaterally Auscultation: Negative for rales, rhonchi or wheezes Cardio S1 normal heart sound, S2 normal heart sound, no murmurs, no rub, no gallops and no clicks Cardio Narrative: Mild tachycardia with irregularly irregular rhythm GI normal to inspection, nondistended, normoactive bowel sounds and soft to palpation GI Narrative: Mild diffuse tenderness with superficial palpation Extremity normal to inspection and no clubbing, cyanosis or edema Skin no rashes or lesions noted, no wounds, skin turgor normal, no jaundice, no petechiae and no mottling Neuro oriented x3, moves all extremities and no focal motor deficits Neuro Narrative: Mild tremor-fine, reflexes are hyperactive Speech: speech normal Psych Psych Narrative: Eye contact is good and patient interacts appropriately Mood & Affect: anxious Results Lab / Micro Data Attestation: I reviewed the patient's lab results. 08/29/23 17:35 08/29/23 17:35 Labs: Laboratory Results - last 24 hr 08/29/23 17:35: WBC 5.7, RBC 5.79, Hgb 15.1, Hct 46.9, MCV 81.0, MCH 26.1 L, MCHC 32.2, RDW Std Deviation 41.6, RDW Coeff of Jax 14.4, Plt Count 206, MPV 10.7, Immature Gran % (Auto) 0.400, Neut % (Auto) 55.7, Lymph % (Auto) 29.8, [place] % (Auto) 12.2 H, Eos % (Auto) 1.2, Baso % (Auto) 0.7, Absolute Neuts (auto) 3.2, Absolute Lymphs (auto) 1.69, Nucleated RBC % 0, Sodium 136, Potassium 4.0, Chloride 107, Carbon Dioxide 23.0, Anion Gap 6, BUN 21 H, Creatinine 0.94, Est GFR (MDRD) Af Amer 108, Est GFR (MDRD) Non-Af 89, BUN/Creatinine Ratio 22.4 H, Glucose 408 H, Calcium 9.4, Magnesium 2.0, Troponin I High Sens 34, B-Natriuretic Peptide 203.1 H, TSH < 0.01 L 08/29/23 20:25: Troponin I High Sens 28 Imaging Radiology Impression Chest X-Ray 08/29/23 18:01 IMPRESSION: Normal x-ray examination of the chest. Electronically Signed: Will Padilla MD at 18:28 EST , Chest CTA 08/29/23 20:21 IMPRESSION: Normal CTA chest examination, without a demonstrated pulmonary embolism or arterial dissection. Electronically Signed: Will Padilla MD at 22:06 EST , Assessment & Plan Assessment/Plan (1) Atrial fibrillation with RVR: (2) Recurrent chest pain: (3) Hyperthyroidism: (4) Hyperglycemia: (5) Nonadherence to medication: (6) Suspected sleep apnea: (7) HFrEF (heart failure with reduced ejection fraction): PLAN: Plan A-fib with RVR -This is not new and patient has not been compliant with his home medications -Will give 5 mg of IV metoprolol now and discontinue Cardizem drip -Restart home carvedilol 25 mg p.o. twice daily -Restart home diltiazem 120 mg daily -Restart home digoxin 250 mcg daily -Continue home apixaban -Likely exacerbated by the fact that he is still hyperthyroid and I educated him with regards to the importance of following up for his thyroid issues and controlling his heart rate Hyperthyroidism -TSH is still undetectable -Free T4 is stable when compared to discharge on 08/25/2023 at 2.15 (was 2.19 at that time) -Patient was not compliant with his home methimazole and decreased his dose -Never followed up with endocrinology -Will reinitiate 40 mg daily as recommended by endocrinology during his last hospitalization -Continue beta-kelsey -Discussed the marked importance of him following up with endocrinology after discharge -This is likely responsible for his A-fib with RVR being difficult to treat and manage DM-2 with hyperglycemia -Highly suspect noncompliance with home medications -Will continue basal insulin 40 units subcu twice daily -Hold home Trulicity -Hold home glipizide -Restart Jardiance 25 mg daily as this will be good for his diabetes as well as his HFrEF -Patient just had hemoglobin A1c done in May and it was found to be greater than 11 -I did discuss with him that endocrinology could help out with this as well -SSI as ordered -Accu-Cheks as ordered -Cardiac/carb controlled diet Nonobstructive CAD/HTN/HPL/HFrEF -HFrEF may very well be tachycardia mediated and once patient has controlled heart rate will need follow-up echocardiogram in 6 to 8 weeks after goal-directed therapy has been maintained -Echocardiogram was done on 06/23/2023 and showed mildly dilated LV with moderate global LV dysfunction and an EF of 40% as well as a mildly dilated aortic root -Cardiac catheterization done on 06/23/2023 showed 20% tubular left main disease, 20% proximal LAD lesion, mild luminal L irregularities of the circumflex artery, 40% mid ramus lesion that was tubular and angiographically normal right coronary artery -Start aspirin -Restart home atorvastatin -Continue home carvedilol, diltiazem, losartan -Hold home hydrochlorothiazide for now as patient takes this only as needed at home -Will need cardiology follow-up after discharge Acute chest pain -Etiology is unclear -Troponin unremarkable x 2 -EKG is unremarkable -CTA of the chest is negative for PE and dissection as well as any other acute intrathoracic abnormalities -I am able to reproduce it with palpation of the anterior chest wall -As needed medication for pain Severe anxiety -Suspect this is predominantly related to his hyperthyroidism -Treat as noted above -Will dose Ativan 0.5 mg 3 times daily as needed -Would not recommend discharging patient with this Morbid obesity -BMI is 45.9 -Recommend weight loss -Complicates treatment, prognosis, outcomes Suspected CAROL -Recommend outpatient sleep study Medication nonadherence -Extensive discussion with the patient with regards to his medications and importance for adherence -He voiced understanding on the importance of him complying and having appropriate follow-ups after discharge DVT prophylaxis -Patient is fully anticoagulated with apixaban CODE STATUS -Full code Charges/Coding Visit Charges Inpatient E&M: 90046 Init Hosp L2
[2023-08-30 00:36] LABS: T4 Free Direct 2.15 ng/dL (0.76-1.46)
[2023-08-30 02:33] LABS: Troponin-I HS 39 pg/mL (3.0-78.0)
[2023-08-30] MEDS: oxyCODONE 5 MG Tablet PO ×4 (02:38→19:55)
[2023-08-30] MEDS: Metoprolol Tartrate 5 MG/5 ML Vial IV (02:39)
[2023-08-30] MEDS: 0.9% Saline Lock 10 ML Syringe IV (02:47)
[2023-08-30] MEDS: LORazepam 0.5 MG Tablet PO ×3 (02:58→19:55)
[2023-08-30 04:50] LABS: Troponin-I HS 40 pg/mL (3.0-78.0)
--- NOTE | 2023-08-30 06:00 | NURSING ---
Informed Dr Ray of patients chest pain and sent picture of ekg, discussed case with physician pt remained on heparin gtt on admission. Physician states to keep running until po meds given-cardizem and coreg d/t continued afib and elevated heart rate. Toradol x1 ordered. Notified pharmacy of order to continue cardizem gtt as is running for now. .
[2023-08-30] MEDS: Ketorolac 30 MG/ML Syringe 15 MG IV (06:06)
[2023-08-30] MEDS: Methimazole 5 MG Tablet 40 MG PO (06:07)
[2023-08-30] MEDS: Acetaminophen 500 MG Tablet 1000 MG PO ×3 (06:08→19:56)
[2023-08-30] MEDS: Carvedilol 25 MG Tablet PO ×2 (06:09→19:56)
[2023-08-30] MEDS: dilTIAZem CD 120 MG Capsule PO ×2 (06:09→16:42)
[2023-08-30 06:21] LABS: Lipase 70 U/L (13-75)
[2023-08-30 06:39] LABS: Bedside Glucose 272 mg/dL (74-106)
[2023-08-30] MEDS: Insulin Lispro 100 UNIT/ML INSULN.PEN SC ×3 (06:51→16:43)
[2023-08-30] MEDS: Digoxin 250 MCG Tablet PO (09:00)
[2023-08-30] MEDS: APIXABAN 5 MG TABLET PO ×2 (09:01→19:56)
[2023-08-30] MEDS: Empagliflozin 25 MG Tablet PO (09:01)
[2023-08-30] MEDS: Losartan Potassium 100 MG Tablet PO (09:01)
[2023-08-30] MEDS: Insulin Glargine-YFGN 100 UNIT/ML Pen 40 UNIT SC ×2 (09:02→19:57)
[2023-08-30 09:32] LABS: ALB/GLOB Ratio 0.9 RATIO (0.9-2.4); AST(SGOT) 19 U/L (15-37); Alanine Aminotransfer ALT/SGPT 47 U/L (16-61); Albumin, Serum 3.1 g/dL (3.2-5.0); Alkaline Phosphatase 109 U/L (45-117); Anion Gap 6 (5-15); BUN 19 mg/dL (7-18); BUN/Creat Ratio 25.3 RATIO (10-20); Chloride 108 mmol/L (98-107); Creatinine, Serum 0.75 mg/dL (0.70-1.30); EST Glomerular Filtration Rate 116 mL/min (>60); Est Glom Filt Rate - Afr Amer 140 mL/min (>60); Globulin 3.5 g/dL (2.2-4.2); Glucose 244 mg/dL (74-106); Magnesium 1.9 mg/dL (1.6-2.6); Phosphorus 3.6 mg/dL (2.5-4.9); Potassium 3.5 mmol/L (3.5-5.1); Protein, Total 6.6 g/dL (6.4-8.2); Sodium Level 137 mmol/L (136-145); Troponin-I HS 40 pg/mL (3.0-78.0)
[2023-08-30] MEDS: DiphenhydrAMINE 25 MG Capsule PO ×2 (10:46→19:57)
--- NOTE | 2023-08-30 10:49 | NURSING ---
Pt refusing to wear tele monitor. Pt has rash to chest area. PRN Benadryl order obtained and med given. Pt still refusing to wear tele monitor.
[2023-08-30 11:25] LABS: Amphetamine Urine VISTA NEGATIVE (<1000 ng/mL); Barbiturate Urine VISTA NEGATIVE (< 200 ng/mL); Benzodiazepine Urine VISTA NEGATIVE (< 200 ng/mL); Cocaine Urine VISTA NEGATIVE (< 300 ng/mL); Ecstacy Urine VISTA NEGATIVE (< 500 ng/mL); Methadone Urine VISTA NEGATIVE (< 300 ng/mL); PCP Urine VISTA NEGATIVE (< 25 ng/mL); THC Urine VISTA POSITIVE (< 50 ng/mL); Vista UDS pH Range 4
[2023-08-30 11:36] LABS: Bedside Glucose 277 mg/dL (74-106)
[2023-08-30] MEDS: Influenza Virus Vac Quad 23-24 60 MCG/0.5 ML SYRINGE IM (11:44)
--- NOTE | 2023-08-30 12:50 | CASEMGMT ---
RN CM Face to Face with patient for initial transition planning/care coordination assessment. RN CM introduced self and role at [facility]. Patient lying in bed, alert and oriented. Patient willing to participate in assessment and is able to answer all questions appropriately. Care providers, pharmacy, and demographics verified. Patient wishes to discharge home, denies need for home health at this time. Patient states he has no further needs or concerns at this time. CM to follow for discharge planning needs that may arise. PCP: Anne-Marie Specialists: zac Hodge Preferred Pharmacy: [facility] Insurance: [employer] Pres[employer] Benefit: yes Living Will/HPOA: none LNOK: mother, father Living Arrangements: Patient lives alone in a 3 story townhouse. Patient is independent and able to ambulate stairs. Transportation: self DME/HHC: Patient has glucometer with supplies and insulin and supplies at home. No previous HHC or SNF Disposition Plan: Patient to discharge home with family support and follow-up plans in place. Magdalene ORNELAS, RN, CM
--- NOTE | 2023-08-30 14:22 | CHAPLAIN ---
Type of Pastoral Visit _x__ Initial Visit ___ Follow-up Visit ___ On-call Visit ___ General Patient Visit ___ Spiritual Assessment ___ Family Conference ___ Bereavement ___ Rapid Response ___ Code Blue ___ Other (describe below) Pastoral Care Referral From _x__ Patient ___ Family ___ Nurse ___ Physician ___ [employer] Bookkeeper ___ Customer Program Specialist ___ Other (describe below) Sacrament/Intervention ___ Active listening ___ Anointing ___ Holiness ___ Bereavement ___ Communion ___ Pamela exploration ___ ___ Life review ___ Prayer ___ Reconciliation ___ Sacrament of Sick ___ Supportive presence ___ Wedding _x__ Other (describe below) Pastoral Comments patient was napping in his bed; pt awoke easily when this security support analyst entered the room; pt declined spiritual care support stating that I'm fine. I don't need anything.
[2023-08-30] MEDS: Senna/Docusate Sodium 1 Tablet 2 TABLET PO (14:52)
[2023-08-30 16:56] LABS: Bedside Glucose 185 mg/dL (74-106)
--- NOTE | 2023-08-30 18:49 | PCM.HOSP.N ---
Hospitalist Note Patient was seen and examined today, he remains in atrial fibrillation with a rate of approximately 90-100. I have elected to increase the patient's Cardizem CD, patient states that he is wary to go home thinking that he may need to come back to the hospital because of increased heart rate, I will reevaluate the patient in the morning and see if he is stable for discharge. Patient remains on a beta-kelsey at this time and anticoagulation.
[2023-08-30] MEDS: Atorvastatin Calcium 40 MG Tablet PO (19:55)
[2023-08-30] MEDS: MELATONIN 3 MG TABLET 10 MG PO (19:55)
[2023-08-30 20:33] LABS: Bedside Glucose 270 mg/dL (74-106)
[2023-08-31 02:50] VITALS: BP 132/90; PULSE 85; RESP 14; TEMP 36.1; O2SAT 97
[2023-08-31 03:29] VITALS: BMI 44.2
[2023-08-31] MEDS: Acetaminophen 500 MG Tablet 1000 MG PO ×3 (06:07→22:35)
[2023-08-31] MEDS: Methimazole 5 MG Tablet 40 MG PO (06:08)
[2023-08-31] MEDS: LORazepam 0.5 MG Tablet PO ×3 (06:13→22:33)
[2023-08-31] MEDS: oxyCODONE 5 MG Tablet PO ×3 (06:13→22:33)
[2023-08-31 06:26] LABS: Bedside Glucose 140 mg/dL (74-106)
[2023-08-31 08:19] LABS: AST(SGOT) 13 U/L (15-37); Alanine Aminotransfer ALT/SGPT 44 U/L (16-61); Albumin, Serum 3.4 g/dL (3.2-5.0); Alkaline Phosphatase 120 U/L (45-117); Bilirubin, Direct 0.24 mg/dL (0.00-0.30); Globulin 3.9 g/dL (2.2-4.2); Protein, Total 7.3 g/dL (6.4-8.2)
[2023-08-31 08:50] VITALS: BP 153/89; PULSE 104; RESP 16; TEMP 36.7; O2SAT 99
[2023-08-31 09:13] VITALS: BP 132/84; PULSE 101; RESP 18; TEMP 36.7; O2SAT 98
[2023-08-31] MEDS: Losartan Potassium 100 MG Tablet PO (09:59)
[2023-08-31] MEDS: Morphine 2 MG/ML Syringe IV (09:59)
[2023-08-31] MEDS: Carvedilol 25 MG Tablet PO ×2 (09:59→22:35)
[2023-08-31] MEDS: dilTIAZem CD 240 MG Capsule PO (09:59)
[2023-08-31] MEDS: Digoxin 250 MCG Tablet PO (10:00)
[2023-08-31] MEDS: Empagliflozin 25 MG Tablet PO (10:00)
[2023-08-31] MEDS: APIXABAN 5 MG TABLET PO ×2 (10:00→22:34)
--- NOTE | 2023-08-31 11:15 | US_ITS ---
STUDY: ABDOMINAL ULTRASOUND - RIGHT UPPER QUADRANT REASON FOR VISIT: Male, 53 years old RUQ pain TECHNIQUE: Ultrasound evaluation of the right upper quadrant was performed with real-time and static paul-scale imaging. TECHNICAL QUALITY: Limited. Examination limited due to a combination of factors including obesity and bowel gas. COMPARISON: 02/27/2023 CT abdomen and pelvis FINDINGS: Liver: The liver measures 24.8 cm. There is increased echogenicity consistent with fatty infiltration. The bile ducts are within normal limits. There is hepatic color flow. The direction of portal flow is hepatopetal. There is no demonstrated mass lesion. Gallbladder: Normal distended gallbladder. The gallbladder wall measures 2.5 mm. There is a negative sonographic Ramirez''s sign. There is no pericholecystic fluid. There are multiple echogenic structures within the gallbladder, consistent with multiple gallstones with the largest measuring 8 mm. Common Bile Duct (C.B.D.): The common bile duct measures 5.9 mm. Pancreas: There is nonvisualization of the pancreas. Right Kidney: Normal size of the right kidney. The right kidney measures 13.9 x 6.5 x 6.4 cm. Normal renal cortex. The right cortex measures 1.6 cm. There is no demonstrated renal mass or cyst. There is no right hydronephrosis. US/Gallbladder IMPRESSION: Multiple layering small gallstones with no evidence of wall thickening or pericholecystic fluid to suggest acute cholecystitis. Hepatic steatosis. Electronically Signed: Dom Lawson DO at 16:14 EST ,
[2023-08-31 11:35] LABS: Bedside Glucose 227 mg/dL (74-106)
[2023-08-31] MEDS: Morphine 4 MG/ML Syringe IV (11:41)
[2023-08-31] MEDS: 0.9% Saline Lock 10 ML Syringe IV (11:41)
[2023-08-31] MEDS: Insulin Lispro 100 UNIT/ML INSULN.PEN SC (11:44)
[2023-08-31] MEDS: Insulin Glargine-YFGN 100 UNIT/ML Pen 40 UNIT SC ×2 (11:44→22:52)
[2023-08-31 14:23] VITALS: BP 116/95; PULSE 66; RESP 16; TEMP 36.1; O2SAT 97
[2023-08-31 14:50] LABS: Bedside Glucose 125 mg/dL (74-106)
--- NOTE | 2023-08-31 18:35 | PN.HOSP_ITS ---
Reason for Visit Reason for Visit: Diagnoses Thyrotoxicosis, unspecified without thyrotoxic crisis or storm (08/30/23) Unspecified atrial fibrillation (08/30/23) Unspecified systolic (congestive) heart failure (08/30/23) Chest pain, unspecified (08/30/23) Other symptoms and signs involving the nervous system (08/30/23) Hyperglycemia, unspecified (08/30/23) Patient's other noncompliance with medication regimen for other reason (08/30/23) Subjective Subjective Patient was seen and examined today, he complained of right upper quadrant abdominal pain and some left sided precordial chest pain today, patient had a cardiac catheterization last year which showed mild coronary disease so I do not think that he is experiencing angina. EKG did not show any ischemic changes this morning. I ordered an ultrasound of the abdomen to inspect the gall bladder, there are gallstones present but the common bile duct is normal diameter. I contacted general surgery to see the patient, they requested a CT of the abdomen which I ordered. This afternoon patient was n.p.o. but despite this he had his lunch sandwich and ate it in the afternoon even though he was complaining of abdominal pain which was severe enough to require morphine earlier today. Patient's heart rate is controlled on his current medications. Objective Data Objective Data Vital Signs: Vital Signs Temp Pulse Resp BP Pulse Ox O2 Del Method O2 Flow Rate 96.9 F L 66 16 116/95 H 97 Room Air 2 08/31/23 14:23 08/31/23 14:23 08/31/23 14:23 08/31/23 14:23 08/31/23 14:23 08/31/23 14:23 08/30/23 14:29 Oxygen Flow Rate (L/min) 2 Oxygen Delivery Method Room Air Weight: 132 kg Body Mass Index (BMI) 44.2 Intake & Output: Intake and Output for Last 24 Hours 08/29/23 08/30/23 08/31/23 23:59 23:59 23:59 Intake Total 500 / 500 1087.00 / 1327.00 1460 / 1460 Balance 500 / 500 1087.00 / 1327.00 1460 / 1460 Lab / Micro Data 08/29/23 17:35 08/30/23 07:42 Labs: Laboratory Results - last 24 hr 08/30/23 20:01: POC Glucose 270 H 08/31/23 06:02: POC Glucose 140 H 08/31/23 07:30: Total Bilirubin 0.80, Direct Bilirubin 0.24, AST 13 L, ALT 44, Alkaline Phosphatase 120 H, Total Protein 7.3, Albumin 3.4, Globulin 3.9 08/31/23 11:12: POC Glucose 227 H 08/31/23 14:21: POC Glucose 125 H Radiography Diagnostic Testing: Radiology Impression Gallbladder Ultrasound 08/31/23 11:15 IMPRESSION: Multiple layering small gallstones with no evidence of wall thickening or pericholecystic fluid to suggest acute cholecystitis. Hepatic steatosis. Electronically Signed: Dom DO Renny at 16:14 EST , Physical Exam Const alert, oriented x3, no apparent distress and healthy appearing General Appearance: cooperative, well kempt and well developed Orientation / Consciousness: awake, oriented to person, oriented to place and oriented to time HEENT normocephalic, head/scalp atraumatic and moist oral mucous membranes Eyes PERRL, EOMs intact bilaterally and conjunctivae normal Neck supple, no JVD, thyroid normal and no carotid bruits General: trachea midline Resp normal respiratory effort and clear to auscultation bilaterally Auscultation: Negative for rales, rhonchi or wheezes Cardio S1 normal heart sound, S2 normal heart sound, no murmurs, no rub and no gallops Cardio Narrative: Heart rate and rhythm is irregular GI GI Narrative: Patient has right upper quadrant abdominal pain on palpation, there are some guarding in the area and the abdomen does not appear to be bloated however. Bowel sounds are present in all 4 quadrants. Extremity no clubbing, cyanosis or edema Skin no rashes or lesions noted General Skin Exam: no breakdown Neuro oriented x3, CN's II-XII intact bilaterally, moves all extremities, no focal motor deficits and no sensory deficits noted Sensorium / Orientation: awake, alert, oriented to person, oriented to place and oriented to time Speech: speech normal Psych affect normal Assessment & Plan Assessment/Plan (1) Atrial fibrillation with RVR: PLAN: Plan 1. Chronic atrial fibrillation with RVR-patient's rate is well-controlled at this time on metoprolol and Cardizem, continue present medications #2 right upper quadrant abdominal pain-etiology unclear, despite the abdominal pain patient has been eating, the abdominal pain was severe enough this afternoon to require morphine for pain. General surgery is going to see the patient in consultation, patient will have a CT of the abdomen and pelvis performed this evening with contrast. #3 hypothyroidism-patient remains on Tapazole, he will need to follow-up as an outpatient with endocrinology #4 noncompliance with medical regimen-patient is noncompliant with taking medications as an outpatient or following up with endocrinology or his primary care physician, complicates care, medical course, recovery, and prognosis #5 left-sided chest pain-etiology unclear, probably musculoskeletal in nature, I do not feel the patient is having anginal symptoms. Total clinical time spent by myself addressing the patient's medical issues, reviewing his data, and collaborating with patient's care team: 35 minutes Charges/Coding Visit Charges Inpatient E&M: 21246 Subs Hosp L2
--- NOTE | 2023-08-31 19:01 | CT_ITS ---
STUDY: CT ABDOMEN AND PELVIS WITH CONTRAST REASON FOR EXAM: Male, 53 years old. Right upper quadrant abdominal pain -- Oral and IV contrast RADIATION DOSAGE (If Supplied By Facility): CTDIvol = ( 16.99 ) mGy, DLP = ( 1441.69 ) mGycm TECHNIQUE: Transaxial images were obtained from the dome of the diaphragm to the symphysis pubis without oral contrast. Oral and amp; IV Gastrografin and amp; 100mL Isovue-370 was administered. Sagittal and coronal images were reconstructed. Individualized dose optimization techniques were used for this CT. COMPARISON: None. FINDINGS: The visualized lung bases are unremarkable. The visualized portions of the heart are within normal limits. Normal liver. Cholelithiasis. No significant dilatation of the extrahepatic biliary system. Normal spleen. Normal pancreas. Normal bilateral adrenal glands. Normal right kidney. 6 mm nonobstructing stone in the left kidney. Normal visualized stomach. Normal small intestine. Normal colon. The appendix is visualized and appears normal. Normal abdominal aorta. Normal inferior vena cava. Normal retroperitoneum. Normal urinary bladder. Fatty umbilical hernia. Normal osseous structures. CT/Abdomen/Pelvis WITH Contrast IMPRESSION: Cholelithiasis. Nonobstructing left renal stone. Electronically Signed: Mathew Altman DO at 19:40 EST ,
[2023-08-31 20:00] VITALS: BP 148/92; PULSE 90; RESP 18; TEMP 36.4; O2SAT 96
[2023-08-31 22:32] VITALS: BP 146/77; PULSE 103; RESP 18; TEMP 36.6; O2SAT 96
[2023-08-31] MEDS: DiphenhydrAMINE 25 MG Capsule PO (22:33)
[2023-08-31] MEDS: Atorvastatin Calcium 40 MG Tablet PO (22:34)
[2023-08-31] MEDS: MELATONIN 10 MG TABLET PO (22:50)
[2023-08-31 23:12] LABS: Bedside Glucose 244 mg/dL (74-106)
[2023-09-01 04:45] VITALS: BP 135/80; PULSE 91; RESP 18; TEMP 36.6; O2SAT 97
[2023-09-01] MEDS: oxyCODONE 5 MG Tablet PO ×2 (04:47→09:10)
[2023-09-01] MEDS: Methimazole 5 MG Tablet 40 MG PO (04:47)
[2023-09-01] MEDS: Acetaminophen 500 MG Tablet 1000 MG PO (04:47)
[2023-09-01 06:00] VITALS: BMI 43.9
[2023-09-01] MEDS: Insulin Lispro 100 UNIT/ML INSULN.PEN SC (06:50)
[2023-09-01 07:09] LABS: Bedside Glucose 155 mg/dL (74-106)
[2023-09-01 07:14] VITALS: O2SAT 96
--- NOTE | 2023-09-01 07:40 | PCM.DC ---
Discharge Instructions Diet Discharge Diet: 1800 Calorie Control Diet Activity Discharge Activity: Return to Normal Activity Weight Bearing Status: Full weight bearing Follow Up Care Test Results: Test results from this visit will be discussed in further detail at your follow-up appointment, if applicable. Discharge Plan Admission Admit Date/Time: 08/30/23 01:08 Primary Reason for Your Visit: Chronic A-fib with RVR Attending Provider: Cedric Guthrie Primary Care Provider: Karen Xie Consulting Providers: Jeannie Ray; Antonino Mensah Instructions Additional Instructions / Restrictions: Take no aspirin, ibuprofen, or Aleve while you are taking Eliquis You may take Tylenol for pain Discharge Orders/Prescriptions Prescriptions: New Eliquis 5 mg Tablet 5 mg PO BID Qty: 60 0RF atorvastatin 40 mg Tablet 40 mg PO QHS Qty: 30 0RF carvedilol 25 mg Tablet 25 mg PO BID Qty: 60 0RF diltiazem HCl 240 mg Capsule,Extended Release 24hr 240 mg PO DAILY Qty: 30 0RF digoxin 250 mcg (0.25 mg) Tablet 250 mcg PO DAILY Qty: 30 0RF methimazole 5 mg Tablet 40 mg PO DAILY@0600 Qty: 30 0RF Rx Instructions: 1 daily for 1 week, then half daily thereafter losartan 100 mg Tablet 100 mg PO DAILY Qty: 30 0RF Jardiance 25 mg Tablet 25 mg PO DAILY Qty: 30 0RF tramadol 100 mg tablet 100 mg PO Q6H PRN (Reason: pain) Qty: 30 0RF Rx Instructions: prn abdominal pain pantoprazole [Protonix] 40 mg tablet,delayed release (DR/EC) 40 mg PO DAILY Qty: 30 0RF Continued (DME) blood-glucose meter [Accu-Chek Maggi Plus Meter] [facility] [place] See Rx Instructions .Route Qty: 1 0RF Rx Instructions: As directed glipizide 10 mg tablet 5 mg PO DAILY diltiazem HCl 120 mg tablet extended release 24 hr 120 mg PO DAILY Qty: 30 2RF Rx Instructions: Hold for SBP less than 110 mmHg carvedilol 25 mg tablet 25 mg PO BID Qty: 60 2RF Rx Instructions: must administer with a meal/food Hold for heart less than 50 or systolic blood pressure less than 100 mmHg. Eliquis 5 mg Tablet 5 mg PO Q12H 30 Days Qty: 60 2RF atorvastatin 40 mg Tablet 40 mg PO QHS 30 Days Qty: 30 2RF digoxin 250 mcg (0.25 mg) Tablet 250 mcg PO DAILY 30 Days Qty: 30 0RF sennosides-docusate sodium [Stool Softener-Stimulant Laxat] 8.6-50 mg Tablet 2 tab PO BID PRN PRN (Reason: Constipation) Qty: 0 0RF Rx Instructions: OTC losartan 100 mg tablet 100 mg PO DAILY Qty: 30 2RF Rx Instructions: Hold for SBP less than 120 mmHg alprazolam [Xanax] 0.5 mg tablet 0.5 mg PO DAILY PRN (Reason: anxiety) Qty: 10 0RF methimazole 10 mg tablet 10 mg PO DAILY (DME) Accu-Chek Maggi Plus test strp Strip See Rx Instructions .Route Qty: 100 5RF Rx Instructions: two times daily (DME) lancets [Accu-Chek Softclix Lancets] Misc See Rx Instructions .Route Qty: 100 5RF Rx Instructions: two times daily insulin detemir U-100 100 unit/mL (3 mL) insulin pen 40 unit SUBCUT BID Qty: 72 0RF dulaglutide 1.5 mg/0.5 mL pen injector 1.5 mg subcut QWEEK Qty: 2 0RF Patient Comments: DUE TOMORROW 06/22/23 (DME) pen needle, diabetic [BD Ultra-Fine Orig Pen Needle] 29 gauge x 1/2 needle See Rx Instructions .Route Qty: 100 0RF Rx Instructions: two times daily hydrochlorothiazide 12.5 mg tablet 12.5 mg PO QAM Qty: 14 0RF Patient Comments: doesn't take if theres no swelling in ankles Discontinued ibuprofen 200 mg tablet 400 mg PO Q8H PRN (Reason: fever or pain) Qty: 30 0RF Referrals / Follow Up: Karen Xie MD [Primary Care Provider] - 09/06/23 2:00 pm (Dr Xie's office stated that if you no-show 1 more appt the office won't be able to reschedule your appt. ) Mo Hodge MD [Med Staff - Courtesy Staff] - See Referral Note (Call for an appointment) Disposition Disposition (needs filled in before D/C Order can be placed): Home, Self Care
--- NOTE | 2023-09-01 07:48 | DS.PCM_ITS ---
Providers Date of Admission: 08/30/23 Date of Discharge: 09/01/23 Primary Care Physician: Dr. Karen Xie MD Consultations 08/31/23 09:28 Consult: General Surgery Routine Consulting Provider: Antonino Mensah Reason for Consult: RUQ pain EMERGENT Consult: No MD Notified: Yes Date Notified: 08/31/23 Time Notified: 09:29 Method of Notification: Text Reason For Visit: AFIB WITH RVR AND HYPERTHYROIDISM Diagnosis Discharge Diagnosis (1) Atrial fibrillation with RVR: Status: Acute Code(s): I48.91 - Unspecified atrial fibrillation Plan 1. Chronic atrial fibrillation with RVR-patient's rate is well-controlled at this time on metoprolol and Cardizem, continue present medications #2 right upper quadrant abdominal pain-etiology unclear, despite the abdominal pain patient has been eating, the abdominal pain was severe enough this afternoon to require morphine for pain. General surgery is going to see the patient in consultation, patient will have a CT of the abdomen and pelvis performed this evening with contrast. #3 hypothyroidism-patient remains on Tapazole, he will need to follow-up as an outpatient with endocrinology #4 noncompliance with medical regimen-patient is noncompliant with taking medications as an outpatient or following up with endocrinology or his primary care physician, complicates care, medical course, recovery, and prognosis #5 left-sided chest pain-etiology unclear, probably musculoskeletal in nature, I do not feel the patient is having anginal symptoms. Total clinical time spent by myself addressing the patient's medical issues, reviewing his data, and collaborating with patient's care team: 35 minutes Medications at Discharge Home Medications blood-glucose meter (Accu-Chek Maggi Plus Meter) #1 ea 01/20/22 blood sugar diagnostic (Accu-Chek Maggi Plus test strips) #100 ea 05/11/22 lancets (Accu-Chek Softclix Lancets) #100 ea 05/11/22 insulin detemir U-100 100 unit/mL (3 mL) subcutaneous pen 40 unit (0.4 mL) subcut BID diabetes #72 mL 02/27/23 dulaglutide 1.5 mg/0.5 mL subcutaneous pen injector 1.5 mg (0.5 mL) subcut QWEEK diabetes #2 mL 06/14/23 glipizide 10 mg tablet 5 mg PO DAILY diabetes 11/22/23 alprazolam 0.5 mg tablet (Xanax) 0.5 mg PO DAILY PRN anxiety #10 tabs 06/25/23 apixaban 5 mg tablet (Eliquis) 5 mg PO Q12H 30 days #60 tabs 06/25/23 atorvastatin 40 mg tablet 40 mg PO QHS 30 days #30 tabs 06/25/23 carvedilol 25 mg tablet 25 mg PO BID #60 tabs 06/25/23 digoxin 250 mcg (0.25 mg) tablet 250 mcg PO DAILY 30 days #30 tabs 06/25/23 diltiazem HCl 120 mg tablet,extended release 24 hr 120 mg PO DAILY #30 tabs 06/25/23 losartan 100 mg tablet 100 mg PO DAILY BP #30 tabs 06/25/23 sennosides 8.6 mg-docusate sodium 50 mg tablet (Stool Softener-Stimulant Laxative) 2 tab PO BID PRN PRN Constipation #0 tabs 06/25/23 pen needle, diabetic 29 gauge x 1/2 (BD Ultra-Fine Original Pen Needle) #100 ea 07/05/23 hydrochlorothiazide 12.5 mg tablet 12.5 mg PO QAM fluid retention #14 tabs 08/01/23 methimazole 10 mg tablet 10 mg PO DAILY thyroid 08/29/23 apixaban 5 mg tablet (Eliquis) 5 mg PO BID #60 tabs 09/01/23 atorvastatin 40 mg tablet 40 mg PO QHS #30 tabs 09/01/23 carvedilol 25 mg tablet 25 mg PO BID #60 tabs 09/01/23 digoxin 250 mcg (0.25 mg) tablet 250 mcg PO DAILY #30 tabs 09/01/23 diltiazem HCl 240 mg capsule,extended release 24 hr 240 mg PO DAILY #30 caps 09/01/23 empagliflozin 25 mg tablet (Jardiance) 25 mg PO DAILY #30 tabs 09/01/23 losartan 100 mg tablet 100 mg PO DAILY #30 tabs 09/01/23 methimazole 5 mg tablet 40 mg (8 x 5 mg) PO DAILY@0600 #30 tabs 09/01/23 pantoprazole 40 mg tablet,delayed release (Protonix) 40 mg PO DAILY #30 tabs 02/02/24 tramadol 100 mg tablet 100 mg PO Q6H PRN pain #30 tabs 09/01/23 Hospital Course Operations None Procedures None Summary of Care Provided Minutes Spent on Discharge: 31 Hospital Course: This 53-year-old white male was seen in the emergency room at [facility] with complaints of dyspnea and chest pain, patient had last been admitted to the hospital May 2023, patient at that time was diagnosed as having atrial fibrillation and hyperthyroidism. He was discharged on medications but did not follow-up with his PCP and has not taken her medications in some time. Patient had been complaining of palpitations over the last 3 weeks and over the last 48 hours have been more short of breath and had chest discomfort. Patient had a cardiac catheterization last year which showed mild coronary disease. Workup in the ER included a chest x-ray which showed no evidence of acute disease, BNP was not significantly elevated, troponin was normal, TSH was 0.01, EKG was performed while patient was having chest pain and showed no acute ST-T wave changes. Patient's glucose was high at 408. Patient was given IV diltiazem to control his heart rate, CTA of the chest was performed that showed no acute process. Patient's heart rate was in the 140s to 150s, patient was admitted to PCU for A-fib with RVR, his outpatient medications were restarted, his rate came under control with carvedilol and Cardizem CD. Patient continues to complain intermittently of chest pain but again EKG showed no acute changes, patient then complained of right upper quadrant abdominal pain, workup was instituted including an ultrasound of the gallbladder which showed some sludge in the gallbladder but no evidence of cholecystitis, CT of the abdomen showed a nonobstructing kidney stone and gallbladder stones but no acute process. The etiology of the patient's abdominal pain was unclear, despite being medicated with morphine for the abdominal pain, patient chose to ignore his n.p.o. status and was eating a sandwich in the room. I did not feel that it was necessary to get surgery involved, there is no evidence of a surgical abdomen. On 09/01/2023, patient was seen and examined: On examination he appeared in good health and spirits. Vital signs as documented. Skin warm and dry and without overt rashes. Neck without JVD, neck was supple, trachea midline, thyroid was normal. Lungs clear bilaterally, normal air movement was noted. Heart exam notable for irregular rhythm, normal sounds and absence of murmurs, rubs or gallops. Abdomen unremarkable and without evidence of organomegaly, masses, or abdominal aortic enlargement. Had some mild abdominal tenderness in right upper quadrant to palpation. Bowel sounds are present, abdomen is not distended. Extremities nonedematous, no cyanosis was noted, no clubbing was noted. Neuro: Cranial nerves II through XII are grossly intact, no focal motor deficits were noted, sensation to light touch and pinprick intact, motor exam 5/5 throughout. Psych: Patient is alert and oriented x3, he does not appear anxious or depressed, he does not appear agitated. Patient was discharged home in stable condition on 09/01/2023, he was instructed to come back to the hospital in the emergency room if his abdominal pain did not subside, patient was discharged on a PPI and Ultram for abdominal pain. It is this examiner's opinion that the patient has a background of chronic anxiety and this may be affecting his medical care. Patient was instructed to follow-up with endocrinology, he had missed his appointment and not followed up as directed at the last admission at the hospital. Weight / BMI Weight Weight: 131 kg Body Mass Index (BMI) 43.9 ABG / Lab / Microbiology Data 08/29/23 17:35 08/30/23 07:42 Laboratory: Laboratory Results - last 24 hr 08/31/23 07:30: Total Bilirubin 0.80, Direct Bilirubin 0.24, AST 13 L, ALT 44, Alkaline Phosphatase 120 H, Total Protein 7.3, Albumin 3.4, Globulin 3.9 08/31/23 11:12: POC Glucose 227 H 08/31/23 14:21: POC Glucose 125 H 08/31/23 22:52: POC Glucose 244 H 09/01/23 06:48: POC Glucose 155 H Radiography Diagnostic Testing: Radiology Impression Gallbladder Ultrasound 08/31/23 11:15 IMPRESSION: Multiple layering small gallstones with no evidence of wall thickening or pericholecystic fluid to suggest acute cholecystitis. Hepatic steatosis. Electronically Signed: Dom Lawson DO at 16:14 EST , Abdomen/Pelvis CT 08/31/23 19:01 IMPRESSION: Cholelithiasis. Nonobstructing left renal stone. Electronically Signed: Mathew Altman DO at 19:40 EST Reading Location ID and State: [facility] / [place] Tel [phone], Service support , D/C Instructions Discharge Diet: 1800 Calorie Control Diet Weight Bearing Status: Full weight bearing Meaningful Use Info Meaningful Use Diagnoses (Choose all that apply): None applicable Discharge Plan Admission Admit Date/Time: 08/30/23 01:08 Primary Reason for Your Visit: Chronic A-fib with RVR Attending Provider: Cedric Guthrie Primary Care Provider: Karen Xie Consulting Providers: Jeannie Ray; Antonino Mensah Instructions Additional Instructions / Restrictions: Take no aspirin, ibuprofen, or Aleve while you are taking Eliquis You may take Tylenol for pain Discharge Orders/Prescriptions Prescriptions: New Eliquis 5 mg Tablet 5 mg PO BID Qty: 60 0RF atorvastatin 40 mg Tablet 40 mg PO QHS Qty: 30 0RF carvedilol 25 mg Tablet 25 mg PO BID Qty: 60 0RF diltiazem HCl 240 mg Capsule,Extended Release 24hr 240 mg PO DAILY Qty: 30 0RF digoxin 250 mcg (0.25 mg) Tablet 250 mcg PO DAILY Qty: 30 0RF methimazole 5 mg Tablet 40 mg PO DAILY@0600 Qty: 30 0RF Rx Instructions: 1 daily for 1 week, then half daily thereafter losartan 100 mg Tablet 100 mg PO DAILY Qty: 30 0RF Jardiance 25 mg Tablet 25 mg PO DAILY Qty: 30 0RF tramadol 100 mg tablet 100 mg PO Q6H PRN (Reason: pain) Qty: 30 0RF Rx Instructions: prn abdominal pain pantoprazole [Protonix] 40 mg tablet,delayed release (DR/EC) 40 mg PO DAILY Qty: 30 0RF Continued (DME) blood-glucose meter [Accu-Chek Maggi Plus Meter] Misc See Rx Instructions .Route Qty: 1 0RF Rx Instructions: As directed glipizide 10 mg tablet 5 mg PO DAILY diltiazem HCl 120 mg tablet extended release 24 hr 120 mg PO DAILY Qty: 30 2RF Rx Instructions: Hold for SBP less than 110 mmHg carvedilol 25 mg tablet 25 mg PO BID Qty: 60 2RF Rx Instructions: must administer with a meal/food Hold for heart less than 50 or systolic blood pressure less than 100 mmHg. Eliquis 5 mg Tablet 5 mg PO Q12H 30 Days Qty: 60 2RF atorvastatin 40 mg Tablet 40 mg PO QHS 30 Days Qty: 30 2RF digoxin 250 mcg (0.25 mg) Tablet 250 mcg PO DAILY 30 Days Qty: 30 0RF sennosides-docusate sodium [Stool Softener-Stimulant Laxat] 8.6-50 mg Tablet 2 tab PO BID PRN PRN (Reason: Constipation) Qty: 0 0RF Rx Instructions: OTC losartan 100 mg tablet 100 mg PO DAILY Qty: 30 2RF Rx Instructions: Hold for SBP less than 120 mmHg alprazolam [Xanax] 0.5 mg tablet 0.5 mg PO DAILY PRN (Reason: anxiety) Qty: 10 0RF methimazole 10 mg tablet 10 mg PO DAILY (DME) Accu-Chek Maggi Plus test strp Strip See Rx Instructions .Route Qty: 100 5RF Rx Instructions: two times daily (DME) lancets [Accu-Chek Softclix Lancets] Misc See Rx Instructions .Route Qty: 100 5RF Rx Instructions: two times daily insulin detemir U-100 100 unit/mL (3 mL) insulin pen 40 unit SUBCUT BID Qty: 72 0RF dulaglutide 1.5 mg/0.5 mL pen injector 1.5 mg subcut QWEEK Qty: 2 0RF Patient Comments: DUE TOMORROW 06/22/23 (DME) pen needle, diabetic [BD Ultra-Fine Orig Pen Needle] 29 gauge x 1/2 needle See Rx Instructions .Route Qty: 100 0RF Rx Instructions: two times daily hydrochlorothiazide 12.5 mg tablet 12.5 mg PO QAM Qty: 14 0RF Patient Comments: doesn't take if theres no swelling in ankles Discontinued ibuprofen 200 mg tablet 400 mg PO Q8H PRN (Reason: fever or pain) Qty: 30 0RF Referrals / Follow Up: Karen Xie MD [Primary Care Provider] - 09/06/23 2:00 pm (Dr Xie's office stated that if you no-show 1 more appt the office won't be able to reschedule your appt. ) Mo Hodge MD [Med Staff - Courtesy Staff] - See Referral Note (Call for an appointment) Disposition Disposition (needs filled in before D/C Order can be placed): Home, Self Care Charges/Coding Visit Charges Inpatient E&M: 66315 Disch Hosp >30min
[2023-09-01] MEDS: Carvedilol 25 MG Tablet PO (08:05)
[2023-09-01] MEDS: Digoxin 250 MCG Tablet PO (08:05)
[2023-09-01] MEDS: Losartan Potassium 100 MG Tablet PO (08:05)
[2023-09-01] MEDS: dilTIAZem CD 240 MG Capsule PO (08:05)
[2023-09-01] MEDS: APIXABAN 5 MG TABLET PO (08:05)
[2023-09-01] MEDS: Empagliflozin 25 MG Tablet PO (08:06)
[2023-09-01] MEDS: Insulin Glargine-YFGN 100 UNIT/ML Pen 40 UNIT SC (08:08)
[2023-09-01 08:10] VITALS: BP 142/97; PULSE 89; RESP 16; TEMP 36.6; O2SAT 98
--- NOTE | 2023-09-01 09:39 | CASEMGMT ---
Patient has order for discharge. RN CM in to discuss needs at discharge. Patient denies needs or help at discharge. Patient aware of follow-up appts. Patient had no further questions or concerns.
== END 2023-09-01 10:29 | disposition home or self-care (01) | DRG 201 ==
LOC: ED 08-30 00:18 → PCU 08-30 03:34
PROVIDERS: Admitting Provider Internal Medicine; Emergency Provider Emergency Medicine; PCP Internal Medicine; Visit Provider Internal Medicine
DX: I48.20 Chronic atrial fibrillation, unspecified (principal); I11.0 Hypertensive heart disease with heart failure; I50.22 Chronic systolic (congestive) heart failure; I42.8 Other cardiomyopathies; Z68.42 Body mass index [BMI] 45.0-49.9, adult; E66.01 Morbid (severe) obesity due to excess calories; E11.65 Type 2 diabetes mellitus with hyperglycemia; Z79.4 Long term (current) use of insulin; E05.90 Thyrotoxicosis, unspecified without thyrotoxic crisis or storm; E03.9 Hypothyroidism, unspecified; G47.33 Obstructive sleep apnea (adult) (pediatric); K80.20 Calculus of gallbladder without cholecystitis without obstruction; F41.9 Anxiety disorder, unspecified; I25.10 Atherosclerotic heart disease of native coronary artery without angina pectoris; Z79.01 Long term (current) use of anticoagulants; Z87.891 Personal history of nicotine dependence; Z91.148 Patient's other noncompliance with medication regimen for other reason; R07.89 Other chest pain; R10.11 Right upper quadrant pain; Z79.85 Long-term (current) use of injectable non-insulin antidiabetic drugs; Z79.899 Other long term (current) drug therapy; Z23 Encounter for immunization
CPT/HCPCS: 90686; 36415; 71045; 71275; 74177; 76705; 80048; 80053; 80076; 80307; 82962; 83690; 83735; 83880; 84100; 84439; 84443; 84484; 85025; 93005; 94668; 96365; 96366; 96375; 96376; 99221; 99285; J7040; Q9967; A4216; G0378

== ENCOUNTER → 2023-09-26 | Outpatient (CLI) | payer MEDICAID, SELFPAY ==
[2023-09-26 14:15] LABS: Absolute Lymphocyte Count 2.09 X10^3/uL (0.83-4.51); Basophil# 0.04 X10^3/uL; Basophil% 0.5 % (0-1); Eosinophil# 0.04 X10^3/uL; Eosinophils% 0.5 % (0-5); Hemoglobin 15.1 g/dL (13.0-16.5); Lymphocyte # 2.09 X10^3/ul (0.83-4.51); Lymphocyte % 26.4 % (19-41); Mean Corp Hgb Conc 32.1 g/dL (32-36); Mean Corpuscular Hgb 25.9 pg (27.0-32.0); Mean Corpuscular Volume 80.8 fL (80-94); Monocyte% 8.8 % (0-10); NRBC Flagged by Analyzer 0 % (0-5); Neutrophil # 5.02 X10^3/uL (2.7-7.7); Neutrophil % 63.4 % (47-70); Platelet Count 226 K/mm3 (150-450); RBC Distribution Width CV 14.7 % (11.6-14.6); RBC Distribution Width SD 42.7 fl (35.1-43.9); Red Blood Count 5.82 M/mm3 (4.6-6.2); White Blood Count 7.9 K/mm3 (4.4-11.0)
[2023-09-26 14:37] LABS: Vitamin D,25 Hydroxy 9.7 ng/mL
[2023-09-26 14:41] LABS: Hemoglobin A1c 11.4 % (3.8-5.6)
[2023-09-26 14:44] LABS: ALB/GLOB Ratio 0.8 RATIO (0.9-2.4); AST(SGOT) 13 U/L (15-37); Alanine Aminotransfer ALT/SGPT 36 U/L (16-61); Albumin, Serum 3.4 g/dL (3.2-5.0); Alkaline Phosphatase 147 U/L (45-117); Anion Gap 4 (5-15); BUN 18 mg/dL (7-18); BUN/Creat Ratio 19.3 RATIO (10-20); Calcium,Total 9.3 mg/dL (8.5-10.1); Chloride 106 mmol/L (98-107); Cholesterol 107 mg/dL (200); Creatinine, Serum 0.93 mg/dL (0.70-1.30); EST Glomerular Filtration Rate 90 mL/min (>60); Est Glom Filt Rate - Afr Amer 109 mL/min (>60); Glucose 328 mg/dL (74-106); High Density Lipoprotein 64 mg/dL; Potassium 4.4 mmol/L (3.5-5.1); Protein, Total 7.4 g/dL (6.4-8.2); Sodium Level 138 mmol/L (136-145); Triglycerides 158 mg/dL; Very Low Density Lipoprotein 32 mg/dL (5-40)
[2023-09-26 14:48] LABS: Microalbumin,Random Urine < 5.0 mg/L (NO RANGE EST.)
[2023-09-26 14:53] LABS: T4 Total, Thyroxin 10.2 ug/dL (4.5-12.1); Thyroid Stim Hormone (TSH) < 0.01 uIU/mL (0.358-3.74)
== END | disposition home or self-care (01) ==
LOC: LAB 13:57
PROVIDERS: PCP Internal Medicine; Referring Provider Internal Medicine Cardiovascular Disease; Visit Provider Internal Medicine Cardiovascular Disease
DX: I10 Essential (primary) hypertension (principal); E11.9 Type 2 diabetes mellitus without complications; E05.90 Thyrotoxicosis, unspecified without thyrotoxic crisis or storm
CPT/HCPCS: 36415; 80053; 80061; 82043; 82306; 82570; 83036; 84436; 84443; 85025

== ENCOUNTER 2023-09-28 20:00 | Outpatient (CLI) | payer MEDICAID, SELFPAY | END 2023-09-28 23:59 | disposition home or self-care (01) | LOC: SL 20:09 | PROVIDERS: PCP Internal Medicine; Referring Provider Internal Medicine; Visit Provider Internal Medicine | DX: R29.818 Other symptoms and signs involving the nervous system (principal); G47.10 Hypersomnia, unspecified | CPT/HCPCS: 95810 ==

== ENCOUNTER → 2023-10-06 | Outpatient (CLI) | payer MEDICAID, SELFPAY ==
--- OUTSIDE RECORDS SUMMARY | 2023-10-06 16:40 | XMS RPT_ITS | CCD ---
Author Name Unknown Address [address] [place] [address] Organization [facility] Care Team Providers Care Recreational Programs Director Name Role Phone Rausch Hannah CHRISTENSEN (Historical) Unavailable U navailable Allergies Allergy Classification Reported Allergen(s) Allergy Type Date of Onset Reaction(s) Facility (5 sources) Amoxicillin; Translations: [AMOXICILLIN] Drug Allergy 11-16-[address] [facility] (2 sources) Penicillins; Translations: [PENICILLINS] Drug Allergy 11-16-2020 [facility] (3 sources) Penicillins Drug Allergy 11-16-2020 [facility] Medications Completed/Discontinued Medications Medication Drug Class(es) Dates Sig (Normalized) Sig (Original) [id number] 200 actuat albuterol 0.09 mg/actuat metered dose inhaler (4 sources) beta2-Adrenergic Agonist Start: 08-23-2021 take 2 puff(s) by inhalation every four hours as needed for wheezing albuterol HFA (PROVENTIL HFA, VENTOLIN HFA) 90 mcg/actuation inhaler Indications: COVID-19 Inhale 2 Puffs as instructed every 4 hours as needed for wheezing/shortnes s of breath. 18 g 0 08/23/2021 Active Problems Active Problems Problem Classification Problem Date Documented Date Episodic/Chronic Diabetes mellitus without complication (4 sources) Type 2 diabetes mellitus without complication; Translations: [Type 2 diabetes mellitus without complications] Onset: 01-14-2021 08-23-2021 Chronic Esophageal disorders (4 sources) Gastroesophageal reflux disease without esophagitis; Translations: [Gastro-esophageal reflux disease without esophagitis] Onset: 01-14-2021 01-14-2021 Chronic Essential hypertension (4 sources) Essential hypertension; Translations: [Essential (primary) hypertension] Onset: 01-14-2021 01-14-2021 Chronic Nonspecific chest pain (1 source) Chest discomfort; Translations: [Other chest pain] 06-21-2023 Episodic Other lower respiratory disease (1 source) Dyspnea; Translations: [Shortness of breath] 06-21-2023 Episodic Other nutritional; endocrine; and metabolic disorders (4 sources) Severe obesity; Translations: [Morbid (severe) obesity due to excess calories] Onset: 01-14-2021 01-14-2021 Chronic Past or Other Problems Problem Classification Problem Date Documented Da te Episodic/Chronic Other connective tissue disease (4 sources) Mass of soft tissue; Translations: [Other specified soft tissue disorders] Onset: 01-14-2021 01-14-2021 Episodic Screening and history of mental health and substance abuse codes (4 sources) Ex-smoker; Translations: [Personal history of nicotine dependence] Onset: 01-14-2021 01-14-2021 Episodic Results Test Name Value Interpretation Reference Range Facil ity Encounters Encounter Date Encounter Type Care Provider Facility Start: 06-21-2023 End: 06-21-2023 ambulatory Facility:[facility] Start: 06-21-2023 End: 06-21-2023 Patient encounter procedure Damian Hodge APRN.CNP Work Phone: [facility] Care Plan of Treatment Date Care Activity Detail Author Start: 03-31-2023 Covid-19 Vaccine ( season) Covid-19 Vaccine ( season) [facility] Start: 03-31-2023 Influenza vaccination Influenza Vacc ine (#1) [facility] Start: 07-31-2022 Depression Assessment Depression Ass essment [facility] Start: 03-31-2022 Influenza vaccination C [facility] Start: 04-27-2021 COVID-19 VACCINE (3 - Booster for Moderna series) COVID-19 VACCINE (3 - Booster for Moderna series) [facility] Start: 2020 SHINGRIX VACCINE (1 of 2) SHINGRIX V ACCINE (1 of 2) [facility] Start: 2015 COLOGUARD (FIT-DNA) COLOGUARD (FIT-D NA) [facility] Start: 2015 Colonoscopy COLONOSCOPY [facility] Start: 2015 COLORECTAL CANCER SCREENING COLORECTAL CANCER SCREENING [facility] Start: [address] COLONOGRAPHY [facility] Start: 2015 FECAL OCCULT BLOOD FECAL OCCULT BLOO D [facility] Start: 2015 SIGMOIDOSCOPY SIGMOIDOSCOPY [facility] Start: 12-30-2010 Urine microalbumin profile DTa P,Tdap,Td Vaccine (1 - Tdap) [facility] Start: 1989 HEPATITIS B (1 of 3 - Risk 3-dose series) HEPATITIS B (1 of 3 - Risk 3-dose series) [facility] Start: 1989 Urine microalbumin profile DTAP,TDAP ,TD (1 - Tdap) [facility] Start: 1988 ANNUAL PCP TEAM FURNITURE CLEANER BEBETO DISEASE VISIT ANNUAL PCP TEAM CHRONIC DISEASE VISIT [facility] Start: 1988 BP CONTROLLED (<130/80) BP CONTROLLE D (<130/80) [facility] Start: 1988 Hepatitis B surface antibody level LDL CHOLESTEROL [facility] Start: 1988 HEPATITIS C SCREENING HEPATITIS C SC REENING [facility] Start: 1988 HIV SCREENING HIV SCREENING [facility] Start: 1982 Adult depression scr eening assessment DEPRESSION SCREENING [facility] Start: 1980 3 comp foot exam completed DIABETIC FOOT EXAM [facility] Start: 1980 Hepatitis B screening URINE AL BUMIN:CREATININE RATIO [facility] Start: 1980 Hepatitis C antibody , confirmatory test DILATED RETINAL EXAM [facility] Start: 1976 PNEUMOCOCCAL (1 - PCV) PNEUMOCOCCAL (1 - PCV) [facility] Start: 1976 Pneumococcal vaccination Pneum ococcal Vaccine (1 - PCV) [facility] Start: 1975 Hemoglobin A1c/Hemoglobin.total in Blood HBA1C [facility] Start: 1970 Hepatitis B Vaccine (1 of 3 - 3-dose series) Hepatitis B Vaccine (1 of 3 - 3-dose series) [facility] Immunizations Immunization Date Immunization Notes Care Provider Suri carreon 12-29-2010 influenza virus vacc ine, unspecified formulation Damian Hodge APRN.TRANSMITTER OPERATOR Work Phone: [facility] Social History Date Type Detail Facility Start: 12-17-2020 End: 01-14-2021 Tobacco smoking status NHIS Ex-smoker [facility] End: 07-31-2019 History of tobacco use Current smoker [facility] Start: 11-12-2020 End: 12-17-2020 Cigarettes smoked current (pack per day) - Reported 0.5 [facility] Start: 12-17-2020 End: 01-14-2021 Tobacco use and exposure Smokeless tobacco non-user [facility] Start: 01-07-2022 Alcohol intake Current drinke r of alcohol (finding) [facility] Start: 12-17-2020 History SDOH Alcohol Comment occasionally [facility] Start: 1970 Sex Assigned At Not on file [facility] End: 07-31-2019 History of tobacco use Cigarette Smoker [facility] Work Phone: Start: 11-12-2020 End: 01-07-2022 Tobacco use panel [facility] National Score (1-10 0), lower number is lower risk Not on file [facility] Progress note 06-21-2023 Note Date & Type Note Facility 06-21-2023 Note HNO ID: [id number] Author: Damian Hodge APRN.CNP Service: ? Author Type: Nurse Practitioner Type: Progress Notes Filed: 06/21/2023 5:55 PM Note Text: Patient triaged at [facility]. Here today with chest pressure and sob. Denies cough/congestion uri symptoms. Patient visibly sob. I will refer to ER. [facility] History of Present illness Narrative 06-21-2023 Damian Hodge APRN.CNP - 06/21/2023 5:53 PM EST Note Date & Type Note Facility 06-21-2023 History of Presen t illness Narrative Patient triaged at [facility]. Here today with chest pressure and sob. Denies cough/congestion uri symptoms. Patient visibly sob. I will refer to ER. documented in this encounter [facility] Note 02-08-2022 Telephone Encounter - Viridiana Holman RD - 02/08/2022 11:04 AM EDT Note Date & Type Note Facility 07-12-2022 Miscellaneous Notes Summary: Call Called to remind pt he has an active order in for MNT. documented in this encounter [facility] Note 01-11-2022 Telephone Encounter - Cassandra Hamilton RN - 01/11/2022 12:23 PM EDTTelephone Encounter - Kim Chua RN - 01/11/2022 8:31 AM EDT Note Date & Type Note Facility 01-11-2022 Miscellaneous Notes Radha calling from [facility] calling for a verbal order signing off on this Pt's plan of care and for wound Vac changes. This Nurse told her we would return her call after speaking with Dr. Sultana and figuring out who is responsible for this Patients follow up care. Received a request from [employer] for medical supplies (sterile water/saline, ABD pads and gauze) asking for Dr. Sultana to sign. We are not this patient's PCP nor have we performed any surgery that would require supplies. Attempted to call [employer], but unable to speak with anyone. Fax returned to [employer], stating that we will not sign the form. Fax confirmation sheet received. Kim Chua RN documented in this encounter [facility] Evaluation note Note Date & Type Note Facility documented in this encounter [facility] Summary Purpose Family History No Family History Records FoundNo Family History Records FoundNo Family History Records FoundNo Family History Records FoundNo Family History Records Found Advance Directives No Advanced Directives Records FoundDocuments on File Type Date Recorded Patient Crushing Machine Operator Expl anation Advance Directive(s) 01/15/2021 11:53 AM Advance Directive(s) 01/07/2021 2:00 PM Additional Source Comments (unrecognized sect ion and content) No Status Records FoundNo Status Records FoundNo Status Records FoundNo Status Records FoundNo Status Records Found INFORMATION SOURCE (unrecogn ized section and content) DATE CREATED AUTHOR AUTHOR'S ORGANIZ ATION 01/16/2021 [facility] DATE CREATED AUTHOR AUTHOR'S ORGANIZ ATION 01/25/2021 [facility] DATE CREATED AUTHOR AUTHOR'S ORGANIZ ATION 02/09/2022 [facility] nt DATE CREATED AUTHOR AUTHOR'S ORGANIZ ATION 06/24/2023 [facility] Source Comments (unrecognize d section and content) In the event this informatio n is protected by the Federal Confidentiality of Alcohol and Drug Abuse Patient Records regulations: The Federal rules restrict any use of the information to criminally investigate or prosecute any alcohol or drug abuse patient.[facility] the event this information is protected by the Federal Confidentiality of Alcohol and Drug Abuse Patient Records regulations: The Federal rules restrict any use of the information to criminally investigate or prosecute any alcohol or drug abuse patient.[facility] the event this information is protected by the Federal Confidentiality of Alcohol and Drug Abuse Patient Records regulations: The Federal rules restrict any use of the information to criminally investigate or prosecute any alcohol or drug abuse patient.[facility] the event this information is protected by the Federal Confidentiality of Alcohol and Drug Abuse Patient Records regulations: The Federal rules restrict any use of the information to criminally investigate or prosecute any alcohol or drug abuse patient.[facility] Reason for Visit (unrecogniz ed section and content) Reason Comments Appointment Let patient know he was able to schedule an initial visit for diet education. Reason Comments Orders Let pt know he has a n active order in for MNT. Provided scheduling information. Care Teams (unrecognized sec tion and content) Recreational Programs Director Relationship Specialty Start Date End Date Hannah Rausch (Historical), TRANSMITTER OPERATOR Referring Orthopedics 11/18/20 Recreational Programs Director Relationship Specialty Start Date End Date Hannah Rausch (Historical), TRANSMITTER OPERATOR Referring Orthopedics 11/18/20 Recreational Programs Director Relationship Specialty Start Date End Date Hannah Rausch (Historical), TRANSMITTER OPERATOR Referring Orthopedics 11/18/20 FOR RECORDS PERTAINING TO PATIENTS WHO ARE OR HAVE BEEN ENROLLED IN A CHEMICAL DEPENDENCY/SUBSTANCEABUSE PROGRAM, SOME INFORMATION MAY BE OMITTED. This clinical summary was aggregated from multiple sources. Caution should be exercised in using it in the provision of clinical care. This summary normalizes information from multiple sources, and as a consequence, information in this document may materially change the coding, format and clinical context of patient data. In addition, data may be omitted in some cases. CLINICAL DECISIONS SHOULD BE BASED ON THE PRIMARY CLINICAL RECORDS. [facility] [employer] [facility] provides no warranty or guarantee of the accuracy or completeness of information in this document.
== END | disposition home or self-care (01) ==
LOC: LAB 15:14
PROVIDERS: PCP Internal Medicine; Referring Provider Internal Medicine; Visit Provider Internal Medicine Cardiovascular Disease
DX: E05.90 Thyrotoxicosis, unspecified without thyrotoxic crisis or storm (principal)
CPT/HCPCS: 36415; 84439

== ENCOUNTER → 2023-10-31 | Outpatient (CLI) | payer MEDICAID, SELFPAY ==
[2023-10-31 13:18] LABS: Free T3 2.3 pg/mL (2.18-3.98); Thyroid Stim Hormone (TSH) 1.39 uIU/mL (0.358-3.74)
== END | disposition home or self-care (01) ==
LOC: LAB 12:06
PROVIDERS: PCP Internal Medicine; Referring Provider Internal Medicine Endocrinology, Diabetes & Metabolism; Visit Provider Internal Medicine Endocrinology, Diabetes & Metabolism
DX: E05.90 Thyrotoxicosis, unspecified without thyrotoxic crisis or storm (principal)
CPT/HCPCS: 36415; 84439; 84443; 84481

== ENCOUNTER → 2023-11-02 | Outpatient (CLI) | payer MEDICAID, SELFPAY ==
[2023-11-02] MEDS: Zolpidem Tartrate 5 MG Tablet PO (22:45)
== END | disposition home or self-care (01) ==
LOC: SL 20:19
PROVIDERS: PCP Internal Medicine; Referring Provider Internal Medicine; Visit Provider Internal Medicine
DX: R29.818 Other symptoms and signs involving the nervous system (principal); G47.10 Hypersomnia, unspecified
CPT/HCPCS: 95810

== ENCOUNTER 2023-12-06 10:53 | Observation (INO) | payer MEDICAID, SELFPAY ==
[2023-12-06] VITALS (8 sets, daily range): BP systolic 118–159; BP diastolic 56–97; PULSE 69–93; RESP 12–18; TEMP 36.4–37.1; O2SAT 94–98; BMI 44.9; BMI 45.9
--- NOTE | 2023-12-06 11:08 | CT_ITS ---
INDICATION: dissection study EXAMINATION: CTA CHEST, ABDOMEN AND PELVIS WITH CONTRAST - TECHNIQUE: A CTA of the chest, abdomen, and pelvis is obtained with sagittal and coronal reconstructed MIP views. Three-dimensional surface rendered sequence of the thoracic and abdominal aorta was obtained. A radiation dose optimization technique was used for this scan. With mL of Isovue-370. Oral contrast: None. COMPARISON: Comparison is made with prior study dated August 29, 2023. FINDINGS: CT CHEST: THORACIC AORTA: No atheromatous disease, no aneurysmal changes or dissection. ABDOMINAL AORTA: No aneurysm or dissection. No significant atheromatous disease. The iliac arteries are unremarkable. Degenerative changes of the thoracic vertebrae. LUNGS: The lungs are well-expanded without acute or chronic changes. No effusions or pneumothorax. MEDIASTINUM: The thyroid gland is normal. No mediastinal or hilar adenopathy. HEART: Heart is normal size. No pericardial effusion. No CAD. CT ABDOMEN AND PELVIS: LIVER: Diffuse fatty infiltration. No focal lesion is seen. GALLBLADDER: The CBD is normal. There are small gallstones along the dependent portion of the gallbladder lumen. SPLEEN: Normal. PANCREAS: No masses or inflammation. ADRENAL GLANDS: Normal. KIDNEYS AND URETERS: The kidneys both enhance appropriately. There are normal size and shape. There is evidence of a 7 mm nonobstructive calculus in the lower pole calyx of the left kidney. No renal masses or cysts. STOMACH: Normal. SMALL BOWEL: No abnormal distention of the small bowel. Aorta: No evidence of dissection. Atherosclerotic plaque formation of the common iliac arteries bilaterally. MESENTERY: No mesenteric inflammation. No ascites. COLON: No significant diverticulosis, masses or inflammation. The colon otherwise is normal. There is a large fatty ileocecal valve. APPENDIX: The appendix is visualized and normal. IVC: Normal. RETROPERITONEUM: No retroperitoneal lymphadenopathy. PELVIC STRUCTURES: Normal bladder. SOFT TISSUES ABDOMEN: Small umbilical hernia containing fat. SOFT TISSUE CHEST: The extrathoracic soft tissues are normal. BONES: No fractures or significant degenerative disease. CT/CTA Chst, Abd, Pel W and/or WO IMPRESSION: No evidence of thoracic or abdominal aortic dissection. Fatty infiltration of the liver. Small gallstones. Small nonobstructive left intrarenal calculus. Normal contrast-enhanced CT of the chest. Normal contrast-enhanced CT of the abdomen and pelvis. Electronically Signed: Fam Ch MD at 11:49 EDT ,
--- NOTE | 2023-12-06 11:12 | EX.ED.DYSGE1 ---
HPI History of Present Illness Chief Complaint: Flank Pain Narrative Narrative: 53-year-old male presenting with left flank pain. Yesterday he states that he had some upper back pain in the center of his back and over the course of the day notes that he had some bilateral pain in the mid back which had become worse. Patient also states that now the flank pain started about midnight. He had nausea and vomiting with this. Denies fever. No history of kidney stones. Now he states he can even stand up because the pain is so severe it is back. No urinary symptoms. Patient states he was laying on the couch when the pain started to be severe. He does not think he injured himself. [facility] Medical History Atrial fibrillation Atrial fibrillation with RVR Diabetes HFrEF (heart failure with reduced ejection fraction) Hyperglycemia Hypertension Hyperthyroidism Intertriginous dermatitis associated with moisture Non-healing surgical wound of right groin Nonischemic cardiomyopathy Obesity Physical exam, pre-employment Recurrent chest pain Suspected sleep apnea Type 2 diabetes mellitus Home Medications miscellaneous medical supply 1 packet miscellaneous ONCE #1 ea 09/05/23 [Rx Last Taken Unknown] blood sugar diagnostic (Accu-Chek Maggi Plus test strips) #100 ea 09/26/23 [Rx Last Taken Unknown] blood-glucose meter #1 ea 09/26/23 [Rx Last Taken Unknown] cholecalciferol (vitamin D3) 1,250 mcg (50,000 unit) capsule 1,250 mcg PO QWEEK #8 caps 09/26/23 [Rx Last Taken Unknown] lancets (Accu-Chek Softclix Lancets) #100 ea 09/26/23 [Rx Last Taken Unknown] metoprolol tartrate 100 mg tablet 100 mg PO BID #60 tabs 09/26/23 [Rx Last Taken Unknown] pen needle, diabetic 29 gauge x 1/2 (BD Ultra-Fine Original Pen Needle) #100 ea 09/26/23 [Rx Last Taken Unknown] sennosides 8.6 mg-docusate sodium 50 mg tablet (Stool Softener-Stimulant Laxative) 2 tab PO BID PRN PRN Constipation #30 tabs 09/26/23 [Rx Last Taken Unknown] FreeStyle Nito 3 Sensor (blood-glucose sensor) #2 ea 11/01/23 [Rx Last Taken Unknown] Humalog Mix 50-50 KwikPen U-100 Insulin 100 unit/mL subcutaneous pen (insulin lispro protamin-lispro) 25 unit (0.25 mL) subcut TID #24 mL 11/01/23 [Rx Last Taken Unknown] Trulicity 4.5 mg/0.5 mL subcutaneous pen injector (dulaglutide) 4.5 mg (0.5 mL) subcut QWEEK #2 mL 11/01/23 [Rx Last Taken Unknown] methimazole 10 mg tablet 30 mg (3 x 10 mg) PO DAILY thyroid #90 tabs 11/01/23 [Rx Last Taken Unknown] pen needle, diabetic 32 gauge x /32 (BD Ultra-Fine Mily Pen Needle) #100 ea 11/01/23 [Rx Last Taken Unknown] apixaban 5 mg tablet (Eliquis) 5 mg PO BID #60 tabs 12/03/23 [Rx Last Taken Unknown] atorvastatin 40 mg tablet 40 mg PO QHS #30 tabs 12/03/23 [Rx Last Taken Unknown] diltiazem HCl 240 mg capsule,extended release 24 hr 240 mg PO DAILY #30 caps 12/03/23 [Rx Last Taken Unknown] losartan 100 mg tablet 100 mg PO DAILY #30 tabs 12/03/23 [Rx Last Taken Unknown] pantoprazole 40 mg tablet,delayed release (Protonix) 40 mg PO DAILY #30 tabs 12/03/23 [Rx Last Taken Unknown] Allergy/AdvReac Type Severity Reaction Status Date / Time Penicillins Allergy Hives Verified 12/06/23 10:53 empagliflozin AdvReac Unknown Vision Verified 12/06/23 10:53 [From Jardiance] Changes Family History Grandfather Heart disease Surgical History H/O right wrist surgery S/P debridement Status post incision and drainage Social History household members: none housing: apartment number of children: 1 current occupational status: unemployed Smoking Status: Former smoker quit date: 11/28/22 pack-years: 20 Tobacco: How many years used: 25 Electronic Cigarette Use: not used alcohol intake: current alcohol intake frequency: holidays/special occasions only substance use type: does not use what type of physical activity do you participate in: none do you feel safe at home: Yes ROS ROS ED Constitutional Constitutional ED: Reports sweats Eyes Eyes: Denies blurry vision or change in vision ENT ENT ED: Denies rhinorrhea Respiratory/Chest Respiratory/Chest: Denies cough or dyspnea Gastrointestinal Gastrointestinal: Reports nausea; Denies abdominal pain Genitourinary Genitourinary ED: Denies dysuria Musculoskeletal Musculoskeletal: Reports back pain Integumentary Denies abscess or Abrasions Neurologic Neurologic: Denies headache(s) or paresthesias Psychiatric Psychiatric: Denies anxiety or depression EXAM Physical Exam Const Vital Signs: 12/06/23 10:54 12/06/23 12:53 12/06/23 14:00 Temperature 98.7 F Temperature Source Temporal Pulse Rate 88 79 82 Respiratory Rate 12 16 16 Blood Pressure 148/93 H 118/56 L 143/75 H Blood Pressure Mean 111 76 97 Pulse Ox 98 98 95 Oxygen Delivery Method Room Air Room Air Room Air Positive well nourished and obese Constitutional Narrative: Appears to be in pain Nutritional Appearance: obese HEENT Reports moist mucous membranes Eyes PERRL and EOMs intact bilaterally Chest Wall inspection of chest normal Resp normal respiratory effort and clear to auscultation bilaterally Cardio regular rate and regular rhythm GI non-distended and no masses Back/Spine General Back: CVA tenderness bilateral Extremity normal to inspection Neuro oriented x3 and CN's II-XII intact bilaterally Sensorium / Orientation: alert Psych mental status grossly normal Mood & Affect: anxious Skin no rashes or lesions noted MDM MDM MDM Narrative Medical decision making narrative: Patient presenting with back and flank pain. Patient has a history of kidney stones I did have concern for aortic dissection given his presentation with his upper back mid back and flank pain. Patient was taken over this have a CTA done which was ultimately negative for PE, dissection, infiltrate. There is no identifiable obstructing kidney stone either however there is a nonobstructing stone on the CTA on the left. Patient was given morphine, Zofran, Toradol and still having a significant amount of pain on reevaluation I gave him a dose of Dilaudid 0.5 mg and he required 2 doses of fentanyl after this in addition to keep his pain under control. His blood pressure was coming down because all the narcotic so he was given IV fluids. This eventually normalized and patient still in pain so he was given a second dose of 0.5 mg of Dilaudid. Urinalysis negative for infection or occult blood. CBC and CMP unremarkable. Lipase normal. I spoke with Dr. Latif regarding and we have reviewed the CT and he does not see any obstructing stones and does not think it is urologic. Given the intractable pain and no source I did speak with the hospitalist for admission. She requested a follow-up CT of the lumbar spine and radiology was able to do this off of his previous CTA and send it over. Patient admitted in stable condition. Impression: 1.Intractable back pain and Lab Data Attestation: I reviewed the patient's lab results. Labs: Laboratory Results - last 24 hr 12/06/23 12/06/23 11:14 12:30 WBC 9.3 RBC 5.37 Hgb 15.0 Hct 46.3 MCV 86.2 MCH 27.9 MCHC 32.4 RDW Std Deviation 45.8 H RDW Coeff of Jax 14.6 Plt Count 239 MPV 10.2 Immature Gran % (Auto) 0.600 Neut % (Auto) 50.1 Lymph % (Auto) 39.7 [place] % (Auto) 8.1 Eos % (Auto) 1.1 Baso % (Auto) 0.4 Absolute Neuts (auto) 4.7 Absolute Lymphs (auto) 3.69 Nucleated RBC % 0 Sodium 138 Potassium 4.1 Chloride 106 Carbon Dioxide 26.0 Anion Gap 6 BUN 14 Creatinine 1.06 Estim Creat Clear Calc 107.98 Est GFR (MDRD) Af Amer 94 Est GFR (MDRD) Non-Af 78 BUN/Creatinine Ratio 13.2 Glucose 259 H Calcium 9.2 Total Bilirubin 0.90 Direct Bilirubin 0.26 AST 15 ALT 35 Alkaline Phosphatase 146 H Troponin I High Sens 17 Total Protein 7.4 Albumin 3.4 Globulin 4.0 Lipase 43 Urine Color Yellow Urine Clarity Clear Urine pH 5.0 Ur Specific [place] 1.010 Urine Protein 30 H Urine Glucose (UA) 50 H Urine Ketones Negative Urine Occult Blood Negative Urine Nitrite Negative Urine Bilirubin Negative Urine Urobilinogen Normal Ur Leukocyte Esterase Negative Urine RBC 0 SEEN Urine WBC 0 SEEN Ur Squamous Epith Cells 0 SEEN Urine Bacteria 0 SEEN Urine Mucus 0 SEEN Radiography Diagnostic Testing: Clinical Impression(s) from Imaging Studies Chest/Abdomen/Pelvis CTA 12/06/23 11:08 IMPRESSION: No evidence of thoracic or abdominal aortic dissection. Fatty infiltration of the liver. Small gallstones. Small nonobstructive left intrarenal calculus. Normal contrast-enhanced CT of the chest. Normal contrast-enhanced CT of the abdomen and pelvis. Electronically Signed: Fam Ch MD at 11:49 EDT , Discharge Plan Triage Chief Complaint: Flank Pain ED Provider: Oziel Moctezuma Dx/Rx/DC Orders Primary Care Provider: Karen Xie
[2023-12-06 11:18] LABS: Absolute Lymphocyte Count 3.69 X10^3/uL (0.83-4.51); Absolute Neutrophil Count 4.7 X10^3/uL (2.0-7.7); Basophil# 0.04 X10^3/uL; Basophil% 0.4 % (0-1); Eosinophils% 1.1 % (0-5); Hematocrit 46.3 % (40-54); Lymphocyte # 3.69 X10^3/ul (0.83-4.51); Lymphocyte % 39.7 % (19-41); Mean Corp Hgb Conc 32.4 g/dL (32-36); Mean Corpuscular Hgb 27.9 pg (27.0-32.0); Mean Corpuscular Volume 86.2 fL (80-94); Mean Platelet Vol. 10.2 fl (6.2-12.0); Monocyte# 0.75 X10^3/uL; Monocyte% 8.1 % (0-10); NRBC Flagged by Analyzer 0 % (0-5); Neutrophil # 4.66 X10^3/uL (2.7-7.7); Neutrophil % 50.1 % (47-70); Platelet Count 239 K/mm3 (150-450); RBC Distribution Width CV 14.6 % (11.6-14.6); RBC Distribution Width SD 45.8 fl (35.1-43.9); Red Blood Count 5.37 M/mm3 (4.6-6.2); White Blood Count 9.3 K/mm3 (4.4-11.0)
[2023-12-06] MEDS: Morphine 4 MG/ML Syringe IV (11:19)
[2023-12-06] MEDS: Ketorolac 15 MG/ML Vial IV (11:20)
[2023-12-06] MEDS: Ondansetron 4 MG/2 ML Vial IV ×2 (11:20→19:09)
[2023-12-06 11:47] LABS: AST(SGOT) 15 U/L (15-37); Alanine Aminotransfer ALT/SGPT 35 U/L (16-61); Albumin, Serum 3.4 g/dL (3.2-5.0); Alkaline Phosphatase 146 U/L (45-117); Anion Gap 6 (5-15); BUN 14 mg/dL (7-18); BUN/Creat Ratio 13.2 RATIO (10-20); Bilirubin, Direct 0.26 mg/dL (0.00-0.30); Calcium,Total 9.2 mg/dL (8.5-10.1); Chloride 106 mmol/L (98-107); Creatinine, Serum 1.06 mg/dL (0.70-1.30); EST Glomerular Filtration Rate 78 mL/min (>60); Est Glom Filt Rate - Afr Amer 94 mL/min (>60); Estimated Creatinine Clearance 107.98 ml/min; Glucose 259 mg/dL (74-106); Lipase 43 U/L (13-75); Potassium 4.1 mmol/L (3.5-5.1); Protein, Total 7.4 g/dL (6.4-8.2); Sodium Level 138 mmol/L (136-145); Troponin-I HS 17 pg/mL (3.0-78.0)
[2023-12-06] MEDS: HYDROmorphone 0.5 MG/0.5 ML SYRINGE IV ×2 (12:20→14:41)
[2023-12-06 12:40] LABS: Bacteria 0 SEEN /hpf (None Seen); Mucous, Urine 0 SEEN /hpf (<or=2+); Red Blood Cells-Urine 0 SEEN /hpf (0-5); Squamous Epithelial Cells - UA 0 SEEN /hpf (0-5); White Blood Cells 0 SEEN /hpf (0-5)
[2023-12-06 12:45] LABS: Color, Urine Yellow (Yellow); Glucose, Dipstick 50 mg/dl (Normal); Ketone-Dipstick Negative (Negative); Leukocyte Esterase-Dipstick Negative /ul (Negative); Nitrite-Dipstick Negative (Negative); Occult Blood-Urine Negative /ul (Negative); Protein-Dipstick 30 mg/dl (Negative); Urine Bilirubin Dipstick Negative (Negative); Urine Clarity Clear (Clear); Urine Urobilinogen Normal (Normal)
[2023-12-06] MEDS: 0.9% Normal Saline (1000mL) 1,000 ML 999 ML IV (13:29)
[2023-12-06] MEDS: Lidocaine 5% Patch 1 PATCH TOPICAL (13:42)
[2023-12-06] MEDS: fentaNYL 100 MCG/2 ML Ampul 25 MCG IV (13:42)
--- NOTE | 2023-12-06 14:35 | PCM.HP.STD ---
HPI - General General Date of Admission: 12/06/23 Date of Service: 12/06/23 Chief Complaint: flank pain HPI Narrative DEDE SCHWARTZ, is a 53 M with a PMH as outlined who presents via the ED on 12/06/2023 with a complaint of flank pain. He started having upper back pain the day before admission, and subsequently had the acute flank pain which then moved to his lower back and which has persisted and worsened. HE denied any urinary infections, any fever, chills, chest pain, palpitations, dizziness, nausea, vomiting or any other symptoms. His back pain was intractable and not relieved by pain meds. Review of systems was otherwise negative. Vitals in the ED were BP of 143/75, TN of 82, RR of 16 and oxygen sats of 95% on room air. CBC showed hb of 15, wbc of 9.3, platelets of 239. Chemistry shows sodium of 138 with potassium of 4.1 and bicarb of 26. Creatinine was 1.06. Liver enzymes were normal apart from ALP which was slightly elevated at 146. Total protein was 7.4 and albumin was 3.4. Urinalysis showed no evidence of UTI. CTA of the chest along with CT of the abdomen and pelvis with contrast showed no evidence of thoracic or abdominal aortic dissection and fat infiltration of the liver with small gallstones and small nonobstructive left intrarenal calculus. Imaging was otherwise normal. Patient is being admitted to be managed for intractable flank and lower back pain. [facility] Medical History Atrial fibrillation Atrial fibrillation with RVR Diabetes HFrEF (heart failure with reduced ejection fraction) Hyperglycemia Hypertension Hyperthyroidism Intertriginous dermatitis associated with moisture Non-healing surgical wound of right groin Nonischemic cardiomyopathy Obesity Physical exam, pre-employment Recurrent chest pain Suspected sleep apnea Type 2 diabetes mellitus Home Medications miscellaneous medical supply 1 packet miscellaneous ONCE #1 ea 09/05/23 [Rx Last Taken Unknown] blood sugar diagnostic (Accu-Chek Maggi Plus test strips) #100 ea 09/26/23 [Rx Last Taken Unknown] blood-glucose meter #1 ea 09/26/23 [Rx Last Taken Unknown] lancets (Accu-Chek Softclix Lancets) #100 ea 09/26/23 [Rx Last Taken Unknown] metoprolol tartrate 100 mg tablet 100 mg PO BID #60 tabs 09/26/23 [Rx Last Taken 12/05/23] pen needle, diabetic 29 gauge x 1/2 (BD Ultra-Fine Original Pen Needle) #100 ea 09/26/23 [Rx Last Taken Unknown] sennosides 8.6 mg-docusate sodium 50 mg tablet (Stool Softener-Stimulant Laxative) 2 tab PO BID PRN PRN Constipation #30 tabs 09/26/23 [Rx Last Taken Unknown] FreeStyle Nito 3 Sensor (blood-glucose sensor) #2 ea 11/01/23 [Rx Last Taken Unknown] Trulicity 4.5 mg/0.5 mL subcutaneous pen injector (dulaglutide) 4.5 mg (0.5 mL) subcut QWEEK #2 mL 11/01/23 [Rx Last Taken Unknown] methimazole 10 mg tablet 30 mg (3 x 10 mg) PO DAILY thyroid #90 tabs 11/01/23 [Rx Last Taken 12/05/23] pen needle, diabetic 32 gauge x 5/32 (BD Ultra-Fine Mily Pen Needle) #100 ea 11/01/23 [Rx Last Taken Unknown] apixaban 5 mg tablet (Eliquis) 5 mg PO BID #60 tabs 12/03/23 [Rx Last Taken 12/05/23] atorvastatin 40 mg tablet 40 mg PO QHS #30 tabs 12/03/23 [Rx Last Taken 12/05/23] diltiazem HCl 240 mg capsule,extended release 24 hr 240 mg PO DAILY #30 caps 12/03/23 [Rx Last Taken 12/05/23] losartan 100 mg tablet 100 mg PO DAILY #30 tabs 12/03/23 [Rx Last Taken 12/05/23] pantoprazole 40 mg tablet,delayed release (Protonix) 40 mg PO DAILY #30 tabs 12/03/23 [Rx Last Taken Unknown] glipizide 10 mg tablet 10 mg PO DAILY diabetes mellitus 12/06/23 [History Last Taken 12/05/23] insulin lispro protamine-lispro 100 unit/mL (50-50) subcutaneous pen (Humalog Mix 50-50 KwikPen) 30 unit subcut TID diabetes 12/06/23 [History Last Taken 12/05/23] Allergy/AdvReac Type Severity Reaction Status Date / Time Penicillins Allergy Hives Verified 12/06/23 10:53 empagliflozin AdvReac Unknown Vision Verified 12/06/23 10:53 [From Jaremmanuel] Changes Family History Grandfather Heart disease Surgical History H/O right wrist surgery S/P debridement Status post incision and drainage Social History household members: none housing: apartment number of children: 1 current occupational status: unemployed Smoking Status: Former smoker quit date: 11/28/22 pack-years: 20 Tobacco: How many years used: 25 Electronic Cigarette Use: not used alcohol intake: current alcohol intake frequency: holidays/special occasions only substance use type: does not use what type of physical activity do you participate in: none do you feel safe at home: Yes ROS Constitutional Constitutional: Reports malaise and weakness; Denies anorexia, chills, fatigue or fever(s) Eyes Eyes: Denies change in vision ENT HEENT: Denies dysphagia or headache(s) Cardiovascular Cardiovascular: Denies chest pain, orthopnea, palpitations, paroxysmal nocturnal dyspnea or syncope Respiratory/Chest Respiratory/Chest: Denies cough, shortness of breath at rest or shortness of breath with exertion Gastrointestinal Gastrointestinal: Denies abdominal pain, diarrhea, nausea or vomiting Genitourinary Genitourinary: Denies dysuria Musculoskeletal Musculoskeletal: Reports back pain; Denies limited range of motion or muscle weakness Neurologic Neurologic: Denies confusion, dizziness, focal weakness, headache(s), lack of coordination, numbness or seizures Psychiatric Psychiatric: Denies anxiety or depression Vital Signs Vital Signs Vital Signs: 12/06/23 10:54 12/06/23 12:53 12/06/23 14:00 Temperature 98.7 F Temperature Source Temporal Pulse Rate 88 79 82 Respiratory Rate 12 16 16 Blood Pressure 148/93 H 118/56 L 143/75 H Blood Pressure Mean 111 76 97 Pulse Ox 98 98 95 Oxygen Delivery Method Room Air Room Air Room Air Weight Weight: 295 lb 14.4 oz Body Mass Index (BMI) 44.9 Physical Exam Const alert, oriented x3 and no apparent distress General Appearance: cooperative and well developed HEENT normocephalic, head/scalp atraumatic, moist oral mucous membranes and oropharynx normal Eyes PERRL and EOMs intact bilaterally Neck no lymphadenopathy, supple and no JVD Lymph Lymphatic: no lymphadenopathy noted and no lymphedema noted Resp normal respiratory effort, normal air movement and clear to auscultation bilaterally Cardio regular rate, regular rhythm, S1 normal heart sound, S2 normal heart sound and no murmurs GI normal to inspection, nondistended, normoactive bowel sounds, soft to palpation, non-tender and non-distended Extremity normal capillary refill, no clubbing, cyanosis or edema and no calf tenderness Extremity Narrative: moderate to severe tenderness on palpation of lumbar spine region, with paraspinal tenderness. General Extremity: no tenderness to palpation of joints or extremities Skin General Skin Exam: no breakdown Neuro CN's II-XII intact bilaterally, no focal motor deficits, no sensory deficits noted and deep tendon reflexes 2+ bilaterally Motor Exam: strength 5/5 throughout and general weakness Psych thought process normal and cooperative Psych Narrative: anxious and uncomfortable due to pain. Results Lab / Micro Data 12/06/23 11:14 12/06/23 11:14 Labs: Laboratory Results - last 24 hr 12/06/23 11:14: WBC 9.3, RBC 5.37, Hgb 15.0, Hct 46.3, MCV 86.2, MCH 27.9, MCHC 32.4, RDW Std Deviation 45.8 H, RDW Coeff of Jax 14.6, Plt Count 239, MPV 10.2, Immature Gran % (Auto) 0.600, Neut % (Auto) 50.1, Lymph % (Auto) 39.7, [place] % (Auto) 8.1, Eos % (Auto) 1.1, Baso % (Auto) 0.4, Absolute Neuts (auto) 4.7, Absolute Lymphs (auto) 3.69, Nucleated RBC % 0, Sodium 138, Potassium 4.1, Chloride 106, Carbon Dioxide 26.0, Anion Gap 6, BUN 14, Creatinine 1.06, Estim Creat Clear Calc 107.98, Est GFR (MDRD) Af Amer 94, Est GFR (MDRD) Non-Af 78, BUN/Creatinine Ratio 13.2, Glucose 259 H, Calcium 9.2, Total Bilirubin 0.90, Direct Bilirubin 0.26, AST 15, ALT 35, Alkaline Phosphatase 146 H, Troponin I High Sens 17, Total Protein 7.4, Albumin 3.4, Globulin 4.0, Lipase 43 12/06/23 12:30: Urine Color Yellow, Urine Clarity Clear, Urine pH 5.0, Ur Specific [place] 1.010, Urine Protein 30 H, Urine Glucose (UA) 50 H, Urine Ketones Negative, Urine Occult Blood Negative, Urine Nitrite Negative, Urine Bilirubin Negative, Urine Urobilinogen Normal, Ur Leukocyte Esterase Negative, Urine RBC 0 SEEN, Urine WBC 0 SEEN, Ur Squamous Epith Cells 0 SEEN, Urine Bacteria 0 SEEN, Urine Mucus 0 SEEN Imaging Radiology Impression Chest/Abdomen/Pelvis CTA 12/06/23 11:08 IMPRESSION: No evidence of thoracic or abdominal aortic dissection. Fatty infiltration of the liver. Small gallstones. Small nonobstructive left intrarenal calculus. Normal contrast-enhanced CT of the chest. Normal contrast-enhanced CT of the abdomen and pelvis. Electronically Signed: Fam Ch MD at 11:49 EDT , Assessment & Plan Assessment/Plan (1) Intractable pain: PLAN: Plan #Intractable lumbar spine pain Etiology is unclear. Started having the severe pain in his flank region 1 day ago and now it involves the lumbar spine region. Pain is not improving even with pain meds. CT of the chest showed no evidence of PE or thoracic dissection. CTA of the abdomen and pelvis showed no evidence of abdominal aortic dissection and showed fatty liver, small gallstones and small nonobstructive left renal calculus. Despite pain meds pain is still persistent. Urinalysis showed no evidence of UTI. Admit to MedSurg. Hydrate gently with IV fluids. P.o. oxycodone, p.o. Tylenol and IV morphine as needed for pain. PO flexeril PT OT consult. Fall precautions. will get lumbar spine CT without contrast as he has already received contrast today to evaluate the lumbar spine for any pathology-CT lumbar spine showed no evidence of acute lumbar spinal fracture or spondylolisthesis. #A-fib: Currently rate controlled. On Cardizem. On Eliquis 5 mg twice daily #Hypertension: On losartan #Hyperthyroidism: On methimazole #Type 2 diabetes mellitus: On Trulicity injection once weekly. Insulin sliding scale. Accu-Cheks ACHS. #Hyperlipidemia: On statin DVT Prophylaxis: Already on Eliquis. Charges/Coding Visit Charges Inpatient E&M: 97325 Init Hosp L2
--- NOTE | 2023-12-06 15:04 | CT_ITS ---
EXAM: CT LUMBAR SPINE WITHOUT INTRAVENOUS CONTRAST CLINICAL INDICATION: back pain TECHNIQUE: Helically acquired images were obtained of the lumbar spine without intravenous contrast. 2D reformats were reviewed. This CT exam was performed using one or more of the following dose reduction techniques: automated exposure control, adjustment of the mA and/or kV according to patient size, and/or use of iterative reconstruction technique. COMPARISON: No relevant prior studies available. FINDINGS: VERTEBRAE: Unremarkable. No fracture. No traumatic subluxation. No discrete lytic or blastic abnormality. Normal alignment. DISCS/SPINAL CANAL/NEURAL FORAMINA: Unremarkable. Disc heights are preserved. No critical stenosis. VASCULATURE: Visualized abdominal aorta is not dilated. LYMPH NODES: Unremarkable. No retroperitoneal adenopathy. CT/Spine Lumbar without Contrast IMPRESSION: No evidence of acute lumbar spinal fracture or spondylolisthesis. Electronically Signed: Myles Bright MD at 16:45 EDT ,
[2023-12-06] MEDS: Orphenadrine 60 MG/2 ML Ampul IM (16:31)
[2023-12-06] MEDS: HYDROmorphone 1 MG/ML Syringe IV (17:58)
[2023-12-06] MEDS: 0.9% Saline Lock 10 ML Syringe IV (17:59)
[2023-12-06] MEDS: 0.9% Normal Saline (1000mL) 1,000 ML 125 ML IV (17:59)
[2023-12-06] MEDS: Insulin Lispro 100 UNIT/ML INSULN.PEN SC ×2 (18:09→20:10)
[2023-12-06 18:33] LABS: Bedside Glucose 225 mg/dL (74-106)
[2023-12-06] MEDS: oxyCODONE 5 MG Tablet 10 MG PO (19:09)
[2023-12-06] MEDS: APIXABAN 5 MG TABLET PO (20:01)
[2023-12-06] MEDS: Atorvastatin Calcium 40 MG Tablet PO (20:01)
[2023-12-06] MEDS: Metoprolol Tartrate 100 MG Tablet PO (20:01)
[2023-12-06] MEDS: Acetaminophen 325 MG Tablet 650 MG PO (20:04)
[2023-12-06] MEDS: cycloBENZAPRine HCl 10 MG Tablet PO (20:04)
[2023-12-06 20:30] LABS: Bedside Glucose 301 mg/dL (74-106)
[2023-12-07] MEDS: 0.9% Normal Saline (1000mL) 1,000 ML 125 ML IV (01:27)
[2023-12-07] MEDS: oxyCODONE 5 MG Tablet 10 MG PO ×4 (01:27→20:26)
[2023-12-07 02:43] VITALS: BP 155/93; PULSE 98; RESP 17; TEMP 36.6; O2SAT 97
[2023-12-07] MEDS: cycloBENZAPRine HCl 10 MG Tablet PO ×3 (04:08→16:53)
[2023-12-07] MEDS: Acetaminophen 325 MG Tablet 650 MG PO ×3 (04:08→20:26)
--- NOTE | 2023-12-07 04:12 | NURSING ---
Called into pt room. Pt requested more pain meds. Pt c/o back pain worse at night. Pt requested his bed to be straighten up. Pain meds given. I left then returned to see the pt moving very well making his bed. Pt reaching across his bed ans straightening his blankets. Appeared in no distress. Just a few minutes ago pt was moaing.
[2023-12-07 07:31] LABS: Absolute Lymphocyte Count 2.87 X10^3/uL (0.83-4.51); Absolute Neutrophil Count 3.7 X10^3/uL (2.0-7.7); Basophil# 0.04 X10^3/uL; Basophil% 0.5 % (0-1); Eosinophils% 1.4 % (0-5); Hematocrit 39.9 % (40-54); Hemoglobin 12.6 g/dL (13.0-16.5); Lymphocyte # 2.87 X10^3/ul (0.83-4.51); Lymphocyte % 39.2 % (19-41); Mean Corp Hgb Conc 31.6 g/dL (32-36); Mean Corpuscular Hgb 27.8 pg (27.0-32.0); Mean Corpuscular Volume 87.9 fL (80-94); Mean Platelet Vol. 10.6 fl (6.2-12.0); Monocyte% 8.2 % (0-10); NRBC Flagged by Analyzer 0 % (0-5); Neutrophil # 3.69 X10^3/uL (2.7-7.7); Neutrophil % 50.3 % (47-70); Platelet Count 197 K/mm3 (150-450); RBC Distribution Width CV 14.5 % (11.6-14.6); RBC Distribution Width SD 46.5 fl (35.1-43.9); Red Blood Count 4.54 M/mm3 (4.6-6.2); White Blood Count 7.3 K/mm3 (4.4-11.0)
[2023-12-07 07:52] VITALS: BP 127/70; PULSE 81; RESP 18; TEMP 36.6; O2SAT 96
[2023-12-07 07:59] LABS: Anion Gap 4 (5-15); BUN 15 mg/dL (7-18); BUN/Creat Ratio 16.6 RATIO (10-20); Calcium,Total 8.1 mg/dL (8.5-10.1); Chloride 103 mmol/L (98-107); Creatinine, Serum 0.91 mg/dL (0.70-1.30); EST Glomerular Filtration Rate 93 mL/min (>60); Est Glom Filt Rate - Afr Amer 113 mL/min (>60); Estimated Creatinine Clearance 127.32 ml/min; Glucose 357 mg/dL (74-106); Potassium 4.1 mmol/L (3.5-5.1); Sodium Level 136 mmol/L (136-145)
[2023-12-07] MEDS: Senna/Docusate Sodium 1 Tablet 2 TABLET PO ×2 (08:04→20:26)
[2023-12-07] MEDS: Insulin Human 75/25 Kwickpen 30 UNIT SC ×3 (08:05→16:53)
[2023-12-07] MEDS: glipiZIDE 10 MG Tablet PO (08:05)
[2023-12-07] MEDS: Insulin Lispro 100 UNIT/ML INSULN.PEN SC ×3 (08:06→16:54)
[2023-12-07 08:15] LABS: Bedside Glucose 282 mg/dL (74-106)
--- NOTE | 2023-12-07 09:38 | PCM.PN.HOSP ---
Subjective Subjective Continues to be in pain with paraspinal muscle tenderness Objective Data Objective Data Vital Signs: Vital Signs Temp Pulse Resp BP Pulse Ox O2 Del Method 97.8 F 81 18 127/70 H 96 Room Air 12/07/23 07:52 12/07/23 07:52 12/07/23 07:52 12/07/23 07:52 12/07/23 07:52 12/07/23 07:52 Oxygen Delivery Method Room Air Weight: 302 lb 4.8 oz Body Mass Index (BMI) 45.9 Intake & Output: Intake and Output for Last 24 Hours 12/06/23 12/07/23 12/08/23 03:59 03:59 03:59 Intake Total 2233.33 / 2233.33 440 / 440 Balance 2233.33 / 2233.33 440 / 440 Lab / Micro Data 12/07/23 06:17 12/07/23 06:17 Labs: Laboratory Results - last 24 hr 12/06/23 11:14: WBC 9.3, RBC 5.37, Hgb 15.0, Hct 46.3, MCV 86.2, MCH 27.9, MCHC 32.4, RDW Std Deviation 45.8 H, RDW Coeff of Jax 14.6, Plt Count 239, MPV 10.2, Immature Gran % (Auto) 0.600, Neut % (Auto) 50.1, Lymph % (Auto) 39.7, [place] % (Auto) 8.1, Eos % (Auto) 1.1, Baso % (Auto) 0.4, Absolute Neuts (auto) 4.7, Absolute Lymphs (auto) 3.69, Nucleated RBC % 0, Sodium 138, Potassium 4.1, Chloride 106, Carbon Dioxide 26.0, Anion Gap 6, BUN 14, Creatinine 1.06, Estim Creat Clear Calc 107.98, Est GFR (MDRD) Af Amer 94, Est GFR (MDRD) Non-Af 78, BUN/Creatinine Ratio 13.2, Glucose 259 H, Calcium 9.2, Total Bilirubin 0.90, Direct Bilirubin 0.26, AST 15, ALT 35, Alkaline Phosphatase 146 H, Troponin I High Sens 17, Total Protein 7.4, Albumin 3.4, Globulin 4.0, Lipase 43 12/06/23 12:30: Urine Color Yellow, Urine Clarity Clear, Urine pH 5.0, Ur Specific Krypton 1.010, Urine Protein 30 H, Urine Glucose (UA) 50 H, Urine Ketones Negative, Urine Occult Blood Negative, Urine Nitrite Negative, Urine Bilirubin Negative, Urine Urobilinogen Normal, Ur Leukocyte Esterase Negative, Urine RBC 0 SEEN, Urine WBC 0 SEEN, Ur Squamous Epith Cells 0 SEEN, Urine Bacteria 0 SEEN, Urine Mucus 0 SEEN 12/06/23 18:09: POC Glucose 225 H 12/06/23 20:09: POC Glucose 301 H 12/07/23 06:17: WBC 7.3, RBC 4.54 L, Hgb 12.6 L, Hct 39.9 L, MCV 87.9, MCH 27.8, MCHC 31.6 L, RDW Std Deviation 46.5 H, RDW Coeff of Jax 14.5, Plt Count 197, MPV 10.6, Immature Gran % (Auto) 0.400, Neut % (Auto) 50.3, Lymph % (Auto) 39.2, [place] % (Auto) 8.2, Eos % (Auto) 1.4, Baso % (Auto) 0.5, Absolute Neuts (auto) 3.7, Absolute Lymphs (auto) 2.87, Nucleated RBC % 0, Sodium 136, Potassium 4.1, Chloride 103, Carbon Dioxide 29.0, Anion Gap 4 L, BUN 15, Creatinine 0.91, Estim Creat Clear Calc 127.32, Est GFR (MDRD) Af Amer 113, Est GFR (MDRD) Non-Af 93, BUN/Creatinine Ratio 16.6, Glucose 357 H, Calcium 8.1 L 12/07/23 07:55: POC Glucose 282 H Radiography Diagnostic Testing: Radiology Impression Chest/Abdomen/Pelvis CTA 12/06/23 11:08 IMPRESSION: No evidence of thoracic or abdominal aortic dissection. Fatty infiltration of the liver. Small gallstones. Small nonobstructive left intrarenal calculus. Normal contrast-enhanced CT of the chest. Normal contrast-enhanced CT of the abdomen and pelvis. Electronically Signed: Fam Ch MD at 11:49 EDT , Lumbar Spine CT 12/06/23 15:04 IMPRESSION: No evidence of acute lumbar spinal fracture or spondylolisthesis. Electronically Signed: Myles Bright MD at 16:45 EDT , Physical Exam Narrative General: Alert, Oriented x3, Cooperative, No apparent distress, morbidly obese HEENT: Atraumatic, PERRLA, EOMI, Normocephalic Oral: Moist Mucosa Neck: Supple, No JVD Lungs: Diminished, Normal air movement, No rhonchi, No wheeze, No rales Cardiovascular: Regular rate, Regular Rhythm, Normal S1, Normal S2, No murmurs Abdomen: Soft, Non Tender, Non-Distended, No Hepato-splenomegaly Extremities: No edema, Capillary Refill Less than 3 Seconds Skin: No rashes, No breakdown Musculoskeletal: Tenderness to left paraspinal muscle palpation Neurological: No focal neurological deficits, Motor Exam 5/5 strength throughout, Sensory exam intact to light touch and pain Psych/Mental Status: Flat, in pain Assessment & Plan Assessment/Plan (1) Intractable pain: PLAN: Plan 1. Intractable paraspinal muscle tenderness and pain ? CT of the lumbar spine was unremarkable for fracture ? CT of the chest as well as of the abdomen and pelvis was negative for any intra-abdominal pathology ? Continue with pain medication ? PT/OT ? If no improvement over the next 24 to 48 hours may need MRI 2. A-fib/essential HTN/HLD ? Blood pressure stable ? Continue with Eliquis ? Continue with his home medications and monitor make adjustments as necessary 3. Hyperthyroidism ? Stable ? Continue with methimazole 4. DM2 ? Continue with sign scale insulin ? Accu-Cheks ACHS ? Will monitor make adjustments as necessary DVT: Eliquis Charges/Coding Visit Charges Inpatient E&M: 47006 Subs Hosp L2
[2023-12-07 10:24] VITALS: PULSE 81
[2023-12-07] MEDS: Metoprolol Tartrate 100 MG Tablet PO ×2 (10:24→20:27)
[2023-12-07] MEDS: Pantoprazole Sodium 40 MG Tablet PO (10:24)
[2023-12-07] MEDS: Methimazole 5 MG Tablet 30 MG PO (10:24)
[2023-12-07] MEDS: dilTIAZem CD 240 MG Capsule PO (10:25)
[2023-12-07] MEDS: Losartan Potassium 100 MG Tablet PO (10:25)
[2023-12-07] MEDS: APIXABAN 5 MG TABLET PO ×2 (10:27→20:27)
[2023-12-07 11:58] LABS: Bedside Glucose 263 mg/dL (74-106)
[2023-12-07 14:47] VITALS: BP 114/77; PULSE 78; RESP 18; TEMP 36.6; O2SAT 96
--- NOTE | 2023-12-07 15:50 | CASEMGMT ---
MILADIS LOVE into pt room as pt nurse stated pt needs assistance with his Free Style Nito. Pt states there is just a shortage of supplies for this and he would like this RN CM to call around to find a pharmacy that has it. He states also that he is on trulicity 4.5mg and there is a national shortage of the drug. This RN CM will try to locate another pharmacy with these items. Pt follows with for endocrinology. Pt reports he is typically I in ADL's at home, does not use AD and denies any homegoing needs other than stated above.
[2023-12-07] MEDS: LORazepam 0.5 MG Tablet PO (16:53)
[2023-12-07 16:58] LABS: Bedside Glucose 275 mg/dL (74-106)
[2023-12-07 20:25] VITALS: BP 142/95; PULSE 89; RESP 16; TEMP 36.6; O2SAT 99
[2023-12-07 20:27] VITALS: BP 142/95; PULSE 89
[2023-12-07] MEDS: Atorvastatin Calcium 40 MG Tablet PO (20:28)
[2023-12-07 21:58] LABS: Bedside Glucose 125 mg/dL (74-106)
[2023-12-08 02:20] VITALS: BP 153/69; PULSE 68; RESP 16; TEMP 36.6; O2SAT 96
[2023-12-08] MEDS: cycloBENZAPRine HCl 10 MG Tablet PO ×2 (04:09→12:06)
[2023-12-08] MEDS: oxyCODONE 5 MG Tablet 10 MG PO ×3 (04:09→12:58)
[2023-12-08] MEDS: Acetaminophen 325 MG Tablet 650 MG PO ×2 (04:10→10:01)
[2023-12-08 08:45] VITALS: BP 122/76; PULSE 80; RESP 18; TEMP 36.2; O2SAT 100
[2023-12-08 08:47] VITALS: PULSE 80
[2023-12-08] MEDS: Metoprolol Tartrate 100 MG Tablet PO (08:47)
[2023-12-08] MEDS: APIXABAN 5 MG TABLET PO (08:47)
[2023-12-08] MEDS: Senna/Docusate Sodium 1 Tablet 2 TABLET PO (08:47)
[2023-12-08] MEDS: dilTIAZem CD 240 MG Capsule PO (08:48)
[2023-12-08] MEDS: Losartan Potassium 100 MG Tablet PO (08:48)
[2023-12-08] MEDS: Pantoprazole Sodium 40 MG Tablet PO (08:48)
[2023-12-08] MEDS: glipiZIDE 10 MG Tablet PO (08:49)
[2023-12-08] MEDS: Methimazole 5 MG Tablet 30 MG PO (08:49)
[2023-12-08 09:11] LABS: Bedside Glucose 128 mg/dL (74-106)
--- NOTE | 2023-12-08 10:58 | PCM.DC ---
Discharge Instructions Diet Discharge Diet: Low fat / Low cholesterol and Carb Control Diet Activity Discharge Activity: Return to Normal Activity Dressing / Incision Call your doctor if you observe: Fever of 101 or Higher, Shortness of breath, Dizziness, Fainting spells, Swelling in the ankles, Chest pain and Increased palpitations (irregular heartbeat) Follow Up Care Test Results: Test results from this visit will be discussed in further detail at your follow-up appointment, if applicable. Discharge Plan Admission Admit Date/Time: 12/06/23 14:49 Attending Provider: Andrew Lynn Primary Care Provider: Karen Xie Consulting Providers: Anastasia Munoz Instructions Additional Instructions / Restrictions: Follow-up with your PCP in 3 to 5 days. Proceed with outpatient physical therapy and may need a repeat attempt of an MRI in the next couple of weeks if pain does not improve. Return to the hospital with you have worsening pain significantly decreased mobility Discharge Orders/Prescriptions Prescriptions: New oxycodone 10 mg tablet 10 mg PO Q4H PRN PRN (Reason: Pain Score 4-10) 3 Days Qty: 15 0RF diazepam [Valium] 2 mg tablet 2 mg PO BID PRN (Reason: Anxiety/back spasm) 3 Days Qty: 10 0RF Continued miscellaneous medical supply Packet 1 packet miscellaneous ONCE Qty: 1 0RF metoprolol tartrate 100 mg tablet 100 mg PO BID Qty: 60 5RF glipizide 10 mg tablet 10 mg PO DAILY Patient Comments: taking 1 tablet normally due to hypglycemia Humalog Mix 50-50 KwikPen 100 unit/mL (50-50) insulin pen 30 unit subcut TID (DME) Accu-Chek Maggi Plus test strp Strip See Rx Instructions .Route Qty: 100 5RF Rx Instructions: two times daily (DME) blood-glucose meter Misc See Rx Instructions .Route Qty: 1 0RF Rx Instructions: As directed (DME) lancets [Accu-Chek Softclix Lancets] Misc See Rx Instructions .Route Qty: 100 5RF Rx Instructions: two times daily (DME) pen needle, diabetic [BD Ultra-Fine Orig Pen Needle] 29 gauge x 1/2 needle See Rx Instructions .Route Qty: 100 0RF Rx Instructions: two times daily sennosides-docusate sodium [Stool Softener-Stimulant Laxat] 8.6-50 mg tablet 2 tab PO BID PRN PRN (Reason: Constipation) Qty: 30 0RF Rx Instructions: OTC methimazole 10 mg tablet 30 mg PO DAILY Qty: 90 4RF Trulicity 4.5 mg/0.5 mL pen injector 4.5 mg subcut QWEEK Qty: 2 5RF (DME) pen needle, diabetic [BD Ultra-Fine Mily Pen Needle] 32 gauge x 5/32 needle See Rx Instructions .ROUTE .MEDSUPPLY Qty: 100 8RF Rx Instructions: tid (DME) FreeStyle Nito 3 Sensor Device See Rx Instructions .Route Qty: 2 6RF Rx Instructions: change every 14 days diltiazem HCl 240 mg capsule,extended release 24hr 240 mg PO DAILY Qty: 30 1RF Eliquis 5 mg tablet 5 mg PO BID Qty: 60 1RF losartan 100 mg tablet 100 mg PO DAILY Qty: 30 1RF atorvastatin 40 mg tablet 40 mg PO QHS Qty: 30 1RF pantoprazole [Protonix] 40 mg tablet,delayed release (DR/EC) 40 mg PO DAILY Qty: 30 1RF Referrals / Follow Up: Karen Xie MD [Primary Care Provider] - Within 1 Week Disposition Disposition (needs filled in before D/C Order can be placed): Home, Self Care
--- NOTE | 2023-12-08 11:19 | CASEMGMT ---
Addendum entered by Meri Bates 12/08/23 11:50: Hospitalist made MILADIS LOVE aware that he would like pt to have outpt PT to facilitate a MRI. MILADIS LOVE into pt room, pt is agreeable to this. Provided pt with a rx for outpt PT and discussed options of facilities. Pt verbalized understanding and would like to set this up on his own. Pt denies further needs. Original Note: MILADIS LOVE called multiple pharmacies and trulicity 4.5 is on backorder as there is a shortage with unknown date to be back in stock. TC to [facility] and they do carry Free Style Nito BGM with supplies. MILADIS LOVE into pt room to make aware of this. Pt denies any further homegoing needs at this time.
[2023-12-08 11:39] LABS: Bedside Glucose 180 mg/dL (74-106)
[2023-12-08 12:55] VITALS: BP 124/75; PULSE 74; RESP 18; TEMP 36.3; O2SAT 96
[2023-12-08] MEDS: Insulin Human 75/25 Kwickpen 30 UNIT SC (12:58)
--- NOTE | 2023-12-08 15:28 | PCM.DC.SUM ---
Providers Date of Admission: 12/06/23 Primary Care Physician: Dr. Karen Xie MD Reason For Visit: INTRACTABLE FLANK AND BACK PAIN Diagnosis Discharge Diagnosis (1) Intractable pain: Status: Acute Code(s): R52 - Pain, unspecified Medications at Discharge Home Medications miscellaneous medical supply 1 packet miscellaneous ONCE #1 ea 09/05/23 blood sugar diagnostic (Accu-Chek Maggi Plus test strips) #100 ea 09/26/23 blood-glucose meter #1 ea 09/26/23 lancets (Accu-Chek Softclix Lancets) #100 ea 09/26/23 metoprolol tartrate 100 mg tablet 100 mg PO BID #60 tabs 09/26/23 pen needle, diabetic 29 gauge x 1/2 (BD Ultra-Fine Original Pen Needle) #100 ea 09/26/23 sennosides 8.6 mg-docusate sodium 50 mg tablet (Stool Softener-Stimulant Laxative) 2 tab PO BID PRN PRN Constipation #30 tabs 09/26/23 FreeStyle Nito 3 Sensor (blood-glucose sensor) #2 ea 11/01/23 Trulicity 4.5 mg/0.5 mL subcutaneous pen injector (dulaglutide) 4.5 mg (0.5 mL) subcut QWEEK #2 mL 11/01/23 methimazole 10 mg tablet 30 mg (3 x 10 mg) PO DAILY thyroid #90 tabs 11/01/23 pen needle, diabetic 32 gauge x 5/32 (BD Ultra-Fine Mily Pen Needle) #100 ea 11/01/23 apixaban 5 mg tablet (Eliquis) 5 mg PO BID #60 tabs 12/03/23 atorvastatin 40 mg tablet 40 mg PO QHS #30 tabs 12/03/23 diltiazem HCl 240 mg capsule,extended release 24 hr 240 mg PO DAILY #30 caps 12/03/23 losartan 100 mg tablet 100 mg PO DAILY #30 tabs 12/03/23 pantoprazole 40 mg tablet,delayed release (Protonix) 40 mg PO DAILY #30 tabs 12/03/23 glipizide 10 mg tablet 10 mg PO DAILY diabetes mellitus 12/06/23 insulin lispro protamine-lispro 100 unit/mL (50-50) subcutaneous pen (Humalog Mix 50-50 KwikPen) 30 unit subcut TID diabetes 12/06/23 diazepam 2 mg tablet (Valium) 2 mg PO BID PRN Anxiety/back spasm 3 days #10 tabs 12/08/23 oxycodone 10 mg tablet 10 mg PO Q4H PRN PRN Pain Score 4-10 3 days #15 tabs 12/08/23 Hospital Course Operations None Procedures None Summary of Care Provided Minutes Spent on Discharge: 33 Hospital Course: Per HPI: DEDE SCHWARTZ, is a 53 M with a PMH as outlined who presents via the ED on 12/06/2023 with a complaint of flank pain. He started having upper back pain the day before admission, and subsequently had the acute flank pain which then moved to his lower back and which has persisted and worsened. HE denied any urinary infections, any fever, chills, chest pain, palpitations, dizziness, nausea, vomiting or any other symptoms. His back pain was intractable and not relieved by pain meds. Review of systems was otherwise negative. Vitals in the ED were BP of 143/75, UT of 82, RR of 16 and oxygen sats of 95% on room air. CBC showed hb of 15, wbc of 9.3, platelets of 239. Chemistry shows sodium of 138 with potassium of 4.1 and bicarb of 26. Creatinine was 1.06. Liver enzymes were normal apart from ALP which was slightly elevated at 146. Total protein was 7.4 and albumin was 3.4. Urinalysis showed no evidence of UTI. CTA of the chest along with CT of the abdomen and pelvis with contrast showed no evidence of thoracic or abdominal aortic dissection and fat infiltration of the liver with small gallstones and small nonobstructive left intrarenal calculus. Imaging was otherwise normal. Patient is being admitted to be managed for intractable flank and lower back pain. Hospital Course: 1. Intractable paraspinal muscle tenderness and pain?53-year-old male presented with left-sided paraspinal muscle tenderness and pain. Denies any direct trauma to his back but presented to the hospital for evaluation and treatment. He did have some improvement with pain medications and because he was having some pain with straight leg raise I ordered an MRI. Unfortunately he was unable to lie flat or still for the MRI so this cannot get done. I discussed with him the possibility of staying a couple more days with physical therapy or going home and doing outpatient physical therapy and potentially obtaining an MRI as an outpatient when he is able to lay flat a little bit better. He expressed understanding of the risk benefits of going home and chose to go home today. Will continue with Valium as he does suffer from anxiety and this can also help with muscle spasms as well as pain medication and till he can see his PCP. 2. A-fib, essential hypertension, hyperlipidemia, hypothyroidism, type 2 diabetes chronic medical conditions which complicate his care. His home medications were continued where appropriate. Physical Exam Narrative General: Alert, Oriented x3, Cooperative, No apparent distress, morbidly obese HEENT: Atraumatic, PERRLA, EOMI, Normocephalic Oral: Moist Mucosa Neck: Supple, No JVD Lungs: Diminished, Normal air movement, No rhonchi, No wheeze, No rales Cardiovascular: Regular rate, Regular Rhythm, Normal S1, Normal S2, No murmurs Abdomen: Soft, Non Tender, Non-Distended, No Hepato-splenomegaly Extremities: No edema, Capillary Refill Less than 3 Seconds Skin: No rashes, No breakdown Musculoskeletal: Tenderness to left paraspinal muscle palpation Neurological: No focal neurological deficits, Motor Exam 5/5 strength throughout, Sensory exam intact to light touch and pain Psych/Mental Status: Flat, in pain Weight / BMI Weight Weight: 302 lb 4.8 oz Body Mass Index (BMI) 45.9 ABG / Lab / Microbiology Data 12/07/23 06:17 12/07/23 06:17 Laboratory: Laboratory Results - last 24 hr 12/07/23 16:32: POC Glucose 275 H 12/07/23 21:39: POC Glucose 125 H 12/08/23 08:40: POC Glucose 128 H 12/08/23 11:22: POC Glucose 180 H D/C Instructions Discharge Diet: Low fat / Low cholesterol and Carb Control Diet Call your doctor if you observe: Fever of 101 or Higher, Shortness of breath, Dizziness, Fainting spells, Swelling in the ankles, Chest pain and Increased palpitations (irregular heartbeat) Meaningful Use Info Meaningful Use Meaningful Use Diagnoses (Choose all that apply): None applicable Ischemic Stroke Statin Dosing Therapy Reference: STATIN DOSE THERAPY REFERENCE: * Patients > 75 years receive moderate or high dose statin therapy. * Patients 75 years or YOUNGER should receive HIGH intensity statin dose unless contraindicated. You will be required to document reason for non-treatment if statin daily dose does not meet guidelines. HIGH DOSE STATIN THERAPY DAILY Atorvastatin > than or = to 40 mg Rosuvastatin > than or = to 20 mg Amlodipine + Atorvastatin > than or = to 2.5/40 mg Ezetimibe + Simvastatin 10/80 mg Simvastatin 80mg Discharge Plan Admission Admit Date/Time: 12/06/23 14:49 Attending Provider: Andrew Lynn Primary Care Provider: Karen Xie Consulting Providers: Anastasia Munoz Instructions Additional Instructions / Restrictions: Follow-up with your PCP in 3 to 5 days. Proceed with outpatient physical therapy and may need a repeat attempt of an MRI in the next couple of weeks if pain does not improve. Return to the hospital with you have worsening pain significantly decreased mobility Discharge Orders/Prescriptions Prescriptions: New oxycodone 10 mg tablet 10 mg PO Q4H PRN PRN (Reason: Pain Score 4-10) 3 Days Qty: 15 0RF diazepam [Valium] 2 mg tablet 2 mg PO BID PRN (Reason: Anxiety/back spasm) 3 Days Qty: 10 0RF Continued miscellaneous medical supply Packet 1 packet miscellaneous ONCE Qty: 1 0RF metoprolol tartrate 100 mg tablet 100 mg PO BID Qty: 60 5RF glipizide 10 mg tablet 10 mg PO DAILY Patient Comments: taking 1 tablet normally due to hypglycemia Humalog Mix 50-50 KwikPen 100 unit/mL (50-50) insulin pen 30 unit subcut TID (DME) Accu-Chek Maggi Plus test strp Strip See Rx Instructions .Route Qty: 100 5RF Rx Instructions: two times daily (DME) blood-glucose meter Misc See Rx Instructions .Route Qty: 1 0RF Rx Instructions: As directed (DME) lancets [Accu-Chek Softclix Lancets] Misc See Rx Instructions .Route Qty: 100 5RF Rx Instructions: two times daily (DME) pen needle, diabetic [BD Ultra-Fine Orig Pen Needle] 29 gauge x 1/2 needle See Rx Instructions .Route Qty: 100 0RF Rx Instructions: two times daily sennosides-docusate sodium [Stool Softener-Stimulant Laxat] 8.6-50 mg tablet 2 tab PO BID PRN PRN (Reason: Constipation) Qty: 30 0RF Rx Instructions: OTC methimazole 10 mg tablet 30 mg PO DAILY Qty: 90 4RF Trulicity 4.5 mg/0.5 mL pen injector 4.5 mg subcut QWEEK Qty: 2 5RF (DME) pen needle, diabetic [BD Ultra-Fine Mily Pen Needle] 32 gauge x 5/32 needle See Rx Instructions .ROUTE .MEDSUPPLY Qty: 100 8RF Rx Instructions: tid (DME) FreeStyle Nito 3 Sensor Device See Rx Instructions .Route Qty: 2 6RF Rx Instructions: change every 14 days diltiazem HCl 240 mg capsule,extended release 24hr 240 mg PO DAILY Qty: 30 1RF Eliquis 5 mg tablet 5 mg PO BID Qty: 60 1RF losartan 100 mg tablet 100 mg PO DAILY Qty: 30 1RF atorvastatin 40 mg tablet 40 mg PO QHS Qty: 30 1RF pantoprazole [Protonix] 40 mg tablet,delayed release (DR/EC) 40 mg PO DAILY Qty: 30 1RF Referrals / Follow Up: Karen Xie MD [Primary Care Provider] - Within 1 Week Disposition Disposition (needs filled in before D/C Order can be placed): Home, Self Care Charges/Coding Visit Charges Inpatient E&M: 37268 Disch Hosp >30min
== END 2023-12-08 13:19 | disposition home or self-care (01) ==
LOC: ED 11:32 → MS3 16:07
PROVIDERS: Admitting Provider Student in an Organized Health Care Education/Training Program; Emergency Provider Student in an Organized Health Care Education/Training Program; PCP Internal Medicine; Visit Provider Family Medicine
DX: M54.89 Other dorsalgia (principal); I11.0 Hypertensive heart disease with heart failure; I50.22 Chronic systolic (congestive) heart failure; I48.91 Unspecified atrial fibrillation; I42.8 Other cardiomyopathies; Z79.4 Long term (current) use of insulin; E11.9 Type 2 diabetes mellitus without complications; Z79.01 Long term (current) use of anticoagulants; R11.2 Nausea with vomiting, unspecified; M62.838 Other muscle spasm; Z87.891 Personal history of nicotine dependence; E78.5 Hyperlipidemia, unspecified; Z79.899 Other long term (current) drug therapy; E05.90 Thyrotoxicosis, unspecified without thyrotoxic crisis or storm
CPT/HCPCS: 36415; 71275; 72131; 74174; 80048; 80076; 81001; 82962; 83690; 84484; 85025; 96361; 96372; 96374; 96375; 96376; 97162; 97165; 99221; 99285; J7030; Q9967; A4216; G0378; J2405

== ENCOUNTER 2023-12-18 14:32 | Inpatient (IN) | payer MEDICAID, SELFPAY ==
[2023-12-18] VITALS (22 sets, daily range): BP systolic 128–185; BP diastolic 53–99; PULSE 70–103; RESP 16–24; TEMP 36.2–36.9; O2SAT 91–99; BMI 45.7; BMI 47.6
--- NOTE | 2023-12-18 | GALL_PTH ---
PATIENT: DEDE SCHWARTZ LOC: MS3 U#:[id number] AGE/SX: 53/M ROOM: [facility] RE12/20/[address]: Dr. Jovany Rivas MD : 1970 BED: 1 DIS: 12/21/2023 SPEC #: [id number] RECD: 12/18/23 13:50 STATUS: ROSARIO CONNOR #: [id number] SHAW: 12/18/23 00:[address]: Jovany Rivas DEPT: SURGICAL PATHOLOGY RECD BY: Anoop Treviño ENTERED: 12/18/23 13:50 SP TYPE: VIKRAM FOSTER DR: Dr. Karen Xie MD Tissues: Gallbladder, NOS Procedures: Surgery Specimen Level III HEADER OPERATION: Laparoscopic, cholecystectomy PRE-OP DIAGNOSIS: Acute cholecystitis TISSUE SUBMITTED: Gallbladder MICROSCOPIC DIAGNOSIS Gallbladder, cholecystectomy: Cholesterolosis and chronic cholecystitis. AM/mr 12/19/2023 MICROSCOPIC DESCRIPTION Slides are reviewed. GROSS DESCRIPTION Received is one container labeled with the patient's name and designated gallbladder. The specimen consists of a gallbladder measuring 9.8 x 3.5 x 2.0 cm. The external surface is smooth and glistening. Focally, it is granular, hemorrhagic and contains cautery artifact. The lumen of the gallbladder contains greenish mucoid bile. No calculi are identified. The mucosa is bile-stained and without any mass lesions. The gallbladder wall averages 0.3 cm in thickness and is free of mass lesions. [employer] sections of the gallbladder and the cystic duct at margin of resection are submitted in one cassette. / AM: 12/18/2023 TC:3 CPT: 27171
--- NOTE | 2023-12-18 07:48 | EKG12_ITS ---
Test Reason : CHEST PAIN Blood Pressure : / mmHG Vent. Rate : 086 BPM Atrial Rate : 086 BPM P-R Int : 196 ms QRS Dur : 090 ms QT Int : 380 ms P-R-T Axes : 041 -24 005 degrees QTc Int : 454 ms Normal sinus rhythm Possible Anterior infarct (cited on or before 31-AUG-2023) Abnormal ECG Confirmed by Antonino Fox ([id number]), design editor SASCHA PARKS ([id number]) on 12/20/2023 8:58:19 AM Referred By: Jovany Rivas Confirmed By:Antonino Fox
[2023-12-18 08:16] LABS: Bedside Glucose 108 mg/dL (74-106)
[2023-12-18] MEDS: Lactated Ringers 1,000 ML 15 ML IV (08:18)
--- NOTE | 2023-12-18 08:38 | PCM.HP.BLA ---
History and Physical Date of Admission: 12/18/23 Intake Vital Signs 11/21/2413:48 12/06/2415:53 12/12/2407:04 Height 5 ft 8 in 5 ft 8 in 5 ft 8 in Weight: 304 lb 6 oz BMI 46.3 BP 162/88 H Blood Pressure Location Rt brachial Position Sitting Respiration 18 Pulse 112 H Pulse Source Monitor Temp 97.3 F L Temp Source Temporal Pulse Oximetry (%) 97 Oxygen Delivery Method room air Intake Visit Reasons: RUQ PAIN Chief Complaint: RUQ pain Is patient in pain?: Yes Allergies Penicillins Allergy (Verified 12/12/23 08:06) Hivesempagliflozin (From [employer]) Adverse Reaction (Unknown, Verified 12/12/23 08:06) Vision Changes Medications ?Medication ?Instructions ?Recorded ?Confirmed ?Type miscellaneous medical supply 1 packet miscellaneous ONCE #1 ea 09/05/23 12/12/23 Rx blood sugar diagnostic (Accu-Chek #100 ea 09/26/23 12/12/23 Rx Maggi Plus test strips) blood-glucose meter #1 ea 09/26/23 12/12/23 Rx lancets (Accu-Chek Softclix #100 ea 09/26/23 12/12/23 Rx Lancets) metoprolol tartrate 100 mg tablet 100 mg PO BID #60 tabs 09/26/23 12/12/23 Rx pen needle, diabetic 29 gauge x #100 ea 09/26/23 12/12/23 Rx 1/2 (BD Ultra-Fine Original Pen Needle) sennosides 8.6 mg-docusate sodium 2 tab PO BID PRN PRN Constipation 09/26/23 12/12/23 Rx 50 mg tablet (Stool #30 tabs Softener-Stimulant Laxative) FreeStyle Nito 3 Sensor #2 ea 11/01/23 12/12/23 Rx (blood-glucose sensor) Trulicity 4.5 mg/0.5 mL 4.5 mg (0.5 mL) subcut QWEEK #2 mL 11/01/23 12/12/23 Rx subcutaneous pen injector (dulaglutide) methimazole 10 mg tablet 30 mg (3 x 10 mg) PO DAILY thyroid 11/01/23 12/12/23 Rx #90 tabs pen needle, diabetic 32 gauge x #100 ea 11/01/23 12/12/23 Rx (BD Ultra-Fine Mily Pen Needle) apixaban 5 mg tablet (Eliquis) 5 mg PO BID #60 tabs 12/03/23 12/12/23 Rx atorvastatin 40 mg tablet 40 mg PO QHS #30 tabs 12/03/23 12/12/23 Rx diltiazem HCl 240 mg 240 mg PO DAILY #30 caps 12/03/23 12/12/23 Rx capsule,extended release 24 hr losartan 100 mg tablet 100 mg PO DAILY #30 tabs 12/03/23 12/12/23 Rx pantoprazole 40 mg tablet,delayed 40 mg PO DAILY #30 tabs 12/03/23 12/12/23 Rx release (Protonix) glipizide 10 mg tablet 10 mg PO DAILY diabetes mellitus 12/06/23 12/12/23 History insulin lispro protamine-lispro 30 unit subcut TID diabetes 12/06/23 12/12/23 History 100 unit/mL (50-50) subcutaneous pen (Humalog Mix 50-50 KwikPen) diazepam 2 mg tablet (Valium) 2 mg PO BID PRN Anxiety/back spasm 12/08/23 12/12/23 Rx 3 days #10 tabs oxycodone 10 mg tablet 10 mg PO Q4H PRN PRN Pain Score 12/12/23 12/12/23 Rx 4-10 5 days #20 tabs PFSH Medical History HFrEF (heart failure with reduced ejection fraction) Hyperglycemia Atrial fibrillation with RVR Recurrent chest pain Nonischemic cardiomyopathy Hyperthyroidism Atrial fibrillation Suspected sleep apnea Intertriginous dermatitis associated with moisture Obesity Type 2 diabetes mellitus Non-healing surgical wound of right groin Diabetes Hypertension Physical exam, pre-employment Surgical History Status post incision and drainage S/P debridement H/O right wrist surgery Family History Grandfather Heart disease Social History household members: none housing: apartment number of children: 1 current occupational status: unemployed Smoking Status: Former smoker quit date: 11/28/22 pack-years: 20 Tobacco: How many years used: 25 Electronic Cigarette Use: not used alcohol intake: current alcohol intake frequency: holidays/special occasions only substance use type: does not use what type of physical activity do you participate in: none do you feel safe at home: Yes HPI HPI HPI: Patient is a 53-year-old male here for right upper quadrant pain. He has been having gallbladder issues for 3 years. He has multiple stones and went into A-fib this past winter and had to be put on Eliquis. He also had thyroid issues that he is now under control. He is still having right upper quadrant pain which happens a few times a week. He says it hurts after eating. He says he does not have any fevers or chills or nausea or vomiting. The pain radiates to the back. ROS General General: Yes fatigue; No weight change, appetite, colon cancer, breast cancer or weakness HEENT HEENT: No difficulty swallowing, eye injury, eye surgery, swollen glands or hoarseness Endo Endocrine: Yes thyroid disease and diabetes mellitus; No thyroid cancer, Hair loss, heat intolerance or cold intolerance Skin Skin: No rash or changing moles Musc Musculoskeletal: Yes back problems; No arthritis, rheumatoid arthritis, gout or joint pain Cardio Cardiovascular: Yes atrial fibrillation and high blood pressure; No murmur, pacemaker, heart disease, heart attack, heart stent, palpitations, shortness of breat with exertion or chest pain Psych Psychiatric: Yes depression and anxiety; No hearing voices Resp Respiratory: Yes shortness of breath, No sleep apnea, No cough, No COPD, No asthma, No emphysema and No wheezing Gastro Gastrointestinal: Yes abdominal pain, No nausea or vomiting, No diarrhea, Yes constipation, No blood in stool, No acid reflux, Yes hemorrhoids, No ulcers, Yes gallbladder problem and No black,tarry stools Say Hematologic: Yes blood thinners Additional Details: eliquis Neuro Neurologic: No weakness Exam Const General: cooperative Orientation: alert and oriented x3 HENMT Head: normal to inspection Neck Neck: normal visual inspection and full ROM Chest Chest palpation & inspection: normal inspection of the chest Resp Effort & Inspection: normal respiratory effort Auscultation: clear to auscultation bilaterally Cardio Rate: regular rate Rhythm: regular rhythm GI Inspection: non-distended Palpation: soft and tender in the RUQ Skin General: no rashes or lesions noted Neuro General: patient alert and patient oriented x3 Extrem General: full ROM Psych Appearance: grossly normal Mental Status: mental status grossly normal Assessment and Plan Assessment and Plan (1) Cholelithiasis: Status: Inactive Qualifiers: Cholelithiasis location: gallbladder Cholecystitis presence: with cholecystitis Cholecystitis acuity: unspecified acuity Biliary obstruction: without biliary obstruction Qualified Code(s): K80.10 - Calculus of gallbladder with chronic cholecystitis without obstruction Plan: I discussed laparoscopic cholecystectomy with the patient in detail. I discussed the procedure in detail with the patient. I discussed the risks, benefits, and alternatives of the procedure. I discussed the risks including but not limited to bleeding, infection, injury to surrounding organs such as the liver, bile duct, bowels. I did discuss the possibility of having to convert to an open procedure as well as the possibility that if any injuries occurred this may necessitate further surgery at a tertiary care center. I will give the patient pain medication to get him to surgery next week I have him scheduled for Monday. If he cannot make it to Monday or the pain gets worse or if he develops fevers or chills or nausea or vomiting he should come to the emergency room. I will also have him stop his Eliquis 2 days before surgery. Jovany Rivas MD Pager: [facility] [address], [place] [address] Office: I have examined the patient and the H&P has been reviewed. The patient says that over the weekend he developed right lower quadrant pain. He says that it was worse in the right upper quadrant pain. He said that he almost came to the emergency room but waited until today. He says today the pain is more in his right upper quadrant than lower. I explained that I would evaluate his appendix during surgery and remove it if it appeared to be acute appendicitis. Jovany Rivas MD Pager: [facility] [address] [place] [address], [address] [id number] Office:
[2023-12-18] MEDS: Clindamycin 900 MG/50 ML BAG 75 MG IV (09:38)
[2023-12-18] MEDS: Bupivacaine Mpf 0.5% 30 ML VIAL (11:01)
--- NOTE | 2023-12-18 11:06 | OP.PCM_ITS ---
Report of Operation Date of Procedure: 12/18/23 Pre-Operative Diagnosis: Cholelithiasis and chronic cholecystitis Post-Operative Diagnosis: Same Surgery/Procedure Performed:: Laparoscopic cholecystectomy Type of Anesthesia: General/Regional Specimen's removed: Gallbladder Estimated Blood Loss (mL): 50 Description of Procedure: After obtaining informed consent patient was brought back to the operating room. General anesthesia was induced. The abdomen was prepped and draped in usual sterile fashion. A small midline incision was made superior to the umbilicus and deepened to the level of fascia. The fascia was elevated and incised. Next the peritoneum was elevated and incised in the same fashion. Finger sweep was performed and the Garcia trocar was placed into the abdomen. The balloon was inflated. The abdomen was inflated to 15 mmHg. Next a camera was introduced into the abdomen and the abdomen was inspected. Next under direct visualization three 5-mm ports were placed one subxiphoid and 2 subcostal. Next the gallbladder was elevated and retracted toward the right shoulder. The peritoneum was stripped from the gallbladder. The infundibulum was located and retracted laterally. Next the triangle of Calot was dissected and the cystic duct and cystic artery were identified. Cholangiograms were attempted. The Santamaria clamp was unable to seal onto the gallbladder. The area behind the gallbladder was dissected free further and there was a good visualization of the cystic duct and artery. The clamp was removed as well as the needle and the infundibulum was grasped once more. Three hemolock clips were placed across the cystic duct. The cystic duct was then divided leaving 2 clips on the stump. The cystic artery was clipped and divided in the same fashion. The hook cautery was then used to take the gallbladder off of the gallbladder bed. Hemostasis was obtained. Gallbladder fossa was irrigated and no active bleeding or bile leakage was noted. Next the camera was introduced in the subxiphoid port. An Endopouch bag was placed through the umbilical port and the gallbladder was placed into it. The gallbladder was then removed through the umbilical incision. The camera was then reinserted through the umbilical port. The gallbladder fossa was inspected once more and noted to be hemostatic with no leaking bile. The abdomen was suctioned dry. The 5 mm ports were removed under direct visualization. The umbilical port was then removed and the air was removed from the abdomen. Next using an 0 Vicryl suture the umbilical fascia was closed in a [id number]-de-[id number] fashion. The umbilical port site was irrigated local anesthetic was administered to all the incisions. All the incisions were closed with interrupted subcuticular 4-0 Monocryl sutures followed by Steri- Strips and dressings. The patient was awoken and taken to PACU in stable condition. Admit VTE Documentation VTE Mechan Device Prophylaxis: SCD's
--- NOTE | 2023-12-18 11:08 | EX.PCM.DISCH ---
Discharge Instructions Procedure Gallbladder Diet Discharge Diet: Light diet - advance as tolerated Activity Discharge Activity: May Not Drive (for 2-3 days or while taking narcotic pain medications.) and - (Do not drive, work heavy equipment or sign legal documents for 24 hours.) May shower in (days): 1 Lifting Restrictions: 20 lbs for 2 weeks Additional Activity Instructions:: Pain medication may cause nausea. You should typically eat light foods as you take your pain medications. Pain medication may also cause constipation. If this is a problem for you, please discuss with your doctor. Ibuprofen and Tylenol alternating for pain, oxycodone for breakthrough pain Resume Eliquis on Monday Dressing / Incision Call your doctor if your incision/area has: Continuous Slow Oozing, Sudden Increased Bleeding, Increased Pain/ Swelling, Increased Redness and Foul Smelling Discharge Call your doctor if you observe: Fever of 101 or Higher Suture Line Care: Avoid Pulling/Pushing and Avoid Pinching/Bending Remove Dressing in: 2 days Additional Dressing/Incision Instructions:: Leave operative bandaids on for 2 days. When you remove dressing, leave Steri-Strips on until your follow-up appointment, or until the Steri-Strips fall off on their own. Follow Up Care Please Follow Up With: Jovany Riavs MD When: Please call to schedule 2 week follow up appointment. [phone] Test Results: Test results from this visit will be discussed in further detail at your follow-up appointment, if applicable. Discharge Plan Admission Attending Provider: Jovany Rivas Primary Care Provider: Karen Xie Instructions Print Language: Occitan Discharge Orders/Prescriptions Prescriptions: New oxycodone 5 mg tablet 5 - 10 mg PO Q6H PRN (Reason: pain) 5 Days Qty: 20 0RF Continued metoprolol tartrate 100 mg tablet 100 mg PO BID Qty: 60 5RF glipizide 10 mg tablet 10 mg PO DAILY Patient Comments: taking 1 tablet normally due to hypglycemia Humalog Mix 50-50 KwikPen 100 unit/mL (50-50) insulin pen 30 unit subcut TID Trulicity 3 mg/0.5 mL pen injector 3 mg subcut QWEEK (DME) Accu-Chek Maggi Plus test strp Strip See Rx Instructions .Route Qty: 100 5RF Rx Instructions: two times daily (DME) blood-glucose meter Misc See Rx Instructions .Route Qty: 1 0RF Rx Instructions: As directed (DME) lancets [Accu-Chek Softclix Lancets] Misc See Rx Instructions .Route Qty: 100 5RF Rx Instructions: two times daily (DME) pen needle, diabetic [BD Ultra-Fine Orig Pen Needle] 29 gauge x 1/2 needle See Rx Instructions .Route Qty: 100 0RF Rx Instructions: two times daily sennosides-docusate sodium [Stool Softener-Stimulant Laxat] 8.6-50 mg tablet 2 tab PO BID PRN PRN (Reason: Constipation) Qty: 30 0RF Rx Instructions: OTC methimazole 10 mg tablet 30 mg PO DAILY Qty: 90 4RF (DME) pen needle, diabetic [BD Ultra-Fine Mily Pen Needle] 32 gauge x needle See Rx Instructions .ROUTE .MEDSUPPLY Qty: 100 8RF Rx Instructions: tid diltiazem HCl 240 mg capsule,extended release 24hr 240 mg PO DAILY Qty: 30 1RF Eliquis 5 mg tablet 5 mg PO BID Qty: 60 1RF losartan 100 mg tablet 100 mg PO DAILY Qty: 30 1RF atorvastatin 40 mg tablet 40 mg PO QHS Qty: 30 1RF pantoprazole [Protonix] 40 mg tablet,delayed release (DR/EC) 40 mg PO DAILY Qty: 30 1RF (DME) FreeStyle Nito 3 Sensor Device See Rx Instructions .Route Qty: 2 6RF Rx Instructions: change every 14 days Other Ambulatory Orders: Hemoglobin A1c (Routine) Timeframe: 20231214 Facility: [facility] - Location: Laboratory Ordered By: Dr. Andrea Holt Glucose (Routine) Timeframe: 20231214 Facility: [facility] - Location: Laboratory Ordered By: Dr. Andrea Holt Referrals / Follow Up: Karen Xie MD [Primary Care Provider] - Disposition Disposition (needs filled in before D/C Order can be placed): Home, Self Care
--- NOTE | 2023-12-18 13:00 | SDCEKG_ITS ---
Test Reason : POSTOP Blood Pressure : / mmHG Vent. Rate : 091 BPM Atrial Rate : 091 BPM P-R Int : 198 ms QRS Dur : 086 ms QT Int : 366 ms P-R-T Axes : 046 -08 020 degrees QTc Int : 450 ms Normal sinus rhythm Possible Anterior infarct , age undetermined Abnormal ECG When compared with ECG of 18-DEC-2023 08:01, MANUAL COMPARISON REQUIRED, DATA IS UNCONFIRMED Confirmed by Antonino Fox ([id number]), publication editor SASCHA PARKS ([id number]) on 12/20/2023 8:59:28 AM Referred By: Jovany Rivas Confirmed By:Antonino Fox
--- NOTE | 2023-12-18 14:06 | SUR.PHASEI ---
AT APPROXIMATELY 12:45, I SPOKE WITH DR Candice JOSHI REGARDING THE PATIENT'S COTINUING ABDOMINAL PAIN THAT HAS NOT BEEN RELIEVED WITH DILAUDID 1.5 MG IV TOTAL, FENTANYL 100 MCG IV TOTAL, ATIVAN 1 MG IV TOTAL, DEMEROL [address] Candice JOSHI SPOKE WITH PATIENT AND ORDER EKG STAT
--- NOTE | 2023-12-18 14:10 | SUR.PHASEI ---
AT 13:20, DR Candice JOSHI SPOKE WITH DR CONTI AND UPDATED HIM ON THE PATIENT'S STATUS. DR CONTI INSTRUCTED THE NURSE TO GIVE THE PATIENT OXYCODONE 10 MG PO AND TYLENOL 650 MG PO.
[2023-12-18 14:23] LABS: Bedside Glucose 274 mg/dL (74-106)
[2023-12-18] MEDS: Morphine 2 MG/ML Syringe IV ×2 (16:06→18:16)
[2023-12-18] MEDS: 0.9% Normal Saline (1000mL) 1,000 ML 100 ML IV (16:07)
[2023-12-18 16:19] LABS: Absolute Lymphocyte Count 1.46 X10^3/uL (0.83-4.51); Absolute Neutrophil Count 9.6 X10^3/uL (2.0-7.7); Basophil# 0.02 X10^3/uL; Basophil% 0.2 % (0-1); Eosinophil# 0.01 X10^3/uL; Eosinophils% 0.1 % (0-5); Hematocrit 42.7 % (40-54); Hemoglobin 13.9 g/dL (13.0-16.5); Lymphocyte # 1.46 X10^3/ul (0.83-4.51); Lymphocyte % 12.2 % (19-41); Mean Corp Hgb Conc 32.6 g/dL (32-36); Mean Corpuscular Volume 85.9 fL (80-94); Mean Platelet Vol. 10.2 fl (6.2-12.0); Monocyte# 0.81 X10^3/uL; Monocyte% 6.8 % (0-10); NRBC Flagged by Analyzer 0 % (0-5); Neutrophil # 9.58 X10^3/uL (2.7-7.7); Neutrophil % 80.4 % (47-70); Platelet Count 241 K/mm3 (150-450); RBC Distribution Width CV 14.7 % (11.6-14.6); RBC Distribution Width SD 46.3 fl (35.1-43.9); Red Blood Count 4.97 M/mm3 (4.6-6.2); White Blood Count 11.9 K/mm3 (4.4-11.0)
[2023-12-18 17:13] LABS: ALB/GLOB Ratio 0.9 RATIO (0.9-2.4); AST(SGOT) 129 U/L (15-37); Alanine Aminotransfer ALT/SGPT 146 U/L (16-61); Albumin, Serum 3.4 g/dL (3.2-5.0); Alkaline Phosphatase 129 U/L (45-117); Anion Gap 6 (5-15); BUN 14 mg/dL (7-18); BUN/Creat Ratio 13.5 RATIO (10-20); Chloride 101 mmol/L (98-107); Creatinine, Serum 1.04 mg/dL (0.70-1.30); EST Glomerular Filtration Rate 79 mL/min (>60); Est Glom Filt Rate - Afr Amer 96 mL/min (>60); Estimated Creatinine Clearance 113.71 ml/min; Globulin 3.8 g/dL (2.2-4.2); Glucose 286 mg/dL (74-106); Potassium 4.2 mmol/L (3.5-5.1); Protein, Total 7.2 g/dL (6.4-8.2); Sodium Level 133 mmol/L (136-145); Troponin-I HS 11 pg/mL (3.0-78.0)
[2023-12-18] MEDS: Acetaminophen 325 MG Tablet 650 MG PO ×2 (17:34→23:46)
[2023-12-18] MEDS: oxyCODONE 5 MG Tablet PO ×2 (17:35→23:44)
[2023-12-18] MEDS: Insulin Human 75/25 Kwickpen 30 UNIT SC (17:36)
[2023-12-18 17:56] LABS: Bedside Glucose 237 mg/dL (74-106)
--- NOTE | 2023-12-18 19:07 | CT_ITS ---
STUDY: CT ABDOMEN AND PELVIS WITH CONTRAST REASON FOR EXAM: Male, 53 years old. RUQ pain post nathan -- IV only RADIATION DOSAGE (If Supplied By Facility): CTDIvol = ( 17.07 ) mGy, DLP = ( 1379.28 ) mGycm TECHNIQUE: Transaxial images were obtained from the dome of the diaphragm to the symphysis pubis without oral contrast. IV 100mL Isovue-370 was administered. Sagittal and coronal images were reconstructed. Individualized dose optimization techniques were used for this CT. COMPARISON: None. FINDINGS: Atelectasis at the lung bases. The visualized portions of the heart are within normal limits. Normal liver. Mesentery stranding in the gallbladder fossa likely related to recent cholecystectomy. No significant dilatation of the extrahepatic biliary system. Normal spleen. Normal pancreas. Minimal pneumoperitoneum. Normal bilateral adrenal glands. Normal right kidney. Possible 7 mm lower pole stone in the left kidney. Normal visualized stomach. Normal small intestine. Diverticulosis of the colon. The appendix is visualized and appears normal. Normal abdominal aorta. Normal inferior vena cava. Normal retroperitoneum. Normal urinary bladder. Subcutaneous emphysema of the abdominal wall likely postsurgically related. Small fatty umbilical hernia. Normal osseous structures. CT/Abdomen/Pelvis W IV Cont ONLY IMPRESSION: Minimal pneumoperitoneum and subcutaneous emphysema, likely postsurgically related. Mesentery stranding in the gallbladder fossa likely related to recent cholecystectomy. No drainable collection is noted. Mild colonic diverticulosis. Possible nonobstructive left renal stone. Atelectasis at the lung bases. Electronically Signed: Mathew Altman DO at 20:41 EDT ,
[2023-12-18] MEDS: HYDROmorphone 1 MG/ML Syringe IV ×2 (19:29→21:40)
--- NOTE | 2023-12-18 19:51 | NURSING ---
car ferrier found a bottle of oxy at the pt's bedside. put in medication envelope and locked in the med room
--- NOTE | 2023-12-18 20:10 | PCM.PN.BLA ---
Progress Note Patient was having a lot of postoperative pain after surgery. He was admitted for pain control. He was still having 10/10 pain on the floor. Labs were ordered and appeared for the most part normal and as expected. I ordered a CT of the abdomen to evaluate for hematoma. CT done but not officially reviewed. I do not see any fluid or sign of bleeding in the abdomen, minimal air from surgery, no fluid collections in or around the liver. Pt reassured and will continue pain regimen as ordered. Jovany Rivas MD
--- NOTE | 2023-12-18 20:11 | NURSING ---
Pt back from a test. informed pt that his pills have been locked up because the can't be at the bedside. all medications must be ordered by the dr and administered by the RN. pt verbalized understanding.
[2023-12-18] MEDS: 0.9% Saline Lock 10 ML Syringe IV (21:40)
[2023-12-18] MEDS: Metoprolol Tartrate 100 MG Tablet PO (21:44)
[2023-12-18] MEDS: Atorvastatin Calcium 40 MG Tablet PO (21:45)
[2023-12-19] VITALS (8 sets, daily range): BP systolic 125–169; BP diastolic 73–100; PULSE 87–94; RESP 16–22; TEMP 36.6–37.2; O2SAT 92–94
--- NOTE | 2023-12-19 01:36 | EKG12_ITS ---
Test Reason : PREOP Blood Pressure : / mmHG Vent. Rate : 086 BPM Atrial Rate : 086 BPM P-R Int : 210 ms QRS Dur : 084 ms QT Int : 376 ms P-R-T Axes : 040 -15 011 degrees QTc Int : 449 ms Sinus rhythm with 1st degree A-V block Possible Anterior infarct (cited on or before 31-AUG-2023) Abnormal ECG Confirmed by Antonino Fox ([id number]), editor school photograph SASCHA PARKS ([id number]) on 12/20/2023 8:59:46 AM Referred By: Jovany Rivas Confirmed By:Antonino Fox
[2023-12-19] MEDS: HYDROmorphone 1 MG/ML Syringe IV ×6 (01:38→23:32)
[2023-12-19] MEDS: 0.9% Saline Lock 10 ML Syringe IV ×4 (01:39→15:27)
[2023-12-19] MEDS: Ondansetron 4 MG/2 ML Vial IV ×2 (01:45→07:44)
[2023-12-19] MEDS: 0.9% Normal Saline (1000mL) 1,000 ML 100 ML IV ×3 (01:47→23:35)
[2023-12-19 02:47] LABS: Troponin-I HS 14 pg/mL (3.0-78.0)
[2023-12-19] MEDS: oxyCODONE 5 MG Tablet PO ×5 (04:36→21:35)
[2023-12-19] MEDS: Acetaminophen 325 MG Tablet 650 MG PO ×5 (04:38→21:36)
[2023-12-19 06:43] LABS: Absolute Lymphocyte Count 0.83 X10^3/uL (0.83-4.51); Absolute Neutrophil Count 9.5 X10^3/uL (2.0-7.7); Basophil# 0.03 X10^3/uL; Basophil% 0.3 % (0-1); Hematocrit 42.3 % (40-54); Hemoglobin 13.7 g/dL (13.0-16.5); Lymphocyte # 0.83 X10^3/ul (0.83-4.51); Lymphocyte % 7.3 % (19-41); Mean Corp Hgb Conc 32.4 g/dL (32-36); Mean Corpuscular Hgb 28.4 pg (27.0-32.0); Mean Corpuscular Volume 87.6 fL (80-94); Mean Platelet Vol. 10.1 fl (6.2-12.0); Monocyte% 8.8 % (0-10); NRBC Flagged by Analyzer 0 % (0-5); Neutrophil # 9.51 X10^3/uL (2.7-7.7); Neutrophil % 83.2 % (47-70); Platelet Count 248 K/mm3 (150-450); RBC Distribution Width CV 14.7 % (11.6-14.6); RBC Distribution Width SD 47.7 fl (35.1-43.9); Red Blood Count 4.83 M/mm3 (4.6-6.2); White Blood Count 11.4 K/mm3 (4.4-11.0)
[2023-12-19 07:18] LABS: Anion Gap 5 (5-15); BUN 12 mg/dL (7-18); BUN/Creat Ratio 15.9 RATIO (10-20); Calcium,Total 8.7 mg/dL (8.5-10.1); Chloride 101 mmol/L (98-107); Creatinine, Serum 0.76 mg/dL (0.70-1.30); EST Glomerular Filtration Rate 115 mL/min (>60); Est Glom Filt Rate - Afr Amer 139 mL/min (>60); Glucose 214 mg/dL (74-106); Potassium 4.2 mmol/L (3.5-5.1); Sodium Level 137 mmol/L (136-145)
[2023-12-19 08:33] LABS: Bedside Glucose 185 mg/dL (74-106)
[2023-12-19] MEDS: Insulin Human 75/25 Kwickpen 30 UNIT SC ×2 (08:51→12:37)
[2023-12-19] MEDS: glipiZIDE 10 MG Tablet PO (08:52)
[2023-12-19] MEDS: Metoprolol Tartrate 100 MG Tablet PO ×2 (08:53→21:36)
[2023-12-19] MEDS: Losartan Potassium 100 MG Tablet PO (08:53)
[2023-12-19] MEDS: Pantoprazole Sodium 40 MG Tablet PO (08:53)
[2023-12-19] MEDS: dilTIAZem CD 240 MG Capsule PO (08:53)
--- NOTE | 2023-12-19 11:10 | PCM.PN.SRG ---
Subjective Subjective Patient is still complaining of abdominal pain but he says it is better than last night. He denies nausea or vomiting but he is not having any appetite and is not drinking much. He complains of upper abdominal pain in the right upper quadrant Objective Data Objective Data Vital Signs: Vital Signs Temp Pulse Resp BP Pulse Ox O2 Del Method O2 Flow Rate 98.2 F 94 16 162/87 H 92 Room Air 2 12/19/23 08:39 12/19/23 08:53 12/19/23 08:39 12/19/23 08:39 12/19/23 08:39 12/19/23 08:39 12/18/23 13:30 Oxygen Flow Rate (L/min) 2 Oxygen Delivery Method Room Air Weight: 313 lb 3.2 oz Body Mass Index (BMI) 47.6 Intake & Output: Intake and Output for Last 24 Hours 12/17/23 12/18/23 12/19/23 23:59 23:59 23:59 Intake Total 1915.5 / 1915.5 1166.67 / 1166.67 Output Total 700 / 700 400 / 400 Balance 1215.5 / 1215.5 766.67 / 766.67 Lab / Micro Data 12/19/23 05:19 12/19/23 05:19 Labs: Laboratory Results - last 24 hr 12/18/23 14:00: POC Glucose 274 H 12/18/23 16:07: WBC 11.9 H, RBC 4.97, Hgb 13.9, Hct 42.7, MCV 85.9, MCH 28.0, MCHC 32.6, RDW Std Deviation 46.3 H, RDW Coeff of Jax 14.7 H, Plt Count 241, MPV 10.2, Immature Gran % (Auto) 0.300, Neut % (Auto) 80.4 H, Lymph % (Auto) 12.2 L, Ellsworth % (Auto) 6.8, Eos % (Auto) 0.1, Baso % (Auto) 0.2, Absolute Neuts (auto) 9.6 H, Absolute Lymphs (auto) 1.46, Nucleated RBC % 0, Sodium 133 L, Potassium 4.2, Chloride 101, Carbon Dioxide 26.0, Anion Gap 6, BUN 14, Creatinine 1.04, Estim Creat Clear Calc 113.71, Est GFR (MDRD) Af Amer 96, Est GFR (MDRD) Non-Af 79, BUN/Creatinine Ratio 13.5, Glucose 286 H, Calcium 9.0, Total Bilirubin 0.70, AST 129 H, ALT 146 H, Alkaline Phosphatase 129 H, Troponin I High Sens 11, Total Protein 7.2, Albumin 3.4, Globulin 3.8, Albumin/Globulin Ratio 0.9 12/18/23 17:32: POC Glucose 237 H 12/19/23 01:58: Troponin I High Sens 14 12/19/23 05:19: WBC 11.4 H, RBC 4.83, Hgb 13.7, Hct 42.3, MCV 87.6, MCH 28.4, MCHC 32.4, RDW Std Deviation 47.7 H, RDW Coeff of Jax 14.7 H, Plt Count 248, MPV 10.1, Immature Gran % (Auto) 0.400, Neut % (Auto) 83.2 H, Lymph % (Auto) 7.3 L, Ellsworth % (Auto) 8.8, Eos % (Auto) 0.0, Baso % (Auto) 0.3, Absolute Neuts (auto) 9.5 H, Absolute Lymphs (auto) 0.83, Nucleated RBC % 0, Sodium 137, Potassium 4.2, Chloride 101, Carbon Dioxide 31.0, Anion Gap 5, BUN 12, Creatinine 0.76, Estim Creat Clear Calc 155.60, Est GFR (MDRD) Af Amer 139, Est GFR (MDRD) Non-Af 115, BUN/Creatinine Ratio 15.9, Glucose 214 H, Calcium 8.7 12/19/23 08:09: POC Glucose 185 H Radiography Diagnostic Testing: Radiology Impression Abdomen/Pelvis CT 12/18/23 19:07 IMPRESSION: Minimal pneumoperitoneum and subcutaneous emphysema, likely postsurgically related. Mesentery stranding in the gallbladder fossa likely related to recent cholecystectomy. No drainable collection is noted. Mild colonic diverticulosis. Possible nonobstructive left renal stone. Atelectasis at the lung bases. Electronically Signed: Mathew Altman DO at 20:41 EDT Reading Location ID and State: [facility] / [place] Tel [phone], Service support , Physical Exam Const oriented x3 and no apparent distress Resp normal respiratory effort Cardio regular rate and regular rhythm GI soft to palpation Palpation: tender RUQ Assessment & Plan Assessment/Plan (1) Cholelithiasis with chronic cholecystitis: PLAN: Patient had cholecystectomy for very inflamed gallbladder yesterday. He was in a lot of pain last night. I reordered labs after surgery and admitted him for pain control. He was still having severe pain yesterday evening. Troponins were checked as well as an EKG. CT scan of the abdomen was checked and there was no fluid in the gallbladder fossa or large amounts of area or signs of anything bleeding or leaking bile. Patient's white count remains the same as yesterday as well as hemoglobin. Liver enzymes are pending still. Continue pain control and try to get his pain manageable on oral medications. Continue clears until he is tolerating this. Jovany Rivas MD Pager: [facility] [address] [place] [address], [address] [place] [address] Office:
[2023-12-19 11:24] LABS: AST(SGOT) 76 U/L (15-37); Alanine Aminotransfer ALT/SGPT 132 U/L (16-61); Albumin, Serum 3.6 g/dL (3.2-5.0); Alkaline Phosphatase 134 U/L (45-117); Bilirubin, Direct 0.37 mg/dL (0.00-0.30); Globulin 3.9 g/dL (2.2-4.2); Protein, Total 7.5 g/dL (6.4-8.2)
[2023-12-19] MEDS: Methimazole 5 MG Tablet 30 MG PO (11:40)
[2023-12-19 12:06] LABS: Bedside Glucose 219 mg/dL (74-106)
[2023-12-19 17:26] LABS: Bedside Glucose 136 mg/dL (74-106)
[2023-12-19] MEDS: Atorvastatin Calcium 40 MG Tablet PO (21:36)
[2023-12-20] VITALS (13 sets, daily range): BP systolic 118–177; BP diastolic 70–114; PULSE 93–126; RESP 16–24; TEMP 36.3–37.2; O2SAT 92–95; BMI 47.6
[2023-12-20] MEDS: Ondansetron 4 MG/2 ML Vial IV ×3 (00:20→19:30)
[2023-12-20] MEDS: Acetaminophen 325 MG Tablet 650 MG PO ×2 (01:40→08:56)
[2023-12-20] MEDS: oxyCODONE 5 MG Tablet PO ×2 (01:41→05:38)
[2023-12-20] MEDS: Losartan Potassium 100 MG Tablet PO (05:46)
[2023-12-20 06:43] LABS: Absolute Neutrophil Count 11.9 X10^3/uL (2.0-7.7); Basophil# 0.03 X10^3/uL; Basophil% 0.2 % (0-1); Eosinophil# 0.01 X10^3/uL; Eosinophils% 0.1 % (0-5); Hematocrit 42.3 % (40-54); Hemoglobin 13.8 g/dL (13.0-16.5); Lymphocyte % 9.6 % (19-41); Mean Corp Hgb Conc 32.6 g/dL (32-36); Mean Corpuscular Hgb 28.6 pg (27.0-32.0); Mean Corpuscular Volume 87.6 fL (80-94); Mean Platelet Vol. 10.1 fl (6.2-12.0); Monocyte# 1.21 X10^3/uL; Monocyte% 8.3 % (0-10); NRBC Flagged by Analyzer 0 % (0-5); Neutrophil % 81.3 % (47-70); Platelet Count 266 K/mm3 (150-450); RBC Distribution Width SD 48.5 fl (35.1-43.9); Red Blood Count 4.83 M/mm3 (4.6-6.2); White Blood Count 14.6 K/mm3 (4.4-11.0)
--- NOTE | 2023-12-20 06:59 | PCM.PN.SRG ---
Subjective Subjective Patient is still reporting a lot of pain. He reports he is not passing any flatus. He is nauseated. No vomiting. Objective Data Objective Data Vital Signs: Vital Signs Temp Pulse Resp BP Pulse Ox O2 Del Method O2 Flow Rate 97.4 F L 96 16 177/92 H 92 Room Air 2 12/20/23 05:39 12/20/23 05:39 12/20/23 05:39 12/20/23 05:39 12/20/23 05:39 12/20/23 05:39 12/18/23 13:30 Oxygen Flow Rate (L/min) 2 Oxygen Delivery Method Room Air Weight: 313 lb 3.2 oz Body Mass Index (BMI) 47.6 Intake & Output: Intake and Output for Last 24 Hours 12/18/23 12/19/23 12/20/23 23:59 23:59 23:59 Intake Total 1915.5 / 1915.5 3153.34 / 3453.34 600 / 600 Output Total 700 / 700 400 / 400 Balance 1215.5 / 1215.5 2753.34 / 3053.34 600 / 600 Lab / Micro Data 12/20/23 06:13 12/19/23 05:19 Labs: Laboratory Results - last 24 hr 12/19/23 01:58: Total Bilirubin 1.10 H, Direct Bilirubin 0.37 H, AST 76 H, ALT 132 H, Alkaline Phosphatase 134 H, Total Protein 7.5, Albumin 3.6, Globulin 3.9 12/19/23 05:19: Sodium 137, Potassium 4.2, Chloride 101, Carbon Dioxide 31.0, Anion Gap 5, BUN 12, Creatinine 0.76, Estim Creat Clear Calc 155.60, Est GFR (MDRD) Af Amer 139, Est GFR (MDRD) Non-Af 115, BUN/Creatinine Ratio 15.9, Glucose 214 H, Calcium 8.7 12/19/23 08:09: POC Glucose 185 H 12/19/23 11:48: POC Glucose 219 H 12/19/23 17:06: POC Glucose 136 H 12/20/23 06:13: WBC 14.6 H, RBC 4.83, Hgb 13.8, Hct 42.3, MCV 87.6, MCH 28.6, MCHC 32.6, RDW Std Deviation 48.5 H, RDW Coeff of Jax 15.0 H, Plt Count 266, MPV 10.1, Immature Gran % (Auto) 0.500, Neut % (Auto) 81.3 H, Lymph % (Auto) 9.6 L, [place] % (Auto) 8.3, Eos % (Auto) 0.1, Baso % (Auto) 0.2, Absolute Neuts (auto) 11.9 H, Absolute Lymphs (auto) 1.40, Nucleated RBC % 0 Physical Exam Const oriented x3 and no apparent distress Resp normal respiratory effort Cardio regular rate and regular rhythm GI soft to palpation Palpation: tender Assessment & Plan Assessment/Plan (1) Cholelithiasis with chronic cholecystitis: (2) Intractable pain: PLAN: Plan Patient is still very painful after laparoscopic cholecystectomy. CT scan yesterday was unremarkable. I am ordering a KUB today as he says he is not passing flatus. He may have a postoperative ileus. If necessary will place NG. Awaiting LFTs. Continue IV fluids as patient still not tolerating a diet. Jovany Rivas MD Pager: [facility] [address] [place] [address], [address] [place] [address] Office:
--- NOTE | 2023-12-20 07:15 | RAD_ITS ---
STUDY: X-RAY - ABDOMEN/PELVIS REASON FOR EXAM: Male, 53 years old. ileus TECHNIQUE: KUB COMPARISON: None. FINDINGS: . Bibasilar tracer pulmonary edema with small right effusion and possible tiny left pleural effusion. Diffusely distended stomach and multiple loops of small bowel with paucity of air in the colon which may be consistent with evolving small bowel obstruction. There is no demonstrated free abdominal air. Gastric tube is noted with tip in the distal gastric fundus The visualized liver, spleen and kidneys are grossly normal in size and morphology. Normal soft tissue structures. Postsurgical changes of the right hip and degenerative change. The lumbar spine and left hip also demonstrate degenerative changes. RAD/Abdomen Single View IMPRESSION: Probable small bowel obstruction status post nasogastric tube placement Electronically Signed: Yaya Montoya MD at 17:29 EDT ,
[2023-12-20 07:26] LABS: ALB/GLOB Ratio 0.8 RATIO (0.9-2.4); AST(SGOT) 37 U/L (15-37); Alanine Aminotransfer ALT/SGPT 89 U/L (16-61); Albumin, Serum 3.3 g/dL (3.2-5.0); Alkaline Phosphatase 130 U/L (45-117); Anion Gap 6 (5-15); BUN 9 mg/dL (7-18); BUN/Creat Ratio 11.4 RATIO (10-20); Calcium,Total 9.1 mg/dL (8.5-10.1); Chloride 101 mmol/L (98-107); Creatinine, Serum 0.79 mg/dL (0.70-1.30); EST Glomerular Filtration Rate 109 mL/min (>60); Est Glom Filt Rate - Afr Amer 132 mL/min (>60); Estimated Creatinine Clearance 149.69 ml/min; Glucose 191 mg/dL (74-106); Potassium 3.6 mmol/L (3.5-5.1); Protein, Total 7.3 g/dL (6.4-8.2); Sodium Level 133 mmol/L (136-145)
[2023-12-20] MEDS: Fleet Enema 133 ML RC (08:54)
[2023-12-20] MEDS: glipiZIDE 10 MG Tablet PO (08:54)
[2023-12-20] MEDS: Pantoprazole Sodium 40 MG Tablet PO (08:55)
[2023-12-20] MEDS: dilTIAZem CD 240 MG Capsule PO (08:55)
[2023-12-20] MEDS: Metoprolol Tartrate 100 MG Tablet PO ×2 (08:55→21:56)
[2023-12-20] MEDS: Bisacodyl 5 MG Tablet 10 MG PO (08:55)
[2023-12-20] MEDS: Methimazole 5 MG Tablet 30 MG PO (08:59)
--- NOTE | 2023-12-20 09:17 | NM_ITS ---
We are attempting to reach an attending provider to discuss findings. An addendum with communication details will be sent when the communication is complete. CLINICAL: 53-year-old male with history of recent cholecystectomy with postoperative pain and suspected bile leak. RADIONUCLIDE HEPATOBILIARY SCINTIGRAPHY COMPARISON: CT of the abdomen-pelvis report 12/18/2023 FINDINGS: Following the intravenous administration of 5.7 mCi of 99m Tc Mebrofenin, hepatobiliary images reveal: 1. Relatively prompt and homogeneous radiopharmaceutical concentration is noted by a normal sized liver. No parenchymal defects are identified. 2. Gallbladder fossa activity is identified at 15-16 minutes following tracer injection. 3. Small intestinal tract is observed at 15 minutes post radiopharmaceutical administration. 4. Washout of the radiopharmaceutical by the hepatic parenchyma appears qualitatively normal. 5. There is a visualized bile leak identified at the gallbladder fossa at approximately 15 minutes post injection as described above. NM/Hepatobilliary Imaging IMPRESSION: 1. ABNORMAL 99m Tc Mebrofenin hepatobiliary imaging examination. A. There is a visualized bile leak identified in the the distribution of the gallbladder fossa as defined previously. Electronically Signed: Umair Pritchett DO at 13:50 EDT ,
[2023-12-20] MEDS: 0.9% Normal Saline (1000mL) 1,000 ML 100 ML IV ×2 (10:07→19:38)
[2023-12-20] MEDS: 0.9% Saline Lock 10 ML Syringe IV ×2 (10:07→12:25)
[2023-12-20] MEDS: HYDROmorphone 1 MG/ML Syringe IV ×3 (12:25→21:42)
[2023-12-20 12:42] LABS: Bedside Glucose 164 mg/dL (74-106)
--- NOTE | 2023-12-20 13:07 | PN_ITS ---
Progress Note I reviewed the patient's HIDA scan. I believe I see a bile leak in the area of the gallbladder fossa. Awaiting final read. I discussed ERCP with stent placement with the patient. I discussed the procedure as well as the risks including but not limited to bleeding, infection, injury other organs or perforation of the bile duct or bowel or pancreatitis. Patient understands all the risks and is willing to proceed. He is still having his blood thinners held. I am trying to see if they will have openings to take him to surgery today or if I will take him tomorrow. I will start some antibiotics. Jovany Rivas MD Pager: [facility] [address] [place] [address], [address] [place] [address] Office:
--- NOTE | 2023-12-20 14:15 | PN_ITS ---
Progress Note Patient's HIDA did confirm bile leak. They were able to get me a time at 330 today for ERCP with stent placement. Jovany Rivas MD Pager: [facility] [address] [place] [address] [address] [place] [address] Office:
--- NOTE | 2023-12-20 14:15 | PCM.PN.BLA ---
Progress Note Patient's HIDA did confirm bile leak. They were able to get me a time at 330 today for ERCP with stent placement. Jovany Rivas MD Pager: [facility] [address] [place] [address] [address] [place] [address] Office:
--- NOTE | 2023-12-20 14:48 | NURSING ---
karely tubed down to AC
[2023-12-20] MEDS: Ciprofloxacin 400 MG/200 ML BAG 200 MG IV ×2 (15:02→21:36)
[2023-12-20] MEDS: 0.9% Normal Saline (1000mL) 1,000 ML 15 ML IV (15:02)
--- NOTE | 2023-12-20 15:35 | RAD_ITS ---
ERCP INDICATION: Evaluation of pancreas and ductal stent placement TECHNIQUE: ERCP and pancreatic ductal stent placement was performed in usual fashion by attending legal entity controller. 988 seconds of fluoroscopic time were utilized. FINDINGS: 12 fluoroscopic guided images were obtained during the examination to document findings. For more complete information recommend correlation with gastroenterology notes. RAD/ERCP Biliary/Pancreas IMPRESSION: Fluoroscopic-guided ERCP and pancreatic ductal stent placement Electronically Signed: Yaya Montoya MD at 18:32 EDT ,
--- NOTE | 2023-12-20 17:22 | PCM.OPRPT ---
Report of Operation Date of Procedure: 12/20/23 Pre-Operative Diagnosis: Bile leak Post-Operative Diagnosis: Same Surgery/Procedure Performed:: ERCP with stenting of pancreatic duct Type of Anesthesia: General/Regional Description of Procedure: Patient was brought back to the op room and general anesthesia was induced. Patient was placed in prone position. A well-lubricated ERCP scope was placed into the mouth and down into the stomach and into the duodenum. The ampulla was identified and appeared normal with flowing bile. I was unable to cannulate the common bile duct. I was able to cannulate the pancreatic duct multiple times I left a wire and attempted to double wire but I was unable to get into the common bile duct. Dr. Mayo, our GI physician, was called and he attempted as well but was unable to deeply cannulate or perform a sphincterotomy on the common bile duct. He placed a pancreatic stent. The patient will be transferred to tertiary center for reattempt at ERCP with stent placement. Admit VTE Documentation VTE Mechan Device Prophylaxis: SCD's
--- NOTE | 2023-12-20 17:24 | PCM.PN.BLA ---
Progress Note I attempted ERCP but I was only able to cannulate the pancreatic duct. The GI doctor attempted as well and he thinks he was able to cannulate the common duct but it was too strictured to be able to advance a balloon or anything to dilate it into the duct. I am trying to transfer the patient to for ERCP. Jovany Rivas MD Pager: [facility] [address] [place] [address], [address] [place] [address] Office:
--- NOTE | 2023-12-20 17:34 | NURSING ---
face sheet faxed to and confirmation of receipt
--- NOTE | 2023-12-20 18:32 | SUR.PHASEI ---
PATIENT CONFUSED AND TRYING TO GET OUT OF BED. HE IS UNABLE TO UNDERSTAND COMMANDS ABOUT HIS SAFETY. HE STATES HE HAS TO PEE BUT DOESN'T UNDERSTAND THAT HE JUST HAD SURGERY AND IS TRYING TO GET OUT OF BED. WE HELPED HIM GET UP TO THE BED SIDE COMMODE AND HE COULDN'T PEE. WE GOT HIM BACK TO BED, AND SITUATED HE SLEPT FOR A FEW MINUTES. THEN STARTED TO SAY HE WAS LEAVING AGAIN. I AM A HUMAN BEING AND YOU CAN'T KEEP ME AGAINST MY WILL. HIS DAD CALLED AND HIS COMING IN. HE IS STILL NOT COOPERATING AND ASKED TO USE HIS PHONE TO CALL HIS MOM. THAT IS WHAT HE IS DOING NOW.
[2023-12-20 18:35] LABS: Bedside Glucose 252 mg/dL (74-106)
--- NOTE | 2023-12-20 19:08 | SUR.PHASEI ---
PATIENT WAS TOLD MANY TIMES THAT HE WAS TRYING TO GET OUT OF BED SOON HE ARRIVED IN PACU. WE TOLD HIM THAT WE WERE HOLDING TO PREVENT HIM FROM FALLING OUT OF BED AND INJURING HIMSELF. THIS NURSE DID NOT EVEN GET HIS FIRST ASSESSMENT DONE D/T HIM TRYING TO GET OUT OF BED. TWO OTHER NURSES AND DR. MARQUES ALONG WITH THIS NURSE TRIED TO REDIRECT THE PATIENT TO KEEP HIM IN BED AND SAFE DURING THE IMMEDIATE PACU PERIOD. WE WERE EVENTUALLY ABLE ALONG WITH HIS DAD TO REDIRECT HIM BACK TO HIS BED. EXPLAIN TO HIM THAT HE NEEDS TO RETURN TO HIS ROOM TO MOVE TO THE NEXT STEP TO POSSIBLY BE TRANSFERRED TO ANOTHER HOSPITAL WHERE ADVANCED SURGICAL PROCEDURES CAN BE PERFORMED. HE WAS EXPLAINED THIS BY DR. CONTI ON THE PHONE. THE SEASONER AND SECURITY CAME AND STOOD AT THE BEDSIDE. A FINAL SET OF VITAL SIGNS WERE OBTAINED AND REPORT SENT TO PRAKASH REDDING ALONG WITH A VERBAL PHONE REPORT TO PRAKASH BY [facility] RED[facility]. HE WAS ACCOMPIANED BY SEASONER AND SECURITY WITH [facility] REDDING PUSHING THE BED BACK UP TO [facility] ROOM 306.
[2023-12-20] MEDS: metroNIDAZOLE 500 MG/100 ML BAG 100 MG IV (23:06)
[2023-12-21 01:40] VITALS: BP 144/78; PULSE 88; RESP 18; TEMP 36.6; O2SAT 95
[2023-12-21] MEDS: HYDROmorphone 1 MG/ML Syringe IV ×2 (01:43→03:52)
[2023-12-21] MEDS: Ondansetron 4 MG/2 ML Vial IV (01:43)
--- NOTE | 2023-12-21 02:32 | NURSING ---
per primary RN [facility] has a bed for pt [facility] rm [id number]. [facility] called and pickup time is 0630. Dr. Rob corona pt has a bed
[2023-12-21] MEDS: 0.9% Normal Saline (1000mL) 1,000 ML 100 ML IV (05:09)
[2023-12-21] MEDS: metroNIDAZOLE 500 MG/100 ML BAG 100 MG IV (05:09)
[2023-12-21 06:01] VITALS: BP 134/76; PULSE 89; RESP 16; TEMP 36.7; O2SAT 94
[2023-12-21 07:25] LABS: Absolute Lymphocyte Count 1.19 X10^3/uL (0.83-4.51); Basophil# 0.02 X10^3/uL; Basophil% 0.2 % (0-1); Eosinophil# 0.01 X10^3/uL; Eosinophils% 0.1 % (0-5); Hematocrit 38.1 % (40-54); Hemoglobin 12.3 g/dL (13.0-16.5); Lymphocyte # 1.19 X10^3/ul (0.83-4.51); Lymphocyte % 10.4 % (19-41); Mean Corp Hgb Conc 32.3 g/dL (32-36); Mean Corpuscular Hgb 28.5 pg (27.0-32.0); Mean Corpuscular Volume 88.4 fL (80-94); Mean Platelet Vol. 10.2 fl (6.2-12.0); Monocyte# 1.12 X10^3/uL; Monocyte% 9.8 % (0-10); NRBC Flagged by Analyzer 0 % (0-5); Neutrophil % 78.9 % (47-70); Platelet Count 221 K/mm3 (150-450); RBC Distribution Width CV 14.9 % (11.6-14.6); RBC Distribution Width SD 48.5 fl (35.1-43.9); Red Blood Count 4.31 M/mm3 (4.6-6.2); White Blood Count 11.4 K/mm3 (4.4-11.0)
[2023-12-21 08:00] LABS: ALB/GLOB Ratio 0.6 RATIO (0.9-2.4); AST(SGOT) 56 U/L (15-37); Alanine Aminotransfer ALT/SGPT 115 U/L (16-61); Albumin, Serum 2.7 g/dL (3.2-5.0); Alkaline Phosphatase 143 U/L (45-117); Anion Gap 8 (5-15); BUN 12 mg/dL (7-18); Calcium,Total 8.9 mg/dL (8.5-10.1); Chloride 103 mmol/L (98-107); EST Glomerular Filtration Rate 107 mL/min (>60); Est Glom Filt Rate - Afr Amer 130 mL/min (>60); Estimated Creatinine Clearance 147.82 ml/min; Globulin 4.3 g/dL (2.2-4.2); Glucose 166 mg/dL (74-106); Potassium 3.6 mmol/L (3.5-5.1); Sodium Level 137 mmol/L (136-145)
--- NOTE | 2023-12-21 08:11 | PCM.DC.SUM ---
Providers Date of Admission: 12/20/23 Primary Care Physician: Dr. Karen Xie MD Diagnosis Discharge Diagnosis (1) Cholelithiasis with chronic cholecystitis: Status: Chronic Code(s): K80.10 - Calculus of gallbladder with chronic cholecystitis without obstruction (2) Intractable pain: Status: Acute Code(s): R52 - Pain, unspecified Medications at Discharge Home Medications blood sugar diagnostic (Accu-Chek Maggi Plus test strips) #100 ea 09/26/23 blood-glucose meter #1 ea 09/26/23 lancets (Accu-Chek Softclix Lancets) #100 ea 09/26/23 metoprolol tartrate 100 mg tablet 100 mg PO BID #60 tabs 09/26/23 pen needle, diabetic 29 gauge x 1/2 (BD Ultra-Fine Original Pen Needle) #100 ea 09/26/23 sennosides 8.6 mg-docusate sodium 50 mg tablet (Stool Softener-Stimulant Laxative) 2 tab PO BID PRN PRN Constipation #30 tabs 09/26/23 methimazole 10 mg tablet 30 mg (3 x 10 mg) PO DAILY thyroid #90 tabs 11/01/23 pen needle, diabetic 32 gauge x 5/32 (BD Ultra-Fine Mily Pen Needle) #100 ea 11/01/23 apixaban 5 mg tablet (Eliquis) 5 mg PO BID #60 tabs 12/03/23 atorvastatin 40 mg tablet 40 mg PO QHS #30 tabs 12/03/23 diltiazem HCl 240 mg capsule,extended release 24 hr 240 mg PO DAILY #30 caps 12/03/23 losartan 100 mg tablet 100 mg PO DAILY #30 tabs 12/03/23 pantoprazole 40 mg tablet,delayed release (Protonix) 40 mg PO DAILY #30 tabs 12/03/23 glipizide 10 mg tablet 10 mg PO DAILY diabetes mellitus 12/06/23 insulin lispro protamine-lispro 100 unit/mL (50-50) subcutaneous pen (Humalog Mix 50-50 KwikPen) 30 unit subcut TID diabetes 12/06/23 FreeStyle Nito 3 Sensor (blood-glucose sensor) #2 ea 12/13/23 dulaglutide 3 mg/0.5 mL subcutaneous pen injector (Trulicity) 3 mg subcut QWEEK 12/14/23 oxycodone 5 mg tablet 5 - 10 mg (1 - 2 x 5 mg) PO Q6H PRN pain 5 days #20 tabs 12/18/23 Hospital Course Operations cholecystecomy (with attempted IOC) and ERCP (with pancreatic stent placed and attempted common bile duct stent placement ) Summary of Care Provided Minutes Spent on Discharge: 35 Hospital Course: Patient is a 53 y/o M who presented for an elective laparoscopic cholecystectomy with intraoperative cholangiogram on 12/18/[address] Rivas. Cholecystectomy was completed and intraoperative cholangiogram was attempted however was unsuccessful. Patient developed significant abdominal pain post-operatively and was admitted. Patient's WBC elevated on POD #2 along with his liver enzymes with concern for possible bile leak or retained stones. HIDA scan was obtained demonstrating a bile leak at the gallbladder fossa. An ERCP was performed by Dr. Rivas on 12/20/23 with a pancreatic stent being placed and attempted common bile duct stent placement without success. Our range management specialist, Dr. Mayo, was consulted intraoperatively and attempted multiple times to place a stent in the common bile duct and was unsuccessful. Dr. Mayo ended up placing a pancreatic stent. It was recommended the patient be transferred to a tertiary facility for a reattempt at an ERCP with stent placement. Patient was accepted and transferred to [facility]. Upon discharge, patient's WBC and total bilirubin was decreasing. AST, ALT and Alk phos were increased. Patient was discharged this morning prior to evaluation. Weight / BMI Weight Weight: 313 lb 3.2 oz Body Mass Index (BMI) 47.6 ABG / Lab / Microbiology Data 12/21/23 06:21 12/21/23 06:21 Laboratory: Laboratory Results - last 24 hr 12/20/23 12:24: POC Glucose 164 H 12/20/23 18:08: POC Glucose 252 H 12/21/23 06:21: WBC 11.4 H, RBC 4.31 L, Hgb 12.3 L, Hct 38.1 L, MCV 88.4, MCH 28.5, MCHC 32.3, RDW Std Deviation 48.5 H, RDW Coeff of Jax 14.9 H, Plt Count 221, MPV 10.2, Immature Gran % (Auto) 0.600, Neut % (Auto) 78.9 H, Lymph % (Auto) 10.4 L, [place] % (Auto) 9.8, Eos % (Auto) 0.1, Baso % (Auto) 0.2, Absolute Neuts (auto) 9.0 H, Absolute Lymphs (auto) 1.19, Nucleated RBC % 0, Sodium 137, Potassium 3.6, Chloride 103, Carbon Dioxide 26.0, Anion Gap 8, BUN 12, Creatinine 0.80, Estim Creat Clear Calc 147.82, Est GFR (MDRD) Af Amer 130, Est GFR (MDRD) Non-Af 107, BUN/Creatinine Ratio 15.0, Glucose 166 H, Calcium 8.9, Total Bilirubin 1.90 H, AST 56 H, ALT 115 H, Alkaline Phosphatase 143 H, Total Protein 7.0, Albumin 2.7 L, Globulin 4.3 H, Albumin/Globulin Ratio 0.6 L Radiography Diagnostic Testing: Radiology Impression KUB X-Ray 12/20/23 07:15 IMPRESSION: Probable small bowel obstruction status post nasogastric tube placement Electronically Signed: Yaya Montoya MD at 17:29 EDT Reading Location ID and State: [address] [place] [address] Tel , Service support , Hepatobiliary Scan Nuclear Medicine 12/20/23 09:17 IMPRESSION: 1. ABNORMAL 99m Tc Mebrofenin hepatobiliary imaging examination. A. There is a visualized bile leak identified in the the distribution of the gallbladder fossa as defined previously. Electronically Signed: Umair Pritchett DO at 13:50 EDT Reading Location ID and State: [facility] / [place] Tel , Service support , ADDENDUM: 12/20/23 1427 IMPRESSION: 1. ABNORMAL 99m Tc Mebrofenin hepatobiliary imaging examination. A. There is a visualized bile leak identified in the the distribution of the gallbladder fossa as defined previously. N.B. : The above Results were Read Back by Umair Pritchett DO to Pepper Castillo RN, and understanding confirmed on 12/20/2023 14:20:50 (ET). Electronically Signed: Umair Pritchett DO at 13:50 EDT , Endo Retro Cholangiopancreatogram 12/20/23 15:35 IMPRESSION: Fluoroscopic-guided ERCP and pancreatic ductal stent placement Electronically Signed: Yaya Montoya MD at 18:32 EDT , D/C Instructions Discharge Diet: Light diet - advance as tolerated May shower in (days): 1 Additional Activity Instructions: Pain medication may cause nausea. You should typically eat light foods as you take your pain medications. Pain medication may also cause constipation. If this is a problem for you, please discuss with your doctor. Ibuprofen and Tylenol alternating for pain, oxycodone for breakthrough pain Resume Eliquis on Monday Call your doctor if your incision/area has: Continuous Slow Oozing, Sudden Increased Bleeding, Increased Pain/ Swelling, Increased Redness and Foul Smelling Discharge Call your doctor if you observe: Fever of 101 or Higher Suture Line Care: Avoid Pulling/Pushing and Avoid Pinching/Bending Additional Dressing/Incision Instructions: Leave operative bandaids on for 2 days. When you remove dressing, leave Steri-Strips on until your follow-up appointment, or until the Steri-Strips fall off on their own. Please Follow Up With: Jovany Rivas MD When: Please call to schedule 2 week follow up appointment. [phone] Meaningful Use Info Meaningful Use Meaningful Use Diagnoses (Choose all that apply): None applicable Ischemic Stroke Statin Dosing Therapy Reference: STATIN DOSE THERAPY REFERENCE: * Patients > 75 years receive moderate or high dose statin therapy. * Patients 75 years or YOUNGER should receive HIGH intensity statin dose unless contraindicated. You will be required to document reason for non-treatment if statin daily dose does not meet guidelines. HIGH DOSE STATIN THERAPY DAILY Atorvastatin > than or = to 40 mg Rosuvastatin > than or = to 20 mg Amlodipine + Atorvastatin > than or = to 2.5/40 mg Ezetimibe + Simvastatin 10/80 mg Simvastatin 80mg Discharge Plan Admission Admit Date/Time: 12/20/23 14:23 Attending Provider: Jovany Rivas Primary Care Provider: Karen Xie Discharge Orders/Prescriptions Prescriptions: New oxycodone 5 mg tablet 5 - 10 mg PO Q6H PRN (Reason: pain) 5 Days Qty: 20 0RF Continued metoprolol tartrate 100 mg tablet 100 mg PO BID Qty: 60 5RF glipizide 10 mg tablet 10 mg PO DAILY Patient Comments: taking 1 tablet normally due to hypglycemia Humalog Mix 50-50 KwikPen 100 unit/mL (50-50) insulin pen 30 unit subcut TID Trulicity 3 mg/0.5 mL pen injector 3 mg subcut QWEEK (DME) Accu-Chek Maggi Plus test strp Strip See Rx Instructions .Route Qty: 100 5RF Rx Instructions: two times daily (DME) blood-glucose meter Misc See Rx Instructions .Route Qty: 1 0RF Rx Instructions: As directed (DME) lancets [Accu-Chek Softclix Lancets] Misc See Rx Instructions .Route Qty: 100 5RF Rx Instructions: two times daily (DME) pen needle, diabetic [BD Ultra-Fine Orig Pen Needle] 29 gauge x 1/2 needle See Rx Instructions .Route Qty: 100 0RF Rx Instructions: two times daily sennosides-docusate sodium [Stool Softener-Stimulant Laxat] 8.6-50 mg tablet 2 tab PO BID PRN PRN (Reason: Constipation) Qty: 30 0RF Rx Instructions: OTC methimazole 10 mg tablet 30 mg PO DAILY Qty: 90 4RF (DME) pen needle, diabetic [BD Ultra-Fine Mily Pen Needle] 32 gauge x 5/32 needle See Rx Instructions .ROUTE .MEDSUPPLY Qty: 100 8RF Rx Instructions: tid diltiazem HCl 240 mg capsule,extended release 24hr 240 mg PO DAILY Qty: 30 1RF Eliquis 5 mg tablet 5 mg PO BID Qty: 60 1RF losartan 100 mg tablet 100 mg PO DAILY Qty: 30 1RF atorvastatin 40 mg tablet 40 mg PO QHS Qty: 30 1RF pantoprazole [Protonix] 40 mg tablet,delayed release (DR/EC) 40 mg PO DAILY Qty: 30 1RF (DME) FreeStyle Nito 3 Sensor Device See Rx Instructions .Route Qty: 2 6RF Rx Instructions: change every 14 days Other Ambulatory Orders: Hemoglobin A1c (Routine) Timeframe: 20231214 Facility: [facility] - Location: Laboratory Ordered By: Dr. Andrea Holt Glucose (Routine) Timeframe: 20231214 Facility: [facility] - Location: Laboratory Ordered By: Dr. Andrea Holt Referrals / Follow Up: Karen Xie MD [Primary Care Provider] - Disposition Disposition (needs filled in before D/C Order can be placed): Acute Care Hospital Charges/Coding Visit Charges Inpatient E&M: 15370 Disch Hosp >30min (no charge; post-op)
[2023-12-21 08:16] LABS: Lipase 20 U/L (13-75)
== END 2023-12-21 06:40 | disposition short-term general hospital (02) | DRG 850 ==
LOC: SDC 14:46 → MS3 14:46
PROVIDERS: Surgery; Admitting Provider Surgery; PCP Internal Medicine; Referring Provider Surgery; Visit Provider Surgery
PROC: 0FT44ZZ Resection of Gallbladder, Percutaneous Endoscopic Approach (ICD-10-PCS; CPT 47610; principal; 2023-12-18 09:00)
PROC: 0FHD8DZ Insertion of Intraluminal Device into Pancreatic Duct, Via Natural or Artificial Opening Endoscopic (ICD-10-PCS; CPT 43260; principal; 2023-12-20 15:30)
DX: G89.18 Other acute postprocedural pain (principal); I42.8 Other cardiomyopathies; I11.0 Hypertensive heart disease with heart failure; K80.10 Calculus of gallbladder with chronic cholecystitis without obstruction; K83.8 Other specified diseases of biliary tract; I50.22 Chronic systolic (congestive) heart failure; Z68.42 Body mass index [BMI] 45.0-49.9, adult; E11.9 Type 2 diabetes mellitus without complications; K91.89 Other postprocedural complications and disorders of digestive system; Z79.84 Long term (current) use of oral hypoglycemic drugs; E66.9 Obesity, unspecified; Z87.891 Personal history of nicotine dependence; Y83.8 Other surgical procedures as the cause of abnormal reaction of the patient, or of later complication, without mention of misadventure at the time of the procedure
CPT/HCPCS: 36415; 74018; 74177; 74330; 76000; 78226; 80048; 80053; 80076; 82962; 83690; 84484; 85025; 88304; 93005; 94668; A9537; J7030; J7120; Q9967; A4216; C1769; J0744; J1610; J2405

== ENCOUNTER 2024-01-13 10:47 | Emergency (ER) | payer MEDICAID, SELFPAY ==
[2024-01-13] VITALS (8 sets, daily range): BP systolic 128–160; BP diastolic 84–101; PULSE 74–158; RESP 16–22; TEMP 36.6–37.1; O2SAT 92–100; BMI 40.7
--- NOTE | 2024-01-13 11:10 | CT_ITS ---
We are attempting to reach an attending provider to discuss findings. An addendum with communication details will be sent when the communication is complete. EXAM: CT ABDOMEN AND PELVIS WITH INTRAVENOUS CONTRAST CLINICAL INDICATION: Abdominal pain. TECHNIQUE: Helically acquired images were obtained of the abdomen and pelvis with intravenous contrast. This CT exam was performed using one or more of the following dose reduction techniques: automated exposure control, adjustment of the mA and/or kV according to patient size, and/or use of iterative reconstruction technique. CONTRAST: IV 100mL Isovue-300 RADIATION DOSE: CTDIvol = 17.02 mGy, DLP = 1292.51 mGy-cm COMPARISON: CT abdomen and pelvis with contrast 12/18/2023. FINDINGS: LOWER THORAX: Unremarkable. Lung bases are clear. No cardiomegaly. No significant pericardial effusion. ABDOMEN: LIVER: Mild diffuse fatty infiltration of the liver is unchanged. GALLBLADDER AND BILE DUCTS: Abnormal increase in volume of lobulated hypodense fluid collection in the cholecystectomy site measuring at least 14.2 x 10.1 cm consistent with biloma from bile leak. No intra- or extrahepatic biliary ductal dilation. PANCREAS: Unremarkable. No focal cystic or solid mass. SPLEEN: Unremarkable. Normal size without focal cystic or solid mass. ADRENALS: Unremarkable. No nodules. KIDNEYS AND URETERS: Unremarkable. Normal renal size and position. No hydronephrosis. STOMACH AND BOWEL: Unremarkable. No stomach or bowel distention. No focal inflammatory change. PELVIS: APPENDIX: Normal. BLADDER: Unremarkable. REPRODUCTIVE: Unremarkable as visualized. No mass. ABDOMEN and PELVIS: INTRAPERITONEAL SPACE: See above. BONES/JOINTS: Unremarkable. No suspicious lytic or blastic abnormality. SOFT TISSUES: Midline lower anterior abdominal wall subcutaneous fat air bubbles have increased in volume. No discrete abdominal or pelvic wall hernia. VASCULATURE: Unremarkable. Abdominal aorta is non-dilated. LYMPH NODES: Unremarkable. No enlarged lymph nodes. CT/Abdomen/Pelvis W IV Cont ONLY IMPRESSION: 1. Increasing size of biloma suggestive of persistent bile leak in the cholecystectomy site measuring at least 14.2 x 10.1 cm when compared to CT abdomen and pelvis of 12/18/2023 and hepatobiliary imaging study of 12/20/2023. 2. Mild increase in subcutaneous air bubbles in the lower midline anterior abdominal wall. Electronically Signed: Artis Ponce MD at 12:17 EDT ,
--- NOTE | 2024-01-13 11:13 | EX.ED.DYSGE1 ---
HPI <INGRIS Phillips - Last Filed: 01/13/24 19:52> History of Present Illness Chief Complaint: Abd Pain Narrative Narrative: 53-year-old male presents with ongoing abdominal pain. He had a cholecystectomy with Dr. Rivas on 12/20/2023. The surgeon did an ERCP but was unable to cannulate the common bile duct. A pancreatic stent was placed and he was transferred to [facility] where he had a washout and ERCP with stent placement. He has been home for about 2 weeks and has had persistent generalized abdominal pain. The pain worsened over the last 4 days with nausea and vomiting. He ran out of oxycodone and does not have antiemetics. He is urinating and had a normal bowel movement this morning. No fever or chills. No other abdominal surgical history. [facility] <INGRIS Phillips - Last Filed: 01/13/24 19:52> [facility] Medical History (Updated 01/13/24 @ 19:52 by INGRIS Phillips) Wears glasses Wears contact lenses Depression Anxiety Thyroid disease Insulin dependent diabetes mellitus High cholesterol Injury of back Dietary restriction Gastric reflux Cardiology follow-up encounter Former smoker History of pain when walking History of echocardiogram History of stress test HFrEF (heart failure with reduced ejection fraction) Hyperglycemia Atrial fibrillation with RVR Recurrent chest pain Nonischemic cardiomyopathy Hyperthyroidism Atrial fibrillation Suspected sleep apnea Intertriginous dermatitis associated with moisture Obesity Type 2 diabetes mellitus Non-healing surgical wound of right groin Hypertension Physical exam, pre-employment Home Medications ?Medication ?Instructions ?Recorded ?Last Taken ?Type blood sugar diagnostic (Accu-Chek #100 ea 09/26/23 Unknown Rx Maggi Plus test strips) blood-glucose meter #1 ea 09/26/23 Unknown Rx lancets (Accu-Chek Softclix #100 ea 09/26/23 Unknown Rx Lancets) metoprolol tartrate 100 mg tablet 100 mg PO BID #60 tabs 09/26/23 01/12/24 Rx pen needle, diabetic 29 gauge x #100 ea 09/26/23 Unknown Rx 1/2 (BD Ultra-Fine Original Pen Needle) methimazole 10 mg tablet 30 mg (3 x 10 mg) PO DAILY thyroid 11/01/23 01/12/24 Rx #90 tabs pen needle, diabetic 32 gauge x #100 ea 11/01/23 Unknown Rx (BD Ultra-Fine Mily Pen Needle) atorvastatin 40 mg tablet 40 mg PO QHS #30 tabs 12/03/23 01/12/24 Rx diltiazem HCl 240 mg 240 mg PO DAILY #30 caps 12/03/23 01/12/24 Rx capsule,extended release 24 hr losartan 100 mg tablet 100 mg PO DAILY #30 tabs 12/03/23 01/12/24 Rx pantoprazole 40 mg tablet,delayed 40 mg PO DAILY #30 tabs 12/03/23 01/12/24 Rx release (Protonix) glipizide 10 mg tablet 10 mg PO DAILY diabetes mellitus 12/06/23 01/12/24 History insulin lispro protamine-lispro 30 unit subcut TID diabetes 12/06/23 01/12/24 History 100 unit/mL (50-50) subcutaneous pen (Humalog Mix 50-50 KwikPen) FreeStyle Nito 3 Sensor #2 ea 12/13/23 Unknown Rx (blood-glucose sensor) dulaglutide 3 mg/0.5 mL 3 mg subcut FR 12/14/23 12/15/23 History subcutaneous pen injector (Trulicity) meloxicam 15 mg tablet 15 mg PO DAILY PRN INFLAMMATION 01/13/24 01/12/24 History AND PAIN methocarbamol 750 mg tablet 750 mg PO Q8H PRN muscle spasm 01/13/24 01/12/24 History sennosides 8.6 mg-docusate sodium 2 tab PO BID PRN Constipation 01/13/24 Unknown History 50 mg tablet (Stool Softener-Stimulant Laxative) Allergy/AdvReac Type Severity Reaction Status Date / Time Penicillins Allergy Hives Verified 12/18/23 07:54 empagliflozin (From AdvReac Unknown Vision Verified 12/18/23 07:54 Jardiance) Changes Family History Grandfather Heart disease Surgical History (Updated 01/13/24 @ 11:26 by Javy Jerez) History of cholecystectomy History of cardiac catheterization Status post incision and drainage S/P debridement H/O right wrist surgery Social History household members: none housing: apartment number of children: 1 current occupational status: unemployed Smoking Status: Former smoker quit date: 11/28/22 pack-years: 20 Tobacco: How many years used: 25 Electronic Cigarette Use: not used alcohol intake: current alcohol intake frequency: holidays/special occasions only substance use type: does not use what type of physical activity do you participate in: none do you feel safe at home: Yes ROS <INGRIS Phillips - Last Filed: 01/13/24 19:52> ROS ED ROS Narrative Constitutional: Negative for fever, chills, malaise. CVS: Negative for chest pain. Respiratory: Negative for shortness of breath, cough. GI: Positive for abdominal pain, nausea, vomiting. Negative for diarrhea, constipation, melena, hematochezia. : Negative for dysuria, hematuria or frequency. EXAM <INGRIS Phillips - Last Filed: 01/13/24 19:52> Physical Exam Narrative Exam Narrative: CONST: Patient sitting in no acute distress. EYES: Normal inspection. NECK: Normal inspection. RESP: No respiratory distress, CTAB. CVS: Regular rate and rhythm, no murmur, no gallop. ABD: Normal appearance with healing laparoscopic incisions with no erythema or signs of infection. Abdomen soft with diffuse tenderness with very light touch, no guarding or rebound, no distention, normal bowel sounds x 4. SKIN: Color normal, no rash, warm, dry, intact. EXTREMITIES: Normal appearance, no pedal edema. NEURO: Alert and answering questions appropriately. PSYCH: Normal affect. Const Vital Signs: 01/13/24 10:47 01/13/24 12:47 01/13/24 14:00 Temperature 97.8 F Temperature Source Temporal Pulse Rate 87 108 H Respiratory Rate 22 H 22 H Blood Pressure 160/84 H 160/101 H 128/100 H Blood Pressure Mean 109 120 109 Pulse Ox 97 95 Oxygen Delivery Method Room Air Room Air 01/13/24 16:00 01/13/24 18:00 01/13/24 18:54 Temperature Temperature Source Pulse Rate 74 97 158 H Respiratory Rate 16 18 18 Blood Pressure 139/91 H 154/98 H Blood Pressure Mean 107 116 Pulse Ox 100 94 92 Oxygen Delivery Method Room Air Room Air Room Air 01/13/24 18:55 01/13/24 19:06 Temperature 98.8 F Temperature Source Pulse Rate 143 H 143 H Respiratory Rate 18 18 Blood Pressure 160/98 H 160/98 H Blood Pressure Mean 118 118 Pulse Ox 92 92 Oxygen Delivery Method Room Air <Artis Wu MD - Last Filed: 01/13/24 21:40> Physical Exam Const Vital Signs: 01/13/24 10:47 01/13/24 12:47 01/13/24 14:00 Temperature 97.8 F Temperature Source Temporal Pulse Rate 87 108 H Respiratory Rate 22 H 22 H Blood Pressure 160/84 H 160/101 H 128/100 H Blood Pressure Mean 109 120 109 Pulse Ox 97 95 Oxygen Delivery Method Room Air Room Air 01/13/24 16:00 01/13/24 18:00 01/13/24 18:54 Temperature Temperature Source Pulse Rate 74 97 158 H Respiratory Rate 16 18 18 Blood Pressure 139/91 H 154/98 H Blood Pressure Mean 107 116 Pulse Ox 100 94 92 Oxygen Delivery Method Room Air Room Air Room Air 01/13/24 18:55 01/13/24 19:06 Temperature 98.8 F Temperature Source Pulse Rate 143 H 143 H Respiratory Rate 18 18 Blood Pressure 160/98 H 160/98 H Blood Pressure Mean 118 118 Pulse Ox 92 92 Oxygen Delivery Method Room Air [facility] <INGRIS Phillips - Last Filed: 01/13/24 19:52> [facility] Narrative Medical decision making narrative: Consults: General surgery, main transfer line/general surgeon Patient is about 3 weeks postop from cholecystectomy at [place] and ERCP with stent placement at [facility], respectively. He presents with persistent abdominal pain and nausea and vomiting. He appears well and nontoxic. Afebrile with stable vital signs. The laparoscopic incisions are healing well and have no signs of infection. Abdomen is soft with generalized tenderness without peritoneal signs. Labs show WBC 13.0 and mild anemia at 11.6. Sodium 129, normal renal function, glucose 253 consistent with his diabetes with normal CO2 and anion gap. LFTs and lipase overall unremarkable. CT scan shows increasing size of biloma concerning for persistent bile leak and mild increase in subcutaneous air bubbles along the lower midline anterior abdominal wall. I discussed the case with our on-call surgeon, Dr. Mensah, who recommended IV antibiotics and transfer back to a tertiary facility as he may need IR or a hepatobiliary specialist to manage this. Patient was given IV clindamycin since he is penicillin allergic. I spoke with main transfer line and he was accepted by the surgeon who did his prior stent, Dr. Marty Charles, at 1310 and is awaiting a bed. Transport arrived around 1900 and patient was given a dose of IV Dilaudid and Zofran. While transferring to the [facility] he went into A-fib RVR in the 180s. He is asymptomatic in this regard. He has chronic A-fib and has been taken p.o. Cardizem this morning due to his abdominal pain. He was given IV diltiazem 20 mg and came down to 130?140. I do not want to give him further antihypertensives as he also just had a dose of Dilaudid and that could cause hypotension. Patient will be on a strategic planning specialist with ALS during transport. Lab Data Attestation: I reviewed the patient's lab results. Labs: Laboratory Results - last 24 hr 01/13/24 10:55 WBC 13.0 H RBC 4.29 L Hgb 11.6 L Hct 36.4 L MCV 84.8 MCH 27.0 MCHC 31.9 L RDW Std Deviation 43.0 RDW Coeff of Jax 13.9 Plt Count 362 MPV 10.1 Immature Gran % (Auto) 0.500 Neut % (Auto) 77.9 H Lymph % (Auto) 12.4 L [place] % (Auto) 9.0 Eos % (Auto) 0.0 Baso % (Auto) 0.2 Absolute Neuts (auto) 10.2 H Absolute Lymphs (auto) 1.62 Nucleated RBC % 0 Sodium 129 L Potassium 4.2 Chloride 91 L Carbon Dioxide 29.0 Anion Gap 9 BUN 21 H Creatinine 0.82 Estim Creat Clear Calc 132.13 Est GFR (MDRD) Af Amer 127 Est GFR (MDRD) Non-Af 105 BUN/Creatinine Ratio 25.7 H Glucose 253 H Calcium 10.4 H Total Bilirubin 0.80 Direct Bilirubin 0.30 AST 41 H ALT 38 Alkaline Phosphatase 135 H Total Protein 8.0 Albumin 2.1 L Globulin 5.9 H Lipase 22 Radiography Diagnostic Testing: Clinical Impression(s) from Imaging Studies Abdomen/Pelvis CT 01/13/24 11:10 IMPRESSION: 1. Increasing size of biloma suggestive of persistent bile leak in the cholecystectomy site measuring at least 14.2 x 10.1 cm when compared to CT abdomen and pelvis of 12/18/2023 and hepatobiliary imaging study of 12/20/2023. 2. Mild increase in subcutaneous air bubbles in the lower midline anterior abdominal wall. Electronically Signed: Artis Ponce MD at 12:17 EDT , ADDENDUM: 01/13/24 1227 IMPRESSION: 1. Increasing size of biloma suggestive of persistent bile leak in the cholecystectomy site measuring at least 14.2 x 10.1 cm when compared to CT abdomen and pelvis of 12/18/2023 and hepatobiliary imaging study of 12/20/2023. 2. Mild increase in subcutaneous air bubbles in the lower midline anterior abdominal wall. N.B. : The above Results were Read Back by Artis Ponce MD to Artis Wu MD, and understanding confirmed on 01/13/2024 12:20:32 (ET). Electronically Signed: Artis Ponce MD at 12:17 EDT , <Artis Wu MD - Last Filed: 01/13/24 21:40> [facility] History & Record Review Discussion w/independent historian: Patient Lab Data Labs: Laboratory Results - last 24 hr 01/13/24 10:55 WBC 13.0 H RBC 4.29 L Hgb 11.6 L Hct 36.4 L MCV 84.8 MCH 27.0 MCHC 31.9 L RDW Std Deviation 43.0 RDW Coeff of Jax 13.9 Plt Count 362 MPV 10.1 Immature Gran % (Auto) 0.500 Neut % (Auto) 77.9 H Lymph % (Auto) 12.4 L [place] % (Auto) 9.0 Eos % (Auto) 0.0 Baso % (Auto) 0.2 Absolute Neuts (auto) 10.2 H Absolute Lymphs (auto) 1.62 Nucleated RBC % 0 Sodium 129 L Potassium 4.2 Chloride 91 L Carbon Dioxide 29.0 Anion Gap 9 BUN 21 H Creatinine 0.82 Estim Creat Clear Calc 132.13 Est GFR (MDRD) Af Amer 127 Est GFR (MDRD) Non-Af 105 BUN/Creatinine Ratio 25.7 H Glucose 253 H Calcium 10.4 H Total Bilirubin 0.80 Direct Bilirubin 0.30 AST 41 H ALT 38 Alkaline Phosphatase 135 H Total Protein 8.0 Albumin 2.1 L Globulin 5.9 H Lipase 22 Radiography Diagnostic Testing: Clinical Impression(s) from Imaging Studies Abdomen/Pelvis CT 01/13/24 11:10 IMPRESSION: 1. Increasing size of biloma suggestive of persistent bile leak in the cholecystectomy site measuring at least 14.2 x 10.1 cm when compared to CT abdomen and pelvis of 12/18/2023 and hepatobiliary imaging study of 12/20/2023. 2. Mild increase in subcutaneous air bubbles in the lower midline anterior abdominal wall. Electronically Signed: Artis Ponce MD at 12:17 EDT , ADDENDUM: 01/13/24 1227 IMPRESSION: 1. Increasing size of biloma suggestive of persistent bile leak in the cholecystectomy site measuring at least 14.2 x 10.1 cm when compared to CT abdomen and pelvis of 12/18/2023 and hepatobiliary imaging study of 12/20/2023. 2. Mild increase in subcutaneous air bubbles in the lower midline anterior abdominal wall. N.B. : The above Results were Read Back by Artis Ponce MD to Artis Wu MD, and understanding confirmed on 01/13/2024 12:20:32 (ET). Electronically Signed: Artis Ponce MD at 12:17 EDT , Management Discussion w/another healthcare provider: [employer] Work[employer] (Dr. Mensah, general surgery and [facility] surgeon.) Treatment and Re-Evaluation :: Dr. Wu: I have personally performed a face to face assessment of the patient and have reviewed the FLYNN Note. I performed a substantive portion of the visit including all aspects of the following. My [place] findings include: History is epigastric pain, diffuse abdominal pain status postcholecystectomy with common bile duct stent placed at [facility] after transfer. Increased pain over the last 4 days. Exam is afebrile. Vital signs noted. Diffuse abdominal pain, right upper quadrant, left lower quadrant as well. Positive bowel sounds. Regular rate and rhythm. Lungs clear to auscultation bilaterally. Neurological examination nonfocal, nonlateralizing. Medical Decision Making: Check labs. Check CT. I reviewed the CT report which does show large biloma consistent with persistent bile duct leak. Discussed with general surgery who suggest transfer. Discussed with accepting surgeon at [facility]. Prior to transfer, patient had not taken his medications and was found to be in atrial fibrillation with RVR. EKG interpreted by myself independently demonstrates atrial fibrillation with rapid ventricular response without acute ST changes. No STEMI. Given Cardizem bolus. Transfer. Other additions or changes: [None] Discharge Plan Triage Chief Complaint: Abd Pain ED Midlevel Provider: Josephine Vasquez ED Provider: Artis Wu Dx/Rx/DC Orders Clinical Impression: Biloma following surgery, Abdominal pain, Nausea and vomiting, History of diabetes mellitus, type II, Atrial fibrillation with RVR Prescriptions: No Action metoprolol tartrate 100 mg tablet 100 mg PO BID Qty: 60 5RF glipizide 10 mg tablet 10 mg PO DAILY Humalog Mix 50-50 KwikPen 100 unit/mL (50-50) insulin pen 30 unit subcut TID Trulicity 3 mg/0.5 mL pen injector 3 mg subcut FR meloxicam 15 mg tablet 15 mg PO DAILY PRN (Reason: INFLAMMATION AND PAIN) methocarbamol 750 mg tablet 750 mg PO Q8H PRN (Reason: muscle spasm) sennosides-docusate sodium [Stool Softener-Stimulant Laxat] 8.6-50 mg tablet 2 tab PO BID PRN (Reason: Constipation) Rx Instructions: OTC (DME) Accu-Chek Maggi Plus test strp Strip See Rx Instructions .Route Qty: 100 5RF Rx Instructions: two times daily (DME) blood-glucose meter Misc See Rx Instructions .Route Qty: 1 0RF Rx Instructions: As directed (DME) lancets [Accu-Chek Softclix Lancets] Misc See Rx Instructions .Route Qty: 100 5RF Rx Instructions: two times daily (DME) pen needle, diabetic [BD Ultra-Fine Orig Pen Needle] 29 gauge x 1/2 needle See Rx Instructions .Route Qty: 100 0RF Rx Instructions: two times daily methimazole 10 mg tablet 30 mg PO DAILY Qty: 90 4RF (DME) pen needle, diabetic [BD Ultra-Fine Mily Pen Needle] 32 gauge x 5/32 needle See Rx Instructions .ROUTE .MEDSUPPLY Qty: 100 8RF Rx Instructions: tid diltiazem HCl 240 mg capsule,extended release 24hr 240 mg PO DAILY Qty: 30 1RF losartan 100 mg tablet 100 mg PO DAILY Qty: 30 1RF atorvastatin 40 mg tablet 40 mg PO QHS Qty: 30 1RF pantoprazole [Protonix] 40 mg tablet,delayed release (DR/EC) 40 mg PO DAILY Qty: 30 1RF (DME) FreeStyle Niot 3 Sensor Device See Rx Instructions .Route Qty: 2 6RF Rx Instructions: change every 14 days Primary Care Provider: Karen Xie Referrals: Karen Xie MD [Primary Care Provider] - Print Language: Upper Sorbian Disposition Disposition: DC/Tx to Another Type of HCF Discharge Location: Main Discharge Date/Time: 01/13/24 19:12
[2024-01-13 11:20] LABS: Absolute Lymphocyte Count 1.62 X10^3/uL (0.83-4.51); Absolute Neutrophil Count 10.2 X10^3/uL (2.0-7.7); Basophil# 0.03 X10^3/uL; Basophil% 0.2 % (0-1); Hematocrit 36.4 % (40-54); Hemoglobin 11.6 g/dL (13.0-16.5); Lymphocyte # 1.62 X10^3/ul (0.83-4.51); Lymphocyte % 12.4 % (19-41); Mean Corp Hgb Conc 31.9 g/dL (32-36); Mean Corpuscular Volume 84.8 fL (80-94); Mean Platelet Vol. 10.1 fl (6.2-12.0); Monocyte# 1.17 X10^3/uL; NRBC Flagged by Analyzer 0 % (0-5); Neutrophil # 10.15 X10^3/uL (2.7-7.7); Neutrophil % 77.9 % (47-70); Platelet Count 362 K/mm3 (150-450); RBC Distribution Width CV 13.9 % (11.6-14.6); Red Blood Count 4.29 M/mm3 (4.6-6.2)
[2024-01-13] MEDS: 0.9% Normal Saline (1000mL) 1,000 ML 1000 ML IV (11:22)
[2024-01-13] MEDS: Ondansetron 4 MG/2 ML Vial IV ×2 (11:22→18:15)
[2024-01-13] MEDS: Morphine 4 MG/ML Syringe IV (11:22)
[2024-01-13 11:36] LABS: AST(SGOT) 41 U/L (15-37); Alanine Aminotransfer ALT/SGPT 38 U/L (16-61); Albumin, Serum 2.1 g/dL (3.2-5.0); Alkaline Phosphatase 135 U/L (45-117); Anion Gap 9 (5-15); BUN 21 mg/dL (7-18); BUN/Creat Ratio 25.7 RATIO (10-20); Calcium,Total 10.4 mg/dL (8.5-10.1); Chloride 91 mmol/L (98-107); Creatinine, Serum 0.82 mg/dL (0.70-1.30); EST Glomerular Filtration Rate 105 mL/min (>60); Est Glom Filt Rate - Afr Amer 127 mL/min (>60); Estimated Creatinine Clearance 132.13 ml/min; Globulin 5.9 g/dL (2.2-4.2); Glucose 253 mg/dL (74-106); Lipase 22 U/L (13-75); Potassium 4.2 mmol/L (3.5-5.1); Sodium Level 129 mmol/L (136-145)
[2024-01-13] MEDS: Ketorolac 30 MG/ML Syringe IV (12:09)
[2024-01-13] MEDS: Clindamycin 600 MG/50 ML BAG 100 MG IV (12:49)
[2024-01-13] MEDS: HYDROmorphone 0.5 MG/0.5 ML SYRINGE IV ×3 (12:56→18:15)
--- NOTE | 2024-01-13 13:23 | ED.RN ---
Patient has been accepted at [facility], but we are waiting on a bed.
[2024-01-13] MEDS: Famotidine 200 MG/20 ML MDV 20 MG in 0.9% Normal Saline (Pres. free 8 ML 300 MG IV (13:53)
--- NOTE | 2024-01-13 14:40 | ED.RN ---
PT REQUESTING MORE PAIN MEDICATION 30 MINUTES AFTER RECEIVING DILUADID. INGRIS ZEE NOTIFIED OF PATIENTS REQUESTS. SAADIA STATES SHE HAS TOLD PATIENT WE HAVE TO GIVE MEDICATION TIME BETWEEN EACH DOSE. PT REQUESTING MORE MEDICATION 1440. INGRIS ZEE NOTIFIED
--- NOTE | 2024-01-13 14:54 | ED.RN ---
PT ASKING FOR MORE PAIN MEDICATION AND CONTINUES TO REPORT NAUSEA. PT GIVEN ALCOHOL PADS TO HELP WITH THE NAUSEA AND AN ICE PACK TO HELP WITH RUQ ABD PAIN. PT MEDICATED WITH SECOND DOSE OF DILAUDID FOR PAIN.
[2024-01-13] MEDS: Dicyclomine 20 MG/2 ML Vial IM (17:19)
--- NOTE | 2024-01-13 17:22 | ED.RN ---
[facility] transfer line called. Patient going to [facility]. Room 6007. Nurse to nurse phone number [phone]. Charge nurse notified to set up transport.
--- NOTE | 2024-01-13 17:32 | ED.RN ---
Per Ragini at [facility], ETA will possibly be around 7pm. ETA could be longer. I did ask them to outsource.
--- NOTE | 2024-01-13 17:34 | ED.RN ---
[facility] [id number] [phone] # for report
--- NOTE | 2024-01-13 18:04 | ED.RN ---
PER INGRIS ZEE DO NOT GIVE ZOFRAN AND DILAUDID UNTIL TRANSPORT IS HERE FOR PATIENT.
--- NOTE | 2024-01-13 18:25 | EKG12_ITS ---
Test Reason : DYSRHYTHMIA Blood Pressure : / mmHG Vent. Rate : 177 BPM Atrial Rate : 000 BPM P-R Int : 000 ms QRS Dur : 080 ms QT Int : 264 ms P-R-T Axes : 000 -17 062 degrees QTc Int : 453 ms Critical Test Result: High HR Atrial fibrillation with rapid ventricular response Minimal voltage criteria for LVH, may be normal variant ( R in aVL ) Septal infarct , age undetermined Abnormal ECG Confirmed by KARIN MEADOWS, YOLA ([id number]), online content editor SASCHA PARKS ([id number]) on 01/15/2024 9:54:36 AM Referred By: MELO Confirmed By:CHYNA FRAZIER MD
[2024-01-13] MEDS: dilTIAZem 25 MG/5 ML Vial 10 MG IV BOLUS ×2 (18:35→18:46)
--- NOTE | 2024-01-13 18:40 | ED.RN ---
TRANSPORT HERE FOR PATIENT TO TRANSFER TO . TRANSPORT TEAM NOTIFIED RN- PTS HEART RATE IN 190s. 12 LEAD EKG ORDERED. INGRIS ZEE AND DR. BLAKELY NOTIFIED OF PATIENTS CHANGE IN HEART RATE. PT STATES HE DID NOT TAKE HIS CARDIZEM MEDICATION TODAY. DR. BLAKELY ORDERED 10 MG CARDIZEM IV. HEART RATE NOW 158. DR BLAKELY NOTIFIED.
== END 2024-01-13 19:12 | disposition other institution (70) ==
PROVIDERS: Physician Assistant; Emergency Provider Emergency Medicine; PCP Internal Medicine; Visit Provider Emergency Medicine
DX: K91.89 Other postprocedural complications and disorders of digestive system (principal); I48.91 Unspecified atrial fibrillation; E11.9 Type 2 diabetes mellitus without complications; Z79.4 Long term (current) use of insulin; R11.2 Nausea with vomiting, unspecified; Z87.891 Personal history of nicotine dependence; Z90.49 Acquired absence of other specified parts of digestive tract; K21.9 Gastro-esophageal reflux disease without esophagitis; K83.8 Other specified diseases of biliary tract; Y83.8 Other surgical procedures as the cause of abnormal reaction of the patient, or of later complication, without mention of misadventure at the time of the procedure; R10.9 Unspecified abdominal pain
CPT/HCPCS: 74177; 80048; 80076; 83690; 85025; 93005; 99284; Q9967; A4216; J2405

== ENCOUNTER → 2024-03-12 | Outpatient (CLI) | payer MEDICAID, SELFPAY ==
[2024-03-12 12:26] LABS: Anion Gap 5 (5-15); BUN 16 mg/dL (7-18); BUN/Creat Ratio 19.5 RATIO (10-20); Calcium,Total 9.1 mg/dL (8.5-10.1); Chloride 106 mmol/L (98-107); Creatinine, Serum 0.82 mg/dL (0.70-1.30); EST Glomerular Filtration Rate 104 mL/min (>60); Est Glom Filt Rate - Afr Amer 126 mL/min (>60); Glucose 142 mg/dL (74-106); Potassium 3.7 mmol/L (3.5-5.1); Sodium Level 139 mmol/L (136-145)
[2024-03-12 12:55] LABS: Free T3 2.7 pg/mL (2.18-3.98); T4 Free Direct 0.74 ng/dL (0.76-1.46); Thyroid Stim Hormone (TSH) 0.141 uIU/mL (0.358-3.740)
== END | disposition home or self-care (01) ==
LOC: LAB 11:31
PROVIDERS: Nurse Practitioner Gerontology; PCP Internal Medicine; Referring Provider Nurse Practitioner Family; Visit Provider Nurse Practitioner Family
DX: I10 Essential (primary) hypertension (principal); E05.90 Thyrotoxicosis, unspecified without thyrotoxic crisis or storm
CPT/HCPCS: 36415; 80048; 84439; 84443; 84481

== ENCOUNTER → 2024-05-24 | Outpatient (CLI) | payer MEDICAID, SELFPAY ==
--- NOTE | 2024-05-24 15:47 | CT_ITS ---
STUDY: CT ABDOMEN AND PELVIS WITH CONTRAST REASON FOR EXAM: Male, 53 years old. Pain RADIATION DOSAGE (If Supplied By Facility): CTDIvol = ( 35.95 ) mGy, DLP = ( 1860.13 ) mGycm TECHNIQUE: Transaxial images were obtained from the dome of the diaphragm to the symphysis pubis with oral contrast. IV 100mL Isovue-[id number] was administered. Sagittal and coronal images were reconstructed. Individualized dose optimization techniques were used for this CT. COMPARISON: January 13, 2024 and December 18, 2023. FINDINGS: There is stable benign-appearing 0.3 cm subpleural nodule in the left lower lung. The visualized portions of the heart are within normal limits. There is hepatomegaly with diffuse hepatic enlargement. There are surgical clips in the gallbladder fossa consistent with a prior cholecystectomy. Normal spleen. Normal pancreas. Normal bilateral adrenal glands. Normal right kidney. There is a 0.8 cm stone at the lower pole of the left kidney. Normal visualized stomach. Normal small intestine. There are a few colonic diverticula consistent with diverticulosis. The appendix is visualized and appears normal. There is atherosclerotic calcification of the abdominal aorta, without a demonstrated aneurysm. Normal inferior vena cava. Normal retroperitoneum. Normal urinary bladder. There are prostatic calcifications. There is no free fluid in the abdomen or pelvis There is a small umbilical hernia containing fat. There is degenerative change of the spine. CT/Abdomen/Pelvis WITH Contrast IMPRESSION: Left renal stone. No hydronephrosis. Colonic diverticulosis. No obstruction or abscess. Hepatomegaly. Prior cholecystectomy. There is resolution of previously noted right upper quadrant collection. Electronically Signed: Will Padilla MD at 9:23 EDT ,
[2024-05-24 16:18] LABS: CREATININE FINGERSTICK < 1.0 mg/dL (0.70-1.30); EGFR FINGERSTICK > 60.0000 mL/min (>60)
== END | disposition home or self-care (01) ==
LOC: CT 15:46
PROVIDERS: PCP Internal Medicine; Referring Provider Physician Assistant; Visit Provider Physician Assistant
DX: R10.31 Right lower quadrant pain (principal)
CPT/HCPCS: 74177; Q9967

== ENCOUNTER → 2024-11-01 | Outpatient (CLI) | payer BC, MEDICAID, SELFPAY ==
[2024-11-01 18:11] LABS: Cholesterol 124 mg/dL (<=200); Free T3 3.4 pg/mL (2.18-3.98); High Density Lipoprotein 63 mg/dL; Low Density Lipoprotein Calc. 27 mg/dL; Thyroid Stim Hormone (TSH) 0.245 uIU/mL (0.300-4.200); Triglycerides 171 mg/dL; Very Low Density Lipoprotein 34 mg/dL (5-40); cholesterol:hdl ratio screen 1.98
[2024-11-01 18:12] LABS: ALB/GLOB Ratio 1.4 RATIO (0.9-2.4); AST(SGOT) 21 U/L (<=37); Alanine Aminotransfer ALT/SGPT 25 U/L (<=46); Albumin, Serum 4.1 g/dL (3.5-5.0); Alkaline Phosphatase 108 U/L (40-129); Anion Gap 12 (5-15); BUN 20 mg/dL (4-19); BUN/Creat Ratio 22.3 RATIO (10-20); Calcium,Total 9.3 mg/dL (7.6-11.0); Carbon Dioxide 23.8 mmol/L (21.0-32.0); Chloride 104 mmol/L (98-108); EST Glomerular Filtration Rate 101 (>60); Glucose 103 mg/dL (70-99); Potassium 4.5 mmol/L (3.3-5.1); Protein, Total 7.1 g/dL (5.9-8.4); Sodium Level 140 mmol/L (133-145); Total Bilirubin 0.55 mg/dL (0.00-1.30)
== END | disposition home or self-care (01) ==
PROVIDERS: PCP Internal Medicine; Referring Provider Internal Medicine Endocrinology, Diabetes & Metabolism; Visit Provider Internal Medicine Endocrinology, Diabetes & Metabolism
DX: E11.65 Type 2 diabetes mellitus with hyperglycemia (principal); Z79.4 Long term (current) use of insulin; I10 Essential (primary) hypertension; E05.90 Thyrotoxicosis, unspecified without thyrotoxic crisis or storm
CPT/HCPCS: 36415; 80053; 80061; 82043; 82570; 84439; 84443; 84481